=== PATIENT | male | born 1945 | race Caucasian/White ===

== ENCOUNTER 2020-03-26 07:09 | Emergency (ER) | payer OTHER, SELFPAY ==
--- NOTE | 2020-03-26 07:17 | CT_ITS ---
EXAMINATION: CT HEAD CT FACIAL BONES CLINICAL INFORMATION: Trauma COMPARISON: None TECHNIQUE: Axial CT had is performed without contrast. Axial CT facial bones is performed without contrast. Additional 2-D coronal and sagittal reformatted images for each exam is generated on the CT workstation and uploaded to PACS. DOSE LOWERING TECHNIQUES: This CT examination was performed using dose optimization techniques as appropriate, variously including the following: *Automated exposure control *Adjustment of mA and/or kV according to patient size (this includes techniques or standardized protocols for targeted exams where dose is matched to indication/reason for exam; i.e. extremities or head) *Use of iterative reconstruction technique DLP: 678 mGy-cm (brain) 626 mGy-cm (facial) FINDINGS: CT head: There is hemorrhagic inferior right frontal lobe adjacent to superior orbital fracture. High attenuation intraparenchymal hemorrhage measures approximately 0.8 x 0.8 x 1.9 cm. There is some punctate petechial hemorrhage also in this area and associated parenchymal edema. There is no subdural or epidural hematoma. No intraventricular hemorrhage. The remainder of the brain is unremarkable. The ventricles are normal in size. There is no hydrocephalus. No midline shift. The remainder of the edmonds-white matter differentiation is unremarkable. The calvarium is otherwise intact. The middle ears and mastoids are well-aerated and clear. No pneumocephalus. CT facial bones: Displaced elevated superior medial orbital wall fracture with displacement approximately 0.7 cm towards the brain. The remainder of the orbits, zygomatic arches, pterygoid plates, nasal bones, and mandible appear intact. No other fractures. There is soft tissue swelling overlying the right orbit. The right globe shows mild exophthalmos but otherwise intact. Lens in position. There is some herniation of superior orbital fat into the displaced fracture. Left orbit unremarkable. Preliminary results called and discussed with Dr. Mccoy in the emergency Department at 1001 hours. IMPRESSION: 1. Right inferior frontal lobe acute hemorrhagic contusion/hematoma approximately 0.8 x 0.8 x 1.9 cm secondary to displaced right superior orbital wall fracture. Mild exophthalmos. Globe unremarkable. 2. No epidural or subdural hemorrhage. No hydrocephalus or midline shift.
[2020-03-26 07:18] VITALS: BP 190/83; PULSE 76; RESP 20; TEMP 36.8; O2SAT 100; BMI 33.0
--- NOTE | 2020-03-26 07:18 | CT_ITS ---
EXAMINATION: CT CERVICAL SPINE WITHOUT CONTRAST CLINICAL INFORMATION: Trauma COMPARISON: None TECHNIQUE: Axial images through the cervical spine without contrast. Sagittal and coronal reconstructions on the technologist workstation were obtained. This CT examination was performed using dose optimization techniques as appropriate, variously including the following: *Automated exposure control *Adjustment of mA and/or kV according to patient size (this includes techniques or standardized protocols for targeted exams where dose is matched to indication/reason for exam; i.e. extremities or head) *Use of iterative reconstruction technique DLP: 626 mGy-cm FINDINGS: Bone alignment is normal. No fracture or dislocation is seen. There is multilevel degenerative spondylosis and degenerative disc disease at C5-C6, C6-C7 and C7-T1. There are degenerative changes at the C1 dens articulation. Prevertebral soft tissues are normal. Visualized lung apices are clear. IMPRESSION: Degenerative changes. No fracture or dislocation seen.
--- NOTE | 2020-03-26 07:22 | ED_ITS ---
HPI - Head Injury General Chief complaint: Fall Stated complaint: r eyelid laceration at home Time Seen by Provider: 03/26/20 07:17 Source: patient Mode of arrival: ambulatory Limitations: no limitations History of Present Illness HPI Narrative: 74 yo male fell this AM at 3 out of bed sustained rt orbital hematoma,he is anticoagulated with eliquis. Denies LOC,vomiting . He is also c/o left shoulder pain Complaint: other (RT ORBIT) Onset (ago): hour(s) (5) Arrival Conditions: negative C-spine immobilization present Mechanism of Injury: fall Place: home Loss of Consciousness: no Location of injury: other (RT ORBIT) Severity: moderate Severity scale (1-10): 5 Quality: dull Radiation: none Other Injuries: none Context: other (ELIQUIS) Associated symptoms: denies other symptoms Related Data Allergies Allergy/AdvReac Type Severity Reaction Status Date / Time SHRIMP Allergy Nausea and Uncoded 03/26/20 07:28 Vomiting Review of Systems Constitutional: Constitutional: Denies weakness ENT: Denies disequilibrium Cardiovascular: Cardiovascular: Reports no additional cardiovascular complaints and Denies dyspnea Respiratory: Respiratory: Denies dyspnea Musculoskeletal: Musculoskeletal: Denies tingling Neurologic: Reports system reviewed and no additional complaints, except as documented, Denies Abnormal speech present, Denies focal weakness, Denies memory loss, Denies convulsions, Denies seizure-like activity, Denies Sensory deficit (Neuro), Denies tingling, Denies paresthesias, Denies tremor(s), Denies disequilibrium and Denies weakness Psychiatric: Psychiatric: Denies memory loss PMF Past Medical History Attestation statement: The following information was validated with the patient. Medical History Afib Diabetes PTSD (post-traumatic stress disorder) TBI (traumatic brain injury) Surgical History Hx of vasectomy Social History Social History Smoking Status: Former smoker Smoked in Last 30 Days: No Use of substances other than those prescribed or required for medical reasons: No Advance Directives: No Advance Directives Information Provided: Yes Physical Exam Vital Signs: Vital Signs: Vital Signs Temp Pulse Resp BP Pulse Ox 03/26/20 10:40 72 18 145/61 H 95 03/26/20 09:14 82 18 179/81 H 94 03/26/20 07:18 98.3 F 76 20 190/83 H 100 Body Mass Index 33.0 Const: General: cooperative and no acute distress Orientation/consciousness: oriented to person, oriented to place, oriented to time and patient oriented x3 HENMT: Other: LARGE HEMATOMA RT ORBIT,4 CM LACERATION RT UPPER ORBIT Ears: hearing grossly normal bilaterally General nose exam: Normal external nose present Face and sinus: Yes ecchymosis (RT ORBIT) Mouth: Normal oral and palatal mucosa present Throat: Yes posterior oropharynx normal Neck: Neck: Yes normal visual inspection, Yes full ROM, Yes no lymphadenopathy and Yes no meningeal signs Chest: Chest palpation & inspection: normal inspection of the chest, normal palpation of entire chest wall and abnormal inspection of the chest Resp: Effort & Inspection: normal respiratory effort and able to speak in complete sentences Auscultation: clear to auscultation bilaterally Cardio: Jugular venous distension: no JVD Rate: regular rate GI: Inspection: Yes normal to inspection Percussion: Yes normal to percussion Auscultation: normal bowel sounds : General: Yes no CVA tenderness Back/Spine/Pelvis: Back: no CVA tenderness Cervical Spine: No collar present Neuro: General: oriented to person, oriented to place, oriented to time, patient oriented x3, gait normal and no meningeal signs Cognition (Neuro): normal cognition Speech: No Abnormal speech present Gait exam (Neuro): Normal gait present Motor exam (neuro): 5/5 motor strength present throughout Sensory Exam: No Sensory deficit (Neuro) Extrem: Other: TENDERNESS LEFT SHOULDER Course Reevaluation(s) Reevaluation #1: PATIENT REMAINED AWAKE AND ALERT, HE IS NEUROLOGICALLY INTACT CT SCAN OF THE HEAD REVIEWED WITH [facility], HE WILL BE TRANSFERRED TO THE EMERGENCY ROOM AT [facility] I SPOKE WITH DR. GARCIA WHO ACCEPTED AT THE PATIENT MDM - Head Injury Differential Diagnosis Differential diagnosis: Likely concussion with loss of consciousness Lab Data Result diagrams: 03/26/20 07:49 03/26/20 07:49 Labs: Lab Results 03/26/20 03/26/20 03/26/20 Range/Units 07:49 07:49 07:49 WBC 12.5 H (4.8-10.8) X10*3/uL RBC 4.75 (4.60-5.80) X10*6/uL Hgb 15.4 (14.0-18.0) g/dl Hct 44.8 (42-52) % MCV 94.3 (80-98) fL MCH 32.4 (27.0-33.0) pg MCHC 34.4 (31.0-36.0) g/dl RDW 12.5 (11.0-16.0) % Plt Count 242 (160-400) X10*3/uL MPV 10.7 (9.4-12.4) fL Immature Gran % (Auto) 0.6 H (0.0-0.4) % Neut % (Auto) 80.7 H (45-73) % Lymph % (Auto) 12.4 L (20-40) % Terrell % (Auto) 4.5 (2-11) % Eos % (Auto) 1.2 (0-4) % Baso % (Auto) 0.6 (0-2) % Lymph # (Auto) 1.6 (1.2-4.9) X10*3/uL Terrell # (Auto) 0.6 (0.1-1.2) X10*3/uL Eos # (Auto) 0.2 (0.0-0.4) X10*3/uL Baso # (Auto) 0.1 (0.0-0.2) X10*3/uL Abs Immat Gran (auto) 0.08 H (0.00-0.03) X10*3/uL Absolute Neuts (auto) 10.1 H (2.0-8.3) X10*3/uL Absolute Nucleated RBC 0.000 (0.0-0.012) X10*3/uL Nucleated RBC % (auto) 0.0 (0.0-0.2) /100WBC PT 16.5 H (10.8-13.0) SEC INR 1.4 H (0.9-1.1) APTT 38.3 H (24.1-38.0) SEC Sodium 137 (135-145) mmol/L Potassium 4.2 (3.3-5.1) mmol/l Chloride 102 (96-108) mmol/L Carbon Dioxide 27 (22-29) mmol/L Anion Gap 12 (12-20) BUN 12 (9-16) mg/dL Creatinine 0.88 (0.5-1.4) mg/dL Estim Creat Clear Calc 79.8 Estimated GFR > 60 POC Glucose (60-115) mg/dL Random Glucose 218 H (60-115) mg/dL Calcium 9.1 (8.4-10.2) mg/dL Total Bilirubin 0.7 (0.0-1.0) mg/dL AST 24 (5-37) U/L ALT 27 (0-40) U/L Alkaline Phosphatase 56 (39-117) U/L Total Protein 6.7 (6.5-8.0) g/dL Albumin 4.3 (3.5-5.0) g/dL 03/26/20 Range/Units 08:11 WBC (4.8-10.8) X10*3/uL RBC (4.60-5.80) X10*6/uL Hgb (14.0-18.0) g/dl Hct (42-52) % MCV (80-98) fL MCH (27.0-33.0) pg MCHC (31.0-36.0) g/dl RDW (11.0-16.0) % Plt Count (160-400) X10*3/uL MPV (9.4-12.4) fL Immature Gran % (Auto) (0.0-0.4) % Neut % (Auto) (45-73) % Lymph % (Auto) (20-40) % Terrell % (Auto) (2-11) % Eos % (Auto) (0-4) % Baso % (Auto) (0-2) % Lymph # (Auto) (1.2-4.9) X10*3/uL Terrell # (Auto) (0.1-1.2) X10*3/uL Eos # (Auto) (0.0-0.4) X10*3/uL Baso # (Auto) (0.0-0.2) X10*3/uL Abs Immat Gran (auto) (0.00-0.03) X10*3/uL Absolute Neuts (auto) (2.0-8.3) X10*3/uL Absolute Nucleated RBC (0.0-0.012) X10*3/uL Nucleated RBC % (auto) (0.0-0.2) /100WBC PT (10.8-13.0) SEC INR (0.9-1.1) APTT (24.1-38.0) SEC Sodium (135-145) mmol/L Potassium (3.3-5.1) mmol/l Chloride (96-108) mmol/L Carbon Dioxide (22-29) mmol/L Anion Gap (12-20) BUN (9-16) mg/dL Creatinine (0.5-1.4) mg/dL Estim Creat Clear Calc Estimated GFR POC Glucose 227 H (60-115) mg/dL Random Glucose (60-115) mg/dL Calcium (8.4-10.2) mg/dL Total Bilirubin (0.0-1.0) mg/dL AST (5-37) U/L ALT (0-40) U/L Alkaline Phosphatase (39-117) U/L Total Protein (6.5-8.0) g/dL Albumin (3.5-5.0) g/dL Imaging Data CT scan - head: Radiologist's impression: RIGHT ORBITAL FRACTURE DISPLACED, RIGHT FRONTAL LOBE BLEED There is hemorrhagic inferior right frontal lobe adjacent to superior orbital fracture. High attenuation intraparenchymal hemorrhage measures approximately 0.8 x 0.8 x 1.9 cm. There is some punctate petechial hemorrhage also in this area and associated parenchymal edema. There is no subdural or epidural hematoma. No intraventricular hemorrhage. The remainder of the brain is unremarkable. The ventricles are normal in size. There is no hydrocephalus. No midline shift. The remainder of the edmonds-white matter differentiation is unremarkable. The calvarium is otherwise intact. The middle ears and mastoids are well-aerated and clear. No pneumocephalus. CT facial bones: Displaced elevated superior medial orbital wall fracture with displacement approximately 0.7 cm towards the brain. The remainder of the orbits, zygomatic arches, pterygoid plates, nasal bones, and mandible appear intact. No other fractures. There is soft tissue swelling overlying the right orbit. The right globe shows mild exophthalmos but otherwise intact. Lens in position. There is some herniation of superior orbital fat into the displaced fracture. Left orbit unremarkable. Preliminary results called and discussed with Dr. Mccoy in the emergency Department at 1001 hours. IMPRESSION: 1. Right inferior frontal lobe acute hemorrhagic contusion/hematoma approximately 0.8 x 0.8 x 1.9 cm secondary to displaced right superior orbital wall fracture. Mild exophthalmos. Globe unremarkable. 2. No epidural or subdural hemorrhage. No hydrocephalus or midline shift. Critical Care Time Critical Care Time Critical Care Time: Yes Total Critical Care Time: 35 Attestation: CEREBRAL BLEEDING,DISCUSSION WITH PT /TRANSFER ARRANGEMENT TO [facility] Discharge Plan Discharge Clinical Impression: Orbital fracture Qualifiers: Encounter type: initial encounter Fracture type: closed Qualified Code(s): S02.85XA - Fracture of orbit, unspecified, initial encounter for closed fracture Cerebral hemorrhage following injury Qualifiers: Encounter type: initial encounter Laterality: right Loss of consciousness presence/duration: without LOC Qualified Code(s): S06.340A - Traumatic hemorrhage of right cerebrum without loss of consciousness, initial encounter Patient Disposition: [facility]
--- NOTE | 2020-03-26 07:26 | XR_ITS ---
EXAMINATION: XR SHOULDER, LEFT CLINICAL INFORMATION: Trauma, pain COMPARISON: None TECHNIQUE: The left shoulder is imaged in 4 views. FINDINGS: There is no fracture or dislocation or destructive process. The acromioclavicular alignment is normal. There is small corticated ossicle at superior aspect AC joint. Punctate calcific tendinosis seen in region of distal infraspinatus. Left lung apex is clear and shows no pneumothorax. IMPRESSION: 1. No fracture or dislocation. 2. Punctate calcific tendinosis distal rotator cuff.
[2020-03-26 07:53] LABS: MANUAL DIFF FLAG NO
[2020-03-26 08:02] LABS: Basophils Absolute Auto 0.1 X10*3/uL (0.0-0.2); Basophils Percent Auto 0.6 % (0-2); Eosinophils Absolute Auto 0.2 X10*3/uL (0.0-0.4); Eosinophils Percent Auto 1.2 % (0-4); Hematocrit 44.8 % (42-52); Hemoglobin 15.4 g/dl (14.0-18.0); Imm Gran Abs Auto 0.08 X10*3/uL (0.00-0.03); Imm Gran Pct Auto 0.6 % (0.0-0.4); Lymphocytes Absolute Auto 1.6 X10*3/uL (1.2-4.9); Lymphocytes Percent Auto 12.4 % (20-40); Mean Corpuscular HGB Conc 34.4 g/dl (31.0-36.0); Mean Corpuscular Hemoglobin 32.4 pg (27.0-33.0); Mean Corpuscular Volume 94.3 fL (80-98); Mean Platelet Volume 10.7 fL (9.4-12.4); Monocytes Absolute Auto 0.6 X10*3/uL (0.1-1.2); Monocytes Percent Auto 4.5 % (2-11); Neutrophils Absolute Auto 10.1 X10*3/uL (2.0-8.3); Neutrophils Percent Auto 80.7 % (45-73); Platelet Count 242 X10*3/uL (160-400); Red Blood Count 4.75 X10*6/uL (4.60-5.80); Red Cell Distribution Width 12.5 % (11.0-16.0); White Blood Count 12.5 X10*3/uL (4.8-10.8)
[2020-03-26 08:08] LABS: INTERNATIONAL NORM RATIO 1.4 (0.9-1.1); Prothrombin Time 16.5 SEC (10.8-13.0)
[2020-03-26 08:10] LABS: Partial Thromboplastin Time 38.3 SEC (24.1-38.0)
[2020-03-26 08:15] LABS: Glucose, Whole Blood 227 mg/dL (60-115)
[2020-03-26 08:17] LABS: Alanine Aminotransferase 27 U/L (0-40); Albumin Level 4.3 g/dL (3.5-5.0); Alkaline Phosphatase 56 U/L (39-117); Anion Gap 12 (12-20); Aspartate Amino Transferase 24 U/L (5-37); Bilirubin Total 0.7 mg/dL (0.0-1.0); Blood Urea Nitrogen 12 mg/dL (9-16); Calcium 9.1 mg/dL (8.4-10.2); Carbon Dioxide 27 mmol/L (22-29); Chloride 102 mmol/L (96-108); Creatinine Clr Calc Pharmacy 79.8; Estimated Glomerular Filt Rate > 60; Glucose Random 218 mg/dL (60-115); Potassium 4.2 mmol/l (3.3-5.1); Sodium 137 mmol/L (135-145); Total Protein 6.7 g/dL (6.5-8.0)
[2020-03-26 09:14] VITALS: BP 179/81; PULSE 82; RESP 18; O2SAT 94
--- NOTE | 2020-03-26 09:17 | PC.NURSE ---
PT AMBULATED WITH STEADY GAIT TO THE BATHROOM, PT DOES REPORT SLIGHT HEADACHE PAIN AT 4/10, ANS SOME LEFT SIDED SHOULDER PAIN WITH MOVEMENT. PT'S RIGHT EYE SWOLLEN SHUT, PAINFULL
[2020-03-26 10:40] VITALS: BP 145/61; PULSE 72; RESP 18; O2SAT 95
[2020-03-26] MEDS: Lidocaine HCl 1 % 20 ML VIAL SUBCUT (10:40)
--- NOTE | 2020-03-26 10:43 | PC.NURSE ---
PT RESTING WITH EYES SHUT, SKIN PWD, RESPIRATIONS EVEN AND UNLABORED, NS ON THE MONITOR. ALL NURO INTACT, BUT REPORTS LSIGHT DULL HEADACHE RIGHT OVER THE RIGHT EYE, EYE STILL VERY SWOLLEN AND BLUISH IN COLOR, VS STABLE
--- NOTE | 2020-03-26 11:08 | PC.NURSE ---
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
--- NOTE | 2020-03-26 11:17 | PC.NURSE ---
report given to Natalie mejia at [facility]
== END 2020-03-26 11:18 | disposition short-term general hospital (02) ==
PROVIDERS: Emergency Provider Emergency Medicine
DX: S02.85XA Fracture of orbit, unspecified, initial encounter for closed fracture (principal); S06.340A Traumatic hemorrhage of right cerebrum without loss of consciousness, initial encounter; H57.11 Ocular pain, right eye; M54.5 Low back pain; G44.309 Post-traumatic headache, unspecified, not intractable; M54.2 Cervicalgia; M25.512 Pain in left shoulder; W01.0XXA Fall on same level from slipping, tripping and stumbling without subsequent striking against object, initial encounter; Y93.01 Activity, walking, marching and hiking; Y92.009 Unspecified place in unspecified non-institutional (private) residence as the place of occurrence of the external cause; Z87.891 Personal history of nicotine dependence
CPT/HCPCS: 36415; 70450; 70486; 72125; 73030; 80053; 82947; 85025; 85610; 85730; 99285; 99291

== ENCOUNTER 2024-06-07 08:56 | Emergency (ER) | payer OTHER, SELFPAY ==
--- NOTE | ~2024-06-07 | XR_ITS ---
CLINICAL HISTORY: pain fall 4 views left knee Comparison: None Findings: No fractures, subluxations or dislocations. Mild joint space narrowing medial and lateral knee compartment. No osteochondral lesions or loose bodies. Normal patellar alignment. No suprapatellar joint effusion.No prepatellar soft tissue swelling. Mild calcified atherosclerotic disease. No unusual radiopaque foreign body. Impression: 1. No acute fractures or malalignment This document has been electronically signed by: Inderjit Cutler MD on 06/07/2024 10:51:51
[2024-06-07 08:58] VITALS: BP 125/55; PULSE 59; RESP 20; TEMP 36.7; O2SAT 94; BMI 29.5
--- OUTSIDE RECORDS SUMMARY | 2024-06-07 08:59 | XMS_ITS | Encounter Summary ---
Author Name [facility] Organization [facility] [place] Address [address] [place] [address] Care Team Providers Care Commissioned Security Officer Name Role Phone RISSA MCGRAW Primary Care Provider Unavailnadia hall Insurance Providers: All historical and current Section Date Range: From patient's date of to the date document was created. This section includes the names of all active insurance providers for the patient. Insurance Provider Type of Coverage Plan Name Start of Policy Coverage End of Policy Coverage Group Number Member ID Insurance Provider's Telephone Number Policy Villalta's Name Patient's Relationship to Policy Villalta [employer] [place] PREFERRED PROVIDER ORGANIZAT ION (PPO) STAND GOOD FAMIL Y Jun 11, 2001 [id number] Venkat VELASQUEZ AVID PATIENT MEDICARE (WNR) MEDICARE (M) PART B Dec 09, 2008 PART B [id number] [phone] Venkat VELASQUEZ AVID PATIENT MEDICARE (WNR) MEDICARE (M) PART B Dec 09, 2008 PART B [id number] Venkat VELASQUEZ AVID PATIENT MEDICARE (WNR) MEDICARE (M) PART B Dec 09, 2008 PART B [id number] 30A [phone] Venkat VELASQUEZ AVID PATIENT MEDICARE (WNR) MEDICARE (M) PART A Jun 11, 2007 PART A [id number] Venkat VELASQUEZ AVID PATIENT MEDICARE (WNR) MEDICARE (M) PART A Jun 11, 2007 PART A [id number] 30A Venkat VELASQUEZ AVID PATIENT MEDICARE (WNR) MEDICARE (M) PART A Jun 11, 2007 PART A [id number] 30A Venkat VELASQUEZ AVIVenkat PATIENT Selected Encounter This section includes the information on record at ID for the Encounter. Date/Time Encounter Type Encounter Description Reason Pro vider Source May 19, 2024 12:04 PM Outpatient Encounter TELEPHONE TRIAGE IHE Encounter Template Text not used by ID Plan of Treatment: Future Appointments (+ 6 months) and Future Tests (+/- 45 days) The Plan of Treatment section includes future care activities for the patient [facility] This section includes future appointments and future orders which are active, pending or scheduled. Future Appointments This section includes appointments that were scheduled to occur 6 months from the date of the Encounter, up to a maximum of 20 appointments. The data comes from all [facility]. Appointment Date/Time Appointment Type Appointme nt Facility Name May 26, 2024 11:30 AM AMBULATORY - MEDICINE ID [facility] [place] [facility] Jun 06, 2024 02:30 PM AMBULATORY - MEDICINE ID C [facility] [facility] Jun 17, 2024 02:30 PM AMBULATORY - MEDICINE ID C [facility] [facility] Jul 23, 2024 02:30 PM AMBULATORY - MEDICINE ID C [facility] [place] [facility] Jul 31, 2024 10:45 AM AMBULATORY - NONE ID [facility] [place] [facility] Aug 07, 2024 09:30 AM AMBULATORY - MEDICINE ID C [facility] [facility] Aug 27, 2024 01:00 PM AMBULATORY - NONE ID [facility] [place] [facility] November 04, 2024 02:00 PM AMBULATORY - MEDICINE ID C [facility] [place] [facility] Active, Pending, and Scheduled Orders This section includes a listing of several types of active, pending, and scheduled orders, including clinic medications orders, diagnostic test orders, procedure orders and consult orders; where the start date of the order is 45 days before the date of the Encounter or 45 days after the date of theEncounter. The data comes from all [facility] treatment facilities. Test Date/Time Test Type Test Details Facility Name May 09, 2024 12:00 AM Laboratory - Chemistry Order MICROALBUMIN CREATININE RATIO PANEL URINE (RANDOM) SP [facility] May 26, 2024 12:09 PM Procedure Order ECHO CP CARDIOLOGY ECHO/ NHM Proc Animal Breeder's Choice [facility] Lab Results: +/- 30 days of the encounter This section includes the Chemistry and Hematology Lab Results on record with ID for the patient. Radiology Reports and Pathology Reports are provided separately, in subsequent sections. Lab Results This section contains the Chemistry/Hematology Results that were resulted 30 days before or 30 daysafter the date of the Encounter. Date/Time Source Result Type Result - Unit Interpretation Reference Range Comment May 16, 2024 11:12 AM [facility] HEMOGLOBIN A1C PANEL Specimen Type: BLOOD Comment: Values obtained from A1C measurements can vary. For atypical A1C assays, a reported value of 7.0 could actually be between 6.72 and 7.28 if measured by a reference method. A reported value of 9.0 could actually be between 8.73 and 9.27. Ref: http://www.ngs p.org/CAPdata. asp Ordering Provider: RISSA MCGRAW Report Released Date/Time: May 09, 2024 07:52 AM Reporting Lab: [address] [id number] Performing Lab: [address] [address] HEMOGLOBIN A1C 7.2 H 4.0-5.6 May 16, 2024 11:12 AM [facility] BASIC METABOLIC PANEL (fasting) Specimen Type: SERUM No comment entered. Ordering Provider: RISSA MCGRAW Report Released Date/Time: May 09, 2024 07:52 AM Reporting Lab: [address] [address] Performing Lab: [address] [address] UREA NITROGEN 13 mg/dL 7-25 GLUCOSE 201 mg/dL H 65-100 SODIUM 138 mmol/L 135-145 POTASSIUM 4.1 mmol/L 3.5-5.0 CHLORIDE 101 mmol/L 100-110 CO2 27 meq/L 20-30 CREATININE, Serum 0.90 mg/dL 0.50-1.40 eGFR(CKD-EPI 2020) 88 mL/min >60 Social History: Smoking Status (Most current) and Tobacco Use (All prior to encounter date) This section includes the most current, and the historical, smoking and tobacco- related health factors from the ID facility where the Encounter took place. Current Smoking Status This section includes the most current smoking, or tobacco-related health factor, from the ID facility where the Encounter took place. Date/Time Current Smoking Status Comment [facility] May 17, 2023 02:16 PM [facility] Tobacco Use History This section includes a history of the smoking, or tobacco-related health factors, that were collected on or before the date of the Encounter. The data comes from the ID facility where the Encounter took place. Date/Time Smoking Status/Tobac co Use Comment Facility May 09, 2022 10:45 AM VA-TOBACCO NEVER USED ID [facility] Mar 30, 2021 01:02 PM VA-TOBACCO FORMER USER ID [facility] [place] [facility] Mar 30, 2021 01:02 PM VA-TOBACCO QUIT 5 TO < 15 YRS ID [facility]TR [place] [facility] Aug 31, 2004 09:56 AM HISTORY OF SMOKING QUIT 20 YEARS AGO ID CNTR [facility] [place] [facility] Aug 08, 2004 02:45 PM [facility]ET[facility]CO [facility] Encounter Notes: All associated encounter notes This section contains the clinical notes associated to the Encounter. Date/Time Encounter Note(s) Provider Source May 19, 2024 01:00 PM ADDENDUM: LOCAL TITLE: Addendum STANDARD TITLE: ADDENDUM DATE OF NOTE: MAY 19, 2024@13:00:39 ENTRY DATE: MAY 19, 2024@13:00:40 AUTHOR: ABDON GUERRERO COSIGNER: URGENCY: STATUS: COMPLETED Paranormal Investigator noted in the [facility] portal that arrived via EMS- [facility] to the ED around 12:50. C/o dizziness at rest and n/v starting at 4am. Unsteady gait. Alerting transfer coordinators /elle/ ABDON GUERRERO, MSN, RN, CNL PRIMARY CARE TEAM NURSE Signed: 05/19/2024 13:03 Receipt Acknowledged By: 05/19/2024 15:46 /elle/ Tess Kee MSN,RN,CCM TRANSFER/TRAVELING COORDINATOR === --- Original Document --- 05/19/24 CCC: CLINICAL TRIAGE: Patient Demographics Patient Name: BRIAN VELASQUEZ JR Patient Primary Address: [address] [place] [address] Patient Primary Phone: [phone] Patient : 1945 Patient Age: 78 Caller/Recipient Relation to Patient: Self Caller Name: BRIAN VELASQUEZ JR Emergency Contact: KHADRA VELASQUEZ Triage Summary Conducted triage/discussed symptoms Pain Score: 7 (Moderate to Severe Pain) Utilized the Triage Tool: Yes Chief Complaint: Dizziness System WHEN: Now, 911 Nurse's Recommendation / WHEN: 911 System WHERE: Emergency department Nurse's Recommendation / WHERE: ED ID Patient Disposition Patient/Caregiver agrees to plan of care: Yes Patient is Urgent or Emergent Nursing Plan and Disposition Referred patient to higher level of care Instructed to go to Emergency Room (ER) Advised of Financial Disclaimer: Patient advised that recommendation for care provided during the call does not constitute an approval or authorization for payment by the ID or its staff. Patient advised to report a community ED visit to the national Office of Community Care at within 72 hours. Contacted EMS/e911 Other Other Description: e911 contacted by a colleague Other course(s) of action Generated msg to PACT/Provider Provided guidance for worsening symptoms: *Caller/Patient* advised to call facilities ID Clinical Contact Center or seek immediate medical attention for new or worsening symptoms Nurse Summary Nurse Summary: [place] calling to report that he began vomiting this morning around 04:00. He reports dizziness, and left arm/shoulder pain. reports a history of stroke. BS this morning was 137. also reports that he fell down the stairs two days ago, injuring his back. This author contacted a colleague who summoned 911/ambulance to the home while I stayed on the line with the . is at home with his . [place] understands that the Triage Line is staffed to 24/7 should any need arise. stated no additional concerns to address at this time. +++++ EMS arrived at 9:03. They will recheck the blood sugar and evaluate the patient. Clinical Contact Center Codes Clinic/Location: V1 CWM PHONE CCC RN Decision Support System Output: Triage Complete Triage Date: 05/19/2024, 11:56 AM Triage Note: Decision Support Tool Used: TXCC Phone Triage 19 May 2024 16:49:44 +0000 [facility] Demographics 78 y/o Male Results CC: Dizziness Software suggested: Now, 911 Software suggested follow-up location: Emergency department Values and Measures Duration of CC: 8 Hours Positive Responses HPI: difficulty with balance HPI: dizziness, triggered by head motion PMH: stroke or TIA VS: BP not taken Negative Responses Denies: HPI: difficulty speaking, sudden onset Denies: HPI: diplopia Denies: HPI: dizziness or vertigo, similar to past stroke or TIA Denies: HPI: dysarthria, sudden onset Denies: HPI: dysphagia, sudden onset Denies: HPI: facial weakness, unilateral, sudden onset Denies: HPI: falling to one side Denies: HPI: headache Denies: HPI: mental status change, confusion Denies: HPI: numbness in one arm or hand, sudden onset Denies: HPI: numbness in one foot or leg, sudden onset Denies: HPI: seizure Denies: HPI: symptoms duration longer than 24 hours Denies: HPI: syncope Denies: HPI: unable to walk, sudden onset Denies: HPI: vertigo Denies: HPI: vision loss, unilateral Denies: HPI: weakness in one arm or hand, sudden onset Denies: HPI: weakness in one leg or foot, sudden onset IMPORTANT: This note was created by [facility] Clinical Contact Center staff. Please do not alert the staff member by adding them as a signer for future communications. Alerts are not monitored by this user. /elle/ AFR[place] YAP Signed: 05/19/2024 12:04 Receipt Acknowledged By: 05/19/2024 14:17 /es/ ARIEL GOTTLIEB LPN License Practical Nurse 05/19/2024 13:00 /es/ ABDON GUERRERO, MSN, RN, CNL PRIMARY CARE TEAM NURSE for ELEANOR AGUILERA ABDON GUERRERO ID CNTL [facility] May 19, 2024 12:04 PM RN PROGRESS NOTE: LOCAL TITLE: CCC: CLINICAL TRIAGE STANDARD TITLE: RN PROGRESS NOTE DATE OF NOTE: MAY 19, 2024@12:04:52 ENTRY DATE: MAY 19, 2024@12:04:52 AUTHOR: AFRICA YAP EXP COSIGNER: URGENCY: STATUS: COMPLETED CCC: CLINICAL TRIAGE Has ADDENDA Patient Demographics Patient Name: BRIAN VELASQUEZ JR Patient Primary Address: [address] [place] [address] Patient Primary Phone: [phone] Patient : 1945 Patient Age: 78 Caller/Recipient Relation to Patient: Self Caller Name: BRIAN VELASQUEZ JR Emergency Contact: KHADRA EVA Triage Summary Conducted triage/discussed symptoms Pain Score: 7 (Moderate to Severe Pain) Utilized the Triage Tool: Yes Chief Complaint: Dizziness System WHEN: Now, 911 Nurse's Recommendation / WHEN: 911 System WHERE: Emergency department Nurse's Recommendation / WHERE: ED [facility] Patient Disposition Patient/Caregiver agrees to plan of care: Yes Patient is Urgent or Emergent Nursing Plan and Disposition Referred patient to higher level of care Instructed to go to Emergency Room (ER) Advised of Financial Disclaimer: Patient advised that recommendation for care provided during the call does not constitute an approval or authorization for payment by the ID or its staff. Patient advised to report a community ED visit to the national Office of Community Care at within 72 hours. Contacted EMS/e911 Other Other Description: e911 contacted by a colleague Other course(s) of action Generated msg to PACT/Provider Provided guidance for worsening symptoms: *Caller/Patient* advised to call facilities ID Clinical Contact Center or seek immediate medical attention for new or worsening symptoms Nurse Summary Nurse Summary: [place] calling to report that he began vomiting this morning around 04:00. He reports dizziness, and left arm/shoulder pain. reports a history of stroke. BS this morning was 137. [place] also reports that he fell down the stairs two days ago, injuring his back. This author contacted a colleague who summoned 911/ambulance to the home while I stayed on the line with the . is at home with his . understands that the Triage Line is staffed to 24/7 should any need arise. [place] stated no additional concerns to address at this time. +++++ EMS arrived at 9:03. They will recheck the blood sugar and evaluate the patient. Clinical Contact Center Codes Clinic/Location: V1 CWM PHONE CCC RN Decision Support System Output: Triage Complete Triage Date: 05/19/2024, 11:56 AM Triage Note: Decision Support Tool Used: TXCC Phone Triage 19 May 2024 16:49:44 +0000 [facility] Demographics 78 y/o Male Results CC: Dizziness Software suggested: , 911 Software suggested follow-up location: Emergency department Values and Measures Duration of CC: 8 Hours Positive Responses HPI: difficulty with balance HPI: dizziness, triggered by head motion PMH: stroke or TIA VS: BP not taken Negative Responses Denies: HPI: difficulty speaking, sudden onset Denies: HPI: diplopia Denies: HPI: dizziness or vertigo, similar to past stroke or TIA Denies: HPI: dysarthria, sudden onset Denies: HPI: dysphagia, sudden onset Denies: HPI: facial weakness, unilateral, sudden onset Denies: HPI: falling to one side Denies: HPI: headache Denies: HPI: mental status change, confusion Denies: HPI: numbness in one arm or hand, sudden onset Denies: HPI: numbness in one foot or leg, sudden onset Denies: HPI: seizure Denies: HPI: symptoms duration longer than 24 hours Denies: HPI: syncope Denies: HPI: unable to walk, sudden onset Denies: HPI: vertigo Denies: HPI: vision loss, unilateral Denies: HPI: weakness in one arm or hand, sudden onset Denies: HPI: weakness in one leg or foot, sudden onset IMPORTANT: This note was created by [facility] Clinical Contact Center staff. Please do not alert the staff member by adding them as a signer for future communications. Alerts are not monitored by this user. /elle/ AFRICA YAP Signed: 05/19/2024 12:04 Receipt Acknowledged By: 05/19/2024 14:17 /es/ ARIEL GOTTLIEB MANAGER OF ENVIRONMENTAL SERVICES License Practical Nurse 05/19/2024 13:00 /es/ ABDON GUERRERO, MSN, RN, CNL PRIMARY CARE TEAM NURSE for ELEANOR AGUILERA 05/20/2024 07:22 /es/ RICARDO COLEMAN 05/19/2024 ADDENDUM STATUS: COMPLETED Paranormal Investigator noted in the [facility] portal that arrived via EMS- [facility] to the ED around 12:50. C/o dizziness at rest and n/v starting at 4am. Unsteady gait. Alerting transfer coordinators /elle/ ABDON GUERRERO, MSN, RN, CNL PRIMARY CARE TEAM NURSE Signed: 05/19/2024 13:03 Receipt Acknowledged By: 05/19/2024 15:46 /es/ Tess ASCENCIO,RN,[facility] TRANSFER/TRAVELING COORDINATOR AFR[place] YAP ID CNTRL [facility]
--- OUTSIDE RECORDS SUMMARY | 2024-06-07 08:59 | XMS_ITS | Encounter Summary ---
Author Name [facility] [place] Address [address] [place] [id number] Care Team Providers Care Roundhouse Worker Name Role Phone RISSA MCGRAW Primary Care Provider Unavailnadia e Insurance Providers: All historical and current Section [...] GOOD FAMIL Y [birth year] 11, 2001 [id number] Venkat VELASQUEZ AVID PATIENT MEDICARE (WNR) MEDICARE (M) PART B Dec 09, 2008 PART B [id number] Venkat VELASQUEZ AVID PATIENT MEDICARE (WNR) MEDICARE (M) PART B Dec 09, 2008 PART B [id number] [phone] Venkat VELASQUEZ AVID PATIENT MEDICARE (WNR) MEDICARE (M) PART B Dec 09, 2008 PART B [id number] [id number] Venkat VELASQUEZ AVID PATIENT MEDICARE (WNR) MEDICARE (M) PART A Jun 11, 2007 PART A [id number] [id number] Venkat VELASQUEZ AVID PATIENT MEDICARE (WNR) MEDICARE (M) PART A Jun 11, 2007 PART A [id number] Venkat VELASQUEZ AVID PATIENT MEDICARE (WNR) MEDICARE (M) PART A Jun 11, 2007 PART A [id number] 30A Venkat VELASQUEZ AVIVenkat PATIENT Selected Encounter This section includes the information on record at [place] for the Encounter. Date/Time Encounter Type Encounter Description Reason Pro vider Source May 16, 2024 11:17 AM Outpatient Encounter OPTOMETRY IHE Encounter Template Text not used by [place] Plan of Treatment: Future Appointments (+ 6 months) and Future Tests (+/- 45 days) The Plan of Treatment section includes future care activities for the patient from all [place] [facility] This section includes future appointments and future orders which are active, pending or scheduled. Future Appointments This section includes appointments that were scheduled to occur 6 months from the date of the Encounter, up to a maximum of 20 appointments. The data comes from all [facility]. Appointment Date/Time Appointment Type Appointme nt Facility Name May 26, 2024 11:30 AM AMBULATORY - MEDICINE [place] [facility] [facility] Jun 06, 2024 02:30 PM AMBULATORY - MEDICINE [place] C [facility] [place] [facility] Jun 17, 2024 02:30 PM AMBULATORY - MEDICINE [place] C [facility] [place] [facility] Jul 23, 2024 02:30 PM AMBULATORY - MEDICINE [place] C [facility] [facility] Jul 31, 2024 10:45 AM AMBULATORY - NONE [place] [facility] [place] [facility] Aug 07, 2024 09:30 AM AMBULATORY - MEDICINE [place] C [facility] [facility] Aug 27, 2024 01:00 PM AMBULATORY - NONE [place] [facility] [place] [facility] November 04, 2024 02:00 PM AMBULATORY - MEDICINE [place] C [facility] [place] [facility] Active, Pending, and Scheduled Orders This [...] MICROALBUMIN CREATININE RATIO PANEL URINE (RANDOM) SP [facility] May 26, 2024 12:09 PM Procedure Order ECHO CP CARDIOLOGY ECHO/ [facility] Proc Administrative Fellow's Choice [facility] Lab Results: +/- 30 days of the encounter This section includes the Chemistry and Hematology Lab Results on record with [place] for the patient. Radiology Reports and Pathology Reports are provided separately, in subsequent sections. Lab Results This section contains the Chemistry/Hematology Results that were resulted 30 days before or 30 daysafter the date of the Encounter. Date/Time Source Result Type Result - Unit Interpretation Reference Range Comment May 16, 2024 11:12 AM [facility] HEMOGLOBIN A1C PANEL Specimen Type: BLOOD [...] May 09, 2024 07:52 AM Reporting Lab: [address] [id number] Performing Lab: [address] [address] HEMOGLOBIN A1C 7.2 H 4.0-5.6 May 16, 2024 11:12 AM [facility] BASIC METABOLIC PANEL (fasting) Specimen Type: SERUM No comment entered. Ordering Provider: RISSA MCGRAW Report Released Date/Time: May 09, 2024 07:52 AM Reporting Lab: [address] [address] Performing Lab: [address] [address] UREA NITROGEN 13 mg/dL 7-25 GLUCOSE 201 [...] and tobacco- related health factors from the [place] facility where the Encounter took place. Current Smoking Status This section includes the most current smoking, or tobacco-related health factor, from the [place] facility where the Encounter took place. Date/Time Current Smoking Status Comment [facility] May 17, 2023 02:16 PM VA-TOBACCO NEVER USED [facility] Tobacco Use History This section includes a history of the smoking, or tobacco-related health factors, that were collected on or before the date of the Encounter. The data comes from the [place] facility where the Encounter took place. Date/Time Smoking Status/Tobac co Use Comment Facility May 09, 2022 10:45 AM [facility] Mar 30, 2021 01:02 PM VA-TOBACCO [facility] Mar 30, 2021 01:02 PM VA-TOBACCO QUIT 5 TO < 15 YRS [facility] Aug 31, 2004 09:56 AM HISTORY OF SMOKING QUIT 20 YE[facility] AGO [facility] Aug 08, 2004 02:45 PM [facility]ET[facility]CO [facility] Encounter Notes: All associated encounter notes This section contains the clinical notes associated to the Encounter. Date/Time Encounter Note(s) Provider Source May 16, 2024 11:17 AM TELEPHONE ENCOUNTE R NOTE: LOCAL TITLE: TELEPHONE NOTE/SPECIALTY CLINIC STANDARD TITLE: TELEPHONE ENCOUNTER NOTE DATE OF NOTE: MAY 16, 2024@11:17 ENTRY DATE: MAY 16, 2024@11:17:17 AUTHOR: NEDA BALLARD EXP COSIGNER: URGENCY: STATUS: COMPLETED TELEPHONE NOTE/SPECIALTY CLINIC Has ADDENDA came into specialty care stating he broke the arm on his frames. He said his lenses are fine. He would like the same pair as last time. Veterans cell phone and phone number on file have been confirmed /elle/ NEDA BALLARD SUPERVISOR [employer] Signed: 05/16/2024 11:18 Receipt Acknowledged By: 05/19/2024 11:50 /es/ LINDA POLLARD OPTOMETRY TECH 05/19/2024 09:22 /es/ OCTAVIO HOLLAND [facility] 05/16/2024 13:14 /elle/ Sara Weaver [employer] [place] 05/16/2024 11:47 /es/ ANSHU NOONAN OD MOLDER INFLATED BALL 05/16/2024 ADDENDUM STATUS: COMPLETED I called and spoke with patient- glasses are no longer under warranty. We did not order updated glasses at last visit in August 2023. Will order replacement pair today. Patient was thankful for assistance. /elle/ Sara Weaver [facility] [employer] Signed: 05/16/2024 13:14 NEDA BALLARD [place] [facility]
--- OUTSIDE RECORDS SUMMARY | 2024-06-07 09:00 | XMS_ITS | Encounter Summary ---
Author Name [facility] [place] [facility] [place] Address [address] [place] [address] Care Team Providers Care Website Admin Name Role Phone RISSA MCGRAW Primary Care Provider Unavailabl e Insurance Providers: All historical and current [...] GOOD FAMIL Y Jun 11, 2000 [id number] Venkat VELASQUEZ AVID PATIENT MEDICARE (WNR) MEDICARE (M) PART B Dec 09, 2008 PART B [id number] [id number] Venkat VELASQUEZ AVID PATIENT MEDICARE (WNR) MEDICARE (M) PART B Dec 09, 2008 PART B [id number] Venkat VELASQUEZ AVID PATIENT MEDICARE (WNR) MEDICARE (M) PART B Dec 09, 2008 PART B [id number] 30A Venkat VELASQUEZ AVID PATIENT MEDICARE (WNR) MEDICARE (M) PART A Jun 11, 2007 PART A [id number] [phone] EVA,D AVID PATIENT MEDICARE (WNR) MEDICARE (M) PART A Jun 11, 2007 PART A [id number] [facility] Venkat VELASQUEZ AVIVenkat PATIENT MEDICARE (WNR) MEDICARE (M) PART A Jun 11, 2007 PART A [id number] Venkat VELASQUEZ AVID PATIENT Selected Encounter This section includes the information on record at NH for the Encounter. Date/Time Encounter Type Encounter Description Reason Provider Source May 01, 2024 03:00 PM PARNG/CUTG B9 HYPRKR LES >4 PODIATRY ICD-10-CM E11.40 Type 2 diabetes mellitus with diabetic neuropathy, margi KASSIDY BUCIO Sharif Encounter Template Text not used by NH Assessments - Encounter Diagnoses This section includes the primary and secondary diagnoses documented for the Encounter. Date/Time Primary/Secondary Diagnosis Diagnosis Name Provider Source May 01, 2024 03:30 PM PRIMARY Type 2 diabetes mellitus with diabetic neuropathy, unsp [facility]LE [facility] [place] [facility] May 01, 2024 03:30 PM SECONDARY Corns and callosities [facility] [place] [facility] May 01, 2024 03:30 PM SECONDARY Nail dystrophy [facility] [place] [facility] Plan of Treatment: Future Appointments (+ 6 months) and Future Tests (+/- 45 days) The Plan of Treatment section includes future care activities for the patient from all [place] treatmentfacilities. This section includes future appointments and future orders which are active, pending or scheduled. Future Appointments This section includes appointments that were scheduled to occur 6 months from the date of the Encounter, up to a maximum of 20 appointments. The data comes from all [place] treatment facilities. Appointment Date/Time Appointment Type Appointme nt Facility Name May 13, 2024 07:30 AM AMBULATORY - NONE [place] [facility] [place] [facility] May 26, 2024 11:30 AM AMBULATORY - MEDICINE NH C [facility] [place] [facility] Jun 06, 2024 02:30 PM AMBULATORY - MEDICINE NH C [facility] [place] [facility] Jun 17, 2024 02:30 PM AMBULATORY - MEDICINE NH C [facility] [place] [facility] Jul 23, 2024 02:30 PM AMBULATORY - MEDICINE [facility] Jul 31, 2024 10:45 AM [facility] Aug 07, 2024 09:30 AM [facility] Aug 27, 2024 01:00 PM AMBULATORY - NONE [facility] Active, Pending, and Scheduled Orders This section includes a listing of several types of active, pending, and scheduled orders, including clinic medications orders, diagnostic test orders, procedure orders and consult orders; where the start date of the order is 45 days before the date of the Encounter or 45 days after the date of theEncounter. The data comes from all [place] treatment facilities. Test Date/Time Test Type Test Details Facility Name Mar 18, 2024 12:00 AM Laboratory - Chemistry Order BASIC METABOLIC PANEL (fasting) BLOOD (SST-SERUM) [facility] May 09, 2024 12:00 AM Laboratory - Chemistry Order MICROALBUMIN CREATININE RATIO PANEL URINE (RANDOM) [facility] May 26, 2024 12:09 PM Procedure Order ECHO CP CARDIOLOGY ECHO/ NH[facility] Proc Health Unit Coordinator's Choice [facility] Lab Results: +/- 30 days of the encounter This section includes the Chemistry and Hematology Lab Results on record with NH for the patient. Radiology Reports and Pathology Reports are provided separately, in subsequent sections. Lab Results This section contains the Chemistry/Hematology Results that were resulted 30 days before or 30 daysafter the date of the Encounter. Date/Time Source Result Type Result - Unit Interpretation Reference Range Comment May 16, 2024 11:12 AM [facility] HEMOGLOBIN A1C PANEL Specimen Type: BLOOD [...] May 09, 2024 07:52 AM Reporting Lab: [facility] [address] [id number] Performing Lab: [facility] [address] [facility] [address] HEMOGLOBIN A1C 7.2 H 4.0-5.6 May 16, 2024 11:12 AM [facility] BASIC METABOLIC PANEL (fasting) Specimen Type: SERUM No comment entered. Ordering Provider: RISSA MCGRAW Report Released Date/Time: May 09, 2024 07:52 AM Reporting Lab: [facility] [address] [id number] Performing Lab: [facility] [address] [facility] [address] UREA NITROGEN 13 mg/dL 7-25 GLUCOSE 201 [...] and tobacco- related health factors from the NH facility where the Encounter took place. Current Smoking Status This section includes the most current smoking, or tobacco-related health factor, from the [place] facility where the Encounter took place. Date/Time Current Smoking Status Comment Peng jha May 17, 2023 02:16 PM VA-TOBACCO NEVER USED [facility] Tobacco Use History This section includes a history of the smoking, or tobacco-related health factors, that were collected on or before the date of the Encounter. The data comes from the [place] facility where the Encounter took place. Date/Time Smoking Status/Tobac co Use Comment Facility May 09, 2022 10:45 AM [facility]ACCO [facility] Mar 30, 2021 01:02 PM [facility] Mar 30, 2021 01:02 PM VA-TOBACCO QUIT 5 TO < 15 YRS [facility] Aug 31, 2004 09:56 AM HISTORY OF SMOKING QUIT 20 YEARS AGO [facility] Aug 08, 2004 02:45 PM LIFETIME NON-TOBACCO USER [facility] Encounter Notes: All associated encounter notes This section contains the clinical notes associated to the Encounter. Date/Time Encounter Note(s) Provider Source May 01, 2024 03:26 PM NURSING OUTPATIENT NOTE: LOCAL TITLE: NURSING/SPECIALTY CLINIC NOTE STANDARD TITLE: NURSING OUTPATIENT NOTE DATE OF NOTE: MAY 01, 2024@15:26 ENTRY DATE: MAY 01, 2024@15:26:28 AUTHOR: KASSIDY BUCIO COSIGNER: URGENCY: STATUS: COMPLETED seen in [facility] for continued foot care. Fonda has a history of Diabetes and is unable to trim his/her own nails. Ambulates: [X]self [ ]wheelchair can transfer [ ]wheelchair cannot transfer [x ]without assistance [ ]with assistance of Bilateral: Pedal pulses: Right Foot: Dorsalis Pedis - palpable [x ] non-palpable[ ] Posterior Tibial - palpable[x ] non-palpable[ ] Left Foot: Dorsalis Pedis - palpable [x ] non-palpable [ ] Posterior Tibial - palpable [x ] non-palpable[ ] Pedal sensation: Right Foot: [ x] Intact [ ] Absent out of 10 sites Left Foot: [x ] Intact [ ] Absent out of 10 sites Skin Temperature: [x ] Warm to warm, proximal to distal [ ] Warm to cool/cold, proximal to distal Pedal skin: [x ] Intact [x ] Dry [ ] Cracked [ ] Discolored Webspaces: [x ] Intact [x ] Clean [ ] Soiled [ ] Macerated [x ] Dry Nails: [x ] Thickened [x ] Elongated [x ] Dystrophic [ ] Discolored [x ] Fungal [ ] Incurvated [ ] Subungual debri Hyperkeratosis [x ] Yes, Locations: Bilateral feet distil end of Hallux, 2nd and 3rd toes [ ] No Open lesions/wounds: [ ] Yes, Locations: [x ] No Amputations: [ ] Yes, Locations: [x ] No Edema present: ( ) Yes ( x ) NO Podiatric Problem List: [x ] Diabetes mellitus [ ] Peripheral vascular disease [x ] Neuropathy [ ] Onychomycosis [x ] Dystrophic toenails [x ] Hyperkeratosis/calluses [x ] Xerosis/dry skin [ ] Other: Treatment: [x ] Nails x 10 debrided in length and thickness without incident [x ] Hyperkeratotic lesions were grinded down with eletric graphite grinder and debrided without incidence. [x ]Patient education educated about proper foot care and encouraged to check feet daily for injuries and wounds [x ] Instructed to moisturize feet daily but not in-between to Patient is to RTC in 2.5 months. /elle/ KASSIDY BUCIO LPN LICENSED PRACTICAL NURSE Signed: 05/01/2024 15:30 Receipt Acknowledged By: 05/01/2024 16:49 /elle/ LOY ANDERSON DPM PODIATRY ATTENDING KASSIDY BUCIO CNTRL [facility]
--- OUTSIDE RECORDS SUMMARY | 2024-06-07 09:00 | XMS_ITS | Encounter Summary ---
Author Name [facility] [place] [facility] [place] Organization [facility] [place] Address [address] [place] [id number] Care Team Providers Care Poker Supervisor Name Role Phone RISSA MCGRAW Primary Care [...] GOOD FAMIL Y Jun 11, 2000 [id number] Venkat VELASQUEZ AVID PATIENT MEDICARE (WNR) MEDICARE (M) PART B Dec 09, 2008 PART B [id number] Venkat VELASQUEZ AVID PATIENT MEDICARE (WNR) MEDICARE (M) PART B Dec 09, 2008 PART B [id number] Venkat VELASQUEZ AVID PATIENT MEDICARE (WNR) MEDICARE (M) PART B Dec 09, 2008 PART B [id number] [phone] Venkat VELASQUEZ AVID PATIENT MEDICARE (WNR) MEDICARE (M) PART A Jun 11, 2007 PART A [id number] 30A Venkat VELASQUEZ AVID PATIENT MEDICARE (WNR) MEDICARE (M) PART A Jun 11, 2007 PART A [id number] Venkat VELASQUEZ AVID PATIENT MEDICARE (WNR) MEDICARE (M) PART A Jun 11, 2007 PART A [id number] 30A Venkat VELASQUEZ AVID PATIENT Selected Encounter This section includes the information on record at [place] for the Encounter. Date/Time Encounter Type Encounter Description Reason Pro vider Source May 09, 2024 02:48 PM Outpatient Encounter PRIMARY CARE/MEDICINE IHE Encounter Template Text not used by [place] Plan of Treatment: Future Appointments (+ 6 months) and Future Tests (+/- 45 days) The Plan of Treatment section includes future care activities for the [facility] This section includes future appointments and future orders which are active, pending or scheduled. Future Appointments This section includes appointments that were scheduled to occur 6 months from the date of the Encounter, up to a maximum of 20 appointments. The data comes from all [place] treatment facilities. Appointment Date/Time Appointment Type Appointme nt Facility Name May 13, 2024 07:30 AM AMBULATORY - NONE [place] [facility] [place] [facility] May 26, 2024 11:30 AM AMBULATORY - MEDICINE NM C [facility] [place] [facility] Jun 06, 2024 02:30 PM AMBULATORY - MEDICINE NM C [facility] [place] [facility] Jun 17, 2024 02:30 PM AMBULATORY - MEDICINE NM C [facility] [place] [facility] Jul 23, 2024 02:30 PM AMBULATORY - MEDICINE NM C [facility] [place] [facility] Jul 31, 2024 10:45 AM AMBULATORY - NONE [facility] [place] [facility] Aug 07, 2024 09:30 AM AMBULATORY - MEDICINE NM C [facility] [place] [facility] Aug 27, 2024 01:00 PM AMBULATORY - NONE [facility] [place] [facility] November 04, 2024 02:00 PM AMBULATORY - MEDICINE [place] C [facility] [place] [facility] Active, Pending, and Scheduled Orders This section includes a listing of several types of active, pending, and scheduled orders, including clinic medications orders, diagnostic test orders, procedure orders and consult orders; where the start date of the order is 45 days before the date of the Encounter or 45 days after the date of theEncounter. The data comes from all [place] treatment facilities. Test Date/Time Test Type Test Details Facility Name May 09, 2024 12:00 AM Laboratory - Chemistry Order MICROALBUMIN CREATININE RATIO PANEL URINE (RANDOM) [facility] May 26, 2024 12:09 PM Procedure Order ECHO CP CARDIOLOGY ECHO/ NHM Proc Lot Attendant's Choice [facility] Lab Results: +/- 30 days of the encounter This section includes the Chemistry and Hematology Lab Results on record with [place] for the patient. Radiology Reports and Pathology Reports are provided separately, in subsequent sections. Lab Results This section contains the Chemistry/Hematology Results that were resulted 30 days before or 30 daysafter the date of the Encounter. Date/Time Source Result Type Result - Unit Interpretation Reference Range Comment May 16, 2024 11:12 AM [facility] HEMOGLOBIN A1C PANEL Specimen Type: BLOOD Comment: [...] May 09, 2024 07:52 AM Reporting Lab: [facility] [address] [facility] [id number] Performing Lab: [address] [address] HEMOGLOBIN A1C 7.2 H 4.0-5.6 May 16, 2024 11:12 AM [facility] BASIC METABOLIC PANEL (fasting) Specimen Type: SERUM No comment entered. Ordering Provider: RISSA MCGRAW Report Released Date/Time: May 09, 2024 07:52 AM Reporting Lab: [facility] [address] [facility] [address] Performing Lab: [address] [address] UREA NITROGEN 13 mg/dL 7-25 GLUCOSE 201 [...] and tobacco- related health factors from the [place] facility where the Encounter took place. Current Smoking Status This section includes the most current smoking, or tobacco-related health factor, from the [place] facility where the Encounter took place. Date/Time Current Smoking Status Comment [facility] May 17, 2023 02:16 PM VA-TOBACCO NEVER USED [facility] Tobacco Use History This section includes a history of the smoking, or tobacco-related health factors, that were collected on or before the date of the Encounter. The data comes from the [place] facility where the Encounter took place. Date/Time Smoking Status/Tobac co Use Comment Facility May 09, 2022 10:45 AM [facility] Mar 30, 2021 01:02 PM VA-[facility]BACCO [facility] Mar 30, 2021 01:02 PM VA-TOBACCO QUIT 5 TO < 15 YRS [facility] Aug 31, 2004 09:56 AM HISTORY OF SMOKING QUIT 20 YEARS AGO [facility] Aug 08, 2004 02:45 PM LIFETIME NON-TOBACCO USER [facility] Encounter Notes: All associated encounter notes This section contains the clinical notes associated to the Encounter. Date/Time Encounter Note(s) Provider Source May 09, 2024 02:48 PM ADMINISTRATIVE NOTE: LOCAL TITLE: ADMINISTRATIVE NOTE STANDARD TITLE: ADMINISTRATIVE NOTE DATE OF NOTE: MAY 09, 2024@14:48 ENTRY DATE: MAY 09, 2024@14:48:11 AUTHOR: KRISTIAN SILVA COSIGNER: URGENCY: STATUS: COMPLETED AMSA SPOKE TO ON THE TELEPHONE AND INFORMED HIM OF UPCOMING APPT AND THAT LABWORK IS NEEDED. /elle/ KRISTIAN COLEMAN Signed: 05/09/2024 14:48 KRISTIAN SILVA CN[facility]L [facility]
--- OUTSIDE RECORDS SUMMARY | 2024-06-07 09:00 | XMS_ITS | Encounter Summary ---
Author Name [facility] [place] Organization [place] Address [address] [place] [id number] Care Team Providers Care Molecular Biology Professor Name Role Phone RISSA MCGRAW Primary Care [...] GOOD FAMIL Y Jun 11, 2000 [phone] Venkat VELASQUEZ AVID PATIENT MEDICARE (WNR) MEDICARE (M) PART B Dec 09, 2008 PART B [id number] [phone] Venkat VELASQUEZ AVID PATIENT MEDICARE (WNR) MEDICARE (M) PART B Dec 09, 2008 PART B [id number] Venkat VELASQUEZ AVID PATIENT MEDICARE (WNR) MEDICARE (M) PART B Dec 09, 2008 PART B [id number] Venkat VELASQUEZ AVID PATIENT MEDICARE (WNR) MEDICARE (M) PART A Jun 11, 2007 PART A [id number] Venkat VELASQUEZ AVID PATIENT MEDICARE (WNR) MEDICARE (M) PART A Jun 11, 2007 PART A [id number] Venkat VELASQUEZ AVID PATIENT MEDICARE (WNR) MEDICARE (M) PART A Jun 11, 2007 PART A [id number] Venkat VELASQUEZ AVIVenkat PATIENT Selected Encounter This section includes the information on record at [place] for the Encounter. Date/Time Encounter Type Encounter Description Reason Pro vider Source May 05, 2024 03:46 PM Outpatient Encounter TELEPHONE TRIAGE IHE Encounter Template Text not used by [place] Plan of Treatment: Future Appointments (+ 6 months) and Future Tests (+/- 45 days) The Plan of Treatment section includes future care activities for the patient from all [place] [facility] This section includes future appointments and future orders which are active, pending or scheduled. Future Appointments This section includes appointments that were scheduled to occur 6 months from the date of the Encounter, up to a maximum of 20 appointments. The data comes from all [facility]. Appointment Date/Time Appointment Type Appointme nt Facility Name May 13, 2024 07:30 AM AMBULATORY - NONE [place] [facility] [facility] May 26, 2024 11:30 AM AMBULATORY - MEDICINE [place] [facility] Jun 06, 2024 02:30 PM AMBULATORY - MEDICINE [place] [facility] Jun 17, 2024 02:30 PM AMBULATORY - MEDICINE [place] [facility] Jul 23, 2024 02:30 PM AMBULATORY - MEDICINE [place] [facility] Jul 31, 2024 10:45 AM AMBULATORY - NONE [place] [facility] Aug 07, 2024 09:30 AM AMBULATORY - MEDICINE [place] [facility] Aug 27, 2024 01:00 PM AMBULATORY - NONE [place] [facility] Active, Pending, and Scheduled Orders This section [...] MICROALBUMIN CREATININE RATIO PANEL URINE (RANDOM) SP [facility] May 26, 2024 12:09 PM Procedure Order ECHO CP CARDIOLOGY ECHO/ [facility] Proc Cathode Ray Tube Assembler's Choice [facility] Lab Results: +/- 30 days of the encounter This section includes the Chemistry and Hematology Lab Results on record with [place] for the patient. Radiology Reports and Pathology Reports are provided separately, in subsequent sections. Lab Results This section contains the Chemistry/Hematology Results that were resulted 30 days before or 30 daysafter the date of the Encounter. Date/Time Source Result Type Result - Unit Interpretation Reference Range Comment May 16, 2024 11:12 AM [facility] HEMOGLOBIN A1C PANEL Specimen Type: BLOOD [...] May 09, 2024 07:52 AM Reporting Lab: [address] [id number] Performing Lab: [address] [id number] HEMOGLOBIN A1C 7.2 H 4.0-5.6 May 16, 2024 11:12 AM [facility] BASIC METABOLIC PANEL (fasting) Specimen Type: SERUM No comment entered. Ordering Provider: RISSA MCGRAW Report Released Date/Time: May 09, 2024 07:52 AM Reporting Lab: [address] [id number] Performing Lab: [address] [id number] UREA NITROGEN 13 mg/dL 7-25 GLUCOSE 201 [...] and tobacco- related health factors from the [place] facility where the Encounter took place. Current Smoking Status This section includes the most current smoking, or tobacco-related health factor, from the [place] facility where the Encounter took place. Date/Time Current Smoking Status Comment [facility] May 17, 2023 02:16 PM VA-TOBACCO NEVER USED [facility] Tobacco Use History This section includes a history of the smoking, or tobacco-related health factors, that were collected on or before the date of the Encounter. The data comes from the [place] facility where the Encounter took place. Date/Time Smoking Status/Tobac co Use Comment Facility May 09, 2022 10:45 AM [facility] Mar 30, 2021 01:02 PM VA-TOBACCO FOR[facility] USER [facility] Mar 30, 2021 01:02 PM VA-TOBACCO QUIT 5 TO < 15 YRS [facility] Aug 31, 2004 09:56 AM HISTORY OF SMOKING QUIT 20 YEARS AGO [facility] Aug 08, 2004 02:45 PM LIFETIME NON-TOBACCO USER [facility] Encounter Notes: All associated encounter notes This section contains the clinical notes associated to the Encounter. Date/Time Encounter Note(s) Provider Source May 05, 2024 04:01 PM ADDENDUM: LOCAL TITLE: Addendum STANDARD TITLE: ADDENDUM DATE OF NOTE: MAY 05, 2024@16:01:50 ENTRY DATE: MAY 05, 2024@16:01:51 AUTHOR: CRYSTAL WILKERSON COSIGNER: URGENCY: STATUS: COMPLETED Called to discuss. Per pt, he was not told to discontinue it. Medication was ordered on 04/28/24 and the cancelled from [facility] due to being on backorder. Pt is now out and blood glucose numbers are elevated. Confirmed doses of both insulin as well as oral anti-hyperglycemic medications. I reached out to Dr Laureano, pharmacy operations. RX in short supply but stock available in [facility]. Pt will sisal picker medication at [facility] tomorrow morning. Advised not to take extra bolus insulin. All questions answered and verbalizes agreement with plan. /es/ CARIDAD SPEARSD, BCPS CLINICAL PHARMACIST PRACTITIONER Signed: 05/05/2024 16:04 Receipt Acknowledged By: 05/06/2024 09:34 /es/ RISSA MCGRAW D.O. PHYSICIAN 05/06/2024 07:47 /es/ ELEANOR AGUILERA, JOSE MANUEL REGISTERED NURSE ========= --- Original Document --- 05/05/24 CCC: CLINICAL TRIAGE: Patient Demographics Patient Name: BRIAN VELASQUEZ JR Patient Primary Address: [address] [place] [address] Patient Primary Phone: [phone] Patient : 1945 Patient Age: 78 Caller/Recipient Relation to Patient: Self Caller Name: BRIAN VELASQUEZ JR Emergency Contact: KHADRA EVA Medication Refill/Renewal Request [place] Medications Refill/Renewal Request: calling to say that he has been out of insulin glargine for the last 4-5 days. says that he was told that it was discontinued. would like an immediate call from PACT to advise if he should be taking Novolog at night in place of his glargine. [place] cautioned not to do so until a provider gives him direct advice to do so. [place] states that his blood sugar has been running between 180 and 250 in the last three days. PACT please reach out to as soon as possible. Nursing Plan and Disposition Other course(s) of action Generated msg to PACT/Provider Provided guidance for worsening symptoms: *Caller/Patient* advised to call facilities [place] Clinical Contact Center or seek immediate medical attention for new or worsening symptoms Clinical Contact Center Codes Clinic/Location: V1 CWM PHONE [facility] RN IMPORTANT: This note was created by [facility] Clinical Contact Center staff. Please do not alert the staff member by adding them as a signer for future communications. Alerts are not monitored by this user. /elle/ AFR[place] YAP Signed: 05/05/2024 15:46 Receipt Acknowledged By: 05/06/2024 09:33 /es/ RISSA MCGRAW D.O. PHYSICIAN 05/05/2024 16:01 /es/ CRYSTAL WILKERSON, PHARMD, [facility] CLINICAL PHARMACIST PRACTITIONER 05/05/2024 15:48 /es/ ELEANOR AGUILERA, JOSE MANUEL REGISTERED NURSE CRYSTAL WILKERSON [place] [facility] May 05, 2024 03:46 PM RN PROGRESS NOTE: LOCAL TITLE: CCC: CLINICAL TRIAGE STANDARD TITLE: RN PROGRESS NOTE DATE OF NOTE: MAY 05, 2024@15:46:39 ENTRY DATE: MAY 05, 2024@15:46:39 AUTHOR: AFRICA YAP EXP COSIGNER: URGENCY: STATUS: COMPLETED CCC: CLINICAL TRIAGE Has ADDENDA Patient Demographics Patient Name: BRIAN VELASQUEZ Patient Primary Address: [address] [place] [id number] Patient Primary Phone: [phone] Patient : 1945 Patient Age: 78 Caller/Recipient Relation to Patient: Self Caller Name: BRIAN VELASQUEZ Emergency Contact: KHADRA VELASQUEZ Medication Refill/Renewal Request [place] Medications Refill/Renewal Request: [place] calling to say that he has been out of insulin glargine for the last 4-5 days. [place] says that he was told that it was discontinued. would like an immediate call from PACT to advise if he should be taking Novolog at night in place of his glargine. cautioned not to do so until a provider gives him direct advice to do so. [place] states that his blood sugar has been running between 180 and 250 in the last three days. PACT please reach out to as soon as possible. Nursing Plan and Disposition Other course(s) of action Generated msg to PACT/Provider Provided guidance for worsening symptoms: *Caller/Patient* advised to call facilities [place] Clinical Contact Center or seek immediate medical attention for new or worsening symptoms Clinical Contact Center Codes Clinic/Location: V1 CWM PHONE [facility] RN IMPORTANT: This note was created by [facility] Clinical Contact Center staff. Please do not alert the staff member by adding them as a signer for future communications. Alerts are not monitored by this user. /elle/ A[place] YAP Signed: 05/05/2024 15:46 Receipt Acknowledged By: 05/06/2024 09:33 /elle/ RISSA MCGRAW D.O. PHYSICIAN 05/05/2024 16:01 /elle/ CRYSTAL WILKERSON PHARMD, [facility] CLINICAL PHARMACIST PRACTITIONER 05/05/2024 15:48 /elle/ ELEANOR AGUILERA, RN REGISTERED NURSE 05/05/2024 ADDENDUM STATUS: COMPLETED Called to discuss. Per pt, he was not told to discontinue it. Medication was ordered on 04/28/24 and the cancelled from [facility] due to being on backorder. Pt is now out and blood glucose numbers are elevated. Confirmed doses of both insulin as well as oral anti-hyperglycemic medications. I reached out to Dr Laureano, pharmacy operations. RX in short supply but stock available in [facility]. Pt will sisal picker medication at [facility] tomorrow morning. Advised not to take extra bolus insulin. All questions answered and verbalizes agreement with plan. /elle/ CRYSTAL WLIKERSON PHARMD, [facility] CLINICAL PHARMACIST PRACTITIONER Signed: 05/05/2024 16:04 Receipt Acknowledged By: * AWAITING SIGNATURE * RISSA MCGRAW 05/06/2024 07:47 /elle/ ELEANOR AGUILERA, JOSE MANUEL REGISTERED NURSE [place] YAP [facility]
--- OUTSIDE RECORDS SUMMARY | 2024-06-07 09:00 | XMS_ITS | Encounter Summary ---
Author Name [facility] [place] Organization [place] Address [address] [place] [address] Care Team Providers Care Household Appliance Mechanic Name Role Phone RISSA MCGRAW Primary Care [...] GOOD FAMIL Y Jun 11, [phone] [id number] [phone] Venkat VELASQUEZ AVID PATIENT MEDICARE (WNR) MEDICARE (M) PART B Dec 09, 2008 PART B [id number] [phone] Venkat VELASQUEZ AVID PATIENT MEDICARE (WNR) MEDICARE (M) PART B Dec 09, 2008 PART B [id number] [phone] Venkat VELASQUEZ AVID PATIENT MEDICARE (WNR) MEDICARE (M) PART B Dec 09, 2008 PART B [id number] 30A [phone] Venkat VELASQUEZ AVID PATIENT MEDICARE (WNR) MEDICARE (M) PART A Jun 11, 2007 PART A [id number] [id number] Venkat VELASQUEZ AVID PATIENT MEDICARE (WNR) MEDICARE (M) PART A Jun 11, 2007 PART A [id number] [facility] Venkat VELASQUEZ AVIVenkat PATIENT MEDICARE (WNR) MEDICARE (M) PART A Jun 11, 2007 PART A [id number] 30A [id number] Venkat VELASQUEZ AVIVenkat PATIENT Selected Encounter This section includes the information on record at [place] for the Encounter. Date/Time Encounter Type Encounter Description Reason Pro vider Source Apr 15, 2024 03:18 PM Outpatient Encounter ADMIN PAT ACTIVTIES (MASNONCT) IHE Encounter Template Text not used by [place] Plan of Treatment: Future Appointments (+ 6 months) and Future Tests (+/- 45 days) The Plan of Treatment section includes future care activities for the patient from all [place] treatmentfacilities. This section includes future appointments and future orders which are active, pending or scheduled. Future Appointments This section includes appointments that were scheduled to occur 6 months from the date of the Encounter, up to a maximum of 20 appointments. The data comes from all [place] treatment facilities. Appointment Date/Time Appointment Type Appointme nt Facility Name May 01, 2024 03:00 PM AMBULATORY - [place]ICINE [place] [facility] May 13, 2024 07:30 AM AMBULATORY - NONE [place] [facility] May 26, 2024 11:30 AM AMBULATORY - MEDICINE [place] [facility] Jun 06, 2024 02:30 PM AMBULATORY - MEDICINE [place] [facility] Jun 17, 2024 02:30 PM AMBULATORY - MEDICINE [place] [facility] Jul 23, 2024 02:30 PM AMBULATORY - MEDICINE [place] [facility] Jul 31, 2024 10:45 AM AMBULATORY - NONE [place] [place] [facility] Aug 07, 2024 09:30 AM AMBULATORY - MEDICINE [place] [facility] Aug 27, 2024 01:00 PM AMBULATORY - NONE [place] [place] [facility] Active, Pending, and Scheduled Orders This section includes a listing of several types of active, pending, and scheduled orders, including clinic medications orders, diagnostic test orders, procedure orders and consult orders; where the start date of the order is 45 days before the date of the Encounter or 45 days after the date of theEncounter. The data comes from all [place] treatment facilities. Test Date/Time Test Type Test Details Facility Name Mar 18, 2024 12:00 AM Laboratory - Chemistry Order BASIC METABOLIC PANEL (fasting) BLOOD (SST[facility]SERUM) [facility] May 09, 2024 12:00 AM Laboratory - Chemistry Order MICROALBUMIN CREATININE RATIO PANEL URINE (RANDOM) [facility] May 26, 2024 12:09 PM Procedure Order ECHO CP CARDIOLOGY ECHO/ [facility] Proc Global Sales Director's Choice [facility] Social History: Smoking Status (Most current) and Tobacco Use (All prior to encounter date) This section includes the most current, and the historical, smoking and tobacco- related health factors from the [place] facility where the Encounter took place. Current Smoking Status This section includes the most current smoking, or tobacco-related health factor, from the [place] facility where the Encounter took place. Date/Time Current Smoking Status Comment Peng jha May 17, 2023 02:16 PM [facility] Tobacco Use History This section includes a history of the smoking, or tobacco-related health factors, that were collected on or before the date of the Encounter. The data comes from the [place] facility where the Encounter took place. Date/Time Smoking Status/Tobac co Use Comment Facility May 09, 2022 10:45 AM [facility]TO[facility]ACCO [facility] [place] [facility] Mar 30, 2021 01:02 PM VA-TOBACCO FORMER USER [place] [facility] Mar 30, 2021 01:02 PM VA-TOBACCO QUIT 5 TO < 15 YRS [place] [facility] [place] [facility] Aug 31, 2004 09:56 AM HISTORY OF SMOKING QUIT 20 YEARS AGO [place] [facility] [place] [facility] Aug 08, 2004 02:45 PM LIFETIME NON-TOBACCO USER [facility] [place] [facility] Encounter Notes: All associated encounter notes This section contains the clinical notes associated to the Encounter. Date/Time Encounter Note(s) Provider Source Apr 15, 2024 03:18 PM ADMINISTRATIVE NOT E: LOCAL TITLE: CCC: SCHEDULING ADMINISTRATION STANDARD TITLE: ADMINISTRATIVE NOTE DATE OF NOTE: APR 15, 2024@15:18:53 ENTRY DATE: APR 15, 2024@15:18:53 AUTHOR: BALBIR GALLEGOS EXP COSIGNER: URGENCY: STATUS: COMPLETED CCC: SCHEDULING ADMINISTRATION Has ADDENDA Patient Demographics Patient Name: BRIAN VELASQUEZ JR Patient Primary Phone: [phone] Patient Primary [address]: [address] [place] [address] Patient : 1945 Patient Age: 78 Call Back Number: [phone] Caller/Recipient Relation to Patient: Other If Other Describe Relation to Patient: [facility] services Caller Name: DOROTHY Administrative Administrative Note Reason: Other Administrative Note Comments: Dorothy is requesting a call back from PACT RN she needs to get confirmation patient is compliant with treatment and apts and medications. IMPORTANT: This note was created by [facility] Contact [facility] staff. Please do not alert the staff member by adding them as a signer for future communications. Alerts are not monitored by this user. /elle/ BALBIR GALLEGOS [facility] Signed: 04/15/2024 15:19 Receipt Acknowledged By: * AWAITING SIGNATURE * ARIEL GOTTLIEB 04/15/2024 15:47 /elle/ ELEANOR AGUILERA, RN REGISTERED NURSE 04/15/2024 ADDENDUM STATUS: COMPLETED Spoke with Dorothy who verified , address and phone number of . Advised he has kept all appts, did reschedule one dental appt. Last seen by PCP on 02/05/24. No Health Care Proxy invoked. /elle/ ELEANOR AGUILERA, JOSE MANUEL REGISTERED NURSE Signed: 04/15/2024 15:48 BALBIR GALLEGOS [place] [facility]
--- OUTSIDE RECORDS SUMMARY | 2024-06-07 09:00 | XMS_ITS | Encounter Summary ---
Author Name [facility] [place] Organization [facility] [place] Address [address] [place] [address] Care Team Providers Care Study Specialist Name Role Phone RISSA MCGRAW Primary Care [...] GOOD FAMIL Y Jun 11, [phone] [id number] Venkat VELASQUEZ AVID PATIENT MEDICARE (WNR) MEDICARE (M) PART B Dec 09, 2008 PART B [id number] Venkat VELASQUEZ AVID PATIENT MEDICARE (WNR) MEDICARE (M) PART B Dec 09, 2008 PART B [id number] Venkat VELASQUEZ AVID PATIENT MEDICARE (WNR) MEDICARE (M) PART B Dec 09, 2008 PART B [id number] [phone] Venkat VELASQUEZ AVID PATIENT MEDICARE (WNR) MEDICARE (M) PART A Jun 11, 2007 PART A [id number] [phone] Venkat VELASQUEZ AVID PATIENT MEDICARE (WNR) MEDICARE (M) PART A Jun 11, 2007 PART A [id number] 30A [id number] Venkat VELASQUEZ AVID PATIENT MEDICARE (WNR) MEDICARE (M) PART A Jun 11, 2007 PART A [id number] [phone] Venkat VELASQUEZ AVIVenkat PATIENT Selected Encounter This section includes the information on record at [place] for the Encounter. Date/Time Encounter Type Encounter Description Reason Pro vider Source May 12, 2024 08:19 AM Outpatient Encounter DENTAL IHE Encounter Template Text not used by [place] Plan of Treatment: Future Appointments (+ 6 months) and Future Tests (+/- 45 days) The Plan of Treatment section includes future care activities for the patient from all [place] [facility] This section includes future appointments and future orders which are active, pending or scheduled. Future Appointments This section includes appointments that were scheduled to occur 6 months from the date of the Encounter, up to a maximum of 20 appointments. The data comes from all [place] treatment facilities. Appointment Date/Time Appointment Type Appointme nt Facility Name May 13, 2024 07:30 AM AMBULATORY - NONE [place] [facility] [place] [facility] May 26, 2024 11:30 AM AMBULATORY - MEDICINE ME C [facility] [facility] Jun 06, 2024 02:30 PM AMBULATORY - MEDICINE ME C [facility] [facility] Jun 17, 2024 02:30 PM AMBULATORY - MEDICINE ME C [facility] [facility] Jul 23, 2024 02:30 PM AMBULATORY - MEDICINE ME C [facility] [facility] Jul 31, 2024 10:45 AM AMBULATORY - NONE [place] [facility] [place] [facility] Aug 07, 2024 09:30 AM AMBULATORY - MEDICINE ME C [facility] [facility] Aug 27, 2024 01:00 PM AMBULATORY - NONE [facility] [facility] November 04, 2024 02:00 PM AMBULATORY - MEDICINE ME C [facility] [facility] Active, Pending, and Scheduled Orders This section includes a listing of several types of active, pending, and scheduled orders, including clinic medications orders, diagnostic test orders, procedure orders and consult orders; where the start date of the order is 45 days before the date of the Encounter or 45 days after the date of theEncounter. The data comes from all [place] treatment facilities. Test Date/Time Test Type Test Details Facility Name May 09, 2024 12:00 AM Laboratory - Chemistry Order MICROALBUMIN CREATININE RATIO PANEL URINE (RANDOM) SP [facility] May 26, 2024 12:09 PM Procedure Order ECHO CP CARDIOLOGY ECHO/ [facility] Proc Rack Puller's Choice [facility] Lab Results: +/- 30 days of the encounter This section includes the Chemistry and Hematology Lab Results on record with [place] for the patient. Radiology Reports and Pathology Reports are provided separately, in subsequent sections. Lab Results This section contains the Chemistry/Hematology Results that were resulted 30 days before or 30 daysafter the date of the Encounter. Date/Time Source Result Type Result - Unit Interpretation Reference Range Comment May 16, 2024 11:12 AM [facility] HEMOGLOBIN A1C PANEL Specimen Type: BLOOD [...] May 09, 2024 07:52 AM Reporting Lab: [address] [address] Performing Lab: [address] [address] HEMOGLOBIN A1C 7.2 H 4.0-5.6 May 16, 2024 11:12 AM [facility] BASIC METABOLIC PANEL (fasting) Specimen Type: SERUM No comment entered. Ordering Provider: RISSA MCGRAW Report Released Date/Time: May 09, 2024 07:52 AM Reporting Lab: [facility] [address] [facility] [address] Performing Lab: [address] [address] UREA NITROGEN 13 mg/dL 7-25 GLUCOSE 201 [...] and tobacco- related health factors from the [place] facility where the Encounter took place. Current Smoking Status This section includes the most current smoking, or tobacco-related health factor, from the [place] facility where the Encounter took place. Date/Time Current Smoking Status Comment [facility] May 17, 2023 02:16 PM VA-TOBACCO NEVER USED [facility] Tobacco Use History This section includes a history of the smoking, or tobacco-related health factors, that were collected on or before the date of the Encounter. The data comes from the [place] facility where the Encounter took place. Date/Time Smoking Status/Tobac co Use Comment Facility May 09, 2022 10:45 AM [facility]ACCO [facility] Mar 30, 2021 01:02 PM [facility]BACCO [facility] Mar 30, 2021 01:02 PM VA-TOBACCO QUIT 5 TO < 15 YRS [facility] [place] [facility] Aug 31, 2004 09:56 AM HISTORY OF SMOKING QUIT 20 YEARS AGO [facility] Aug 08, 2004 02:45 PM LIFETIME [facility]BACCO [facility] Encounter Notes: All associated encounter notes This section contains the clinical notes associated to the Encounter. Date/Time Encounter Note(s) Provider Source May 12, 2024 08:19 AM DENTISTRY TELEPHON E ENCOUNTER NOTE: LOCAL TITLE: TELEPHONE NOTE/DENTAL STANDARD TITLE: DENTISTRY TELEPHONE ENCOUNTER NOTE DATE OF NOTE: MAY 12, 2024@08:19 ENTRY DATE: MAY 12, 2024@08:19:45 AUTHOR: ANISH PARSONS EXP COSIGNER: URGENCY: STATUS: COMPLETED Called pt and LM to confirm dental appointment on 05/13/2024 at 7:30 am. /elle/ ANISH PARSONS ADVANCED INSTRUMENT AND CONTROL TECHNICIAN Signed: 05/12/2024 08:20 ANISH PARSONS CN[facility]L [facility]
--- OUTSIDE RECORDS SUMMARY | 2024-06-07 09:00 | XMS_ITS | Encounter Summary ---
Author Name [facility] [place] Address [address] [place] [address] Care Team Providers Care Import Manager Name Role Phone RISSA MCGRAW Primary Care [...] GOOD FAMIL Y Jun 11, 2000 105 [id number] [phone] Venkat VELASQUEZ AVID PATIENT MEDICARE (WNR) MEDICARE (M) PART B Dec 09, 2008 PART B [id number] [phone] Venkat VELASQUEZ AVID PATIENT MEDICARE (WNR) MEDICARE (M) PART B Dec 09, 2008 PART B [id number] Venkat VELASQUEZ AVID PATIENT MEDICARE (WNR) MEDICARE (M) PART B Dec 09, 2008 PART B [id number] Venkat VELASQUEZ AVID PATIENT MEDICARE (WNR) MEDICARE (M) PART A Jun 11, 2007 PART A [id number] [id number] Venkat VELASQUEZ AVID PATIENT MEDICARE (WNR) MEDICARE (M) PART A Jun 11, 2007 PART A [id number] Venkat VELASQUEZ AVID PATIENT MEDICARE (WNR) MEDICARE (M) PART A Jun 11, 2007 PART A [id number] 30A [id number] Venkat VELASQUEZ AVID PATIENT Selected Encounter This section includes the information on record at [place] for the Encounter. Date/Time Encounter Type Encounter Description Reason Provider Source Mar 05, 2024 11:00 AM REMOVABLE PROSTHODONTIC PROC DENTAL ICD-10-CM K08.9 Disorder of teeth and supporting structures, unspecified LAVON SONI Sharif Encounter Template Text not used by [place] Assessments - Encounter Diagnoses This section includes the primary and secondary diagnoses documented for the Encounter. Date/Time Primary/Secondary Diagnosis Diagnosis Name Provider Source Mar 05, 2024 12:54 PM PRIMARY Disorder of teeth and supporting structures, unspecified LAVON SONI [place] [facility] [facility] Plan of Treatment: Future Appointments (+ 6 months) and Future Tests (+/- 45 days) The Plan of Treatment section includes future care activities for the patient from all [place] [facility]. This section includes future appointments and future orders which are active, pending or scheduled. Future Appointments This section includes appointments that were scheduled to occur 6 months from the date of the Encounter, up to a maximum of 20 appointments. The data comes from all [place] treatment facilities. Appointment Date/Time Appointment Type Appointme nt Facility Name Mar 18, 2024 09:00 AM AMBULATORY - MEDICINE [place] C [facility] [facility] May 01, 2024 03:00 PM AMBULATORY - MEDICINE PA C [facility] [place] [facility] May 13, 2024 07:30 AM AMBULATORY - NONE [place] [facility] [place] [facility] May 26, 2024 11:30 AM AMBULATORY - MEDICINE [place] C [facility] [place] [facility] Jun 06, 2024 02:30 PM AMBULATORY - MEDICINE [place] [facility] [place] [facility] Jun 17, 2024 02:30 PM AMBULATORY - MEDICINE [place] C [facility] [place] [facility] Jul 23, 2024 02:30 PM AMBULATORY - MEDICINE PA C [facility] [place] [facility] Jul 31, 2024 10:45 AM AMBULATORY - NONE [place] [facility] [facility] Aug 07, 2024 09:30 AM [facility]UL[facility] Aug 27, 2024 01:00 PM AMBULATORY - NONE [facility] Active, Pending, and Scheduled Orders This section includes a listing of several types of active, pending, and scheduled orders, including clinic medications orders, diagnostic test orders, procedure orders and consult orders; where the start date of the order is 45 days before the date of the Encounter or 45 days after the date of theEncounter. The data comes from all [place] treatment facilities. Test Date/Time Test Type Test Details Facility Name Mar 18, 2024 12:00 AM Laboratory - Chemi stry Order BASIC METABOLIC PANEL (fasting) BLOOD (SST-SERUM) SP [facility] Social History: Smoking Status (Most current) and Tobacco Use (All prior to encounter date) This section includes the most current, and the historical, smoking and tobacco- related health factors from the [place] facility where the Encounter took place. Current Smoking Status This section includes the most current smoking, or tobacco-related health factor, from the [place] facility where the Encounter took place. Date/Time Current Smoking Status Comment Facil ity May 17, 2023 02:16 PM [facility]CO [facility] Tobacco Use History This section includes a history of the smoking, or tobacco-related health factors, that were collected on or before the date of the Encounter. The data comes from the [place] facility where the Encounter took place. Date/Time Smoking Status/Tobac co Use Comment Facility May 09, 2022 10:45 AM VA-TOBACCO NEVER USED [place] [facility] [facility] Mar 30, 2021 01:02 PM VA-TOBACCO FORMER USER PA [facility]TR[facility] [facility] Mar 30, 2021 01:02 PM VA-TOBACCO QUIT 5 TO < 15 YRS [facility] Aug 31, 2004 09:56 AM HISTORY OF SMOKING QUIT 20 YEARS AGO [place] [facility] [facility] Aug 08, 2004 02:45 PM LIFETIME NON-TOBACCO USER [facility] Encounter Notes: All associated encounter notes This section contains the clinical notes associated to the Encounter. Date/Time Encounter Note(s) Provider Source Mar 05, 2024 12:53 PM DENTISTRY NOTE: LOCAL TITLE: DENTAL NOTE STANDARD TITLE: DENTISTRY NOTE DATE OF NOTE: MAR 05, 2024@12:53 ENTRY DATE: MAR 05, 2024@12:54:14 AUTHOR: LAVON SONI COSIGNER: URGENCY: STATUS: COMPLETED Patient Name: BRIAN VELASQUEZ JR, : 1945, Age: 78 Visit: S: Mar 05, 2024@11:00 [facility] DENTAL DMD 3 AM. 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 Treatment Status: Maintenance. Completed Care: (D0140) LIMIT ORAL EVAL PROBLM FOCUS. DX: K08.9 Disorder of Teeth and Supporting Structures, unspecified (D5421) DENTURES ADJUST PART MAXILL. DX: K08.9 Disorder of Teeth and Supporting Structures, unspecified (D5422) DENTURES ADJUST PART MANDBL. DX: K08.9 Disorder of Teeth and Supporting Structures, unspecified (D5899) REMOVABLE PROSTHODONTIC PROC. DX: K08.9 Disorder of Teeth and Supporting Structures, unspecified The patient was identified by full name and social security number Reviewed the patient's medical/dental history, medications and allergies. I performed medication reconciliation within the scope of my practice. All medications related to dentistry are up to date. Discussed above proposed treatment plan. Patient understands and agrees with the treatment plan. Presentation/Chief Complaint: Patient presents for limited oral evaluation My partials need adjustment Vital Signs: Vital signs not obtained Past Medical History and Medications: No significant changes since the last dental visit Oral Examination: Other: Sore areas identified and adjusted. Patient feel better after adjustment. Tooth Mobility Not Assessed Assessment/Plan: No contraindications for planned procedure(s). Planned Procedures: Unsequenced (D5225) MAXILLARY PART DENTURE FLEX: Upper. DX: (). (D5226) MANDIBULAR PART DENTURE FLEX: Lower. DX: (). Upper and lower impression taken with alginol. Bite taken with regisil. Shade A3.5 Disposition: Next visit: Delivery V/V,t+6w, 90mins Patient to return to dental clinic for continuing care. - - - - - - - - - - - - - - - - - - - - - - - - - - - - - - /elle/ LAVON SONI DMD Staff Dentist Signed: 03/05/2024 12:54 LAVON SONI CNTRL [facility]
--- OUTSIDE RECORDS SUMMARY | 2024-06-07 09:00 | XMS_ITS | Encounter Summary ---
Author Name [facility] Organization [facility] [place] Address [address] [place] [address] Care Team Providers Care Supply Planner Name Role Phone RISSA MCGRAW Primary Care [...] GOOD FAMIL Y Jun 11, 2000 105 [id number] [phone] Venkat VELASQUEZ AVID PATIENT MEDICARE (WNR) MEDICARE (M) PART B Dec 09, 2008 PART B [id number] Venkat VELASQUEZ AVID PATIENT MEDICARE (WNR) MEDICARE (M) PART B Dec 09, 2008 PART B [id number] Venkat VELASQUEZ AVID PATIENT MEDICARE (WNR) MEDICARE (M) PART B Dec 09, 2008 PART B [id number] 30A Venkat VELASQUEZ AVID PATIENT MEDICARE (WNR) MEDICARE (M) PART A Jun 11, 2007 PART A [id number] 30A Venkat VELASQUEZ AVID PATIENT MEDICARE (WNR) MEDICARE (M) PART A Jun 11, 2007 PART A [id number] Venkat VELASQUEZ AVID PATIENT MEDICARE (WNR) MEDICARE (M) PART A Jun 11, 2007 PART A [id number] 30A [id number] Venkat VELASQUEZ AVID PATIENT Selected Encounter This section includes the information on record at [place] for the Encounter. Date/Time Encounter Type Encounter Description Reason Provider Source May 13, 2024 07:30 AM MANDIBULAR PART DENTURE FLEX DENTAL ICD-10-CM K08.9 Disorder of teeth and supporting structures, unspecified LAVON SONI Sharif Encounter Template Text not used by [place] Assessments - Encounter Diagnoses This section includes the primary and secondary diagnoses documented for the Encounter. Date/Time Primary/Secondary Diagnosis Diagnosis Name Provider Source May 13, 2024 08:54 AM PRIMARY Disorder of teeth and supporting structures, unspecified LAVON SONI [place] [facility] [place] [facility] Plan of Treatment: Future Appointments (+ 6 months) and Future Tests (+/- 45 days) The Plan of Treatment section includes future care activities for the patient from all [place] [facility]. This section includes future appointments and future orders which are active, pending or scheduled. Future Appointments This section includes appointments that were scheduled to occur 6 months from the date of the Encounter, up to a maximum of 20 appointments. The data comes from all [place] treatment facilities. Appointment Date/Time Appointment Type Appointme nt Facility Name May 26, 2024 11:30 AM AMBULATORY - MEDICINE [place] C [facility] [place] [facility] Jun 06, 2024 02:30 PM AMBULATORY - MEDICINE [place] C [facility] [place] [facility] Jun 17, 2024 02:30 PM AMBULATORY - MEDICINE [place] C [facility] [place] [facility] Jul 23, 2024 02:30 PM AMBULATORY - MEDICINE [place] C [facility] [place] [facility] Jul 31, 2024 10:45 AM AMBULATORY - NONE [place] [facility] [place] [facility] Aug 07, 2024 09:30 AM AMBULATORY - MEDICINE [place] C [facility] [place] [facility] Aug 27, 2024 01:00 PM AMBULATORY - NONE [place] [facility] [place] [facility] November 04, 2024 02:00 PM AMBULATORY - MEDICINE [facility] Active, Pending, and Scheduled Orders This section includes a listing of several types of active, pending, and scheduled orders, including clinic medications orders, diagnostic test orders, procedure orders and consult orders; where the start date of the order is 45 days before the date of the Encounter or 45 days after the date of theEncounter. The data comes from all [place] treatment facilities. Test Date/Time Test Type Test Details Facility Name May 09, 2024 12:00 AM Laboratory - Chemistry Order MICROALBUMIN CREATININE RATIO PANEL URINE (RANDOM) SP [facility] May 26, 2024 12:09 PM Procedure Order ECHO CP CARDIOLOGY ECHO/ [facility] Proc Vertical Contour Band Saw Operator's Choice [facility] Lab Results: +/- 30 days of the encounter This section includes the Chemistry and Hematology Lab Results on record with [place] for the patient. Radiology Reports and Pathology Reports are provided separately, in subsequent sections. Lab Results This section contains the Chemistry/Hematology Results that were resulted 30 days before or 30 daysafter the date of the Encounter. Date/Time Source Result Type Result - Unit Interpretation Reference Range Comment May 16, 2024 11:12 AM [facility] HEMOGLOBIN A1C PANEL Specimen Type: BLOOD [...] May 09, 2024 07:52 AM Reporting Lab: [facility] [address] [facility] [address] Performing Lab: [address] [address] HEMOGLOBIN A1C 7.2 H 4.0-5.6 May 16, 2024 11:12 AM [facility] BASIC METABOLIC PANEL (fasting) Specimen Type: SERUM No comment entered. Ordering Provider: RISSA MCGRAW Report Released Date/Time: May 09, 2024 07:52 AM Reporting Lab: [facility] [place] [facility] [address] [facility] [address] Performing Lab: [facility] [address] [facility] [address] UREA NITROGEN 13 mg/dL 7-25 GLUCOSE 201 [...] and tobacco- related health factors from the [place] facility where the Encounter took place. Current Smoking Status This section includes the most current smoking, or tobacco-related health factor, from the [place] facility where the Encounter took place. Date/Time Current Smoking Status Comment [facility] May 17, 2023 02:16 PM VA-TOBACCO [facility] USED [facility] Tobacco Use History This section includes a history of the smoking, or tobacco-related health factors, that were collected on or before the date of the Encounter. The data comes from the [place] facility where the Encounter took place. Date/Time Smoking Status/Tobac co Use Comment Facility May 09, 2022 10:45 AM VA-TOBACCO NEVER USED [facility] Mar 30, 2021 01:02 PM VA-TOBACCO FOR[facility]ER [facility] [place] [facility] Mar 30, 2021 01:02 PM VA-TOBACCO QUIT 5 TO < 15 YRS [place] CNTR [place] [facility] Aug 31, 2004 09:56 AM HISTORY OF SMOKING QUIT 20 YEARS AGO [facility] Aug 08, 2004 02:45 PM LIFETIME NON-TOBACCO USER [facility] Encounter Notes: All associated encounter notes This section contains the clinical notes associated to the Encounter. Date/Time Encounter Note(s) Provider Source May 13, 2024 08:51 AM DENTISTRY NOTE: LOCAL TITLE: DENTAL NOTE STANDARD TITLE: DENTISTRY NOTE DATE OF NOTE: MAY 13, 2024@08:51 ENTRY DATE: MAY 13, 2024@08:54:13 AUTHOR: LAVON SONI COSIGNER: URGENCY: STATUS: COMPLETED Patient Name: BRIAN VELASQUEZ JR, : 1945, Age: 78 Visit: S: May 13, 2024@07:30 [facility] DENTAL DMD 3 AM. 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 Treatment Status: Maintenance. Completed Care: (D5225) MAXILLARY PART DENTURE FLEX. DX: K08.9 Disorder of Teeth and Supporting Structures, unspecified (D5226) MANDIBULAR PART DENTURE FLEX. DX: K08.9 Disorder of Teeth and Supporting Structures, unspecified - - - - - - - - - - - - - - - - - - - - - - - - - - - - - - The patient was identified by full name and social security number Reviewed the patient's medical/dental history, medications and allergies. I performed medication reconciliation within the scope of my practice. All medications related to dentistry are up to date. Discussed above proposed treatment plan. Patient understands and agrees with the treatment plan. Patient presents for valplast partial dentures delivery appointment. The maxillary and mandibular valplast partial dentures were seated intra- orally and were evaluated using PIP and adjusted to confirm the following: - no overcontoured pressure areas - Acceptable esthetics and phonetics, stability/retention - Even, bilateral posterior contacts Patient complained about the cheek biting on the left side. If symptom persist will try to adjustment occlusion. NV: Adjustment V/V, occlusion, t+2w, 60mins /es/ LAVON SONI DMD Staff Dentist Signed: 05/13/2024 08:54 LAVON SONI [place] [facility]
--- OUTSIDE RECORDS SUMMARY | 2024-06-07 09:00 | XMS_ITS | Encounter Summary ---
Author Name [facility] [place] Organization [facility] [place] [place] Address [address] [place] [id number] Care Team Providers Care Die Tester Name Role Phone RISSA MCGRAW Primary Care [...] GOOD FAMIL Y Jun 11, [phone] [id number] Venkat VELASQUEZ AVID PATIENT MEDICARE (WNR) MEDICARE (M) PART B Dec 09, 2008 PART B [id number] Venkat VELASQUEZ AVID PATIENT MEDICARE (WNR) MEDICARE (M) PART B Dec 09, 2008 PART B [id number] Venkat VELASQUEZ AVID PATIENT MEDICARE (WNR) MEDICARE (M) PART B Dec 09, 2008 PART B [id number] Venkat VELASQUEZ AVID PATIENT MEDICARE (WNR) MEDICARE (M) PART A Jun 11, 2007 PART A [id number] Venkat VELASQUEZ AVID PATIENT MEDICARE (WNR) MEDICARE (M) PART A Jun 11, 2007 PART A [id number] [facility] Venkat VELASQUEZ AVIVenkat PATIENT MEDICARE (WNR) MEDICARE (M) PART A Jun 11, 2007 PART A [id number] [id number] Venkat VELASQUEZ AVIVenkat PATIENT Selected Encounter This section includes the information on record at [place] for the Encounter. Date/Time Encounter Type Encounter Description Reason Pro vider Source May 05, 2024 03:44 PM Outpatient Encounter ADMIN PAT ACTIVTIES (MASNONCT) IHE Encounter Template Text not used by [place] Plan of Treatment: Future Appointments (+ 6 months) and Future Tests (+/- 45 days) The Plan of Treatment section includes future care activities for the patient from all [place] treatmentfacilities. This section includes future appointments and future orders which are active, pending or scheduled. Future Appointments This section includes appointments that were scheduled to occur 6 months from the date of the Encounter, up to a maximum of 20 appointments. The data comes from all [place] treatment facilities. Appointment Date/Time Appointment Type Appointme nt Facility Name May 13, 2024 07:30 AM AMBULATORY - NONE [place] [facility] [place] [facility] May 26, 2024 11:30 AM [place]ORY [place]IC[place] [facility] [place] [facility] Jun 06, 2024 02:30 PM [place] [facility] [place] [facility] Jun 17, 2024 02:30 PM [place] [facility] [place] [facility] Jul 23, 2024 02:30 PM [place] [facility] [place] [facility] Jul 31, 2024 10:45 AM AMBULATORY - NONE [place] [facility] [place] [facility] Aug 07, 2024 09:30 AM [place] [facility] [place] [facility] Aug 27, 2024 01:00 PM AMBUL[place]ORY - NONE [place] [facility] [place] [facility] Active, Pending, and Scheduled Orders This section includes a listing of several types of active, pending, and scheduled orders, including clinic medications orders, diagnostic test orders, procedure orders and consult orders; where the start date of the order is 45 days before the date of the Encounter or 45 days after the date of theEncounter. The data comes from all [place] treatment facilities. Test Date/Time Test Type Test Details Facility Name May 09, 2024 12:00 AM Laboratory - Chemistry Order MICROALBUMIN CREATININE RATIO PANEL URINE (RANDOM) SP [facility] May 26, 2024 12:09 PM Procedure Order ECHO CP CARDIOLOGY ECHO/ NHM Proc Welder Fitter Helper's Choice [facility] Lab Results: +/- 30 days of the encounter This section includes the Chemistry and Hematology Lab Results on record with [place] for the patient. Radiology Reports and Pathology Reports are provided separately, in subsequent sections. Lab Results This section contains the Chemistry/Hematology Results that were resulted 30 days before or 30 daysafter the date of the Encounter. Date/Time Source Result Type Result - Unit Interpretation Reference Range Comment May 16, 2024 11:12 AM [facility] HEMOGLOBIN A1C PANEL Specimen Type: BLOOD Comment: [...] May 09, 2024 07:52 AM Reporting Lab: [facility] [address] [facility] [id number] Performing Lab: [address] [address] HEMOGLOBIN A1C 7.2 H 4.0-5.6 May 16, 2024 11:12 AM [facility] BASIC METABOLIC PANEL (fasting) Specimen Type: SERUM No comment entered. Ordering Provider: RISSA MCGRAW Report Released Date/Time: May 09, 2024 07:52 AM Reporting Lab: [facility] [address] [facility] [facility] [id number] Performing Lab: [address] [address] UREA NITROGEN 13 mg/dL 7-25 GLUCOSE 201 [...] and tobacco- related health factors from the [place] facility where the Encounter took place. Current Smoking Status This section includes the most current smoking, or tobacco-related health factor, from the [place] facility where the Encounter took place. Date/Time Current Smoking Status Comment [facility] it May 17, 2023 02:16 PM [facility] Tobacco Use History This section includes a history of the smoking, or tobacco-related health factors, that were collected on or before the date of the Encounter. The data comes from the [place] facility where the Encounter took place. Date/Time Smoking Status/Tobac co Use Comment Facility May 09, 2022 10:45 AM [facility] Mar 30, 2021 01:02 PM VA-TOBACCO FORMER USER [place] [facility] [place] [facility] Mar 30, 2021 01:02 PM VA-TOBACCO QUIT 5 TO < 15 YRS [place] [facility] [place] [facility] Aug 31, 2004 09:56 AM HISTORY OF SMOKING QUIT 20 YEARS AGO [place] [facility] [place] [facility] Aug 08, 2004 02:45 PM LIFET[facility]AC[facility] Encounter Notes: All associated encounter notes This section contains the clinical notes associated to the Encounter. Date/Time Encounter Note(s) Provider Source May 05, 2024 03:51 PM ADDENDUM: LOCAL TITLE: Addendum STANDARD TITLE: ADDENDUM DATE OF NOTE: MAY 05, 2024@15:51:06 ENTRY DATE: MAY 05, 2024@15:51:07 AUTHOR: ELEANOR AGUILERA EXP COSIGNER: URGENCY: STATUS: COMPLETED ALERT TO CLIN PHARM /es/ ELEANOR AGUILERA RN REGISTERED NURSE Signed: 05/05/2024 15:51 Receipt Acknowledged By: 05/05/2024 16:04 /es/ CRYSTAL WILKERSON PHARMD, BCPS CLINICAL PHARMACIST PRACTITIONER === --- Original Document --- 05/05/24 CCC: SCHEDULING ADMINISTRATION: Patient Demographics Patient Name: BRIAN VELASQUEZ JR Patient Primary Phone: [phone] Patient Primary Address: [address] [place] [address] Patient : 1945 Patient Age: 78 Call Back Number: Caller/Recipient Relation to Patient: Self Caller Name: BRIAN VELASQUEZ JR Administrative Administrative Note Reason: Medication Renewal [place] Medications Refill/Renewal Request: Pt called to check on status of RX below. Sleeve Maker tracked for Pt and received below message INSULIN,GLARGINE-YFGN (EQV-SEMGLEE PEN) INJ 100UNIT/ML INJECT 55 UNITS SUBCUTANEOUSLY AT BEDTIME (SAME LANTUS) SEE BELOW RX CANCELLED [facility] (746 ) 2024-04-28 18:33:07 05/02/2024 4:48:40 AM [id number] (3of3) I0720 CANCELLED: [employer] MANU[employer]CTURING TECHNICIAN'S BACKORDER INSULIN,GLARGINE-YFGN 100UNIT/ML PEN 3ML 0 $0.00 No Tracking Information at this time () 0.000 IMPORTANT: This note was created by [facility] Clinical Contact Center staff. Please do not alert the staff member by adding them as a signer for future communications. Alerts are not monitored by this user. /es/ REX JAFFE 1 [facility] AMSA Signed: 05/05/2024 15:44 Receipt Acknowledged By: * AWAITING SIGNATURE * RISSA MCGRAW 05/05/2024 15:50 /es/ ELEANOR AGUILERA, RN REGISTERED NURSE ELEANOR AGUILERA [place] [facility] May 05, 2024 03:44 PM ADMINISTRATIVE NOTE: LOCAL TITLE: CCC: SCHEDULING ADMINISTRATION STANDARD TITLE: ADMINISTRATIVE NOTE DATE OF NOTE: MAY 05, 2024@15:44:22 ENTRY DATE: MAY 05, 2024@15:44:22 AUTHOR: REX HERNANDEZ EXP COSIGNER: URGENCY: STATUS: COMPLETED CCC: SCHEDULING ADMINISTRATION Has ADDENDA Patient Demographics Patient Name: BRIAN VELASQUEZ JR Patient Primary Phone: [phone] Patient Primary Address: [address] [place] [address] Patient : 1945 Patient Age: 78 Call Back Number: Caller/Recipient Relation to Patient: Self Caller Name: BRIAN VELASQUEZ JR Administrative Administrative Note Reason: Medication Renewal [place] Medications Refill/Renewal Request: Pt called to check on status of RX below. Sleeve Maker tracked for Pt and received below message INSULIN,GLARGINE-YFGN (EQV-SEMGLEE PEN) INJ 100UNIT/ML INJECT 55 UNITS SUBCUTANEOUSLY AT BEDTIME (SAME LANTUS) SEE BELOW RX CANCELLED [facility] (493 ) 2024-04-28 18:33:07 05/02/2024 4:48:40 AM [id number] (3of3) I0720 CANCELLED: [employer]URING TECHNICIAN'S BACKORDER INSULIN,GLARGINE-YFGN 100UNIT/ML PEN 3ML 0 $0.00 No Tracking Information at this time () 0.000 IMPORTANT: This note was created by [facility] Clinical Contact Center staff. Please do not alert the staff member by adding them as a signer for future communications. Alerts are not monitored by this user. /elle/ REX HERNANDEZ VISN 1 [facility] AMSA Signed: 05/05/2024 15:44 Receipt Acknowledged By: 05/06/2024 09:33 /elle/ RISSA MCGRAW D.O. PHYSICIAN 05/05/2024 15:50 /elle/ ELEANOR AGUILERA RN REGISTERED NURSE 05/05/2024 ADDENDUM STATUS: COMPLETED ALERT TO CLIN PHARM /elle/ ELEANOR AGUILERA RN REGISTERED NURSE Signed: 05/05/2024 15:51 Receipt Acknowledged By: 05/05/2024 16:04 /es/ CRYSTAL WILKERSON, PHARMVenkat, BCPS CLINICAL PHARMACIST PRACTITIONER [facility]
--- OUTSIDE RECORDS SUMMARY | 2024-06-07 09:00 | XMS_ITS | Encounter Summary ---
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 Name Role Phone RISSA MCGRAW Primary Care [...] GOOD FAMIL Y Jun 11, 2001 [id number] Venkat VELASQUEZ AVID PATIENT MEDICARE (WNR) MEDICARE (M) PART B Dec 09, 2008 PART B [id number] Venkat VELASQUEZ AVID PATIENT MEDICARE (WNR) MEDICARE (M) PART B Dec 09, 2008 PART B [id number] Venkat VELASQUEZ AVID PATIENT MEDICARE (WNR) MEDICARE (M) PART B Dec 09, 2008 PART B [id number] [id number] Venkat VELASQUEZ AVID PATIENT MEDICARE (WNR) MEDICARE (M) PART A Jun 11, 2007 PART A [id number] [id number] Venkat VELASQUEZ AVID PATIENT MEDICARE (WNR) MEDICARE (M) PART A Jun 11, 2007 PART A [id number] [facility] Venkat VELASQUEZ AVID PATIENT MEDICARE (WNR) MEDICARE (M) PART A Jun 11, 2007 PART A [id number] Venkat VELASQUEZ AVID PATIENT Selected Encounter This section includes the information on record at [place] for the Encounter. Date/Time Encounter Type Encounter Description Reason Provider Source Mar 18, 2024 09:00 AM MTMS BY PHARM EST 15 MIN CLINICAL PHARMACY ICD-10-CM E11.9 Type 2 diabetes mellitus without complications CRYSTAL WILKERSON Sharif Encounter Template Text not used by [place] Assessments - Encounter Diagnoses This section includes the primary and secondary diagnoses documented for the Encounter. Date/Time Primary/Secondary Diagnosis Diagnosis Name Provider Source Mar 18, 2024 09:28 AM PRIMARY Type 2 diabetes mellitus without complications CRYSTAL WILKERSON [place] [facility] [place] [facility] Plan of Treatment: Future Appointments (+ 6 months) and Future Tests (+/- 45 days) The Plan of Treatment section includes future care activities for the patient from all [place] [facility]. This section includes future appointments and future orders which are active, pending or scheduled. Future Appointments This section includes appointments that were scheduled to occur 6 months from the date of the Encounter, up to a maximum of 20 appointments. The data comes from all [place] treatment facilities. Appointment Date/Time Appointment Type Appointme nt Facility Name May 01, 2024 03:00 PM AMBULATORY - MEDICINE [place] [facility] [place] [facility] May 13, 2024 07:30 AM AMBULATORY - NONE [place] [facility] [place] [facility] May 26, 2024 11:30 AM AMBULATORY - MEDICINE [place] [facility] [place] [facility] Jun 06, 2024 02:30 PM AMBULATORY - MEDICINE [place] [facility] [place] [facility] Jun 17, 2024 02:30 PM AMBULATORY - MEDICINE [place] [facility] [place] [facility] Jul 23, 2024 02:30 PM AMBULATORY - MEDICINE [place] [facility] [place] [facility] Jul 31, 2024 10:45 AM AMBULATORY - NONE [place] [facility] [place] [facility] Aug 07, 2024 09:30 AM AMBULATORY - MEDICINE [place] [facility] [facility] Aug 27, 2024 01:00 PM [facility] - NONE [facility] Active, Pending, and Scheduled Orders This section includes a listing of several types of active, pending, and scheduled orders, including clinic medications orders, diagnostic test orders, procedure orders and consult orders; where the start date of the order is 45 days before the date of the Encounter or 45 days after the date of theEncounter. The data comes from all [place] treatment facilities. Test Date/Time Test Type Test Details Facility Name Mar 18, 2024 12:00 AM Laboratory - Chemi stry Order BASIC METABOLIC PANEL (fasting) BLOOD (SST-SERUM) [facility] Social History: Smoking Status (Most current) and Tobacco Use (All prior to encounter date) This section includes the most current, and the historical, smoking and tobacco- related health factors from the [place] facility where the Encounter took place. Current Smoking Status This section includes the most current smoking, or tobacco-related health factor, from the [place] facility where the Encounter took place. Date/Time Current Smoking Status Comment Facil it May 17, 2023 02:16 PM VA-TOBACCO [facility] Tobacco Use History This section includes a history of the smoking, or tobacco-related health factors, that were collected on or before the date of the Encounter. The data comes from the [place] facility where the Encounter took place. Date/Time Smoking Status/Tobac co Use Comment Facility May 09, 2022 10:45 AM VA-TOBACCO NEVER USED [place] [facility] Mar 30, 2021 01:02 PM VA-TOBACCO FORMER USER [place] [facility] [place] [facility] Mar 30, 2021 01:02 PM VA-TOBACCO QUIT 5 TO < 15 YRS [place] [facility] [place] [facility] Aug 31, 2004 09:56 AM HISTORY OF SMOKING QUIT 20 YEARS AGO [place] [facility] [place] [facility] Aug 08, 2004 02:45 PM LIFETIME NON-TOBACCO [facility] Encounter Notes: All associated encounter notes This section contains the clinical notes associated to the Encounter. Date/Time Encounter Note(s) Provider Source May 20, 2024 01:24 PM ADDENDUM: LOCAL TITLE: Addendum STANDARD TITLE: ADDENDUM DATE OF NOTE: MAY 20, 2024@13:24:59 ENTRY DATE: MAY 20, 2024@13:25 AUTHOR: CRYSTAL WILKERSON COSIGNER: URGENCY: STATUS: COMPLETED Pt no-show to pharmacy appt today. Per CPRS review, pt was recently hospitalized and may be discharged today. I called pt but no response; will ask [facility]SA to please no-show and r/s. /elle/ CRYSTAL WILKERSON, PHARMD, BCPS CLINICAL PHARMACIST PRACTITIONER Signed: 05/20/2024 13:26 Receipt Acknowledged By: 05/20/2024 13:37 /es/ KRISTIAN SILVA AMSA --- Original Document --- 03/18/24 PHARMACY CLINIC NOTE: BRIAN TRINA RAYMOND PARVIZ, 77 yo UNKNOWN BY PATIENT, WHITE MALE, presents for face- to-face follow-up for diabetes and hypertension management. MAR 18, 2024 Known Allergies: SHRIMP Subjective: referred to pharmacy clinic by PCP for T2DM and HTN management. At time of last visit, empagliflozin was increased and insulin aspart and insulin glargine-yfgn was reduced. Metformin was continued. Today pt reports he is doing well. Reports that he did not make dose adjustments as he never received the empagliflozin in the mail. Pt conitnued with previous doses. Continues to SMBG once daily, sometimes more if he does not feel right . States on two days, pt felt sluggish after eating ice-cream and blood sugars were between 200-300 mg/dl. Pt also reports three incidences of lows, two overnight (pt was sweating and woke up) and 1 in the evening after feeling like someone unplugged him. Pt believes that was due to strenous activity prior. Denies ADRs with empagliflozin. Per previous: He endorses that sometimes he will take insulin after meals if he forgets or to bring down blood sugar despite being educated not to.Pt is not checking blood pressure at home. Pt continues to work on LSMs (eating less potato chips and becoming more active (limited by sciatica and hernias)). Target Goals: A1C <7.5%; FB-130 mg/dl Personal goals: - Keep Blood glucose under 120 mg/dl - Keep A1C% at goal Objective: Diabetes Medication Regimen: Current diabetes medications: - empagliflozin 10 mg once daily - Metformin 1000 mg twice daily - Insulin aspart 20 units once daily with (supper) - Insulin glargine-yfgn 50 units at night Hypertension Medication Regimen: - HCTZ 25mg/Losartan 100mg once daily - Metoprolol ER 100 mg once daily - Amlodipine 10 mg once daily Medication Adherence: denies adherence issues Diet Patterns: patient eats on avg. 3x/day: B: eggs; cinnamon mini donuts (50 calories x 2); mini strudel; oatmeal L: grocery store meal split in half; pizza (1 slice) D: Biggest meal: Fish/chicken/pork chops + vegetables (less carbs) Snacks: potato chips (trying to stop), popcorn, nuts, blueberries, Drinks: diet soda (3 16 ounce bottles), no water, coffee 1-1.5 28 oz ice coffee, with cream and 1 shot of hazzlenut Alcohol: denies Tobacco: denies Exercise: limited by sciatica, yardwork, housework, isometric workouts for upperbody Occupation: retired Other: - Denies personal or fhx thyroid cancer or MENS - Denies hx pancreatitis - Denies hx MH/depression/denies SI - Denies hx of UTI SMBG: Name: parviz juarez : 1945 ID: Information from [facility] on 03/18/2024 Patient Name: parviz juarez Date Range: 01/19/2024 - 03/18/2024 bG values are displayed in mg/dL # of tests 63 Average 117 SD 46.4 Highest 313 Lowest 47 Avg tests/day 1.1 # HI 0 # LO 0 <70 0.0% 70-140 69.8% >140 22.2% Hypos(<69) 5 Date Range: 01/19/2024 - 03/18/2024 bG values are displayed in mg/dL 00:00- 05:30- 08:00- 11:00- 12:30- 17:00- 18:30- 21:30- 05:30 08:00 11:00 12:30 17:00 18:30 21:30 00:00 01/19/2024 145 01/20/2024 94 01/22/2024 83 01/23/2024 143 Miracle 01/24/2024 150 194 01/25/2024 132 01/26/2024 99 01/27/2024 91 Mon 01/28/2024 80 01/29/2024 104 01/30/2024 141 Miracle 01/31/2024 87 02/01/2024 80 02/02/2024 62 Mon 02/04/2024 104 02/05/2024 120 02/06/2024 88 56 Miracle 02/07/2024 120 02/08/2024 150 02/09/2024 90 02/10/2024 190 02/11/2024 111 02/12/2024 98 02/13/2024 133 Miracle 02/14/2024 94 02/15/2024 126 02/16/2024 151 02/17/2024 165 02/18/2024 185 02/19/2024 135 165 02/20/2024 113 Miracle 02/21/2024 269 02/22/2024 47 108 313 67 02/23/2024 124 02/24/2024 130 02/25/2024 106 02/27/2024 86 Miracle 02/28/2024 84 02/29/2024 75 03/01/2024 90 03/02/2024 80 198 03/03/2024 138 03/04/2024 133 03/05/2024 80 Miracle 03/06/2024 68 03/07/2024 104 03/09/2024 106 03/10/2024 108 03/11/2024 104 03/12/2024 76 Miracle 03/13/2024 94 03/14/2024 131 03/15/2024 93 03/16/2024 94 Mon 03/17/2024 91 03/18/2024 113 Date Range: 01/19/2024 - 03/18/2024 bG values are displayed in mg/dL 00:00- 05:30- 08:00- 11:00- 12:30- 17:00- 18:30- :30- 05:30 08:00 11:00 12:30 17:00 18:30 21:30 00:00 # of tests 2 32 23 0 2 1 3 0 Average 57 114 105 0 196 56 249 0 SD 14.1 31.4 23.6 2.8 0 76 Hi/Lo 0 0 0 0 0 0 0 0 02/05/24: no readings Date Range: 12/10/2023 - 01/08/2024 bG values are displayed in mg/dL # of tests 31 Average 114 SD 44.3 Highest 249 Lowest 60 Avg tests/day 1 # HI 0 # LO 0 <70 0.0% 70-140 80.6% >140 12.9% Hypos(<69) 2 Date Range: 12/10/2023 - 01/08/2024 bG values are displayed in mg/dL 00:00- :30- 08:00- 11:00- :- 17:00- :- - 08:00 11:00 12:30 17:00 18:30 21:30 00:00 12/10/2023 86 12/11/2023 108 12/12/2023 87 Miracle 12/13/2023 123 12/14/2023 106 173 12/15/2023 122 12/16/2023 121 12/17/2023 66 12/18/2023 106 12/19/2023 79 Miracle 12/20/2023 136 12/21/2023 113 12/22/2023 126 12/23/2023 85 Mon 12/24/2023 131 12/25/2023 123 2023 81 12/28/2023 173 246 12/29/2023 109 12/30/2023 113 12/31/2023 60 01/01/2024 108 01/02/2024 82 Miracle 01/03/2024 92 01/04/2024 96 249 01/05/2024 93 01/06/2024 84 01/08/2024 72 Date Range: 12/10/2023 - 01/08/2024 bG values are displayed in mg/dL 00:00- :30- 08:00- 11:00- :30- 17:00- 18:30- :30- :30 08:00 11:00 12:30 17:00 18:30 21:30 00:00 # of tests 0 15 12 0 2 1 0 1 Average 0 104 105 0 248 173 0 66 SD 28.4 17.9 2.1 0 0 Hi/Lo 0 0 0 0 0 0 0 0 Date Range: 12/10/2023 - 01/08/2024 bG values are displayed in mg/dL 12/10/2023 6:27 AM 86 12/11/2023 8:34 AM 108 12/12/2023 8:07 AM 87 12/13/2023 6:25 AM 123 12/14/2023 6:23 AM 106 5:02 PM 173 12/15/2023 7:27 AM 122 12/16/2023 7:36 AM 121 12/17/2023 9:44 PM 66 12/18/2023 7:22 AM 106 12/19/2023 8:01 AM 79 12/20/2023 9:02 AM 136 12/21/2023 6:23 AM 113 12/22/2023 8:23 AM 126 12/23/2023 8:26 AM 85 12/24/2023 5:58 AM 131 12/25/2023 8:04 AM 123 2023 6:12 AM 81 12/28/2023 6:27 AM 173 4:52 PM 246 12/29/2023 10:05 AM 109 12/30/2023 8:05 AM 113 12/31/2023 6:27 AM 60 01/01/2024 9:53 AM 108 01/02/2024 6:37 AM 82 01/03/2024 8:36 AM 92 01/04/2024 6:25 AM 96 4:40 PM 249 01/05/2024 9:12 AM 93 01/06/2024 5:40 AM 84 01/08/2024 5:40 AM 72 SMBG assessment: Fasting blood glucose within range; post prandial elevations generally due to taking blood sugar <2 hours after meal. HYPOGLYCEMIC Events: 3 in last 2 weeks - Hypoglycemia recognition & treatment reviewed: Yes (Rule of 15) Allergies/ADR: SHRIMP Active and Recently Outpatient Medications (including Supplies): Active Outpatient Medications Status 1) ACCU-CHEK GUIDE (GLUCOSE) TEST STRIP USE 1 STRIP TO ACTIVE TEST BLOOD SUGARS TWICE DAILY NEEDED 2) AMLODIPINE BESYLATE 10MG TAB TAKE ONE TABLET BY MOUTH ACTIVE ONCE DAILY FOR BLOOD PRESSURE/HEART, DO NOT TAKE WITH GRAPEFRUIT JUICE 3) APIXABAN 5MG TAB TAKE ONE TABLET BY MOUTH EVERY 12 ACTIVE HOURS FOR PREVENTION OF BLOOD CLOTS 4) CARBAMIDE PEROXIDE 6.5% OTIC SOLN INSTILL 5 DROPS ACTIVE INTO EACH EAR TWICE DAILY FOR EAR WAX BLOCKAGE 5) CHOLECALCIF 25MCG (D3-1,000UNIT) TAB TAKE ONE TABLET ACTIVE BY MOUTH ONCE DAILY FOR VITAMIN SUPPLEMENTATION 6) CLOTRIMAZOLE 1% TOP SOLN APPLY 1 DROP TOPICALLY ONCE ACTIVE DAILY FOR FUNGAL INFECTION APPLY ONE DROP TO EACH AFFECTED TOE NAIL ONCE DAILY. APPLY WHEN NAIL IS DRY NOT AFTER SHOWER OR BATH. USE FOR AT LEAST 9-12 MONTHS. FOR BEST CLINICAL RESULT. REGULAR NAIL CARE IS ALSO RECOMMMENDED. 7) CYANOCOBALAMIN 1000MCG TAB TAKE ONE TABLET BY MOUTH ACTIVE EVERY EVENING AFTER SUPPER 8) DIGOXIN 0.25MG TAB TAKE ONE TABLET BY MOUTH ONCE ACTIVE DAILY FOR CHRONIC HEART FAILURE 9) GLIPIZIDE 10MG TAB TAKE TWO TABLETS BY MOUTH ONCE ACTIVE DAILY FOR DIABETES 10) HCTZ 25MG/LOSARTAN 100MG TAB TAKE 1 TABLET BY MOUTH ACTIVE ONCE DAILY FOR HIGH BLOOD PRESSURE 11) INSULIN,ASPART(EQV-NOVLG)10 0UN/ML FLXPEN INJECT 28 ACTIVE UNITS SUBCUTANEOUSLY DIRECTED FOR DIABETES BEFORE EACH MEAL 12) INSULIN,GLARGINE-YFGN 100UNIT/ML PEN 3ML INJECT 55 ACTIVE UNITS SUBCUTANEOUSLY AT BEDTIME (SAME LANTUS) 13) LANCET,SOFTCLIX USE 1 LANCET DIRECTED TWICE DAILY ACTIVE (S) TO TEST BLOOD SUGAR AND MAY ALSO TEST NEEDED 14) METFORMIN HCL 1000MG TAB TAKE ONE TABLET BY MOUTH ACTIVE TWICE DAILY FOR DIABETES 15) METOPROLOL SUCCINATE 100MG SA TAB TAKE ONE TABLET BY ACTIVE MOUTH EVERY MORNING FOR BLOOD PRESSURE/HEART 16) MULTIVITAMIN/MINERALS CAP/TAB TAKE 1 TABLET BY MOUTH ACTIVE ONCE DAILY FOR VITAMIN SUPPLEMENTATION 17) SERTRALINE HCL 100MG TAB TAKE ONE TABLET BY MOUTH ACTIVE EVERY MORNING 18) SILDENAFIL CITRATE 100MG TAB TAKE ONE TABLET BY MOUTH ACTIVE ONCE DAILY TAKE 1 HOUR PRIOR TO SEXUAL ACTIVITY 19) SIMVASTATIN 80MG TAB TAKE ONE-HALF TABLET BY MOUTH AT ACTIVE BEDTIME FOR CHOLESTEROL Active Non-VA Medications Status 2) Non-VA OMEGA-3 ACID CAP,ORAL BY MOUTH DAILY ACTIVE 3) Non-VA OTHER CAP/TAB BEETROOT BY MOUTH ONCE DAILY ACTIVE 4) Non-VA OTHER CAP/TAB CALCIUNM BY MOUTH ONCE DAILY ACTIVE 5) Non-VA OTHER CAP/TAB GINSING BY MOUTH ONCE DAILY ACTIVE 6) Non-VA OTHER CAP/TAB TESTOSTERONE OTC BOOSTERT BY ACTIVE MOUTH Labs: CHEM 7 TREND LAB CUMULATIVE SELECTED Collection DT Spec GLUCOSE BUN CREATIN Sodium K+/Pot CL CO2 11/15/2023 11:29 SERUM 208 H 14 0.99 136 4.3 102 24 05/14/2023 11:15 SERUM 215 H 10 0.87 138 4.5 104 23 08/23/2022 12:10 SERUM 0.86 01/13/2022 10:28 SERUM 185 H 9 0.89 137 4.6 104 22 10/28/2021 11:19 SERUM 188 H 13 0.90 137 4.4 103 23 CHEM 7 Results Collection DT Spec Sodium K+/Pot CL CO2 GLUCOSE BUN eGFR 11/15/2023 11:29 SERUM 136 4.3 102 24 208 H 14 05/14/2023 11:15 SERUM 138 4.5 104 23 215 H 10 01/13/2022 10:28 SERUM 137 4.6 104 22 185 H 9 10/28/2021 11:19 SERUM 137 4.4 103 23 188 H 13 02/25/2021 11:11 SERUM 137 4.5 103 22 205 H 12 09/28/2020 11:10 SERUM 137 4.7 103 22 198 H 11 10/28/2018 13:14 SERUM 137 4.0 103 23 161 H 12 10/15/2018 11:04 SERUM 138 4.7 105 25 150 H 11 08/05/2018 16:31 SERUM 138 4.1 103 26 203 H 13 eGFR CKD-EPI 202011/15/23 11:29 78 SERUM LIVER PANEL TREND Collection DT Spec AST ALT T BILI ALK MARLON T. PROT ALBUMIN 11/15/2023 11:29 SERUM 19 21 0.6 48 6.5 3.9 05/14/2023 11:15 SERUM 18 21 0.6 50 6.4 3.7 01/13/2022 10:28 SERUM 21 21 0.7 51 6.5 3.8 10/28/2021 11:19 SERUM 19 23 0.5 51 6.2 3.7 09/28/2020 11:10 SERUM 24 26 0.8 60 6.8 3.9 HEMOGLOBIN A1C TREND Collection DT Spec HGBA1c 11/15/2023 11:29 BLOOD 6.8 H 05/14/2023 11:15 BLOOD 6.7 H 07/20/2022 11:44 BLOOD 6.6 H 01/13/2022 10:28 BLOOD 6.7 H 10/28/2021 11:19 BLOOD 6.9 H LIPID PANEL TREND Collection DT Spec CHOL HDL CHO/HDL LDL-c TRIG 11/15/2023 11:29 SERUM 95 34 L 2.8 39 110 05/14/2023 11:15 SERUM 99 35 L 2.8 42 111 01/13/2022 10:28 SERUM 91 32 L 2.8 37 111 10/28/2021 11:19 SERUM 103 32 L 3.2 43 140 09/28/2020 11:10 SERUM 110 30 L 3.7 56 119 Vitals: Ht: 66 in [167.6 cm] (12/18/2019 11:46) Wt: 206 lb [93.44 kg] (11/20/2023 14:57) BMI: BMI: 33.3 BP: 137/77 (11/20/2023 15:18) HR: 50 (11/20/2023 14:57) Assessment: DIABETES: A1c goal is <7.5% with a goal fasting BG average of 80-130mg/dL and a goal post-prandial BG average of <180mg/dL per ADA guideline based on age, and PMH of neuropathy and CVA. Current A1C% at goal (11/15/23 6.8%). Pt continues to experience hypoglycemic events (per glucometer) despite reducing insulin. Could be combination of LSMs, taking insulin after meals, and addition of empagliflozin. Note empagliflozin was never increased per previous note, so pt has been taking last visit's dose of insulin. Will increase at this time and reduce insulin. Once empagliflozin titrated, may consider [id number] which would provide additional CAD/renal protection and help pt lose weight. Would also help reduce insulin burden. Pt to continue with LSMs as tolerated. Continue SMBG; declines CGM. Pt will get labs 1 week prior to next CPP/PCP appointment. Pt extensively educated to not take additional insulin (also known as insulin stacking) to adjust for high glucose readings CARDIOVASCULAR: For patients 60 years and over with Diabetes, recommend a goal of <140/90, with added benefit of reducing SBP closer to 130. Current BP is 132/81. Discussed transition from losartan to valsartan (dose would be 160 mg). Will defer until after empagliflozn titration. HCTZ dose may need to be adjusted. Pt has automated BP cuff at home but is not using. INstructed to start taking blood pressure at home. ASCVD: Simvastatin 40 mg (Lipid Panel WNL) ASA: on apixaban Microalb: 12.2 mg/g (11/15/23) History of Preventive Care: Most recent visit to intervention nurse: 06/05/23; Moderate diabetic peripheral neuropathy Most recent visit to business operations analyst/opthalmologist: 10/30/23; Type II Diabetes without evidence of retinopathy or macular edema OU to extent viewed undilated Plan: Medication management: - CONTINUE Metformin 1000 mg twice daily - DECREASE Insulin glargine-yfgn 40 units daily - DECREASE insulin aspart 14 units prior to supper - INCREASE empagliflozin 25 mg once daily - Medications reconciled - Otherwise continue current medications Lifestyle modicfications: - Continue to SMBG 1-2x/day - Monitor for s/sx hypoglycemia and contact clinic if BG consistently <70mg/dL - Healthy dietary and lifestyle modifications encouraged - Repeat A1c: 05/2024 MISC: - Revisit GLP-1RA, valsartan EDUCATION -A shared decision-making approach was used in the development of this plan, involving the , clinician, and any caregivers present. The [place] was provided the opportunity express questions or concerns, and the plan was adjusted as needed to address these concerns. -Reviewed with [place] any new medications, changes to the medication list, education, and plan from today's visit. Patient (and/or caregiver) verbalized understanding of the plan, including possible known risks and benefits, and had no additional questions. RTC: 05/20/24 @1300 Time Spent: 20 minutes PBM PharmD Pharmacotherapy Rem V12: PHARMACIST INTERVENTIONS: TYPE 2 DIABETES MELLITUS Medication Intervention(s) Adjust dose or frequency of current medication due to hypoglycemia Adjust dose or frequency of current medication due to other reason Medication reconciliation (changes to active VA and non-VA medication lists to reconcile differences) No changes to medication lists made (medication review completed, no discrepancies identified) /daniel WILKERSON PHARMD, BCPS CLINICAL PHARMACIST PRACTITIONER Signed: 03/18/2024 09:28 03/18/2024 ADDENDUM STATUS: COMPLETED AMSA, please schedule appointment for: - Cwm/No/Pharm/Pact 2 Please schedule for 05/20/24 @1300 Thank you! /daniel WILKERSON PHARMD, BCPS CLINICAL PHARMACIST PRACTITIONER Signed: 03/18/2024 09:29 Receipt Acknowledged By: 03/18/2024 09:32 /CRYSTAL Amado [facility] [place] [facility] Mar 18, 2024 09:28 AM ADDENDUM: LOCAL TITLE: Addendum STANDARD TITLE: ADDENDUM DATE OF NOTE: MAR 18, 2024@09:28:42 ENTRY DATE: MAR 18, 2024@09:28:43 AUTHOR: CRYSTAL WILKERSON EXP COSIGNER: URGENCY: STATUS: COMPLETED AMSA, please schedule appointment for: - Cwm/No/Pharm/Pact 2 Please schedule for 05/20/24 @1300 Thank you! /daniel WILKERSON PHARMD, BCPS CLINICAL PHARMACIST PRACTITIONER Signed: 03/18/2024 09:29 Receipt Acknowledged By: 03/18/2024 09:32 /daniel COLEMAN --- Original Document --- 03/18/24 PHARMACY CLINIC NOTE: BRIAN VELASQUEZ, 77 yo UNKNOWN BY PATIENT, WHITE MALE, presents for face- to-face follow-up for diabetes and hypertension management. MAR 18, 2024 Known Allergies: SHRIMP Subjective: [place] referred to pharmacy clinic by PCP for T2DM and HTN management. At time of last visit, empagliflozin was increased and insulin aspart and insulin glargine-yfgn was reduced. Metformin was continued. Today pt reports he is doing well. Reports that he did not make dose adjustments as he never received the empagliflozin in the mail. Pt conitnued with previous doses. Continues to SMBG once daily, sometimes more if he does not feel right . States on two days, pt felt sluggish after eating ice-cream and blood sugars were between 200-300 mg/dl. Pt also reports three incidences of lows, two overnight (pt was sweating and woke up) and 1 in the evening after feeling like someone unplugged him. Pt believes that was due to strenous activity prior. Denies ADRs with empagliflozin. Per previous: He endorses that sometimes he will take insulin after meals if he forgets or to bring down blood sugar despite being educated not to.Pt is not checking blood pressure at home. Pt continues to work on LSMs (eating less potato chips and becoming more active (limited by sciatica and hernias)). Target Goals: A1C <7.5%; FB-130 mg/dl Personal goals: - Keep Blood glucose under 120 mg/dl - Keep A1C% at goal Objective: Diabetes Medication Regimen: Current diabetes medications: - empagliflozin 10 mg once daily - Metformin 1000 mg twice daily - Insulin aspart 20 units once daily with (supper) - Insulin glargine-yfgn 50 units at night Hypertension Medication Regimen: - HCTZ 25mg/Losartan 100mg once daily - Metoprolol ER 100 mg once daily - Amlodipine 10 mg once daily Medication Adherence: denies adherence issues Diet Patterns: patient eats on avg. 3x/day: B: eggs; cinnamon mini donuts (50 calories x 2); mini strudel; oatmeal L: grocery store meal split in half; pizza (1 slice) D: Biggest meal: Fish/chicken/pork chops + vegetables (less carbs) Snacks: potato chips (trying to stop), popcorn, nuts, blueberries, Drinks: diet soda (3 16 ounce bottles), no water, coffee 1-1.5 28 oz ice coffee, with cream and 1 shot of hazzlenut Alcohol: denies Tobacco: denies Exercise: limited by sciatica, yardwork, housework, isometric workouts for upperbody Occupation: retired Other: - Denies personal or fhx thyroid cancer or MENS - Denies hx pancreatitis - Denies hx MH/depression/denies SI - Denies hx of UTI SMBG: Name: parviz juarez : 1945 ID: [facility] on 03/18/2024 Patient Name: parviz juarez Date Range: 01/19/2024 - 03/18/2024 bG values are displayed in mg/dL # of tests 63 Average 117 SD 46.4 Highest 313 Lowest 47 Avg tests/day 1.1 # HI 0 # LO 0 <70 0.0% 70-140 69.8% >140 22.2% Hypos(<69) 5 Date Range: 01/19/2024 - 03/18/2024 bG values are displayed in mg/dL 00:00- 05:30- 08:00- 11:00- 12:30- 17:00- 18:30- 21:30- 05:30 08:00 11:00 12:30 17:00 18:30 21:30 00:00 01/19/2024 145 01/20/2024 94 01/22/2024 83 01/23/2024 143 Miracle 01/24/2024 150 194 01/25/2024 132 01/26/2024 99 01/27/2024 91 Mon 01/28/2024 80 01/29/2024 104 01/30/2024 141 Miracle 01/31/2024 87 02/01/2024 80 02/02/2024 62 Mon 02/04/2024 104 02/05/2024 120 02/06/2024 88 56 Miracle 02/07/2024 120 02/08/2024 150 02/09/2024 90 02/10/2024 190 02/11/2024 111 02/12/2024 98 02/13/2024 133 Miracle 02/14/2024 94 02/15/2024 126 02/16/2024 151 02/17/2024 165 02/18/2024 185 02/19/2024 135 165 02/20/2024 113 Miracle 02/21/2024 269 02/22/2024 47 108 313 67 02/23/2024 124 02/24/2024 130 02/25/2024 106 02/27/2024 86 Miracle 02/28/2024 84 02/29/2024 75 03/01/2024 90 03/02/2024 80 198 03/03/2024 138 03/04/2024 133 03/05/2024 80 Miracle 03/06/2024 68 03/07/2024 104 03/09/2024 106 03/10/2024 108 03/11/2024 104 03/12/2024 76 Miracle 03/13/2024 94 03/14/2024 131 03/15/2024 93 03/16/2024 94 Mon 03/17/2024 91 03/18/2024 113 Date Range: 01/19/2024 - 03/18/2024 bG values are displayed in mg/dL 00:00- 05:30- 08:00- 11:00- 12:30- 17:00- 18:30- :30- 05:30 08:00 11:00 12:30 17:00 18:30 21:30 00:00 # of tests 2 32 23 0 2 1 3 0 Average 57 114 105 0 196 56 249 0 SD 14.1 31.4 23.6 2.8 0 76 Hi/Lo 0 0 0 0 0 0 0 0 02/05/24: no readings Date Range: 12/10/2023 - 01/08/2024 bG values are displayed in mg/dL # of tests 31 Average 114 SD 44.3 Highest 249 Lowest 60 Avg tests/day 1 # HI 0 # LO 0 <70 0.0% 70-140 80.6% >140 12.9% Hypos(<69) 2 Date Range: 12/10/2023 - 01/08/2024 bG values are displayed in mg/dL 00:00- 05:30- 08:00- 11:00- 12:30- 17:00- 18:30- :30- 05:30 08:00 11:00 12:30 17:00 18:30 21:30 00:00 12/10/2023 86 12/11/2023 108 12/12/2023 87 Miracle 12/13/2023 123 Sun12/14/2023 106 173 12/15/2023 122 12/16/2023 121 12/17/2023 66 Tu12/18/2023 106 12/19/2023 79 Miracle 12/20/2023 136 Sun12/21/2023 113 12/22/2023 126 12/23/2023 85 Mon 12/24/2023 131 12/25/2023 123 2023 81 Sun12/28/2023 173 246 12/29/2023 109 12/30/2023 113 12/31/2023 60 01/01/2024 108 01/02/2024 82 Miracle 01/03/2024 92 01/04/2024 96 249 01/05/2024 93 01/06/2024 84 01/08/2024 72 Date Range: 12/10/2023 - 01/08/2024 bG values are displayed in mg/dL 00:00- 05:30- 08:00- 11:00- 12:30- 17:00- 18:30- 21:30- 05:30 08:00 11:00 12:30 17:00 18:30 21:30 00:00 # of tests 0 15 12 0 2 1 0 1 Average 0 104 105 0 248 173 0 66 SD 28.4 17.9 2.1 0 0 Hi/Lo 0 0 0 0 0 0 0 0 Date Range: 12/10/2023 - 01/08/2024 bG values are displayed in mg/dL 12/10/2023 6:27 AM 86 12/11/2023 8:34 AM 108 12/12/2023 8:07 AM 87 12/13/2023 6:25 AM 123 12/14/2023 6:23 AM 106 5:02 PM 173 12/15/2023 7:27 AM 122 12/16/2023 7:36 AM 121 12/17/2023 9:44 PM 66 12/18/2023 7:22 AM 106 12/19/2023 8:01 AM 79 12/20/2023 9:02 AM 136 12/21/2023 6:23 AM 113 12/22/2023 8:23 AM 126 12/23/2023 8:26 AM 85 12/24/2023 5:58 AM 131 12/25/2023 8:04 AM 123 2023 6:12 AM 81 12/28/2023 6:27 AM 173 4:52 PM 246 12/29/2023 10:05 AM 109 12/30/2023 8:05 AM 113 12/31/2023 6:27 AM 60 01/01/2024 9:53 AM 108 01/02/2024 6:37 AM 82 01/03/2024 8:36 AM 92 01/04/2024 6:25 AM 96 4:40 PM 249 01/05/2024 9:12 AM 93 01/06/2024 5:40 AM 84 01/08/2024 5:40 AM 72 SMBG assessment: Fasting blood glucose within range; post prandial elevations generally due to taking blood sugar <2 hours after meal. HYPOGLYCEMIC Events: 3 in last 2 weeks - Hypoglycemia recognition & treatment reviewed: Yes (Rule of 15) Allergies/ADR: SHRIMP Active and Recently Outpatient Medications (including Supplies): Active Outpatient Medications Status 1) ACCU-CHEK GUIDE (GLUCOSE) TEST STRIP USE 1 STRIP TO ACTIVE TEST BLOOD SUGARS TWICE DAILY NEEDED 2) AMLODIPINE BESYLATE 10MG TAB TAKE ONE TABLET BY MOUTH ACTIVE ONCE DAILY FOR BLOOD PRESSURE/HEART, DO NOT TAKE WITH GRAPEFRUIT JUICE 3) APIXABAN 5MG TAB TAKE ONE TABLET BY MOUTH EVERY 12 ACTIVE HOURS FOR PREVENTION OF BLOOD CLOTS 4) CARBAMIDE PEROXIDE 6.5% OTIC SOLN INSTILL 5 DROPS ACTIVE INTO EACH EAR TWICE DAILY FOR EAR WAX BLOCKAGE 5) CHOLECALCIF 25MCG (D3-1,000UNIT) TAB TAKE ONE TABLET ACTIVE BY MOUTH ONCE DAILY FOR VITAMIN SUPPLEMENTATION 6) CLOTRIMAZOLE 1% TOP SOLN APPLY 1 DROP TOPICALLY ONCE ACTIVE DAILY FOR FUNGAL INFECTION APPLY ONE DROP TO EACH AFFECTED TOE NAIL ONCE DAILY. APPLY WHEN NAIL IS DRY NOT AFTER SHOWER OR BATH. USE FOR AT LEAST 9-12 MONTHS. FOR BEST CLINICAL RESULT. REGULAR NAIL CARE IS ALSO RECOMMMENDED. 7) CYANOCOBALAMIN 1000MCG TAB TAKE ONE TABLET BY MOUTH ACTIVE EVERY EVENING AFTER SUPPER 8) DIGOXIN 0.25MG TAB TAKE ONE TABLET BY MOUTH ONCE ACTIVE DAILY FOR CHRONIC HEART FAILURE 9) GLIPIZIDE 10MG TAB TAKE TWO TABLETS BY MOUTH ONCE ACTIVE DAILY FOR DIABETES 10) HCTZ 25MG/LOSARTAN 100MG TAB TAKE 1 TABLET BY MOUTH ACTIVE ONCE DAILY FOR HIGH BLOOD PRESSURE 11) INSULIN,ASPART(EQV-NOVLG)10 0UN/ML FLXPEN INJECT 28 ACTIVE UNITS SUBCUTANEOUSLY DIRECTED FOR DIABETES BEFORE EACH MEAL 12) INSULIN,GLARGINE-YFGN 100UNIT/ML PEN 3ML INJECT 55 ACTIVE UNITS SUBCUTANEOUSLY AT BEDTIME (SAME LANTUS) 13) LANCET,SOFTCLIX USE 1 LANCET DIRECTED TWICE DAILY ACTIVE (S) TO TEST BLOOD SUGAR AND MAY ALSO TEST NEEDED 14) METFORMIN HCL 1000MG TAB TAKE ONE TABLET BY MOUTH ACTIVE TWICE DAILY FOR DIABETES 15) METOPROLOL SUCCINATE 100MG SA TAB TAKE ONE TABLET BY ACTIVE MOUTH EVERY MORNING FOR BLOOD PRESSURE/HEART 16) MULTIVITAMIN/MINERALS CAP/TAB TAKE 1 TABLET BY MOUTH ACTIVE ONCE DAILY FOR VITAMIN SUPPLEMENTATION 17) SERTRALINE HCL 100MG TAB TAKE ONE TABLET BY MOUTH ACTIVE EVERY MORNING 18) SILDENAFIL CITRATE 100MG TAB TAKE ONE TABLET BY MOUTH ACTIVE ONCE DAILY TAKE 1 HOUR PRIOR TO SEXUAL ACTIVITY 19) SIMVASTATIN 80MG TAB TAKE ONE-HALF TABLET BY MOUTH AT ACTIVE BEDTIME FOR CHOLESTEROL Active Non-VA Medications Status 2) Non-VA OMEGA-3 ACID CAP,ORAL BY MOUTH DAILY ACTIVE 3) Non-VA OTHER CAP/TAB BEETROOT BY MOUTH ONCE DAILY ACTIVE 4) Non-VA OTHER CAP/TAB CALCIUNM BY MOUTH ONCE DAILY ACTIVE 5) Non-VA OTHER CAP/TAB GINSING BY MOUTH ONCE DAILY ACTIVE 6) Non-VA OTHER CAP/TAB TESTOSTERONE OTC BOOSTERT BY ACTIVE MOUTH Labs: CHEM 7 TREND LAB CUMULATIVE SELECTED Collection DT Spec GLUCOSE BUN CREATIN Sodium K+/Pot CL CO2 11/15/2023 11:29 SERUM 208 H 14 0.99 136 4.3 102 24 05/14/2023 11:15 SERUM 215 H 10 0.87 138 4.5 104 23 08/23/2022 12:10 SERUM 0.86 01/13/2022 10:28 SERUM 185 H 9 0.89 137 4.6 104 22 10/28/2021 11:19 SERUM 188 H 13 0.90 137 4.4 103 23 CHEM 7 Results Collection DT Spec Sodium K+/Pot CL CO2 GLUCOSE BUN eGFR 11/15/2023 11:29 SERUM 136 4.3 102 24 208 H 14 05/14/2023 11:15 SERUM 138 4.5 104 23 215 H 10 01/13/2022 10:28 SERUM 137 4.6 104 22 185 H 9 10/28/2021 11:19 SERUM 137 4.4 103 23 188 H 13 02/25/2021 11:11 SERUM 137 4.5 103 22 205 H 12 09/28/2020 11:10 SERUM 137 4.7 103 22 198 H 11 10/28/2018 13:14 SERUM 137 4.0 103 23 161 H 12 10/15/2018 11:04 SERUM 138 4.7 105 25 150 H 11 08/05/2018 16:31 SERUM 138 4.1 103 26 203 H 13 eGFR CKD-EPI 202011/15/23 11:29 78 SERUM LIVER PANEL TREND Collection DT Spec AST ALT T BILI ALK MARLON T. PROT ALBUMIN 11/15/2023 11:29 SERUM 19 21 0.6 48 6.5 3.9 05/14/2023 11:15 SERUM 18 21 0.6 50 6.4 3.7 01/13/2022 10:28 SERUM 21 21 0.7 51 6.5 3.8 10/28/2021 11:19 SERUM 19 23 0.5 51 6.2 3.7 09/28/2020 11:10 SERUM 24 26 0.8 60 6.8 3.9 HEMOGLOBIN A1C TREND Collection DT Spec HGBA1c 11/15/2023 11:29 BLOOD 6.8 H 05/14/2023 11:15 BLOOD 6.7 H 07/20/2022 11:44 BLOOD 6.6 H 01/13/2022 10:28 BLOOD 6.7 H 10/28/2021 11:19 BLOOD 6.9 H LIPID PANEL TREND Collection DT Spec CHOL HDL CHO/HDL LDL-c TRIG 11/15/2023 11:29 SERUM 95 34 L 2.8 39 110 05/14/2023 11:15 SERUM 99 35 L 2.8 42 111 01/13/2022 10:28 SERUM 91 32 L 2.8 37 111 10/28/2021 11:19 SERUM 103 32 L 3.2 43 140 09/28/2020 11:10 SERUM 110 30 L 3.7 56 119 Vitals: Ht: 66 in [167.6 cm] (12/18/2019 11:46) Wt: 206 lb [93.44 kg] (11/20/2023 14:57) BMI: BMI: 33.3 BP: 137/77 (11/20/2023 15:18) HR: 50 (11/20/2023 14:57) Assessment: DIABETES: A1c goal is <7.5% with a goal fasting BG average of 80-130mg/dL and a goal post-prandial BG average of <180mg/dL per ADA guideline based on age, and PMH of neuropathy and CVA. Current A1C% at goal (11/15/23 6.8%). Pt continues to experience hypoglycemic events (per glucometer) despite reducing insulin. Could be combination of LSMs, taking insulin after meals, and addition of empagliflozin. Note empagliflozin was never increased per previous note, so pt has been taking last visit's dose of insulin. Will increase at this time and reduce insulin. Once empagliflozin titrated, may consider [id number] which would provide additional CAD/renal protection and help pt lose weight. Would also help reduce insulin burden. Pt to continue with LSMs as tolerated. Continue SMBG; declines CGM. Pt will get labs 1 week prior to next CPP/PCP appointment. Pt extensively educated to not take additional insulin (also known as insulin stacking) to adjust for high glucose readings CARDIOVASCULAR: For patients 60 years and over with Diabetes, recommend a goal of <140/90, with added benefit of reducing SBP closer to 130. Current BP is 132/81. Discussed transition from losartan to valsartan (dose would be 160 mg). Will defer until after empagliflozn titration. HCTZ dose may need to be adjusted. Pt has automated BP cuff at home but is not using. INstructed to start taking blood pressure at home. ASCVD: Simvastatin 40 mg (Lipid Panel WNL) ASA: on apixaban Microalb: 12.2 mg/g (11/15/23) History of Preventive Care: Most recent visit to intervention nurse: 06/05/23; Moderate diabetic peripheral neuropathy Most recent visit to business operations analyst/opthalmologist: 10/30/23; Type II Diabetes without evidence of retinopathy or macular edema OU to extent viewed undilated Plan: Medication management: - CONTINUE Metformin 1000 mg twice daily - DECREASE Insulin glargine-yfgn 40 units daily - DECREASE insulin aspart 14 units prior to supper - INCREASE empagliflozin 25 mg once daily - Medications reconciled - Otherwise continue current medications Lifestyle modicfications: - Continue to SMBG 1-2x/day - Monitor for s/sx hypoglycemia and contact clinic if BG consistently <70mg/dL - Healthy dietary and lifestyle modifications encouraged - Repeat A1c: 05/2024 MISC: - Revisit [id number], valsartan EDUCATION -A shared decision-making approach was used in the development of this plan, involving the , clinician, and any caregivers present. The [place] was provided the opportunity express questions or concerns, and the plan was adjusted as needed to address these concerns. -Reviewed with [place] any new medications, changes to the medication list, education, and plan from today's visit. Patient (and/or caregiver) verbalized understanding of the plan, including possible known risks and benefits, and had no additional questions. RTC: 05/20/24 @1300 Time Spent: 20 minutes PBM PharmD Pharmacotherapy Rem V12: PHARMACIST INTERVENTIONS: TYPE 2 DIABETES MELLITUS Medication Intervention(s) Adjust dose or frequency of current medication due to hypoglycemia Adjust dose or frequency of current medication due to other reason Medication reconciliation (changes to active VA and non-VA medication lists to reconcile differences) No changes to medication lists made (medication review completed, no discrepancies identified) /elle/ CRYSTAL WILKERSON PHARMD, BCPS CLINICAL PHARMACIST PRACTITIONER Signed: 03/18/2024 09:28 CRYSTAL WILKERSON GA CNTRL [facility] Mar 18, 2024 08:57 AM PHARMACY OUTPATIEN T NOTE: LOCAL TITLE: PHARMACY CLINIC NOTE STANDARD TITLE: PHARMACY OUTPATIENT NOTE DATE OF NOTE: MAR 18, 2024@08:57 ENTRY DATE: MAR 18, 2024@08:57:44 AUTHOR: CRYSTAL WILKERSON EXP COSIGNER: URGENCY: STATUS: COMPLETED PHARMACY CLINIC NOTE Has ADDENDA BRIAN VELASQUEZ, 77 yo UNKNOWN BY PATIENT, WHITE MALE, presents for face- to-face follow-up for diabetes and hypertension management. MAR 18, 2024 Known Allergies: SHRIMP Subjective: [place] referred to pharmacy clinic by PCP for T2DM and HTN management. At time of last visit, empagliflozin was increased and insulin aspart and insulin glargine-yfgn was reduced. Metformin was continued. Today pt reports he is doing well. Reports that he did not make dose adjustments as he never received the empagliflozin in the mail. Pt conitnued with previous doses. Continues to SMBG once daily, sometimes more if he does not feel right . States on two days, pt felt sluggish after eating ice-cream and blood sugars were between 200-300 mg/dl. Pt also reports three incidences of lows, two overnight (pt was sweating and woke up) and 1 in the evening after feeling like someone unplugged him. Pt believes that was due to strenous activity prior. Denies ADRs with empagliflozin. Per previous: He endorses that sometimes he will take insulin after meals if he forgets or to bring down blood sugar despite being educated not to.Pt is not checking blood pressure at home. Pt continues to work on LSMs (eating less potato chips and becoming more active (limited by sciatica and hernias)). Target Goals: A1C <7.5%; FB-130 mg/dl Personal goals: - Keep Blood glucose under 120 mg/dl - Keep A1C% at goal Objective: Diabetes Medication Regimen: Current diabetes medications: - empagliflozin 10 mg once daily - Metformin 1000 mg twice daily - Insulin aspart 20 units once daily with (supper) - Insulin glargine-yfgn 50 units at night Hypertension Medication Regimen: - HCTZ 25mg/Losartan 100mg once daily - Metoprolol ER 100 mg once daily - Amlodipine 10 mg once daily Medication Adherence: denies adherence issues Diet Patterns: patient eats on avg. 3x/day: B: eggs; cinnamon mini donuts (50 calories x 2); mini strudel; oatmeal L: grocery store meal split in half; pizza (1 slice) D: Biggest meal: Fish/chicken/pork chops + vegetables (less carbs) Snacks: potato chips (trying to stop), popcorn, nuts, blueberries, Drinks: diet soda (3 16 ounce bottles), no water, coffee 1-1.5 28 oz ice coffee, with cream and 1 shot of hazzlenut Alcohol: denies Tobacco: denies Exercise: limited by sciatica, yardwork, housework, isometric workouts for upperbody Occupation: retired Other: - Denies personal or fhx thyroid cancer or MENS - Denies hx pancreatitis - Denies hx MH/depression/denies SI - Denies hx of UTI SMBG: Name: parviz juarez : 1945 ID: Information from [facility] on 03/18/2024 Patient Name: parviz juarez Date Range: 01/19/2024 - 03/18/2024 bG values are displayed in mg/dL # of tests 63 Average 117 SD 46.4 Highest 313 Lowest 47 Avg tests/day 1.1 # HI 0 # LO 0 <70 0.0% 70-140 69.8% >140 22.2% Hypos(<69) 5 Date Range: 01/19/2024 - 03/18/2024 bG values are displayed in mg/dL 00:00- 05:30- 08:00- 11:00- 12:30- 17:00- 18:30- 21:30- 05:30 08:00 11:00 12:30 17:00 18:30 21:30 00:00 01/19/2024 145 01/20/2024 94 01/22/2024 83 01/23/2024 143 Miracle 01/24/2024 150 194 01/25/2024 132 01/26/2024 99 01/27/2024 91 Mon 01/28/2024 80 01/29/2024 104 01/30/2024 141 Miracle 01/31/2024 87 02/01/2024 80 02/02/2024 62 Mon 02/04/2024 104 02/05/2024 120 02/06/2024 88 56 Miracle 02/07/2024 120 02/08/2024 150 02/09/2024 90 02/10/2024 190 02/11/2024 111 02/12/2024 98 02/13/2024 133 Miracle 02/14/2024 94 02/15/2024 126 02/16/2024 151 02/17/2024 165 02/18/2024 185 02/19/2024 135 165 02/20/2024 113 Miracle 02/21/2024 269 02/22/2024 47 108 313 67 02/23/2024 124 02/24/2024 130 02/25/2024 106 02/27/2024 86 Miracle 02/28/2024 84 02/29/2024 75 03/01/2024 90 03/02/2024 80 198 03/03/2024 138 03/04/2024 133 03/05/2024 80 Miracle 03/06/2024 68 03/07/2024 104 03/09/2024 106 03/10/2024 108 03/11/2024 104 03/12/2024 76 Miracle 03/13/2024 94 03/14/2024 131 03/15/2024 93 03/16/2024 94 Mon 03/17/2024 91 03/18/2024 113 Date Range: 01/19/2024 - 03/18/2024 bG values are displayed in mg/dL 00:00- 05:30- 08:00- 11:00- 12:30- 17:00- 18:30- :30- 05:30 08:00 11:00 12:30 17:00 18:30 21:30 00:00 # of tests 2 32 23 0 2 1 3 0 Average 57 114 105 0 196 56 249 0 SD 14.1 31.4 23.6 2.8 0 76 Hi/Lo 0 0 0 0 0 0 0 0 02/05/24: no readings Date Range: 12/10/2023 - 01/08/2024 bG values are displayed in mg/dL # of tests 31 Average 114 SD 44.3 Highest 249 Lowest 60 Avg tests/day 1 # HI 0 # LO 0 <70 0.0% 70-140 80.6% >140 12.9% Hypos(<69) 2 Date Range: 12/10/2023 - 01/08/2024 bG values are displayed in mg/dL 00:00- :30- 08:00- 11:00- 12:30- 17:00- 18:30- :30- :30 08:00 11:00 12:30 17:00 18:30 21:30 00:00 12/10/2023 86 12/11/2023 108 12/12/2023 87 Miracle 12/13/2023 123 12/14/2023 106 173 12/15/2023 122 12/16/2023 121 12/17/2023 66 12/18/2023 106 12/19/2023 79 Miracle 12/20/2023 136 12/21/2023 113 12/22/2023 126 12/23/2023 85 Mon 12/24/2023 131 12/25/2023 123 2023 81 12/28/2023 173 246 12/29/2023 109 12/30/2023 113 12/31/2023 60 01/01/2024 108 01/02/2024 82 Miracle 01/03/2024 92 01/04/2024 96 249 01/05/2024 93 01/06/2024 84 01/08/2024 72 Date Range: 12/10/2023 - 01/08/2024 bG values are displayed in mg/dL 00:00- 05:30- 08:00- 11:00- 12:30- 17:00- 18:30- 21:30- 05:30 08:00 11:00 12:30 17:00 18:30 21:30 00:00 # of tests 0 15 12 0 2 1 0 1 Average 0 104 105 0 248 173 0 66 SD 28.4 17.9 2.1 0 0 Hi/Lo 0 0 0 0 0 0 0 0 Date Range: 12/10/2023 - 01/08/2024 bG values are displayed in mg/dL 12/10/2023 6:27 AM 86 12/11/2023 8:34 AM 108 12/12/2023 8:07 AM 87 12/13/2023 6:25 AM 123 12/14/2023 6:23 AM 106 5:02 PM 173 12/15/2023 7:27 AM 122 12/16/2023 7:36 AM 121 12/17/2023 9:44 PM 66 12/18/2023 7:22 AM 106 12/19/2023 8:01 AM 79 12/20/2023 9:02 AM 136 12/21/2023 6:23 AM 113 12/22/2023 8:23 AM 126 12/23/2023 8:26 AM 85 12/24/2023 5:58 AM 131 12/25/2023 8:04 AM 123 2023 6:12 AM 81 12/28/2023 6:27 AM 173 4:52 PM 246 12/29/2023 10:05 AM 109 12/30/2023 8:05 AM 113 12/31/2023 6:27 AM 60 01/01/2024 9:53 AM 108 01/02/2024 6:37 AM 82 01/03/2024 8:36 AM 92 01/04/2024 6:25 AM 96 4:40 PM 249 01/05/2024 9:12 AM 93 01/06/2024 5:40 AM 84 01/08/2024 5:40 AM 72 SMBG assessment: Fasting blood glucose within range; post prandial elevations generally due to taking blood sugar <2 hours after meal. HYPOGLYCEMIC Events: 3 in last 2 weeks - Hypoglycemia recognition & treatment reviewed: Yes (Rule of 15) Allergies/ADR: SHRIMP Active and Recently Outpatient Medications (including Supplies): Active Outpatient Medications Status 1) ACCU-CHEK GUIDE (GLUCOSE) TEST STRIP USE 1 STRIP TO ACTIVE TEST BLOOD SUGARS TWICE DAILY NEEDED 2) AMLODIPINE BESYLATE 10MG TAB TAKE ONE TABLET BY MOUTH ACTIVE ONCE DAILY FOR BLOOD PRESSURE/HEART, DO NOT TAKE WITH GRAPEFRUIT JUICE 3) APIXABAN 5MG TAB TAKE ONE TABLET BY MOUTH EVERY 12 ACTIVE HOURS FOR PREVENTION OF BLOOD CLOTS 4) CARBAMIDE PEROXIDE 6.5% OTIC SOLN INSTILL 5 DROPS ACTIVE INTO EACH EAR TWICE DAILY FOR EAR WAX BLOCKAGE 5) CHOLECALCIF 25MCG (D3-1,000UNIT) TAB TAKE ONE TABLET ACTIVE BY MOUTH ONCE DAILY FOR VITAMIN SUPPLEMENTATION 6) CLOTRIMAZOLE 1% TOP SOLN APPLY 1 DROP TOPICALLY ONCE ACTIVE DAILY FOR FUNGAL INFECTION APPLY ONE DROP TO EACH AFFECTED TOE NAIL ONCE DAILY. APPLY WHEN NAIL IS DRY NOT AFTER SHOWER OR BATH. USE FOR AT LEAST 9-12 MONTHS. FOR BEST CLINICAL RESULT. REGULAR NAIL CARE IS ALSO RECOMMMENDED. 7) CYANOCOBALAMIN 1000MCG TAB TAKE ONE TABLET BY MOUTH ACTIVE EVERY EVENING AFTER SUPPER 8) DIGOXIN 0.25MG TAB TAKE ONE TABLET BY MOUTH ONCE ACTIVE DAILY FOR CHRONIC HEART FAILURE 9) GLIPIZIDE 10MG TAB TAKE TWO TABLETS BY MOUTH ONCE ACTIVE DAILY FOR DIABETES 10) HCTZ 25MG/LOSARTAN 100MG TAB TAKE 1 TABLET BY MOUTH ACTIVE ONCE DAILY FOR HIGH BLOOD PRESSURE 11) INSULIN,ASPART(EQV-NOVLG)10 0UN/ML FLXPEN INJECT 28 ACTIVE UNITS SUBCUTANEOUSLY DIRECTED FOR DIABETES BEFORE EACH MEAL 12) INSULIN,GLARGINE-YFGN 100UNIT/ML PEN 3ML INJECT 55 ACTIVE UNITS SUBCUTANEOUSLY AT BEDTIME (SAME LANTUS) 13) LANCET,SOFTCLIX USE 1 LANCET DIRECTED TWICE DAILY ACTIVE (S) TO TEST BLOOD SUGAR AND MAY ALSO TEST NEEDED 14) METFORMIN HCL 1000MG TAB TAKE ONE TABLET BY MOUTH ACTIVE TWICE DAILY FOR DIABETES 15) METOPROLOL SUCCINATE 100MG SA TAB TAKE ONE TABLET BY ACTIVE MOUTH EVERY MORNING FOR BLOOD PRESSURE/HEART 16) MULTIVITAMIN/MINERALS CAP/TAB TAKE 1 TABLET BY MOUTH ACTIVE ONCE DAILY FOR VITAMIN SUPPLEMENTATION 17) SERTRALINE HCL 100MG TAB TAKE ONE TABLET BY MOUTH ACTIVE EVERY MORNING 18) SILDENAFIL CITRATE 100MG TAB TAKE ONE TABLET BY MOUTH ACTIVE ONCE DAILY TAKE 1 HOUR PRIOR TO SEXUAL ACTIVITY 19) SIMVASTATIN 80MG TAB TAKE ONE-HALF TABLET BY MOUTH AT ACTIVE BEDTIME FOR CHOLESTEROL Active Non-VA Medications Status 2) Non-VA OMEGA-3 ACID CAP,ORAL BY MOUTH DAILY ACTIVE 3) Non-VA OTHER CAP/TAB BEETROOT BY MOUTH ONCE DAILY ACTIVE 4) Non-VA OTHER CAP/TAB CALCIUNM BY MOUTH ONCE DAILY ACTIVE 5) Non-VA OTHER CAP/TAB GINSING BY MOUTH ONCE DAILY ACTIVE 6) Non-VA OTHER CAP/TAB TESTOSTERONE OTC BOOSTERT BY ACTIVE MOUTH Labs: CHEM 7 TREND LAB CUMULATIVE SELECTED Collection DT Spec GLUCOSE BUN CREATIN Sodium K+/Pot CL CO2 11/15/2023 11:29 SERUM 208 H 14 0.99 136 4.3 102 24 05/14/2023 11:15 SERUM 215 H 10 0.87 138 4.5 104 23 08/23/2022 12:10 SERUM 0.86 01/13/2022 10:28 SERUM 185 H 9 0.89 137 4.6 104 22 10/28/2021 11:19 SERUM 188 H 13 0.90 137 4.4 103 23 CHEM 7 Results Collection DT Spec Sodium K+/Pot CL CO2 GLUCOSE BUN eGFR 11/15/2023 11:29 SERUM 136 4.3 102 24 208 H 14 05/14/2023 11:15 SERUM 138 4.5 104 23 215 H 10 01/13/2022 10:28 SERUM 137 4.6 104 22 185 H 9 10/28/2021 11:19 SERUM 137 4.4 103 23 188 H 13 02/25/2021 11:11 SERUM 137 4.5 103 22 205 H 12 09/28/2020 11:10 SERUM 137 4.7 103 22 198 H 11 10/28/2018 13:14 SERUM 137 4.0 103 23 161 H 12 10/15/2018 11:04 SERUM 138 4.7 105 25 150 H 11 08/05/2018 16:31 SERUM 138 4.1 103 26 203 H 13 eGFR CKD-EPI 202011/15/23 11:29 78 SERUM LIVER PANEL TREND Collection DT Spec AST ALT T BILI ALK MARLON T. PROT ALBUMIN 11/15/2023 11:29 SERUM 19 21 0.6 48 6.5 3.9 05/14/2023 11:15 SERUM 18 21 0.6 50 6.4 3.7 01/13/2022 10:28 SERUM 21 21 0.7 51 6.5 3.8 10/28/2021 11:19 SERUM 19 23 0.5 51 6.2 3.7 09/28/2020 11:10 SERUM 24 26 0.8 60 6.8 3.9 HEMOGLOBIN A1C TREND Collection DT Spec HGBA1c 11/15/2023 11:29 BLOOD 6.8 H 05/14/2023 11:15 BLOOD 6.7 H 07/20/2022 11:44 BLOOD 6.6 H 01/13/2022 10:28 BLOOD 6.7 H 10/28/2021 11:19 BLOOD 6.9 H LIPID PANEL TREND Collection DT Spec CHOL HDL CHO/HDL LDL-c TRIG 11/15/2023 11:29 SERUM 95 34 L 2.8 39 110 05/14/2023 11:15 SERUM 99 35 L 2.8 42 111 01/13/2022 10:28 SERUM 91 32 L 2.8 37 111 10/28/2021 11:19 SERUM 103 32 L 3.2 43 140 09/28/2020 11:10 SERUM 110 30 L 3.7 56 119 Vitals: Ht: 66 in [167.6 cm] (12/18/2019 11:46) Wt: 206 lb [93.44 kg] (11/20/2023 14:57) BMI: BMI: 33.3 BP: 137/77 (11/20/2023 15:18) HR: 50 (11/20/2023 14:57) Assessment: DIABETES: A1c goal is <7.5% with a goal fasting BG average of 80-130mg/dL and a goal post-prandial BG average of <180mg/dL per ADA guideline based on age, and PMH of neuropathy and CVA. Current A1C% at goal (11/15/23 6.8%). Pt continues to experience hypoglycemic events (per glucometer) despite reducing insulin. Could be combination of LSMs, taking insulin after meals, and addition of empagliflozin. Note empagliflozin was never increased per previous note, so pt has been taking last visit's dose of insulin. Will increase at this time and reduce insulin. Once empagliflozin titrated, may consider [id number] which would provide additional CAD/renal protection and help pt lose weight. Would also help reduce insulin burden. Pt to continue with LSMs as tolerated. Continue SMBG; declines CGM. Pt will get labs 1 week prior to next CPP/PCP appointment. Pt extensively educated to not take additional insulin (also known as insulin stacking) to adjust for high glucose readings CARDIOVASCULAR: For patients 60 years and over with Diabetes, recommend a goal of <140/90, with added benefit of reducing SBP closer to 130. Current BP is 132/81. Discussed transition from losartan to valsartan (dose would be 160 mg). Will defer until after empagliflozn titration. HCTZ dose may need to be adjusted. Pt has automated BP cuff at home but is not using. INstructed to start taking blood pressure at home. ASCVD: Simvastatin 40 mg (Lipid Panel WNL) ASA: on apixaban Microalb: 12.2 mg/g (11/15/23) History of Preventive Care: Most recent visit to intervention nurse: 06/05/23; Moderate diabetic peripheral neuropathy Most recent visit to business operations analyst/opthalmologist: 10/30/23; Type II Diabetes without evidence of retinopathy or macular edema OU to extent viewed undilated Plan: Medication management: - CONTINUE Metformin 1000 mg twice daily - DECREASE Insulin glargine-yfgn 40 units daily - DECREASE insulin aspart 14 units prior to supper - INCREASE empagliflozin 25 mg once daily - Medications reconciled - Otherwise continue current medications Lifestyle modicfications: - Continue to SMBG 1-2x/day - Monitor for s/sx hypoglycemia and contact clinic if BG consistently <70mg/dL - Healthy dietary and lifestyle modifications encouraged - Repeat A1c: 05/2024 MISC: - Revisit GLP-1RA, valsartan EDUCATION -A shared decision-making approach was used in the development of this plan, involving the , clinician, and any caregivers present. The was provided the opportunity express questions or concerns, and the plan was adjusted as needed to address these concerns. -Reviewed with any new medications, changes to the medication list, education, and plan from today's visit. Patient (and/or caregiver) verbalized understanding of the plan, including possible known risks and benefits, and had no additional questions. RTC: 05/20/24 @1300 Time Spent: 20 minutes PBM Pharm[employer]kat Pharmacotherapy Rem V12: PHARMACIST INTERVENTIONS: TYPE 2 DIABETES MELLITUS Medication Intervention(s) Adjust dose or frequency of current medication due to hypoglycemia Adjust dose or frequency of current medication due to other reason Medication reconciliation (changes to active VA and non-VA medication lists to reconcile differences) No changes to medication lists made (medication review completed, no discrepancies identified) /daniel WILKERSON PHARMD, YADY CLINICAL PHARMACIST PRACTITIONER Signed: 03/18/2024 09:28 03/18/2024 ADDENDUM STATUS: COMPLETED AMSA, please schedule appointment for: - Cwm/No/Pharm/Pact 2 Please schedule for 05/20/24 @1300 Thank you! /daniel WILKERSON PHARMD, YADY CLINICAL PHARMACIST PRACTITIONER Signed: 03/18/2024 09:29 Receipt Acknowledged By: 03/18/2024 09:32 /daniel SILVA AMSA 05/20/2024 ADDENDUM STATUS: COMPLETED Pt no-show to pharmacy appt today. Per CPRS review, pt was recently hospitalized and may be discharged today. I called pt but no response; will ask MSA to please no-show and r/s. /daniel WILKERSON PHARMD, YADY CLINICAL PHARMACIST PRACTITIONER Signed: 05/20/2024 13:26 Receipt Acknowledged By: * AWAITING SIGNATURE * KRISTIAN SILVA [facility]
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
--- OUTSIDE RECORDS SUMMARY | 2024-06-07 09:01 | XMS_ITS | Encounter Summary ---
Author Name [facility] ([place]) Organization [facility] [place] Address [address] [place] [id number] Care Team Providers Care Commissions Coordinator Name Role Phone RISSA MCGRAW Primary Care [...] GOOD FAMIL Y Jun 11, [phone] [id number] Venkat VELASQUEZ AVID PATIENT MEDICARE (WNR) MEDICARE (M) PART B Dec 09, 2008 PART B [id number] Venkat VELASQUEZ AVID PATIENT MEDICARE (WNR) MEDICARE (M) PART B Dec 09, 2008 PART B [id number] [phone] Venkat VELASQUEZ AVID PATIENT MEDICARE (WNR) MEDICARE (M) PART B Dec 09, 2008 PART B [id number] Venkat VELASQUEZ AVID PATIENT MEDICARE (WNR) MEDICARE (M) PART A Jun 11, 2007 PART A [id number] Venkat VELASQUEZ AVID PATIENT MEDICARE (WNR) MEDICARE (M) PART A Jun 11, 2007 PART A [id number] [phone] Venkat VELASQUEZ AVID PATIENT MEDICARE (WNR) MEDICARE (M) PART A Jun 11, 2007 PART A [id number] Venkat VELASQUEZ AVID PATIENT Selected Encounter This section includes the information on record at [place] for the Encounter. Date/Time Encounter Type Encounter Description Reason Pro vider Source Mar 04, 2024 08:21 AM Outpatient Encounter DENTAL IHE Encounter Template Text not used by ME Plan of Treatment: Future Appointments (+ 6 months) and Future Tests (+/- 45 days) The Plan of Treatment section includes future care activities for the patient from all [place] treatmentarbor healthities. This section includes future appointments and future orders which are active, pending or scheduled. Future Appointments This section includes appointments that were scheduled to occur 6 months from the date of the Encounter, up to a maximum of 20 appointments. The data comes from all [place] treatment facilities. Appointment Date/Time Appointment Type Appointme nt Facility Name Mar 05, 2024 11:00 AM AMBULATORY - NONE [facility] [place] [facility] Mar 18, 2024 09:00 AM AMBULATORY - MEDICINE [facility] [place] [facility] May 01, 2024 03:00 PM AMBULATORY - MEDICINE [facility] [place] [facility] May 13, 2024 07:30 AM AMBULATORY - NONE [facility] [place] [facility] May 26, 2024 11:30 AM AMBULATORY - MEDICINE [facility] [place] [facility] Jun 06, 2024 02:30 PM AMBULATORY - MEDICINE [facility] [place] [facility] Jun 17, 2024 02:30 PM AMBULATORY - MEDICINE [facility] [place] [facility] Jul 23, 2024 02:30 PM AMBULATORY - MEDICINE [facility] [place] [facility] Jul 31, 2024 10:45 AM AMBULATORY - NONE [facility] [place] [facility] Aug 07, 2024 09:30 AM AMBULATORY - MEDICINE [facility] [place] [facility] Aug 27, 2024 01:00 PM AMBULATORY - NONE [facility] [place] [facility] Active, Pending, and Scheduled Orders This [...] BASIC METABOLIC PANEL (fasting) BLOOD (SST-SERUM) SP [facility] Social History: Smoking Status (Most current) [...] took place. Date/Time Current Smoking Status Comment [facility] May 17, 2023 02:16 PM VA-TOBACCO NEVER USED [facility] Tobacco Use History This section includes a history of the smoking, or tobacco-related health factors, that were collected on or before the date of the Encounter. The data comes from the [place] facility where the Encounter took place. Date/Time Smoking Status/Tobac co Use Comment Facility May 09, 2022 10:45 AM VA-TOBACCO [facility]ED [facility] Mar 30, 2021 01:02 PM VA-TOBACCO FORMER USER [facility] Mar 30, 2021 01:02 PM VA-TOBACCO QUIT 5 TO < 15 YRS [facility] Aug 31, 2004 09:56 AM HISTORY OF SMOKING QUIT 20 YEARS AGO [facility] Aug 08, 2004 02:45 PM LIFETIME NON-TOBACCO USER [facility] Encounter Notes: All associated encounter notes This section contains the clinical notes associated to the Encounter. Date/Time Encounter Note(s) Provider Source Mar 04, 2024 08:22 AM DENTISTRY TELEPHON E ENCOUNTER NOTE: LOCAL TITLE: TELEPHONE NOTE/DENTAL STANDARD TITLE: DENTISTRY TELEPHONE ENCOUNTER NOTE DATE OF NOTE: MAR 04, 2024@08:22 ENTRY DATE: MAR 04, 2024@08:22:06 AUTHOR: ANISH PARSONS EXP COSIGNER: URGENCY: STATUS: COMPLETED Spoke with pt's to confirm dental appointment on 03/05/2024 at 11:00 am. /elle/ ANISH PARSONS [employer] TECHNICIAN Signed: 03/04/2024 08:23 ANISH PARSONS [facility]
--- OUTSIDE RECORDS SUMMARY | 2024-06-07 09:01 | XMS_ITS | Encounter Summary ---
Author Name [facility] [place] Organization [place] Address [address] [place] [id number] Care Team Providers Care Net Sorter Name Role Phone RISSA MCGRAW Primary Care [...] GOOD FAMIL Y Jun 11, 2000 105 [id number] Venkat VELASQUEZ AVID PATIENT MEDICARE (WNR) MEDICARE (M) PART B Dec 09, 2008 PART B [id number] [phone] Venkat VELASQUEZ AVID PATIENT MEDICARE (WNR) MEDICARE (M) PART B Dec 09, 2008 PART B [id number] Venkat VELASQUEZ AVID PATIENT MEDICARE (WNR) MEDICARE (M) PART B Dec 09, 2008 PART B [id number] [phone] Venkat VELASQUEZ AVID PATIENT MEDICARE (WNR) MEDICARE (M) PART A Jun 11, 2007 PART A [id number] Venkat VELASQUEZ AVID PATIENT MEDICARE (WNR) MEDICARE (M) PART A Jun 11, 2007 PART A [id number] [facility] Venkat VELASQUEZ AVIVenkat PATIENT MEDICARE (WNR) MEDICARE (M) PART A Jun 11, 2007 PART A [id number] 30A [id number] Venkat VELASQUEZ AVIVenkat PATIENT Selected Encounter This section includes the information on record at CT for the Encounter. Date/Time Encounter Type Encounter Description Reason Provider Source Jan 08, 2024 10:30 AM MTMS BY PHARM NORA 15 MIN CLINICAL PHARMACY ICD-10-CM E11.9 Type 2 diabetes mellitus without complications CRYSTAL WILKERSON Sharif Encounter Template Text not used by CT Assessments - Encounter Diagnoses This section includes the primary and secondary diagnoses documented for the Encounter. Date/Time Primary/Secondary Diagnosis Diagnosis Name Provider Source Jan 08, 2024 11:26 AM PRIMARY Type 2 diabetes mellitus without complications CRYSTAL WILKERSON [facility] [place] [facility] Plan of Treatment: Future Appointments (+ 6 months) and Future Tests (+/- 45 days) The Plan of Treatment section includes future care activities for the patient from all CT treatmentfacilities. This section includes future appointments and future orders which are active, pending or scheduled. Future Appointments This section includes appointments that were scheduled to occur 6 months from the date of the Encounter, up to a maximum of 20 appointments. The data comes from all CT treatment facilities. Appointment Date/Time Appointment Type Appointme nt Facility Name Jan 11, 2024 08:30 AM AMBULATORY - NONE [facility] [place] [facility] Jan 29, 2024 10:45 AM AMBULATORY - NONE [facility] [place] [facility] Feb 05, 2024 02:30 PM AMBULATORY - MEDICINE [facility] [place] [facility] Feb 05, 2024 03:00 PM AMBULATORY - MEDICINE [facility] [place] [facility] Feb 07, 2024 09:30 AM AMBULATORY - NONE [facility] [place] [facility] Feb 21, 2024 11:00 AM AMBULATORY - MEDICINE [facility] [place] [facility] Feb 25, 2024 09:30 AM AMBULATORY - MEDICINE [facility] [place] [facility] Mar 05, 2024 11:00 AM AMBULATORY - NONE [facility] [place] [facility] Mar 18, 2024 09:00 AM AMBULATORY - MEDICINE [facility] [place] [facility] May 01, 2024 03:00 PM AMBULATORY - MEDICINE [facility] [place] [facility] May 13, 2024 07:30 AM AMBULATORY - NONE [facility] [place] [facility] May 26, 2024 11:30 AM AMBULATORY - MEDICINE [facility] [place] [facility] Jun 06, 2024 02:30 PM AMBULATORY - MEDICINE [facility] [place] [facility] Jun 17, 2024 02:30 PM [facility]ULAT[facility] Lab Results: +/- 30 days of the encounter This section includes the Chemistry and Hematology Lab Results on record with CT for the patient. Radiology Reports and Pathology Reports are provided separately, in subsequent sections. Lab Results This section contains the Chemistry/Hematology Results that were resulted 30 days before or 30 daysafter the date of the Encounter. Date/Time Source Result Type Result - Unit Interpretation Reference Range Comment Jan 29, 2024 10:22 AM [facility] PSA Specimen Type: SERUM No comment entered. Ordering Provider: RISSA MCGRAW Report Released Date/Time: Dec 05, 2023 03:33 PM Reporting Lab: [facility] [address] [facility] [phone] Performing Lab: [facility] [address] [address] PSA 6.05 ng/mL H 0.00-4.00 Jan 29, 2024 10:21 AM [facility] BASIC METABOLIC PANEL (fasting) Specimen Type: SERUM No comment entered. Ordering Provider: CRYSTAL WILKERSON Report Released Date/Time: Jan 08, 2024 11:27 AM Reporting Lab: [facility] [address] [facility] [phone] Performing Lab: [facility] [address] [address] UREA NITROGEN 12 mg/dL 7-25 GLUCOSE 112 [...] Pain Height Weight Body Mass Index Source Jan 08, 2024 10:44 AM 132/81 [facility] Social History: Smoking Status (Most current) and Tobacco Use (All prior to encounter date) This section includes the most current, and the historical, smoking and tobacco- related health factors from the [place] facility where the Encounter took place. Current Smoking Status This section includes the most current smoking, or tobacco-related health factor, from the [place] facility where the Encounter took place. Date/Time Current Smoking Status Comment [facility] May 17, 2023 02:16 PM VA-TOBACCO NEVER USED [facility] Tobacco Use History This section includes a history of the smoking, or tobacco-related health factors, that were collected on or before the date of the Encounter. The data comes from the [place] facility where the Encounter took place. Date/Time Smoking Status/Tobac co Use Comment Facility May 09, 2022 10:45 AM VA-TOBACCO NEVER USED [facility] Mar 30, 2021 01:02 PM VA-TOBACCO FORMER USER [facility] Mar 30, 2021 01:02 PM VA-TOBACCO QUIT 5 TO < [address] [facility] [place] [facility] Aug 31, 2004 09:56 AM HISTORY OF SMOKING QUIT [address] [facility] [place] [facility] Aug 08, 2004 02:45 PM LIFETIME NON-TOBACCO USER [facility] Encounter Notes: All associated encounter notes This section contains the clinical notes associated to the Encounter. Date/Time Encounter Note(s) Provider Source Jan 08, 2024 11:26 AM ADDENDUM: LOCAL TITLE: Addendum STANDARD TITLE: ADDENDUM DATE OF NOTE: JAN 08, 2024@11:26:53 ENTRY DATE: JAN 08, 2024@11:26:55 AUTHOR: CRYSTAL WILKERSON EXP COSIGNER: URGENCY: STATUS: COMPLETED AMSA, please schedule appointment for: - Cwm/No/Pharm/Pact 2 Please schedule for 02/05/24 @ 1500 Thank you! /elle/ CRYSTAL WILKERSON PHARMD, BCPS CLINICAL PHARMACIST PRACTITIONER Signed: 01/08/2024 11:27 Receipt Acknowledged By: 01/08/2024 11:29 /es/ KRISTIAN SILVA AMSA --- Original Document --- 01/08/24 PHARMACY CLINIC NOTE: BRIAN VELASQUEZ, 77 yo UNKNOWN BY PATIENT, WHITE MALE, presents for face- to-face follow-up for diabetes and hypertension management. JANUARY 08, 2024 Known Allergies: SHRIMP Subjective: [place] referred to pharmacy clinic by PCP for T2DM and HTN management. At time of last visit, glipizide was discontinued. Empagliflozin was initiated and insulin aspart was reduced. Metformin and insulin glargine-yfgn were continued. Today pt reports he is doing well. Denies dizziness, increased urinary frequency, painful/burning urination, or jock itch since starting empagliflozin. Pt notes he feels like he may have lost 1 lb since discontinuing glipizide. Denies s/sx of hypoglycemia. Pt states on his birthday he felt symptoms of hyperglycemia (being very tired) after eating apple strudel with ice-cream. Pt reports blood glucose >250 mg/dl at that time. Pt continues to SMBG 1-2 times a day. Reports a few blood sugars in the 60s but denies symptoms. He endorses that sometimes he will take insulin after meals if he forgets or to bring down blood sugar despite being educated not to.Pt is not checking blood pressure at home. Pt continues to work on [employer] (eating less potato chips and becoming more active (limited by sciatica and hernias)). Target Goals: A1C <7.5%; FB-130 mg/dl Personal goals: - Keep Blood glucose under 120 mg/dl - Keep A1C% at goal Objective: Diabetes Medication Regimen: Current diabetes medications: - empagliflozin 10 mg once daily - Metformin 1000 mg twice daily - Insulin aspart 23 units once daily with (supper) - Insulin glargine-yfgn 56 units at night Hypertension Medication Regimen: - [...] SI - Denies hx of UTI SMBG: Date Range: 12/10/2023 - 01/08/2024 bG values are displayed in mg/dL # of tests 31 Average 114 SD 44.3 Highest 249 Lowest 60 Avg tests/day 1 # HI 0 # LO 0 <70 0.0% 70-140 80.6% >140 12.9% Hypos(<69) 2 Date Range: 12/10/2023 - 01/08/2024 bG values are displayed in mg/dL 00:00- :30- 08:00- 11:00- 12:30- 17:00- 18:30- :30- 05:30 [...] sugar <2 hours after meal. HYPOGLYCEMIC Events: 1 in last 2 weeks (pt asymptomatic) - Hypoglycemia recognition & treatment reviewed: Yes [...] to experience hypoglycemic events (per glucometer) despite discontinuing glipizide. Could be combination of LSMs, taking insulin after meals, and addition of empagliflozin. Will reduce insulin today. Educated pt on proper insulin administration and when to hold insulin. Will request BMP in 2-3 weeks to assess renal function. Once empagliflozin titrated, may consider glp1-ra which would provide additional CAD/renal protection and help pt lose weight. Would also help reduce insulin burden. Pt to continue with LSMs as tolerated. Continue SMBG; declines CGM. 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 OU to extent viewed undilated Plan: Medication management: - CONTINUE Metformin 1000 mg twice daily - DECREASE Insulin glargine-yfgn 50 units daily - DECREASE insulin aspart 20 units prior to supper - CONTINUE empagliflozin 10 mg once daily - Medications reconciled - Otherwise continue current medications Lifestyle modicfications: - Continue to SMBG 1-2x/day - Monitor for s/sx hypoglycemia and contact clinic if BG consistently <70mg/dL - Healthy dietary and lifestyle modifications encouraged - Repeat A1c: 05/2024 MISC: - Repeat labs for week of 01/29/24 - Initiate home monitoring of BP - Revisit GLP-1RA, valsartan EDUCATION -A shared decision-making approach was used in the development of this plan, involving the , clinician, and any caregivers present. The was provided the opportunity express questions or concerns, and the plan was adjusted as needed to address these concerns. -Reviewed with [place] any new medications, changes to the medication list, education, and plan from today's visit. Patient (and/or caregiver) verbalized understanding of the plan, including possible known risks and benefits, and had no additional questions. RTC: 02/05/24 @ 1500 Time Spent: 30 minutes PBM PharmD Pharmacotherapy Rem V12: PHARMACIST INTERVENTIONS: TYPE 2 DIABETES MELLITUS Medication Intervention(s) Adjust dose or frequency of current medication due to hypoglycemia Medication reconciliation (changes to active VA and non-VA medication lists to reconcile differences) No changes to medication lists made (medication review completed, no discrepancies identified) /elle/ CRYSTAL WILKERSON PHARMD, BCPS CLINICAL PHARMACIST PRACTITIONER Signed: 01/08/2024 11:[address] [facility] [place] [facility] Jan 08, 2024 09:50 AM PHARMACY OUTPATIEN T NOTE: LOCAL TITLE: PHARMACY CLINIC NOTE STANDARD TITLE: PHARMACY OUTPATIENT NOTE DATE OF NOTE: JAN 08, 2024@09:50 ENTRY DATE: JAN 08, 2024@09:50:27 AUTHOR: CRYSTAL WILKERSON EXP COSIGNER: URGENCY: STATUS: COMPLETED PHARMACY CLINIC NOTE Has ADDENDA BRIAN MENA EVA, 77 yo UNKNOWN BY PATIENT, WHITE MALE, presents for face- to-face follow-up for diabetes and hypertension management. JANUARY 08, 2024 Known Allergies: SHRIMP Subjective: referred to pharmacy clinic by PCP for T2DM and HTN management. At time of last visit, glipizide was discontinued. Empagliflozin was initiated and insulin aspart was reduced. Metformin and insulin glargine-yfgn were continued. Today pt reports he is doing well. Denies dizziness, increased urinary frequency, painful/burning urination, or jock itch since starting empagliflozin. Pt notes he feels like he may have lost 1 lb since discontinuing glipizide. Denies s/sx of hypoglycemia. Pt states on his birthday he felt symptoms of hyperglycemia (being very tired) after eating apple strudel with ice-cream. Pt reports blood glucose >250 mg/dl at that time. Pt continues to SMBG 1-2 times a day. Reports a few blood sugars in the 60s but denies symptoms. He endorses that sometimes he will take [...] 1000 mg twice daily - Insulin aspart 23 units once daily with (supper) - Insulin glargine-yfgn 56 units at night Hypertension Medication Regimen: - [...] SI - Denies hx of UTI SMBG: Date Range: 12/10/2023 - 01/08/2024 bG values [...] sugar <2 hours after meal. HYPOGLYCEMIC Events: 1 in last 2 weeks (pt asymptomatic) - Hypoglycemia recognition & treatment reviewed: Yes [...] to experience hypoglycemic events (per glucometer) despite discontinuing glipizide. Could be combination of LSMs, taking insulin after meals, and addition of empagliflozin. Will reduce insulin today. Educated pt on proper insulin administration and when to hold insulin. Will request BMP in 2-3 weeks to assess renal function. Once empagliflozin titrated, may consider glp1-ra which would provide additional CAD/renal protection and help pt lose weight. Would also help reduce insulin burden. Pt to continue with LSMs as tolerated. Continue SMBG; declines CGM. 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 OU to extent viewed undilated Plan: Medication management: - CONTINUE Metformin 1000 mg twice daily - DECREASE Insulin glargine-yfgn 50 units daily - DECREASE insulin aspart 20 units prior to supper - CONTINUE empagliflozin 10 mg once daily - Medications reconciled - Otherwise continue current medications Lifestyle modicfications: - Continue to SMBG 1-2x/day - Monitor for s/sx hypoglycemia and contact clinic if BG consistently <70mg/dL - Healthy dietary and lifestyle modifications encouraged - Repeat A1c: 05/2024 MISC: - Repeat labs for week of 01/29/24 - Initiate home monitoring of BP - Revisit GLP-1RA, valsartan EDUCATION -A shared decision-making approach was used in the development of this plan, involving the [place], clinician, and any caregivers present. The was provided the opportunity express questions or concerns, and the plan was adjusted as needed to address these concerns. -Reviewed with [place] any new medications, changes to the medication list, education, and plan from today's visit. Patient (and/or caregiver) verbalized understanding of the plan, including possible known risks and benefits, and had no additional questions. RTC: 02/05/24 @ 1500 Time Spent: 30 minutes PBM PharmD Pharmacotherapy Rem V12: PHARMACIST INTERVENTIONS: TYPE 2 DIABETES MELLITUS Medication Intervention(s) Adjust dose or frequency of current medication due to hypoglycemia Medication reconciliation (changes to active VA and non-VA medication lists to reconcile differences) No changes to medication lists made (medication review completed, no discrepancies identified) /elle/ CRYSTAL WILKERSON PHARMD, [facility] CLINICAL PHARMACIST PRACTITIONER Signed: 01/08/2024 11:26 01/08/2024 ADDENDUM STATUS: COMPLETED AMSA, please schedule appointment for: - Cwm/[place]/Pharm/Pact 2 Please schedule for 02/05/24 @ 1500 Thank you! /daniel WILKERSON PHARMD, [facility] CLINICAL PHARMACIST PRACTITIONER Signed: 01/08/2024 11:27 Receipt Acknowledged By: 01/08/2024 11:29 /elle/ [facility]STAL [facility]
--- OUTSIDE RECORDS SUMMARY | 2024-06-07 09:01 | XMS_ITS | Encounter Summary ---
Author Name [facility] [place] Organization [place] Address [address] [place] [id number] Care Team Providers Care Engineering Lab Technician Name Role Phone RISSA MCGRAW Primary Care [...] GOOD FAMIL Y Jun 11, [phone] [id number] Venkat VELASQUEZ AVID PATIENT MEDICARE (WNR) MEDICARE (M) PART B Dec 09, 2008 PART B [id number] [id number] Venkat VELASQUEZ AVID PATIENT MEDICARE (WNR) MEDICARE (M) PART B Dec 09, 2008 PART B [id number] Venkat VELASQUEZ AVID PATIENT MEDICARE (WNR) MEDICARE (M) PART B Dec 09, 2008 PART B [id number] [phone] Venkat VELASQUEZ AVID PATIENT MEDICARE (WNR) MEDICARE (M) PART A Jun 11, 2007 PART A [id number] 30A Venkat VELASQUEZ AVID PATIENT MEDICARE (WNR) MEDICARE (M) PART A Jun 11, 2007 PART A [id number] Venkat VELASQUEZ AVID PATIENT MEDICARE (WNR) MEDICARE (M) PART A Jun 11, 2007 PART A [id number] 30A Venkat VELASQUEZ AVID PATIENT Selected Encounter This section includes the information on record at [place] for the Encounter. Date/Time Encounter Type Encounter Description Reason Pro vider Source Feb 07, 2024 10:14 AM Outpatient Encounter DENTAL IHE Encounter Template Text not used by [place] Plan of Treatment: Future Appointments (+ 6 months) and Future Tests (+/- 45 days) The Plan of Treatment section includes future care activities for the patient from all [place] [facility] This section includes future appointments and future orders which are active, pending or scheduled. Future Appointments This section includes appointments that were scheduled to occur 6 months from the date of the Encounter, up to a maximum of 20 appointments. The data comes from all [place] treatment facilities. Appointment Date/Time Appointment Type Appointme nt Facility Name Feb 21, 2024 11:00 AM AMBULATORY - MEDICINE [place] [facility] Feb 25, 2024 09:30 AM AMBULATORY - MEDICINE [place] [facility] Mar 05, 2024 11:00 AM AMBULATORY - NONE [place] [facility] [place] [facility] Mar 18, 2024 09:00 AM AMBULATORY - MEDICINE [place] [facility] May 01, 2024 03:00 PM AMBULATORY - MEDICINE [place] [facility] May 13, 2024 07:30 AM AMBULATORY - NONE [place] [facility] [place] [facility] May 26, 2024 11:30 AM AMBULATORY - MEDICINE [place] [facility] Jun 06, 2024 02:30 PM AMBULATORY - MEDICINE [place] [facility] [place] [place] [facility] Jun 17, 2024 02:30 PM AMBULATORY - MEDICINE [place] [facility] [place] [place] [facility] Jul 23, 2024 02:30 PM AMBULATORY - MEDICINE [place] [facility] [place] [place] [facility] Jul 31, 2024 10:45 AM AMBULATORY - NONE [place] [facility] [place] [facility] Aug 07, 2024 09:30 AM AMBULATORY - MEDICINE [facility] Active, Pending, and Scheduled Orders This section includes a listing of several types of active, pending, and scheduled orders, including clinic medications orders, diagnostic test orders, procedure orders and consult orders; where the start date of the order is 45 days before the date of the Encounter or 45 days after the date of theEncounter. The data comes from all [place] treatment facilities. Test Date/Time Test Type Test Details Facility Name Mar 18, 2024 12:00 AM Laboratory - Chemi stry Order BASIC METABOLIC PANEL (fasting) BLOOD (SST-SERUM) SP [facility] Lab Results: +/- 30 days of the encounter This section includes the Chemistry and Hematology Lab Results on record with [place] for the patient. Radiology Reports and Pathology Reports are provided separately, in subsequent sections. Lab Results This section contains the Chemistry/Hematology Results that were resulted 30 days before or 30 daysafter the date of the Encounter. Date/Time Source Result Type Result - Unit Interpretation Reference Range Comment Jan 29, 2024 10:22 AM [facility] PSA Specimen Type: SERUM No comment entered. Ordering Provider: RISSA MCGRAW Report Released Date/Time: Dec 05, 2023 03:33 PM Reporting Lab: [address] [address] Performing Lab: [address] [address] PSA 6.05 ng/mL H 0.00-4.00 Jan 29, 2024 10:21 AM [facility] BASIC METABOLIC PANEL (fasting) Specimen Type: SERUM No comment entered. Ordering Provider: CRYSTAL WILKERSON Report Released Date/Time: Jan 08, 2024 11:27 AM Reporting Lab: [address] [address] Performing Lab: [address] [address] UREA NITROGEN 12 mg/dL 7-25 GLUCOSE 112 [...] and tobacco- related health factors from the [place] facility where the Encounter took place. Current Smoking Status This section includes the most current smoking, or tobacco-related health factor, from the [place] facility where the Encounter took place. Date/Time Current Smoking Status Comment Facil it May 17, 2023 02:16 PM VA-TOBACCO NEVER USED IN [facility] [facility] Tobacco Use History This section includes a history of the smoking, or tobacco-related health factors, that were collected on or before the date of the Encounter. The data comes from the [place] facility where the Encounter took place. Date/Time Smoking Status/Tobac co Use Comment Facility May 09, 2022 10:45 AM VA-TOBACCO NEVER USED IN [facility] [place] [facility] Mar 30, 2021 01:02 PM VA-TOBACCO FORMER USER IN [facility] [place] [facility] Mar 30, 2021 01:02 PM VA-TOBACCO QUIT 5 TO < 15 YRS IN [facility] [place] [facility] Aug 31, 2004 09:56 AM HISTORY OF SMOKING QUIT 20 YEARS AGO IN [place] [facility] Aug 08, 2004 02:45 PM LIFETIME NON-TOBACCO USER IN [facility] [place] [place] [facility] Encounter Notes: All associated encounter notes This section contains the clinical notes associated to the Encounter. Date/Time Encounter Note(s) Provider Source Feb 07, 2024 10:14 AM DENTISTRY TELEPHON E ENCOUNTER NOTE: LOCAL TITLE: TELEPHONE NOTE/DENTAL STANDARD TITLE: DENTISTRY TELEPHONE ENCOUNTER NOTE DATE OF NOTE: FEB 07, 2024@10:14 ENTRY DATE: FEB 07, 2024@10:14:21 AUTHOR: ANISH PARSONS EXP COSIGNER: URGENCY: STATUS: COMPLETED Patients appointment with dental on 04/02/2024 has been cancelled appt no longer needed. rtc pid 04/01/2024 has been dispositioned. /elle/ ANISH PARSONS ADVANCED HORSE BREAKER Signed: 02/07/2024 10:15 ANISH PARSONS [facility]
--- OUTSIDE RECORDS SUMMARY | 2024-06-07 09:01 | XMS_ITS | Encounter Summary ---
Author Name [facility] [place] Organization [place] Address [address] [place] [address] Care Team Providers Care Dispute Resolution Specialist Name Role Phone RISSA MCGRAW Primary [...] GOOD FAMIL Y Jun 11, [phone] [id number] Venkat VELASQUEZ AVID PATIENT MEDICARE (WNR) MEDICARE (M) PART B Dec 09, 2008 PART B [id number] [phone] Venkat VELASQUEZ AVID PATIENT MEDICARE (WNR) MEDICARE (M) PART B Dec 09, 2008 PART B [id number] Venkat VELASQUEZ AVID PATIENT MEDICARE (WNR) MEDICARE (M) PART B Dec 09, 2008 PART B [id number] 30A Venkat VELASQUEZ AVID PATIENT MEDICARE (WNR) MEDICARE (M) PART A Jun 11, 2007 PART A [id number] 30A Venkat VELASQUEZ AVID PATIENT MEDICARE (WNR) MEDICARE (M) PART A Jun 11, 2007 PART A [id number] Venkat VELASQUEZ AVID PATIENT MEDICARE (WNR) MEDICARE (M) PART A Jun 11, 2007 PART A [id number] 30A Venkat VELASQUEZ AVID PATIENT Selected Encounter This section includes the information on record at [place] for the Encounter. Date/Time Encounter Type Encounter Description Reason Pro vider Source Jan 10, 2024 08:17 AM Outpatient Encounter DENTAL IHE Encounter Template Text not used by [place] Plan of Treatment: Future Appointments (+ 6 months) and Future Tests (+/- 45 days) The Plan of Treatment section includes future care activities for the patient from all [place] treatmentfacilities. This section includes future appointments and future orders which are active, pending or scheduled. Future Appointments This section includes appointments that were scheduled to occur 6 months from the date of the Encounter, up to a maximum of 20 appointments. The data comes from all [place] treatment facilities. Appointment Date/Time Appointment Type Appointme nt Facility Name Jan 11, 2024 08:30 AM AMBULATORY - NONE [place] [facility] [place] [facility] Jan 29, 2024 10:45 AM AMBULATORY - NONE [place] [facility] [place] [facility] Feb 05, 2024 02:30 PM AMBULATORY - MEDICINE [place] [facility] [place] [facility] Feb 05, 2024 03:00 PM AMBULATORY - MEDICINE [place] [place] [facility] Feb 07, 2024 09:30 AM AMBULATORY - NONE [place] [facility] [place] [facility] Feb 21, 2024 11:00 AM AMBULATORY - MEDICINE [place] [facility] [place] [place] [facility] Feb 25, 2024 09:30 AM AMBULATORY - MEDICINE [place] [facility] [place] [facility] Mar 05, 2024 11:00 AM AMBULATORY - NONE [place] [facility] [place] [facility] Mar 18, 2024 09:00 AM AMBULATORY - MEDICINE [place] [facility] [place] [place] [facility] May 01, 2024 03:00 PM AMBULATORY - MEDICINE [place] [place] [facility] May 13, 2024 07:30 AM AMBULATORY - NONE [place] [facility] [place] [facility] May 26, 2024 11:30 AM AMBUL[facility]ORY [facility] Jun 06, 2024 02:30 PM AMBULATORY - MEDICINE [facility] Jun 17, 2024 02:30 PM [facility] Lab Results: +/- 30 days of the encounter This section includes the Chemistry and Hematology Lab Results on record with [place] for the patient. Radiology Reports and Pathology Reports are provided separately, in subsequent sections. Lab Results This section contains the Chemistry/Hematology Results that were resulted 30 days before or 30 daysafter the date of the Encounter. Date/Time Source Result Type Result - Unit Interpretation Reference Range Comment Jan 29, 2024 10:22 AM [facility] PSA Specimen Type: SERUM No comment entered. Ordering Provider: RISSA MCGRAW Report Released Date/Time: Dec 05, 2023 03:33 PM Reporting Lab: [address] [address] Performing Lab: [address] [address] PSA 6.05 ng/mL H 0.00-4.00 Jan 29, 2024 10:21 AM [facility] BASIC METABOLIC PANEL (fasting) Specimen Type: SERUM No comment entered. Ordering Provider: CRYSTAL WILKERSON Report Released Date/Time: Jan 08, 2024 11:27 AM Reporting Lab: [address] [address] Performing Lab: [address] [address] UREA NITROGEN 12 mg/dL 7-25 GLUCOSE 112 [...] and tobacco- related health factors from the [place] facility where the Encounter took place. Current Smoking Status This section includes the most current smoking, or tobacco-related health factor, from the [place] facility where the Encounter took place. Date/Time Current Smoking Status Comment [facility] May 17, 2023 02:16 PM [facility]-TOBACCO [facility]ED [facility] Tobacco Use History This section includes a history of the smoking, or tobacco-related health factors, that were collected on or before the date of the Encounter. The data comes from the [place] facility where the Encounter took place. Date/Time Smoking Status/Tobac co Use Comment Facility May 09, 2022 10:45 AM VA-TOBACCO [facility]ED [facility] Mar 30, 2021 01:02 PM VA-TOBACCO FORMER USER [place] [place] [facility] Mar 30, 2021 01:02 PM VA-TOBACCO QUIT 5 TO < 15 YRS [facility] Aug 31, 2004 09:56 AM HISTORY OF SMOKING QUIT 20 YEARS AGO [facility] Aug 08, 2004 02:45 PM LIFETIME NON-TOBACCO USER [facility] Encounter Notes: All associated encounter notes This section contains the clinical notes associated to the Encounter. Date/Time Encounter Note(s) Provider Source Jan 10, 2024 08:17 AM DENTISTRY TELEPHON E ENCOUNTER NOTE: LOCAL TITLE: TELEPHONE NOTE/DENTAL STANDARD TITLE: DENTISTRY TELEPHONE ENCOUNTER NOTE DATE OF NOTE: JAN 10, 2024@08:17 ENTRY DATE: JAN 10, 2024@08:17:24 AUTHOR: ANISH PARSONS EXP COSIGNER: URGENCY: STATUS: COMPLETED Spoke with pt to confirm dental appointment on 01/11/2024 at 8:30 am. /elle/ ANISH PARSONS ADVANCED INCINERATOR PLANT GENERAL SUPERVISOR Signed: 01/10/2024 08:17 ANISH PARSONS [facility]
--- OUTSIDE RECORDS SUMMARY | 2024-06-07 09:01 | XMS_ITS | Encounter Summary ---
Author Name [facility] [place] Address [address] [place] [address] Care Team Providers Care Green Chain Operator Name Role Phone RISSA MCGRAW Primary Care [...] GOOD FAMIL Y Jun 11, 2000 105 [id number] [phone] Venkat VELASQUEZ AVID PATIENT MEDICARE (WNR) MEDICARE (M) PART B Dec 09, 2008 PART B [id number] [phone] Venkat VELASQUEZ AVID PATIENT MEDICARE (WNR) MEDICARE (M) PART B Dec 09, 2008 PART B [id number] 30A Venkat VELASQUEZ AVID PATIENT MEDICARE (WNR) MEDICARE (M) PART B Dec 09, 2008 PART B [id number] 30A Venkat VELASQUEZ AVID PATIENT MEDICARE (WNR) MEDICARE (M) PART A Jun 11, 2007 PART A [id number] [phone] Venkat VELASQUEZ AVID PATIENT MEDICARE (WNR) MEDICARE (M) PART A Jun 11, 2007 PART A [id number] 30A Venkat VELASQUEZ AVID PATIENT MEDICARE (WNR) MEDICARE (M) PART A Jun 11, 2007 PART A [id number] 30A Venkat VELASQUEZ AVID PATIENT Selected Encounter This section includes the information on record at [place] for the Encounter. Date/Time Encounter Type Encounter Description Reason Pro vider Source Jan 28, 2024 08:49 AM Outpatient Encounter DENTAL IHE Encounter Template Text not used by [place] Plan of Treatment: Future Appointments (+ 6 months) and Future Tests (+/- 45 days) The Plan of Treatment section includes future care activities for the patient from all [place] [facility]. This section includes future appointments and future orders which are active, pending or scheduled. Future Appointments This section includes appointments that were scheduled to occur 6 months from the date of the Encounter, up to a maximum of 20 appointments. The data comes from all [place] treatment facilities. Appointment Date/Time Appointment Type Appointme nt Facility Name Jan 29, 2024 10:45 AM AMBULATORY - NONE [place] [facility] [place] [facility] Feb 05, 2024 02:30 PM AMBULATORY - MEDICINE [place] [facility] Feb 05, 2024 03:00 PM AMBULATORY - MEDICINE [place] [facility] Feb 07, 2024 09:30 AM AMBULATORY - NONE [place] [place] [facility] Feb 21, 2024 11:00 AM AMBULATORY - MEDICINE [place] [facility] Feb 25, 2024 09:30 AM AMBULATORY - MEDICINE [place] [facility] Mar 05, 2024 11:00 AM AMBULATORY - NONE [place] [facility] [place] [facility] Mar 18, 2024 09:00 AM AMBULATORY - MEDICINE [place] [facility] May 01, 2024 03:00 PM AMBULATORY - MEDICINE [place] [facility] May 13, 2024 07:30 AM AMBULATORY - NONE [place] [facility] [place] [facility] May 26, 2024 11:30 AM AMBULATORY - MEDICINE [place] [place] [facility] Jun 06, 2024 02:30 PM AMBULATORY - [facility]ICINE [facility] Jun 17, 2024 02:30 PM AMBULATORY - MEDICINE [facility] N[facility]L TR[facility] Jul 23, 2024 02:30 PM [facility] Lab Results: +/- 30 days of the encounter This section includes the Chemistry and Hematology Lab Results on record with [place] for the patient. Radiology Reports and Pathology Reports are provided separately, in subsequent sections. Lab Results This section contains the Chemistry/Hematology Results that were resulted 30 days before or 30 daysafter the date of the Encounter. Date/Time Source Result Type Result - Unit Interpretation Reference Range Comment Jan 29, 2024 10:22 AM [facility] PSA Specimen Type: SERUM No comment entered. Ordering Provider: RISSA MCGRAW Report Released Date/Time: Dec 05, 2023 03:33 PM Reporting Lab: [address] [address] Performing Lab: [address] [address] PSA 6.05 ng/mL H 0.00-4.00 Jan 29, 2024 10:21 AM [facility] BASIC METABOLIC PANEL (fasting) Specimen Type: SERUM No comment entered. Ordering Provider: CRYSTAL WILKERSON Report Released Date/Time: Jan 08, 2024 11:27 AM Reporting Lab: [address] [address] Performing Lab: [address] [address] UREA NITROGEN 12 mg/dL 7-25 GLUCOSE 112 [...] place. Date/Time Current Smoking Status Comment [facility] it May 17, 2023 02:16 PM [facility]TOBACCO [facility] Tobacco Use History This section includes a history of the smoking, or tobacco-related health factors, that were collected on or before the date of the Encounter. The data comes from the [place] facility where the Encounter took place. Date/Time Smoking Status/Tobac co Use Comment Facility May 09, 2022 10:45 AM VA-TOBACCO [facility] Mar 30, 2021 01:02 PM VA-TOBACCO FORMER USER [place] [facility] Mar 30, 2021 01:02 PM VA-TOBACCO QUIT 5 TO < 15 YRS [facility] Aug 31, 2004 09:56 AM HISTORY OF SMOKING QUIT 20 YEARS AGO [facility] Aug 08, 2004 02:45 PM LIFETIME NON-TOBACCO USER [facility] Encounter Notes: All associated encounter notes This section contains the clinical notes associated to the Encounter. Date/Time Encounter Note(s) Provider Source Jan 28, 2024 08:49 AM DENTISTRY TELEPHON E ENCOUNTER NOTE: LOCAL TITLE: TELEPHONE NOTE/DENTAL STANDARD TITLE: DENTISTRY TELEPHONE ENCOUNTER NOTE DATE OF NOTE: JAN 28, 2024@08:49 ENTRY DATE: JAN 28, 2024@08:49:28 AUTHOR: ANISH PARSONS EXP COSIGNER: URGENCY: STATUS: COMPLETED Called pt and LM to confirm dental appointment on 01/29/2024 at 10:45 am /elle/ ANISH PARSONS ADVANCED SPECIAL LIBRARY LIBRARIAN Signed: 01/28/2024 08:50 ANISH PARSONS [facility]
--- OUTSIDE RECORDS SUMMARY | 2024-06-07 09:01 | XMS_ITS | Encounter Summary ---
Author Name [facility] [place] Organization [facility] [place] Address [address] [place] [id number] Care Team Providers Care Transitions Manager Rn Name Role Phone RISSA MCGRAW Primary Care [...] GOOD FAMIL Y Jun 11, 2000 105 [id number] [phone] Venkat VELASQUEZ AVID PATIENT MEDICARE (WNR) MEDICARE (M) PART B Dec 09, 2008 PART B [id number] [phone] Venkat VELASQUEZ AVID PATIENT MEDICARE (WNR) MEDICARE (M) PART B Dec 09, 2008 PART B [id number] Venkat VELASQUEZ AVID PATIENT MEDICARE (WNR) MEDICARE (M) PART B Dec 09, 2008 PART B [id number] Venkat VELASQUEZ AVID PATIENT MEDICARE (WNR) MEDICARE (M) PART A Jun 11, 2007 PART A [id number] [id number] [phone] Venkat VELASQUEZ AVID PATIENT MEDICARE (WNR) MEDICARE (M) PART A Jun 11, 2007 PART A [id number] Venkat VELASQUEZ AVID PATIENT MEDICARE (WNR) MEDICARE (M) PART A Jun 11, 2007 PART A [id number] Venkat VELASQUEZ AVID PATIENT Selected Encounter This section includes the information on record at CT for the Encounter. Date/Time Encounter Type Encounter Description Reason Pro vider Source Feb 06, 2024 08:29 AM Outpatient Encounter DENTAL IHE Encounter Template Text not used by CT Plan of Treatment: Future Appointments (+ 6 months) and Future Tests (+/- 45 days) The Plan of Treatment section includes future care activities for the patient from all CT treatmentfaunc healthities. This section includes future appointments and [...] AMBULATORY - NONE [facility] [place] [facility] Feb 21, 2024 11:00 AM AMBULATORY - MEDICINE [facility] [place] [facility] Feb 25, 2024 09:30 AM AMBULATORY - MEDICINE [facility] [place] [facility] Mar 05, 2024 11:00 AM AMBULATORY - NONE [facility] [place] [facility] Mar 18, 2024 09:00 AM AMBULATORY - MEDICINE [facility] [place] [facility] May 01, 2024 03:00 PM AMBULATORY - MEDICINE [facility] [place] [facility] May 13, 2024 07:30 AM AMBULATORY - NONE [facility] [place] [facility] May 26, 2024 11:30 AM AMBULATORY - MEDICINE [facility] [place] [facility] Jun 06, 2024 02:30 PM AMBULATORY - MEDICINE [facility] [place] [facility] Jun 17, 2024 02:30 PM AMBULATORY - MEDICINE [facility] [place] [facility] Jul 23, 2024 02:30 PM AMBULATORY - MEDICINE [facility] [place] [facility] Jul 31, 2024 10:45 AM [facility] Aug 07, 2024 09:30 AM AMBULATORY - MEDICINE [facility] Active, Pending, and Scheduled Orders This section includes a listing of several types of active, pending, and scheduled orders, including clinic medications orders, diagnostic test orders, procedure orders and consult orders; where the start date of the order is 45 days before the date of the Encounter or 45 days after the date of theEncounter. The data comes from all CT treatment facilities. Test Date/Time Test Type Test Details Facility Name Mar 18, 2024 12:00 AM Laboratory - Chemi stry Order BASIC METABOLIC PANEL (fasting) BLOOD (SST-SERUM) SP [facility] Lab Results: +/- 30 days of the encounter This section includes the Chemistry and Hematology Lab Results on record with [facility] for the patient. Radiology Reports and Pathology Reports are provided separately, in subsequent sections. Lab Results This section contains the Chemistry/Hematology Results that were resulted 30 days before or 30 daysafter the date of the Encounter. Date/Time Source Result Type Result - Unit Interpretation Reference Range Comment Jan 29, 2024 10:22 AM [facility] PSA Specimen Type: SERUM No comment entered. Ordering Provider: RISSA MCGRAW Report Released Date/Time: Dec 05, 2023 03:33 PM Reporting Lab: [facility] [address] [facility] [address] Performing Lab: [address] [address] PSA 6.05 ng/mL H 0.00-4.00 Jan 29, 2024 10:21 AM [facility] BASIC METABOLIC PANEL (fasting) Specimen Type: SERUM No comment entered. Ordering Provider: CRYSTAL WILKERSON Report Released Date/Time: Jan 08, 2024 11:27 AM Reporting Lab: [facility] [address] [facility] [address] Performing Lab: [address] [address] UREA NITROGEN 12 mg/dL 7-25 GLUCOSE 112 [...] took place. Date/Time Current Smoking Status Comment [facility] it May 17, 2023 02:16 PM VA[facility]TO[facility]ACCO [facility] Tobacco Use History This section includes a history of the smoking, or tobacco-related health factors, that were collected on or before the date of the Encounter. The data comes from the CT facility where the Encounter took place. Date/Time Smoking Status/Tobac co Use Comment Facility May 09, 2022 10:45 AM VA-TOBACCO NEVER USED CT [facility] [place] [facility] Mar 30, 2021 01:02 PM VA-TOBACCO FORMER USER CT [facility] [place] [facility] Mar 30, 2021 01:02 PM VA-TOBACCO QUIT 5 TO < [address] [facility] [place] [facility] Aug 31, 2004 09:56 AM HISTORY OF SMOKING QUIT [address] [facility] [place] [facility] Aug 08, 2004 02:45 PM LIFET[facility]ACCO [facility] Encounter Notes: All associated encounter notes This section contains the clinical notes associated to the Encounter. Date/Time Encounter Note(s) Provider Source Feb 06, 2024 08:29 AM DENTISTRY TELEPHON E ENCOUNTER NOTE: LOCAL TITLE: TELEPHONE NOTE/DENTAL STANDARD TITLE: DENTISTRY TELEPHONE ENCOUNTER NOTE DATE OF NOTE: FEB 06, 2024@08:29 ENTRY DATE: FEB 06, 2024@08:29:32 AUTHOR: ANISH PARSONS EXP COSIGNER: URGENCY: STATUS: COMPLETED Spoke with pt to confirm dental appointment on 02/07/2024 at 9:30 am /elle/ ANISH PARSONS ADVANCED PRINTER APPRENTICE Signed: 02/06/2024 08:30 ANISH PARSONS [facility]
--- OUTSIDE RECORDS SUMMARY | 2024-06-07 09:01 | XMS_ITS | Encounter Summary ---
Author Name [facility] [place] [facility] [place] [facility] Address [address] [place] [address] Care Team Providers Care Sock Lining Stitcher Name Role Phone RISSA MCGRAW Primary Care [...] GOOD FAMIL Y Jun 11, 2000 105 [id number] Venkat VELASQUEZ AVID PATIENT MEDICARE (WNR) MEDICARE (M) PART B Dec 09, 2008 PART B [id number] 30A [phone] Venkat VELASQUEZ AVID PATIENT MEDICARE (WNR) MEDICARE (M) PART B Dec 09, 2008 PART B [id number] Venkat VELASQUEZ AVID PATIENT MEDICARE (WNR) MEDICARE (M) PART B Dec 09, 2008 PART B [id number] 30A [phone] Venkat VELASQUEZ AVID PATIENT MEDICARE (WNR) MEDICARE (M) PART A Jun 11, 2007 PART A [id number] [id number] Venkat VELASQUEZ AVID PATIENT MEDICARE (WNR) MEDICARE (M) PART A Jun 11, 2007 PART A [id number] Venkat VELASQUEZ AVID PATIENT MEDICARE (WNR) MEDICARE (M) PART A Jun 11, 2007 PART A [id number] 30A [id number] Venkat VELASQUEZ AVID PATIENT Selected Encounter This section includes the information on record at [place] for the Encounter. Date/Time Encounter Type Encounter Description Reason Provider Source Jan 11, 2024 08:30 AM DENTURES ADJUST PART MAXILL DENTAL ICD-10-CM K02.62 Dental caries on smooth surface penetrating into dentin LAVON SONI Sharif Encounter Template Text not used by [place] Assessments - Encounter Diagnoses This section includes the primary and secondary diagnoses documented for the Encounter. Date/Time Primary/Secondary Diagnosis Diagnosis Name Provider Source Jan 11, 2024 12:46 PM PRIMARY Dental caries on smooth surface penetrating into dentin LAVON SONI [place] [facility] [place] [facility] Jan 11, 2024 12:46 PM SECONDARY Disorder of teeth and supporting structures, unspecified LAVON SONI [place] [facility] [place] [facility] Plan of Treatment: Future Appointments (+ 6 months) and Future Tests (+/- 45 days) The Plan of Treatment section includes future care activities for the [facility] [place] [facility] This section includes future appointments [...] 29, 2024 10:45 AM AMBULATORY - NONE [place] [facility] [place] [facility] Feb 05, 2024 02:30 PM AMBULATORY - MEDICINE [place] [facility] [place] [facility] Feb 05, 2024 03:00 PM AMBULATORY - MEDICINE [place] [facility] [place] [facility] Feb 07, 2024 09:30 AM AMBULATORY - NONE [facility] [place] [facility] Feb 21, 2024 11:00 AM AMBULATORY - MEDICINE [place] [facility] [place] [facility] Feb 25, 2024 09:30 AM AMBULATORY - MEDICINE [place] [facility] [place] [facility] Mar 05, 2024 11:00 AM AMBULATORY - NONE [facility] [place] [facility] Mar 18, 2024 09:00 AM AMBULATORY - MEDICINE [place] [facility] [place] [facility] May 01, 2024 03:00 PM AMBULATORY - MEDICINE [place] [facility] [place] [facility] May 13, 2024 07:30 AM AMBULATORY - NONE [facility] [place] [facility] May 26, 2024 11:30 AM AMBULATORY - MEDICINE [place] [facility] [place] [facility] Jun 06, 2024 02:30 PM AMBULATORY - MEDICINE [place] [facility] [place] [facility] Jun 17, 2024 02:30 PM AMBULATORY - MEDICINE [place] [facility] Lab Results: +/- 30 days of the encounter This section includes the Chemistry and Hematology Lab Results on record with [place] for the patient. Radiology Reports and Pathology Reports are provided separately, in subsequent sections. Lab Results This section contains the Chemistry/Hematology Results that were resulted 30 days before or 30 daysafter the date of the Encounter. Date/Time Source Result Type Result - Unit Interpretation Reference Range Comment Jan 29, 2024 10:22 AM [facility] PSA Specimen Type: SERUM No comment entered. Ordering Provider: RISSA MCGRAW Report Released Date/Time: Dec 05, 2023 03:33 PM Reporting Lab: [facility] [address] [facility] [address] Performing Lab: [facility] [address] [address] PSA 6.05 ng/mL H 0.00-4.00 Jan 29, 2024 10:21 AM [facility] BASIC METABOLIC PANEL (fasting) Specimen Type: SERUM No comment entered. Ordering Provider: CRYSTAL WILKERSON Report Released Date/Time: Jan 08, 2024 11:27 AM Reporting Lab: [facility] [address] [facility] [address] Performing Lab: [facility] [address] [address] UREA NITROGEN 12 mg/dL 7-25 GLUCOSE 112 [...] took place. Date/Time Current Smoking Status Comment [facility] May 17, 2023 02:16 PM VA-TOBACCO NEVER USED [facility] Tobacco Use History This section includes a history of the smoking, or tobacco-related health factors, that were collected on or before the date of the Encounter. The data comes from the [place] facility where the Encounter took place. Date/Time Smoking Status/Tobac co Use Comment Facility May 09, 2022 10:45 AM VA-TOBACCO [facility] Mar 30, 2021 01:02 PM VA-TOBACCO [facility] Mar 30, 2021 01:02 PM VA-TOBACCO QUIT 5 TO < 15 YRS [facility] Aug 31, 2004 09:56 AM HISTORY OF SMOKING QUIT 20 YEARS AGO [facility] Aug 08, 2004 02:45 PM LIFETIME NON-TOBACCO USER [facility] Encounter Notes: All associated encounter notes This section contains the clinical notes associated to the Encounter. Date/Time Encounter Note(s) Provider Source Jan 11, 2024 12:44 PM DENTISTRY NOTE: LOCAL TITLE: DENTAL NOTE STANDARD TITLE: DENTISTRY NOTE DATE OF NOTE: JAN 11, 2024@12:44 ENTRY DATE: JAN 11, 2024@12:46:22 AUTHOR: LAVON SONI COSIGNER: URGENCY: STATUS: COMPLETED Patient Name: BRIAN VELASQUEZ JR, : 1945, Age: 78 Visit: S: Jan 11, 2024@08:30 [facility] DENTAL DMD 3 AM NEW. Primary PCE Diagnosis: K02.62 (Dental caries on smooth surface penetrating into dentin). Dental Category: 15-OPC, Class IV. Treatment Status: Maintenance. Dental Examination: Missing Teeth: 2, 5, 6, 10, 15, 16, 19, 20, 29, 30, 31. Endodontically Treated: 9(r) Vincenzo Percha, 11(r) Vincenzo Percha. Planned Procedures: Unsequenced (D2740) CROWN PORCELAIN/CERAMIC SUBS: 11. DX: (). (D2740) CROWN PORCELAIN/CERAMIC SUBS: 12. DX: (). (D2740) CROWN PORCELAIN/CERAMIC SUBS: 13. DX: (). (D5225) MAXILLARY PART DENTURE FLEX: Upper. DX: (). (D5226) MANDIBULAR PART DENTURE FLEX: Lower. DX: (). Completed Care: (D2331) RESIN TWO SURFACES-ANTERIOR. Tooth: 9. Surface(s): FD. DX: K02.62 Dental Caries on Smooth Surface Penetrating into Dentin (D2950) CORE BUILD-UP INCL ANY PINS. Tooth: 11. DX: K02.62 Dental Caries on Smooth Surface Penetrating into Dentin (D2950) CORE BUILD-UP INCL ANY PINS. Tooth: 13. DX: K02.62 Dental Caries on Smooth Surface Penetrating into Dentin (D2950) CORE BUILD-UP INCL ANY PINS. Tooth: 12. DX: K02.62 Dental Caries on Smooth Surface Penetrating into Dentin (D2999) DENTAL UNSPEC RESTORATIVE PA. Tooth: 11. DX: K02.62 Dental Caries on Smooth Surface Penetrating into Dentin (D2999) DENTAL UNSPEC RESTORATIVE PA. Tooth: 12. DX: K02.62 Dental Caries on Smooth Surface Penetrating into Dentin (D2999) DENTAL UNSPEC RESTORATIVE PA. Tooth: 13. DX: K02.62 Dental Caries on Smooth Surface Penetrating into Dentin (D5421) DENTURES ADJUST PART MAXILL. DX: K08.9 [...] understands and agrees with the treatment plan. TIME OUT/Safety goals (correct patient, procedure, site, position) were verified immediately prior to the procedure. Diagnosis: Decay to dentin Plan: Restorative procedure local anesthesia: 1.7ml 2%xylocaine with 1:100,000 epi Removed all caries and preped the surfaces noted above. The preped surfaces were etched with 40% phosphoric acid gel and Resin adhesive was applied per protocol. Restored with Composite material Shade: A3.5 The occlusion was adjusted per protocol. Patient tolerated the procedure well TIME OUT/Safety goals (correct patient, procedure, site, position) were verified immediately prior to the procedure. Reviewed findings, treatment plan, risks, benefits, and possible complications requiring other treatment. Patient understood and agreed to treatment plan. Answered all questions. Patient presented for #11,12,13 zirconia crowns preparation and final impression. 1.7ml 2% xylocaine with 1:100,000 epinephrine was administered. Core build up completed with composite. Regisil material was used to make the stent for fabricating temporary crown. Circumferential reduction was completed with high speed jacqueline bur with 1mm margin. Occlusal reduction 2mm was completed with high speed football bur. Episaxal in the sulcus for 5 mins. Final impresison was taken with PVS heavy and light body. Bite registration was taken with Regisil. Temporary crown was fabriated with Luxa temp. The temporary crown was cemented with durelon and excess cement cleaned with explorer. Shade A3.5 Informed patient that #13 had deep decay, if become symptomatic may need endo treatment. Post op instruction given to patient. Informed patient to contact clinic if temporary broken or loose. Patient upper partial adjusted with arylic bur to fit the temp crowns. Next Appointment: Delivery crowns, t+4w, 120mins /elle/ LAVON SONI DMD Staff Dentist Signed: 01/11/2024 12:46 LAVON SONI [facility]
--- OUTSIDE RECORDS SUMMARY | 2024-06-07 09:01 | XMS_ITS | Encounter Summary ---
Author Name [facility] [place] [facility] [place] [facility] [place] Address [address] [place] [address] Care Team Providers Care Garment Folder Name Role Phone RISSA MCGRAW Primary Care [...] GOOD FAMIL Y Jun 11, 2000 105 [id number] [phone] Venkat VELASQUEZ AVID PATIENT MEDICARE (WNR) MEDICARE (M) PART B Dec 09, 2008 PART B [id number] Venkat VELASQUEZ AVID PATIENT MEDICARE (WNR) MEDICARE (M) PART B Dec 09, 2008 PART B [id number] [phone] Venkat VELASQUEZ AVID PATIENT MEDICARE (WNR) MEDICARE (M) PART B Dec 09, 2008 PART B [id number] [phone] Venkat VELASQUEZ AVID PATIENT MEDICARE (WNR) MEDICARE (M) PART A Jun 11, 2007 PART A [id number] Venkat VELASQUEZD PATIENT MEDICARE (WNR) MEDICARE (M) PART A Jun 11, 2007 PART A [id number] Venkat VELASQUEZ AVIVenkat PATIENT MEDICARE (WNR) MEDICARE (M) PART A Jun 11, 2007 PART A [id number] [phone] Venkat VELASQUEZ PATIENT Selected Encounter This section includes the information on record at [place] for the Encounter. Date/Time Encounter Type Encounter Description Reason Provider Source Feb 25, 2024 09:30 AM OFF/OP EST OCTOBER X REQ PHY/QHP PRIMARY CARE/MEDICINE ICD-10-CM Z23 Encounter for immunization BRENNAN GONZALES HY E IHE Encounter Template Text not used by [place] Assessments - Encounter Diagnoses This section includes the primary and secondary diagnoses documented for the Encounter. Date/Time Primary/Secondary Diagnosis Diagnosis Name Provider Source Feb 25, 2024 09:48 AM PRIMARY Encounter for immunization BRENNAN GONZALES HY E [place] [facility] [place] [facility] Plan of Treatment: Future Appointments (+ 6 months) and Future Tests (+/- 45 days) The Plan of Treatment section includes future care activities for the patient from all [place] treatmentfacilities. This section includes future appointments and future orders which are active, pending or scheduled. Future Appointments This section includes appointments that were scheduled to occur 6 months from the date of the Encounter, up to a maximum of 20 appointments. The data comes from all [place] treatment facilities. Appointment Date/Time Appointment Type Appointme nt Facility Name Mar 05, 2024 11:00 AM AMBULATORY - NONE [place] [facility] [place] [facility] Mar 18, 2024 09:00 AM AMBULATORY - MEDICINE MA C NTRL [facility] [place] [facility] May 01, 2024 03:00 PM AMBULATORY - MEDICINE [place] C [facility]L [facility] [facility] May 13, 2024 07:30 AM AMBULATORY - NONE [place] [facility]L [facility] [place] [facility] May 26, 2024 11:30 AM AMBULATORY - MEDICINE [place] C NTRL [place] [facility] Jun 06, 2024 02:30 PM AMBULATORY - MEDICINE [place] C N[facility]L [place] [facility] Jun 17, 2024 02:30 PM AMBULATORY - MEDICINE [place] C NTRL [place] [facility] Jul 23, 2024 02:30 PM AMBULATORY - MEDICINE [facility] N[facility]L [facility] Jul 31, 2024 10:45 AM AMBULATORY - NONE [facility] Aug 07, 2024 09:30 AM AMBULATORY - MEDICINE [facility] Active, Pending, and Scheduled Orders This section includes a listing of several types of active, pending, and scheduled orders, including clinic medications orders, diagnostic test orders, procedure orders and consult orders; where the start date of the order is 45 days before the date of the Encounter or 45 days after the date of theEncounter. The data comes from all [place] treatment facilities. Test Date/Time Test Type Test Details Facility Name Mar 18, 2024 12:00 AM Laboratory - Chemi stry Order BASIC METABOLIC PANEL (fasting) BLOOD (SST-SERUM) [facility] Lab Results: +/- 30 days of [...] Range Comment Jan 29, 2024 10:22 AM [facility] PSA Specimen Type: SERUM No comment entered. Ordering Provider: RISSA MCGRAW Report Released Date/Time: Dec 05, 2023 03:33 PM Reporting Lab: [address] [address] Performing Lab: [address] [address] PSA 6.05 ng/mL H 0.00-4.00 Jan 29, 2024 10:21 AM [facility] BASIC METABOLIC PANEL (fasting) Specimen Type: SERUM No comment entered. Ordering Provider: CRYSTAL WILKERSON Report Released Date/Time: Jan 08, 2024 11:27 AM Reporting Lab: [address] [address] Performing Lab: [address] [place] [address] UREA NITROGEN 12 mg/dL 7-25 GLUCOSE 112 mg/dL H 65-100 SODIUM 140 mmol/L 135-145 POTASSIUM 3.9 mmol/L 3.5-5.0 CHLORIDE 102 mmol/L 100-110 CO2 23 meq/L 20-30 CREATININE, Serum 0.90 mg/dL 0.50-1.40 eGFR(CKD-EPI 2020) 88 mL/min >60 Immunizations: All administered on the encounter date This section contains immunizations associated to the Encounter. Immunization Series Date Issued Reaction Comments COVID-19 (MODERNA), MRNA, LN P-S, PF, 50 MCG/0.5 ML (AGES 12+ YEARS) Feb 25, 2024 INFLUENZA, HIGH-DOSE, TRIVALENT, PF Feb 24 Social History: Smoking Status (Most current) and [...] took place. Date/Time Current Smoking Status Comment [facility] May 17, 2023 02:16 PM VA-TOBACCO NEVER USED [facility] Tobacco Use History This section includes a history of the smoking, or tobacco-related health factors, that were collected on or before the date of the Encounter. The data comes from the [place] facility where the Encounter took place. Date/Time Smoking Status/Tobac co Use Comment Facility May 09, 2022 10:45 AM VA-TOBACCO NEVER USED [facility] Mar 30, 2021 01:02 PM VA-TOBACCO FORMER USER [facility] Mar 30, 2021 01:02 PM VA-TOBACCO QUIT 5 TO < 15 YRS [facility] Aug 31, 2004 09:56 AM HISTORY OF SMOKING QUIT 20 YEARS AGO [facility] Aug 08, 2004 02:45 PM LIFETIME [facility]ACCO [facility] Encounter Notes: All associated encounter notes This section contains the clinical notes associated to the Encounter. Date/Time Encounter Note(s) Provider Source Feb 25, 2024 09:44 AM PREVENTIVE MEDICIN E NURSING NOTE: LOCAL TITLE: CLINICAL REMINDERS/NURSING STANDARD TITLE: PREVENTIVE MEDICINE NURSING NOTE DATE OF NOTE: FEB 25, 2024@09:44 ENTRY DATE: FEB 25, 2024@09:44:20 AUTHOR: TORREY GONZALES EXP COSIGNER: URGENCY: STATUS: COMPLETED Influenza Immunization: Influenza, High-Dose, Trivalent, Preservative Free (Fluzone-Syringe) Administered: INFLUENZA, HIGH-DOSE, TRIVALENT, PF Date Administered: Feb 25, 2024 09:30 Series: (None selected) Photogravure Press Operator: SANOFI PASTEUR Lot: [id number] Exp Date: Dec 08, 2024 NDC: [id number] Admin Route/Site: INTRAMUSCULAR/RIGHT DELTOID Dosage: 0.5mL Vaccine Information Statement(s): INFLUENZA(FLU) VACC(INACTIVATED OR RECOMBINANT)VIS Jan 14, 2021 (ROMANSH) Order By: Policy Administered By: Torrey Gonzales The Influenza Vaccine Information Statement (VIS) was reviewed with the patient/caregiver which lists the benefits and risks of the vaccine and the risks of not receiving the Influenza vaccine. The patient/caregiver denied any prior severe reaction to this vaccine or its components or a severe allergic reaction, such as anaphylaxis, to any vaccine or any injectable therapy. The patient/caregiver gave verbal consent to receive the vaccine. COVID-19 Immunization: Moderna Monovalent (Spikevax) Administered: COVID-19 (MODERNA), MRNA, LNP-S, PF, 50 MCG/0.5 ML (AGES 12+ YEARS) Date Administered: Feb 25, 2024 09:30 Photogravure Press Operator: MODERNA [employer] Lot: [id number] Exp Date: November 01, 2024 NDC: [id number] Admin Route/Site: INTRAMUSCULAR/LEFT DELTOID Dosage: 0.5mL Vaccine Information Statement(s): COVID-19 MRNA VACCINE (12+ YRS) VACCINE VIS Mar 29, 2023 (ROMANSH) Order By: Policy Administered By: Torrey Gonzales Vaccine administered without complications. /elle/ TORREY GONZALES MSN Ed., BSN VP PACKAGING NURSE Signed: 02/25/2024 09:48 TORREY GONZALES [place] CNTRL [facility]
--- OUTSIDE RECORDS SUMMARY | 2024-06-07 09:01 | XMS_ITS | Encounter Summary ---
Author Name [facility] [facility] [place] Address [address] [place] [id number] Care Team Providers Care Office Services Assistant Name Role Phone RISSA MCGRAW Primary Care [...] GOOD FAMIL Y Jun 11, 2000 105 [id number] Venkat VELASQUEZ AVID PATIENT MEDICARE (WNR) MEDICARE (M) PART B Dec 09, 2008 PART B [id number] Venkat VELASQUEZ AVID PATIENT MEDICARE (WNR) MEDICARE (M) PART B Dec 09, 2008 PART B [id number] Venkat VELASQUEZ AVID PATIENT MEDICARE (WNR) MEDICARE (M) PART B Dec 09, 2008 PART B [id number] Venkat VELASQUEZ AVID PATIENT MEDICARE (WNR) MEDICARE (M) PART A Jun 11, 2007 PART A [id number] [phone] Venkat VELASQUEZ AVID PATIENT MEDICARE (WNR) MEDICARE (M) PART A Jun 11, 2007 PART A [id number] [id number] Venkat VELASQUEZ AVID PATIENT MEDICARE (WNR) MEDICARE (M) PART A Jun 11, 2007 PART A [id number] Venkat VELASQUEZ AVIVenkat PATIENT Selected Encounter This section includes the information on record at [place] for the Encounter. Date/Time Encounter Type Encounter Description Reason Provider Source Jan 29, 2024 10:45 AM CASE MGMT-ORAL HEALTH LIT DENTAL ICD-10-CM K03.6 Deposits [accretions] on teeth PARTH,FAROOQ K IHE Encounter Template Text not used by [place] Assessments - Encounter Diagnoses This section includes the primary and secondary diagnoses documented for the Encounter. Date/Time Primary/Secondary Diagnosis Diagnosis Name Provider Source Jan 29, 2024 11:23 AM PRIMARY Deposits [accretions] on teeth PARTH,FAROOQ K [place] [facility] [facility] Plan of Treatment: Future Appointments (+ 6 months) and Future Tests (+/- 45 days) The Plan of Treatment section includes future care activities for the patient [facility] [place] [facility]. This section includes future appointments and future orders which are active, pending or scheduled. Future Appointments This section includes appointments that were scheduled to occur 6 months from the date of the Encounter, up to a maximum of 20 appointments. The data comes from all [place] treatment facilities. Appointment Date/Time Appointment Type Appointme nt Facility Name Feb 05, 2024 02:30 PM AMBULATORY - MEDICINE [place] C [facility]L [facility] [facility] Feb 05, 2024 03:00 PM AMBULATORY - MEDICINE [place] C NTRL [facility] [facility] Feb 07, 2024 09:30 AM AMBULATORY - NONE [place] [facility]L [facility] [place] [facility] Feb 21, 2024 11:00 AM AMBULATORY - MEDICINE [place] C NTRL [facility] [facility] Feb 25, 2024 09:30 AM AMBULATORY - MEDICINE [place] C NTRL [facility] [facility] Mar 05, 2024 11:00 AM AMBULATORY - NONE [place] CNTRL [facility] [facility] Mar 18, 2024 09:00 AM AMBULATORY - MEDICINE [place] C NTRL [place] [facility] May 01, 2024 03:00 PM AMBULATORY - MEDICINE [place] C NTRL [place] [facility] May 13, 2024 07:30 AM AMBULATORY - NONE [place] [facility] [facility] May 26, 2024 11:30 AM AMBULATORY - MEDICINE [place] C NTRL [place] [facility] Jun 06, 2024 02:30 PM AMBULATORY - MEDICINE [place] C [facility]L [place] [facility] Jun 17, 2024 02:30 PM AMBULATORY - MEDICINE [place] C [facility]TRL [place] [facility] Jul 23, 2024 02:30 PM AMBULATORY - MEDICINE [place] C [place]TRL [place] [facility] Jul 31, 2024 10:45 AM AMBULATORY - NONE [place] [facility] Lab Results: +/- 30 days of the encounter This section includes the Chemistry and Hematology Lab Results on record with [place] for the patient. Radiology Reports and Pathology Reports are provided separately, in subsequent sections. Lab Results This section contains the Chemistry/Hematology Results that were resulted 30 days before or 30 daysafter the date of the Encounter. Date/Time Source Result Type Result - Unit Interpretation Reference Range Comment Jan 29, 2024 10:22 AM [facility] PSA Specimen Type: SERUM No comment entered. Ordering Provider: RISSA MCGRAW Report Released Date/Time: Dec 05, 2023 03:33 PM Reporting Lab: [facility] [address] [facility] [address] Performing Lab: [facility] [address] [address] PSA 6.05 ng/mL H 0.00-4.00 Jan 29, 2024 10:21 AM [facility] BASIC METABOLIC PANEL (fasting) Specimen Type: SERUM No comment entered. Ordering Provider: CRYSTAL WILKERSON Report Released Date/Time: Jan 08, 2024 11:27 AM Reporting Lab: [facility] [address] [facility] [address] Performing Lab: [facility] [address] [address] UREA NITROGEN 12 mg/dL 7-25 GLUCOSE 112 [...] and tobacco- related health factors from the [place] facility where the Encounter took place. Current Smoking Status This section includes the most current smoking, or tobacco-related health factor, from the [place] facility where the Encounter took place. Date/Time Current Smoking Status Comment [facility] May 17, 2023 02:16 PM VA-TOBACCO NEVER USED [facility] Tobacco Use History This section includes a history of the smoking, or tobacco-related health factors, that were collected on or before the date of the Encounter. The data comes from the [place] facility where the Encounter took place. Date/Time Smoking Status/Tobac co Use Comment Facility May 09, 2022 10:45 AM VA-TOBACCO NEVER USED [facility] Mar 30, 2021 01:02 PM VA-TOBACCO FORMER USER [place] CNTR [facility] [facility] Mar 30, 2021 01:02 PM VA-TOBACCO QUIT 5 TO < 15 YRS [place] CNTR [facility] [facility] Aug 31, 2004 09:56 AM HISTORY OF SMOKING QUIT 20 YEARS AGO [facility] [place] [facility] Aug 08, 2004 02:45 PM LIFETIME NON-TOBACCO [facility]ER [facility] Encounter Notes: All associated encounter notes This section contains the clinical notes associated to the Encounter. Date/Time Encounter Note(s) Provider Source Jan 29, 2024 11:19 AM DENTISTRY NOTE: LOCAL TITLE: DENTAL NOTE STANDARD TITLE: DENTISTRY NOTE DATE OF NOTE: JAN 29, 2024@11:19 ENTRY DATE: JAN 29, 2024@11:23:50 AUTHOR: FAROOQ ALBA COSIGNER: URGENCY: STATUS: COMPLETED DENTAL NOTE Has ADDENDA Patient Name: BRIAN VELASQUEZ , : 1945, Age: 78 Visit: S: Jan 29, 2024@10:45 [facility] DENTAL RDH 1 AM. Primary PCE Diagnosis: K03.6 (Deposits [accretions] on teeth). Dental Category: 15-OPC, Class IV. Treatment Status: Maintenance. Completed Care: (D1110) DENTAL PROPHYLAXIS ADULT. DX: K03.6 Deposits [Accretions] on Teeth (D1206) TOPICAL FLUORIDE VARNISH. DX: K03.6 Deposits [Accretions] on Teeth (D9994) CASE MGMT-ORAL HEALTH LIT. DX: K03.6 Deposits [Accretions] on Teeth Periodontal Examination: Periodontal Charting (This is textual display of periodontal findings. Please see DR Plus for perio charting graphic.) - - - - - - - - - - - - - - - - - - - - - - - - - - - - - - - - - - - TOOTH 1 2 3 4 5 6 7 8 9 10 11 12 13 14 15 16 - - - -~- -~- -~- -~- -~- -~- -~- -~- -~- -~- -~- -~- -~- -~- -~- -~- F PD 444 444 323 323 323 333 333 333 333 L PD 333 333 323 323 323 333 333 333 333 - - - -~- -~- -~- -~- -~- -~- -~- -~- -~- -~- -~- -~- -~- -~- -~- -~- TOOTH 32 31 30 29 28 27 26 25 24 23 22 21 20 19 18 17 - - - -~- -~- -~- -~- -~- -~- -~- -~- -~- -~- -~- -~- -~- -~- -~- -~- F PD 333 333 323 323 323 323 333 333 333 L PD 333 333 323 322 222 222 323 323 333 - - - - - - - - - - - - - - - - - - - - - - - - - - - - - - - - - - - MAYERS: B=Bleeding b=Delayed Bleeding S=Suppuration *=Pocket/MGJ > 9 +=FGM coronal to CEJ (Periodontal chart may be a composite of entries from different dates) Oral Health Assessment Findings: Plaque Index: 3 - Heavy Xerostomia: 0 - None Caries Risk: 3 - High ??-- EL Oral Hygiene: 3 - Poor - - - - - - - - - - - - - - - - - - - - - - - - - - - - - - TIME OUT/Safety goals were verified immediately prior to the procedure. (Correct patient, procedure, site, position) Full name and date used. STERILIZATION MONITOR IN INSTRUMENT PACK CHECKED AND CONFIRMED CC: no concerns PREMEDICATION: Not indicated PAST MEDICAL HISTORY: Reviewed, no contraindications for treatment. LAST RADIOGRAPHS: BWX: 07/27/23 PANO: 07/10/17 NEW RADIOGRAPHS: Not due SOFT TISSUE SCREENING: no abnormalities noted EXAMINATION: Not due ORAL HYGIENE ASSESSMENT: generalized heavy plaque generalized light stain PERIODONTAL ASSESSMENT: generalized light calculus generalized moderate inflammation generalized moderate bleeding probing depth generalized 3-4mm generalized recession Partial/Denture: Patient said upper partial fits well but he does not wear the bottom. He said he takes them out at night usually but sometimes leaves them in. Gave patient denture brush. REVIEWED ORAL HEALTH REPORT: CARIES RISK: high GUM DISEASE: high ORAL CANCER RISK: low DENTAL TREATMENT PROVIDED: PROPHYLAXIS - hand scaling, piezo, lao, floss TOPICAL FLUORIDE APPLICATION - Varnish PRE-RINSE WITH CREST RINSE ORAL HYGIENE INSTRUCTIONS GIVEN TO PATIENT: Patient brushes with manual and electric twice a day. Discussed brushing 2 times a day for 2 minutes each and flossing daily. Discussed angling bristles into gumlines to remove plaque and bacteria. DISPOSITION: 6 MONTHS RECARE NEXT VISIT: crown delivery, need MELINDA, BWX, and PANO at next prophy /daniel ALBA RDH [facility], DENTAL SERVICE Signed: 01/29/2024 11:23 01/29/2024 ADDENDUM STATUS: COMPLETED PAtient does not need pano. Had a pano 07/27/23. Patient had alot of inflammation around #12, #13 and #14. hard to floss, clean and probe around temp crowns. /daniel ALBA RDH RD, DENTAL SERVICE Signed: 01/29/2024 11:25 FAROOQ ALBA [place] CNTRL [facility]
--- OUTSIDE RECORDS SUMMARY | 2024-06-07 09:01 | XMS_ITS | Encounter Summary ---
Author Name [facility] [place] Address [address] [place] [id number] Care Team Providers Care Moulder Operator Name Role Phone RISSA MCGRAW Primary [...] GOOD FAMIL Y Jun 11, [phone] [id number] Venkat VELASQUEZ AVID PATIENT MEDICARE (WNR) MEDICARE (M) PART B Dec 09, 2008 PART B [id number] Venkat VELASQUEZ AVID PATIENT MEDICARE (WNR) MEDICARE (M) PART B Dec 09, 2008 PART B [id number] 30A Venkat VELASQUEZ AVID PATIENT MEDICARE (WNR) MEDICARE (M) PART B Dec 09, 2008 PART B [id number] 30A Venkat VELASQUEZ AVID PATIENT MEDICARE (WNR) MEDICARE (M) PART A Jun 11, 2007 PART A [id number] Venkat VELASQUEZ AVID PATIENT MEDICARE (WNR) MEDICARE (M) PART A Jun 11, 2007 PART A [id number] [phone] Venkat VELASQUEZ AVIVenkat PATIENT MEDICARE (WNR) MEDICARE (M) PART A Jun 11, 2007 PART A [id number] 30A Venkat VELASQUEZ PATIENT Selected Encounter This section includes the information on record at [place] for the Encounter. Date/Time Encounter Type Encounter Description Reason Provider Source Feb 05, 2024 03:00 PM MTMS BY PHARM [facility]A 15 MIN CLINICAL PHARMACY ICD-10-CM E11.9 Type 2 diabetes mellitus without complications CRYSTAL WILKERSON Sharif Encounter Template Text not used by [place] Assessments - Encounter Diagnoses This section includes the primary and secondary diagnoses documented for the Encounter. Date/Time Primary/Secondary Diagnosis Diagnosis Name Provider Source Feb 05, 2024 04:12 PM PRIMARY Type 2 diabetes mellitus without complications CRYSTAL WILKERSON [place] [facility] [place] [facility] Plan of Treatment: Future Appointments (+ 6 months) and Future Tests (+/- 45 days) The Plan of Treatment section includes future care activities for the patient from all [place] [facility]. This section includes future appointments and future [...] 07, 2024 09:30 AM AMBULATORY - NONE [place] [facility] [place] [facility] Feb 21, 2024 11:00 AM AMBULATORY - MEDICINE [place] [facility] [place] [facility] Feb 25, 2024 09:30 AM AMBULATORY - MEDICINE [place] [facility] [place] [facility] Mar 05, 2024 11:00 AM AMBULATORY - NONE [place] [facility] [place] [facility] Mar 18, 2024 09:00 AM AMBULATORY - MEDICINE [place] [facility] [place] [facility] May 01, 2024 03:00 PM AMBULATORY - MEDICINE [place] [facility] [place] [facility] May 13, 2024 07:30 AM AMBULATORY - NONE [place] [facility] [place] [facility] May 26, 2024 11:30 AM AMBULATORY - MEDICINE [place] [facility] [place] [facility] Jun 06, 2024 02:30 PM AMBULATORY - MEDICINE [place] [facility] [place] [facility] Jun 17, 2024 02:30 PM AMBULATORY - MEDICINE [place] [facility] [place] [facility] Jul 23, 2024 02:30 PM AMBULATORY - MEDICINE [place] [facility] [place] [facility] Jul 31, 2024 10:45 AM [facility]ONE [facility] Aug 07, 2024 09:30 AM AMBULATORY - MEDICINE [facility] Active, Pending, and Scheduled Orders This [...] Order BASIC METABOLIC PANEL (fasting) BLOOD (SST-SERUM) [facility] Lab Results: +/- 30 days of [...] Range Comment Jan 29, 2024 10:22 AM [facility] PSA Specimen Type: SERUM No comment entered. Ordering Provider: RISSA MCGRAW Report Released Date/Time: Dec 05, 2023 03:33 PM Reporting Lab: [address] [address] Performing Lab: [address] [address] PSA 6.05 ng/mL H 0.00-4.00 Jan 29, 2024 10:21 AM [facility] BASIC METABOLIC PANEL (fasting) Specimen Type: SERUM No comment entered. Ordering Provider: CRYSTAL WILKERSON Report Released Date/Time: Jan 08, 2024 11:27 AM Reporting Lab: [place] [facility] [place] [facility] [address] [facility] [address] Performing Lab: [place] [facility] [place] [facility] [address] [facility] [address] UREA NITROGEN 12 mg/dL 7-25 GLUCOSE 112 [...] Source Feb 05, 2024 03:05 PM 53 [place] [facility] [place] [facility] Feb 05, 2024 02:31 PM 98.3 43 138/68 16 98 3 195 32 [place] [facility] Social History: Smoking Status (Most current) [...] took place. Date/Time Current Smoking Status Comment [facility] May 17, 2023 02:16 PM VA-TOBACCO NEVER USED [facility] [employer] [facility] Tobacco Use History This section includes a history of the smoking, or tobacco-related health factors, that were collected on or before the date of the Encounter. The data comes from the [place] facility where the Encounter took place. Date/Time Smoking Status/Tobac co Use Comment Facility May 09, 2022 10:45 AM VA-TOBACCO NEVER USED [place] [facility] [place] [facility] Mar 30, 2021 01:02 PM VA-TOBACCO FORMER USER [place] [facility] [place] [facility] Mar 30, 2021 01:02 PM VA-TOBACCO QUIT 5 TO < 15 YRS [facility] [place] [facility] Aug 31, 2004 09:56 AM HISTORY OF SMOKING QUIT 20 YEARS AGO [facility] Aug 08, 2004 02:45 PM LIFETIME [facility]-TOBACCO [facility] Encounter Notes: All associated encounter notes This section contains the clinical notes associated to the Encounter. Date/Time Encounter Note(s) Provider Source Feb 05, 2024 04:12 PM ADDENDUM: LOCAL TITLE: Addendum STANDARD TITLE: ADDENDUM DATE OF NOTE: FEB 05, 2024@16:12:33 ENTRY DATE: FEB 05, 2024@16:12:34 AUTHOR: CRYSTAL WILKERSON EXP COSIGNER: URGENCY: STATUS: COMPLETED AMSA, please schedule appointment for: - Cwm/No/Pharm/Pact 2 Please schedule for 03/18/2024 @0900 Thank you! /elle/ CRYSTAL WILKERSON PHARMD, BCPS CLINICAL PHARMACIST PRACTITIONER Signed: 02/05/2024 16:13 Receipt Acknowledged By: 02/05/2024 16:22 /es/ KRISTIAN SILVA AMSA --- Original Document --- 02/05/24 PHARMACY CLINIC NOTE: BRIAN MENA JR EVA, 77 yo UNKNOWN BY PATIENT, WHITE MALE, presents for face- to-face follow-up for diabetes and hypertension management. FEB 05, 2024 Known Allergies: SHRIMP Subjective: [place] referred to pharmacy clinic by PCP for T2DM and HTN management. At time of last visit, glipizide was discontinued. Empagliflozin was initiated and insulin aspart an insulin glargine-yfgn was reduced. Metformin was continued. Today pt reports he is doing well. Denies dizziness, increased urinary frequency, painful/burning urination, or jock itch since starting empagliflozin. Pt has lost 4 lbs since decreasing insulin. Reports his blood sugar mainly between 100s and 140s but felt a symptomatic low confirmed with fingerstick of 60 mg/dl a few weeks ago. Per previous: He endorses that sometimes he [...] MH/depression/denies SI - Denies hx of UTI SMB02/05/24: no readings Date Range: 12/10/2023 - 01/08/2024 [...] insulin after meals, and addition of empagliflozin. Renal indices WNL. Will increase empagliflozin at this time. Once empagliflozin titrated, may consider glp1-ra which [...] of Preventive Care: Most recent visit to sheet rock applicator: 06/05/23; Moderate diabetic peripheral neuropathy Most recent visit to meat selector/opthalmologist: 10/30/23; Type II Diabetes without evidence of retinopathy or macular edema OU to extent viewed undilated Plan: Medication management: - CONTINUE Metformin 1000 mg twice daily - DECREASE Insulin glargine-yfgn 40 units daily - DECREASE insulin aspart 16 units prior to supper - INCREASE empagliflozin 25 mg once daily - Medications reconciled - Otherwise continue current medications Lifestyle modicfications: - Continue to SMBG 1-2x/day - Monitor for s/sx hypoglycemia and contact clinic if BG consistently <70mg/dL - Healthy dietary and lifestyle modifications encouraged - Repeat A1c: 05/2024 MISC: - Repeat labs for week of 03/18/24 - Revisit GLP-1RA, valsartan EDUCATION -A shared decision-making approach was used in the development of this plan, involving the , clinician, and any caregivers present. The [place] was provided the opportunity express questions or concerns, and the plan was adjusted as needed to address these concerns. -Reviewed with [place] any new medications, changes to the medication list, education, and plan from today's visit. Patient (and/or caregiver) verbalized understanding of the plan, including possible known risks and benefits, and had no additional questions. RTC: 03/18/2024 @0900 Time Spent: 30 minutes PBM PharmD Pharmacotherapy [...] WILKERSON PHARMD, BCPS CLINICAL PHARMACIST PRACTITIONER Signed: 02/05/2024 16:12 CRYSTAL WILKERSON [place] [facility] [place] [facility] Feb 05, 2024 03:08 PM PHARMACY OUTPATIEN T NOTE: LOCAL TITLE: PHARMACY CLINIC NOTE STANDARD TITLE: PHARMACY OUTPATIENT NOTE DATE OF NOTE: FEB 05, 2024@15:08 ENTRY DATE: FEB 05, 2024@15:08:51 AUTHOR: CRYSTAL WILKERSON EXP COSIGNER: URGENCY: STATUS: COMPLETED PHARMACY CLINIC NOTE Has ADDENDA BRIAN VELASQUEZ, 77 yo UNKNOWN BY PATIENT, WHITE MALE, presents for face- to-face follow-up for diabetes and hypertension management. FEB 05, 2024 Known Allergies: SHRIMP Subjective: [place] referred to pharmacy clinic by PCP for T2DM and HTN management. At time of last visit, glipizide was discontinued. Empagliflozin was initiated and insulin aspart an insulin glargine-yfgn was reduced. Metformin was continued. Today pt reports he is doing well. Denies dizziness, increased urinary frequency, painful/burning urination, or jock itch since starting empagliflozin. Pt has lost 4 lbs since decreasing insulin. Reports his blood sugar mainly between 100s and 140s but felt a symptomatic low confirmed with fingerstick of 60 mg/dl a few weeks ago. Per previous: He endorses that sometimes he will take insulin after meals if he forgets or to bring down blood sugar despite being educated not to.Pt is not checking blood pressure at home. Pt continues to work on Fractures (eating less potato chips and becoming more [...] MH/depression/denies SI - Denies hx of UTI SMB02/05/24: no readings Date Range: 12/10/2023 - 01/08/2024 bG values are displayed in mg/dL # of tests 31 Average 114 SD 44.3 Highest 249 Lowest 60 Avg tests/day 1 # HI 0 # LO 0 <70 0.0% 70-140 80.6% >140 12.9% Hypos(<69) 2 Date Range: 12/10/2023 - 01/08/2024 bG values are displayed in mg/dL 00:00- 05:30- 08:00- 11:00- 12:30- 17:00- 18:30- :30- :30 [...] insulin after meals, and addition of empagliflozin. Renal indices WNL. Will increase empagliflozin at this time. Once empagliflozin titrated, may consider glp1-ra which [...] of Preventive Care: Most recent visit to sheet rock applicator: 06/05/23; Moderate diabetic peripheral neuropathy Most recent visit to meat selector/opthalmologist: 10/30/23; Type II Diabetes without evidence of retinopathy or macular edema OU to extent viewed undilated Plan: Medication management: - CONTINUE Metformin 1000 mg twice daily - DECREASE Insulin glargine-yfgn 40 units daily - DECREASE insulin aspart 16 units prior to supper - INCREASE empagliflozin 25 mg once daily - Medications reconciled - Otherwise continue current medications Lifestyle modicfications: - Continue to SMBG 1-2x/day - Monitor for s/sx hypoglycemia and contact clinic if BG consistently <70mg/dL - Healthy dietary and lifestyle modifications encouraged - Repeat A1c: 05/2024 MISC: - Repeat labs for week of 03/18/24 - Revisit GLP-1RA, valsartan EDUCATION -A shared decision-making approach was used in the development of this plan, involving the [place], clinician, and any caregivers present. The was provided the opportunity express questions or concerns, and the plan was adjusted as needed to address these concerns. -Reviewed with [place] any new medications, changes to the medication list, education, and plan from today's visit. Patient (and/or caregiver) verbalized understanding of the plan, including possible known risks and benefits, and had no additional questions. RTC: 03/18/2024 @0900 Time Spent: 30 minutes PBSilke PharmVenkat Pharmacotherapy Rem V12: PHARMACIST INTERVENTIONS: TYPE 2 DIABETES MELLITUS Medication Intervention(s) Adjust dose or frequency of current medication due to hypoglycemia Adjust dose or frequency of current medication due to other reason Medication reconciliation (changes to active VA and non-VA medication lists to reconcile differences) No changes to medication lists made (medication review completed, no discrepancies identified) /elle/ CRYSTAL WILKERSON PHARMD, YADY CLINICAL PHARMACIST PRACTITIONER Signed: 02/05/2024 16:12 02/05/2024 ADDENDUM STATUS: COMPLETED AMSA, please schedule appointment for: - Aung/Kimberly/Pharm/Pact 2 Please schedule for 03/18/2024 @0900 Thank you! /daniel WILKERSON PHARMD, BCPS CLINICAL PHARMACIST PRACTITIONER Signed: 02/05/2024 16:13 Receipt Acknowledged By: * AWAITING SIGNATURE * KRISTIAN SILVA ADITIYA [facility]
--- OUTSIDE RECORDS SUMMARY | 2024-06-07 09:01 | XMS_ITS | Encounter Summary ---
Author Name [facility] [place] Organization [place] Address [address] [place] [id number] Care Team Providers Care Server Software Engineer Name Role Phone RISSA MCGRAW Primary Care [...] GOOD FAMIL Y Jun 11, 2000 [id number] [phone] Venkat VELASQUEZ AVID PATIENT MEDICARE (WNR) MEDICARE (M) PART B Dec 09, 2008 PART B [id number] [id number] Venkat VELSAQUEZ AVID PATIENT MEDICARE (WNR) MEDICARE (M) PART B Dec 09, 2008 PART B [id number] Venkat VELASQUEZ AVID PATIENT MEDICARE (WNR) MEDICARE (M) PART B Dec 09, 2008 PART B [id number] [id number] Venkat VELASQUEZ AVID PATIENT MEDICARE (WNR) MEDICARE (M) PART A Jun 11, 2007 PART A [id number] [id number] [phone] Venkat VELASQUZE AVID PATIENT MEDICARE (WNR) MEDICARE (M) PART A Jun 11, 2007 PART A [id number] Venkat VELASQUEZ AVID PATIENT MEDICARE (WNR) MEDICARE (M) PART A Jun 11, 2007 PART A [id number] [id number] Venkat VELASQUEZ AVID PATIENT Selected Encounter This section includes the information on record at [place] for the Encounter. Date/Time Encounter Type Encounter Description Reason Pro vider Source Jan 26, 2024 12:43 PM Outpatient Encounter PRIMARY CARE/MEDICINE IHE Encounter Template Text not used by [place] Plan of Treatment: Future Appointments (+ 6 months) and Future Tests (+/- 45 days) The Plan of Treatment section includes future care activities for the patient from all [place] [facility]. This section includes future appointments and future orders which are active, pending or scheduled. Future Appointments This section includes appointments that were scheduled to occur 6 months from the date of the Encounter, up to a maximum of 20 appointments. The data comes from all [place] treatment facilities. Appointment Date/Time Appointment Type Appointme nt Facility Name Jan 29, 2024 10:45 AM AMBULATORY - NONE [facility] [place] [facility] Feb 05, 2024 02:30 PM AMBULATORY - MEDICINE [facility] [place] [facility] Feb 05, 2024 03:00 PM AMBULATORY - MEDICINE [facility] [place] [facility] Feb 07, 2024 09:30 AM AMBULATORY - NONE [facility] [place] [facility] Feb 21, 2024 11:00 AM AMBULATORY - MEDICINE [facility] [place] [facility] Feb 25, 2024 09:30 AM AMBULATORY - MEDICINE [facility] [place] [facility] Mar 05, 2024 11:00 AM AMBULATORY - NONE [facility] [place] [facility] Mar 18, 2024 09:00 AM AMBULATORY - MEDICINE [facility] [place] [facility] May 01, 2024 03:00 PM AMBULATORY - MEDICINE [facility] [place] [facility] May 13, 2024 07:30 AM AMBULATORY - NONE [facility] [place] [facility] May 26, 2024 11:30 AM AMBULATORY - MEDICINE [facility] [place] [facility] Jun 06, 2024 02:30 PM [facility] Jun 17, 2024 02:30 PM [facility] Jul 23, 2024 02:30 PM AMBULATORY - MEDICINE [facility] Lab Results: +/- 30 days of the encounter This section includes the Chemistry and Hematology Lab Results on record with [place] for the patient. Radiology Reports and Pathology Reports are provided separately, in subsequent sections. Lab Results This section contains the Chemistry/Hematology Results that were resulted 30 days before or 30 daysafter the date of the Encounter. Date/Time Source Result Type Result - Unit Interpretation Reference Range Comment Jan 29, 2024 10:22 AM [facility] PSA Specimen Type: SERUM No comment entered. Ordering Provider: RISSA MCGRAW Report Released Date/Time: Dec 05, 2023 03:33 PM Reporting Lab: [address] [address] Performing Lab: [address] [address] PSA 6.05 ng/mL H 0.00-4.00 Jan 29, 2024 10:21 AM [facility] BASIC METABOLIC PANEL (fasting) Specimen Type: SERUM No comment entered. Ordering Provider: CRYSTAL WILKERSON Report Released Date/Time: Jan 08, 2024 11:27 AM Reporting Lab: [address] [address] Performing Lab: [address] [address] UREA NITROGEN 12 mg/dL 7-25 GLUCOSE 112 [...] and tobacco- related health factors from the [place] facility where the Encounter took place. Current Smoking Status This section includes the most current smoking, or tobacco-related health factor, from the [place] facility where the Encounter took place. Date/Time Current Smoking Status Comment Facil it May 17, 2023 02:16 PM VA-TOBACCO NEVER USED [facility] Tobacco Use History This section includes a history of the smoking, or tobacco-related health factors, that were collected on or before the date of the Encounter. The data comes from the [place] facility where the Encounter took place. Date/Time Smoking Status/Tobac co Use Comment Facility May 09, 2022 10:45 AM VA-TOBACCO NEVER USED [facility] Mar 30, 2021 01:02 PM VA-TOBACCO [facility] Mar 30, 2021 01:02 PM VA-TOBACCO QUIT 5 TO < 15 YRS [facility] Aug 31, 2004 09:56 AM HISTORY OF SMOKING QUIT 20 YEARS AGO [facility] Aug 08, 2004 02:45 PM LIFETIME NON-TOBACCO [facility]ER [facility] Encounter Notes: All associated encounter notes This section contains the clinical notes associated to the Encounter. Date/Time Encounter Note(s) Provider Source Jan 26, 2024 12:43 PM ADMINISTRATIVE NOTE: LOCAL TITLE: ADMINISTRATIVE NOTE STANDARD TITLE: ADMINISTRATIVE NOTE DATE OF NOTE: JAN 26, 2024@12:43 ENTRY DATE: JAN 26, 2024@12:45:25 AUTHOR: KRISTIAN SILVA EXP COSIGNER: URGENCY: STATUS: COMPLETED AMSA SPOKE TO ON THE TELEPHONE AND INFORMED HIM OF UPCOMING APPT AND THAT LABWORK IS NOT NEEDED. /elle/ KRISTIAN SILVA AMSA Signed: 01/26/2024 12:45 KRISTIAN SILVA [facility]
--- OUTSIDE RECORDS SUMMARY | 2024-06-07 09:01 | XMS_ITS | Encounter Summary ---
Author Name [facility] [place] Address [address] [place] [id number] Care Team Providers Care Bank Officer Name Role Phone RISSA MCGRAW Primary [...] GOOD FAMIL Y Jun 11, 2000 [id number] Venkat VELASQUEZ AVID PATIENT MEDICARE (WNR) MEDICARE (M) PART B Dec 09, 2008 PART B [id number] [phone] Venkat VELASQUEZ AVID PATIENT MEDICARE (WNR) MEDICARE (M) PART B Dec 09, 2008 PART B [id number] [phone] Venkat VELASQUEZD PATIENT MEDICARE (WNR) MEDICARE (M) PART B Dec 09, 2008 PART B [id number] Venkat VELASQUEZ AVID PATIENT MEDICARE (WNR) MEDICARE (M) PART A Jun 11, 2007 PART A [id number] EVA,D AVID PATIENT MEDICARE (WNR) MEDICARE (M) PART A Jun 11, 2007 PART A [id number] [facility] Venkat VELASQUEZ AVID PATIENT MEDICARE (WNR) MEDICARE (M) PART A Jun 11, 2007 PART A [id number] Venkat VELASQUEZ AVIVenkat PATIENT Selected Encounter This section includes the information on record at [place] for the Encounter. Date/Time Encounter Type Encounter Description Reason Provider Source Dec 24, 2023 11:15 AM OFF/OP EST OCTOBER X REQ PHY/QHP PRIMARY CARE/MEDICINE ICD-10-CM Z04.9 Encounter for examination and observation for unsp reason LALO LA [facility] Encounter Template Text not used by [place] Assessments - Encounter Diagnoses This section includes the primary and secondary diagnoses documented for the Encounter. Date/Time Primary/Secondary Diagnosis Diagnosis Name Provider Source Dec 24, 2023 11:36 AM PRIMARY Encounter for examination and observation for unsp reason LALO LA [facility] [place] [facility] Dec 24, 2023 11:36 AM SECONDARY Counseling, unspecified LALO LA [facility] [place] [facility] Plan of Treatment: Future Appointments (+ 6 months) and Future Tests (+/- 45 days) The Plan of Treatment section includes future care activities for the patient from all [place] treatmentfacilities. This section includes future appointments and future orders which are active, pending or scheduled. Future Appointments This section includes appointments that were scheduled to occur 6 months from the date of the Encounter, up to a maximum of 20 appointments. The data comes from all [place] treatment facilities. Appointment Date/Time Appointment Type Appointme nt Facility Name Jan 08, 2024 10:30 AM AMBULATORY - MEDICINE [place] [facility] [place] [facility] Jan 11, 2024 08:30 AM AMBULATORY - NONE [place] [facility] [place] [facility] Jan 29, 2024 10:45 AM AMBULATORY - NONE [place] [facility] [place] [facility] Feb 05, 2024 02:30 PM AMBULATORY - MEDICINE [place] [facility] [place] [facility] Feb 05, 2024 03:00 PM AMBULATORY - MEDICINE [place] [facility] [place] [facility] Feb 07, 2024 09:30 AM AMBULATORY - NONE [facility] [place] [facility] Feb 21, 2024 11:00 AM AMBULATORY - MEDICINE [place] [facility] [place] [facility] Feb 25, 2024 09:30 AM AMBULATORY - MEDICINE [place] [facility] [place] [facility] Mar 05, 2024 11:00 AM AMBULATORY - NONE [facility] [place] [facility] Mar 18, 2024 09:00 AM AMBULATORY - MEDICINE [place] [facility] [place] [facility] May 01, 2024 03:00 PM AMBULATORY - MEDICINE [place] [facility] [place] [facility] May 13, 2024 07:30 AM AMBULATORY - NONE [place] [facility] [place] [facility] May 26, 2024 11:30 AM AMBULATORY - MEDICINE [place] [facility] [place] [facility] Jun 06, 2024 02:30 PM AMBULATORY - MEDICINE [place] [facility] [place] [facility] Jun 17, 2024 02:30 PM AMBULATORY - MEDICINE [place] [facility] [place] [place] [facility] Lab Results: +/- 30 days of the encounter This section includes the Chemistry and Hematology Lab Results on record with [place] for the patient. Radiology Reports and Pathology Reports are provided separately, in subsequent sections. Lab Results This section contains the Chemistry/Hematology Results that were resulted 30 days before or 30 daysafter the date of the Encounter. Date/Time Source Result Type Result - Unit Interpretation Reference Range Comment Dec 04, 2023 11:30 AM [facility] DIGOXIN Specimen Type: PLASMA No comment entered. Ordering Provider: RISSA MCGRAW Report Released Date/Time: Nov 21, 2023 12:21 PM Reporting Lab: [place] [facility] [place] [facility] [address] [facility] [address] Performing Lab: [facility] [address] [address] DIGOXIN 1.19 ng/mL 0.8-2.0 Dec 04, 2023 11:30 AM [facility] [place] [facility] PSA Specimen Type: SERUM No comment entered. Ordering Provider: RISSA MCGRAW Report Released Date/Time: Nov 21, 2023 12:21 PM Reporting Lab: [facility] [place] [facility] [address] [facility] [address] Performing Lab: [place] [facility] [place] [facility] [address] [facility] [address] PSA 6.09 ng/mL H 0.00-4.00 Vital Signs: All taken on the encounter date This section contains inpatient and outpatient Vital Signs collected on the date of the Encounter. Date/Time Temperature Pulse Blood Pressure Respiratory Rate SP02 Pain Height Weight Body Mass Index Source Dec 24, 2023 11:37 AM 97.6 56 140/70 16 98 199 32 [facility] Social History: Smoking Status (Most current) and Tobacco Use (All prior to encounter date) This section includes the most current, and the historical, smoking and tobacco- related health factors from the [place] facility where the Encounter took place. Current Smoking Status This section includes the most current smoking, or tobacco-related health factor, from the [place] facility where the Encounter took place. Date/Time Current Smoking Status Comment [facility] May 17, 2023 02:16 PM VA-TOBACCO NEVER USED [facility] Tobacco Use History This section includes a history of the smoking, or tobacco-related health factors, that were collected on or before the date of the Encounter. The data comes from the [place] facility where the Encounter took place. Date/Time Smoking Status/Tobac co Use Comment Facility May 09, 2022 10:45 AM VA-TOBACCO NEVER USED [place] [facility] [place] [facility] Mar 30, 2021 01:02 PM VA-TOBACCO FORMER USER [place] [facility] [place] [facility] Mar 30, 2021 01:02 PM VA-TOBACCO QUIT 5 TO < 15 YRS [place] [facility] [place] [facility] Aug 31, 2004 09:56 AM HISTORY OF SMOKING QUIT 20 YEARS AGO [place] [facility] [place] [facility] Aug 08, 2004 02:45 PM LIFETIME NON-TOBACCO USER [place] [facility] [place] [facility] Encounter Notes: All associated encounter notes This section contains the clinical notes associated to the Encounter. Date/Time Encounter Note(s) Provider Source Dec 24, 2023 11:20 AM PRIMARY CARE NOTE: LOCAL TITLE: WALK-IN NOTE PRIMARY CARE (T) STANDARD TITLE: PRIMARY CARE NOTE DATE OF NOTE: DEC 24, 2023@11:20 ENTRY DATE: DEC 24, 2023@11:20:39 AUTHOR: KIET LA EXP COSIGNER: URGENCY: STATUS: COMPLETED Patient identity was verified using two identifiers, per [place] Policy: Full Name, Date of BRIAN VELASQUEZ is a 77 year old who presents to the clinic for Lump right hand Visit Type: Clinic Unscheduled [place] comes in with lump on right hand wrist reports ganglion cyst chronic condition in past has gone away on its on but has been there for over two months and painful during driving. No redness minimal swelling. Afebrile. [facility] /elle/ KIET LA REGISTERED NURSE Signed: 12/24/2023 11:36 KIET LA [place] [facility]
--- OUTSIDE RECORDS SUMMARY | 2024-06-07 09:01 | XMS_ITS | Encounter Summary ---
Author Name [place] [facility] Address [address] [place] [id number] Care Team Providers Care Shipyard Supervisor Name Role Phone RISSA MCGRAW Primary [...] GOOD FAMIL Y Jun 11, 2000 105 [id number] [phone] Venkat VELASQUEZ AVID PATIENT MEDICARE (WNR) MEDICARE (M) PART B Dec 09, 2008 PART B [id number] 30A Venkat VELASQUEZ AVID PATIENT MEDICARE (WNR) MEDICARE (M) PART B Dec 09, 2008 PART B [id number] [phone] Venkat VELASQUEZ AVID PATIENT MEDICARE (WNR) MEDICARE (M) PART B Dec 09, 2008 PART B [id number] 30A Venkat VELASQUEZ AVID PATIENT MEDICARE (WNR) MEDICARE (M) PART A Jun 11, 2007 PART A [id number] 30A Venkat VELASQUEZ AVID PATIENT MEDICARE (WNR) MEDICARE (M) PART A Jun 11, 2007 PART A [id number] [facility] Venkat VELASQUEZ AVID PATIENT MEDICARE (WNR) MEDICARE (M) PART A Jun 11, 2007 PART A [id number] 30A [id number] Venkat VELASQUEZ AVID PATIENT Selected Encounter This section includes the information on record at [place] for the Encounter. Date/Time Encounter Type Encounter Description Reason Provider Source Feb 07, 2024 09:30 AM [facility] PORCELAIN/CERAMI C SUBS DENTAL ICD-10-CM K08.9 Disorder of teeth and supporting structures, unspecified LAVON SONI Sharif Encounter Template Text not used by [place] Assessments - Encounter Diagnoses This section includes the primary and secondary diagnoses documented for the Encounter. Date/Time Primary/Secondary Diagnosis Diagnosis Name Provider Source Feb 07, 2024 11:30 AM PRIMARY Disorder of teeth and supporting structures, unspecified LAVON SONI [place] [facility] [place] [facility] Plan of Treatment: Future Appointments (+ 6 months) and Future Tests (+/- 45 days) The Plan of Treatment section includes future care activities for the patient [facility] [place] [facility] This section includes future appointments and future [...] - MEDICINE [place] C [place] [facility] Feb 25, 2024 09:30 AM AMBULATORY - MEDICINE [place] [facility] Mar 05, 2024 11:00 AM AMBULATORY - NONE [place] [facility] [place] [facility] Mar 18, 2024 09:00 AM AMBULATORY - MEDICINE [place] [facility] [place] [facility] May 01, 2024 03:00 PM AMBULATORY - MEDICINE [place] [facility] May 13, 2024 07:30 AM AMBULATORY - NONE [place] [facility] [place] [facility] May 26, 2024 11:30 AM AMBULATORY - MEDICINE [facility] [place] [facility] Jun 06, 2024 02:30 PM AMBULATORY - MEDICINE [place] [facility] Jun 17, 2024 02:30 PM AMBULATORY - MEDICINE [facility] [place] [facility] Jul 23, 2024 02:30 PM AMBULATORY - MEDICINE [place] [facility] Jul 31, 2024 10:45 AM [facility]ONE [facility] Aug 07, 2024 09:30 AM [facility] Active, Pending, and Scheduled Orders This section includes a listing of several types of active, pending, and scheduled orders, including clinic medications orders, diagnostic test orders, procedure orders and consult orders; where the start date of the order is 45 days before the date of the Encounter or 45 days after the date of theEncounter. The data comes from all [place] treatment facilities. Test Date/Time Test Type Test Details Facility Name Mar 18, 2024 12:00 AM Laboratory - Chemi stry Order BASIC METABOLIC PANEL (fasting) BLOOD (SST-SERUM) [facility] Lab Results: +/- 30 days of [...] Range Comment Jan 29, 2024 10:22 AM [facility] PSA Specimen Type: SERUM No comment entered. Ordering Provider: RISSA MCGRAW Report Released Date/Time: Dec 05, 2023 03:33 PM Reporting Lab: [facility] [address] [facility] [address] Performing Lab: [address] [address] PSA 6.05 ng/mL H 0.00-4.00 Jan 29, 2024 10:21 AM [facility] BASIC METABOLIC PANEL (fasting) Specimen Type: SERUM No comment entered. Ordering Provider: CRYSTAL WILKERSON Report Released Date/Time: Jan 08, 2024 11:27 AM Reporting Lab: [facility] [address] [facility] [address] Performing Lab: [facility] [address] [facility] [address] UREA NITROGEN 12 mg/dL 7-25 GLUCOSE 112 [...] took place. Date/Time Current Smoking Status Comment [facility] May 17, 2023 02:16 PM VA-TOBACCO NEVER USED [facility] Tobacco Use History This section includes a history of the smoking, or tobacco-related health factors, that were collected on or before the date of the Encounter. The data comes from the [place] facility where the Encounter took place. Date/Time Smoking Status/Tobac co Use Comment Facility May 09, 2022 10:45 AM VA-TOBACCO NEVER USED [facility] Mar 30, 2021 01:02 PM VA-TOBACCO FORMER USER [facility] Mar 30, 2021 01:02 PM VA-TOBACCO QUIT 5 TO < 15 YRS [facility] [place] [place] [facility] Aug 31, 2004 09:56 AM HISTORY OF SMOKING QUIT 20 YEARS AGO [facility] Aug 08, 2004 02:45 PM LIFETIME NON-TOBACCO USER [facility]TR[facility] Encounter Notes: All associated encounter notes This section contains the clinical notes associated to the Encounter. Date/Time Encounter Note(s) Provider Source Feb 07, 2024 11:28 AM DENTISTRY NOTE: LOCAL TITLE: DENTAL NOTE STANDARD TITLE: DENTISTRY NOTE DATE OF NOTE: FEB 07, 2024@11:28 ENTRY DATE: FEB 07, 2024@11:30:21 AUTHOR: LAVON SONI EXP COSIGNER: URGENCY: STATUS: COMPLETED Patient Name: BRIAN VELASQUEZ JR, : 1945, Age: 78 Visit: S: Feb 07, 2024@09:30 [facility] DENTAL DMD 3 AM. 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 Treatment Status: Maintenance. Planned Procedures: Unsequenced (D5225) MAXILLARY PART DENTURE FLEX: Upper. DX: (). (D5226) MANDIBULAR PART DENTURE FLEX: Lower. DX: (). Completed Care: (D2740) CROWN PORCELAIN/CERAMIC SUBS. Tooth: 11. DX: K08.9 Disorder of Teeth and Supporting Structures, unspecified (D2740) CROWN PORCELAIN/CERAMIC SUBS. Tooth: 12. DX: K08.9 Disorder of Teeth and Supporting Structures, unspecified (D2740) CROWN PORCELAIN/CERAMIC SUBS. Tooth: 13. DX: K08.9 Disorder of Teeth and Supporting [...] and agrees with the treatment plan. Patient presented for #11,12,13 zirconia crown insertion. The temporary crowns were removed and remaining cement was cleaned with explorer. The crowns were seated. Interproximal was confirmed with floss and adjusted with high speed jacqueline bur. No open margin noted. Articulating paper was used to check occlusion and adjusted with high speed jacqueline bur. Patient felt comfortable after adjustment. The crowns were cemented with relyx luting. Excess cement was cleaned with explorer. Occlusion was verified again with articulating paper. Post op instruction given to patient. Patient was dismissed satisfied. Next appointment: V/V impression, t+4w, 60mins /elle/ LAVON SONI DMD Staff Dentist Signed: 02/07/2024 11:30 LAVON SONI CNTRL [facility]
--- OUTSIDE RECORDS SUMMARY | 2024-06-07 09:01 | XMS_ITS | Encounter Summary ---
Author Name [facility] [place] Address [address] [place] [id number] Care Team Providers Care Laboratory Supervisor Name Role Phone RISSA MCGRAW Primary [...] GOOD FAMIL Y Jun 11, 2000 [id number] [phone] Venkat VELASQUEZ AVID PATIENT MEDICARE (WNR) MEDICARE (M) PART B Dec 09, 2008 PART B [id number] Venkat VELASQUEZ AVID PATIENT MEDICARE (WNR) MEDICARE (M) PART B Dec 09, 2008 PART B [id number] 30A [phone] Venkat VELASQUEZ AVID PATIENT MEDICARE (WNR) MEDICARE (M) PART B Dec 09, 2008 PART B [id number] 30A [phone] Venkat VELASQUEZ AVID PATIENT MEDICARE (WNR) MEDICARE (M) PART A Jun 11, 2007 PART A [id number] Venkat VELASQUEZ AVID PATIENT MEDICARE (WNR) MEDICARE (M) PART A Jun 11, 2007 PART A [id number] 30A Venkat VELASQUEZ AVID PATIENT MEDICARE (WNR) MEDICARE (M) PART A Jun 11, 2007 PART A [id number] 30A Venkat VELASQUEZ PATIENT Selected Encounter This section includes the [place] at [place] for the Encounter. Date/Time Encounter Type Encounter Description Reason Provider Source Feb 21, 2024 11:00 AM PARNG/CUTG B9 HYPRKR LES 2-4 PODIATRY ICD-10-CM E11.40 Type 2 diabetes mellitus with diabetic neuropathy, KASSIDY Rosario Sharif Encounter Template Text not used by [place] Assessments - Encounter Diagnoses This section includes the primary and secondary diagnoses documented for the Encounter. Date/Time Primary/Secondary Diagnosis Diagnosis Name Provider Source Feb 21, 2024 11:30 AM PRIMARY Type 2 diabetes mellitus with diabetic neuropathy, unsp [facility] [place] [facility] Feb 21, 2024 11:30 AM SECONDARY Corns and callosities [facility] [place] [facility] Feb 21, 2024 11:30 AM SECONDARY [facility] [place] [facility] Plan of Treatment: Future Appointments [...] Appointment Type Appointme nt Facility Name Feb 25, 2024 09:30 AM AMBULATORY [place]ICINE [place] [facility] Mar 05, 2024 11:00 AM AMBULATORY - NONE [place] [facility] Mar 18, 2024 09:00 AM AMBULATORY - MEDICINE [place] [facility] May 01, 2024 03:00 PM AMBULATORY - MEDICINE [place] [facility] May 13, 2024 07:30 AM AMBULATORY - NONE [place] [facility] May 26, 2024 11:30 AM AMBULATORY - [place]ICINE [place] [facility] Jun 06, 2024 02:30 PM AMBULATORY - [place]ICINE [place] [facility] Jun 17, 2024 02:30 PM AMBULATORY - [place]ICINE [place] [facility] Jul 23, 2024 02:30 PM AMBULATORY - [place]ICINE [place] [facility] Jul 31, 2024 10:45 AM AMBULATORY - NONE [place] [facility] Aug 07, 2024 09:30 AM [place] [facility] Active, Pending, and Scheduled Orders [...] Order BASIC METABOLIC PANEL (fasting) BLOOD (SST[facility]SERUM) [facility] Lab Results: +/- 30 days [...] Range Comment Jan 29, 2024 10:22 AM [facility] PSA Specimen Type: SERUM No comment entered. Ordering Provider: RISSA MCGRAW Report Released Date/Time: Dec 05, 2023 03:33 PM Reporting Lab: [address] [id number] Performing Lab: [address] [address] PSA 6.05 ng/mL H 0.00-4.00 Jan 29, 2024 10:21 AM [facility] BASIC METABOLIC PANEL (fasting) Specimen Type: SERUM No comment entered. Ordering Provider: CRYSTAL WILKERSON Report Released Date/Time: Jan 08, 2024 11:27 AM Reporting [facility]: [facility] [address] [facility] [address] [id number] Performing Lab: [facility] [address] [id number] UREA NITROGEN 12 mg/dL 7-25 GLUCOSE 112 [...] took place. Date/Time Current Smoking Status Comment [facility] May 17, 2023 02:16 PM VA-TOBACCO [facility] USED [facility] Tobacco Use History This section includes a history of the smoking, or tobacco-related health factors, that were collected on or before the date of the Encounter. The data comes from the [place] facility where the Encounter took place. Date/Time Smoking Status/Tobac co Use Comment Facility May 09, 2022 10:45 AM VA-TOBACCO NEVER USED [place] [facility] Mar 30, 2021 01:02 PM VA-TOBACCO FORMER USER [place] [facility] Mar 30, 2021 01:02 PM VA-TOBACCO QUIT 5 TO < 15 YRS [place] [facility] [facility] Aug 31, 2004 09:56 AM HISTORY OF SMOKING QUIT 20 YEARS AGO [facility] Aug 08, 2004 02:45 PM LIFETIME NON-TOBACCO USER [facility] Encounter Notes: All associated encounter notes This section contains the clinical notes associated to the Encounter. Date/Time Encounter Note(s) Provider Source Feb 21, 2024 11:31 AM PREVENTIVE MEDICIN E NURSING NOTE: LOCAL TITLE: CLINICAL REMINDERS/NURSING STANDARD TITLE: PREVENTIVE MEDICINE NURSING NOTE DATE OF NOTE: FEB 21, 2024@11:31 ENTRY DATE: FEB 21, 2024@11:32:02 AUTHOR: KASSIDY BUCIO COSIGNER: URGENCY: STATUS: COMPLETED Suicide Screen: C-SSRS Screening [place] Suicide Severity Rating Scale (C-SSRS) screener 1. Over the past month, have you wished you were or wished you could go to sleep and not wake up? No 2. Over the past month, have you had any actual thoughts of killing yourself? No 3. Over the past month, have you been thinking about how you might do this? Response not required due to responses to other questions. 4. Over the past month, have you had these thoughts and had some intention of acting on them? Response not required due to responses to other questions. 5. Over the past month, have you started to work out or worked out the details of how to kill yourself? Response not required due to responses to other questions. 6. If yes, at any time in the past month did you intend to carry out this plan? Response not required due to responses to other questions. 7. In your lifetime, have you ever done anything, started to do anything, or prepared to do anything to end your life (for example, collected pills, obtained a gun, gave away valuables, went to the roof but didn't jump)? No 8. If YES, was this within the past 3 months? Response not required due to responses to other questions. /elle/ KASSIDY BUCIO LPN LICENSED PRACTICAL NURSE Signed: 02/21/2024 11:32 KASSIDY BUCIO CNTRL [facility] Feb 21, 2024 11:25 AM NURSING OUTPATIENT NOTE: LOCAL TITLE: NURSING/SPECIALTY CLINIC NOTE STANDARD TITLE: NURSING OUTPATIENT NOTE DATE OF NOTE: FEB 21, 2024@11:25 ENTRY DATE: FEB 21, 2024@11:25:44 AUTHOR: KASSIDY BUCIO EXP COSIGNER: URGENCY: STATUS: COMPLETED [place] seen [facility] for continued foot care. has a history of Diabetes and is unable to trim his/her own nails. Ambulates: [X]self [ ]wheelchair can transfer [ ]wheelchair cannot transfer [x ]without assistance [ ]with assistance of Bilateral: Pedal pulses: Right Foot: Dorsalis Pedis - palpable [ x] non-palpable[ ] Posterior Tibial - palpable[x ] non-palpable[ ] Left Foot: Dorsalis Pedis - palpable [x ] non-palpable [ ] Posterior Tibial - palpable [x ] non-palpable[ ] Pedal sensation: Right Foot: [ x] Intact [ ] Absent out of 10 sites Left Foot: [x ] Intact [ ] Absent out of 10 sites Skin Temperature: [ x] Warm to warm, proximal to distal [ ] Warm to cool/cold, proximal to distal Pedal skin: [x ] Intact [x ] Dry [ ] Cracked [ ] Discolored Webspaces: [x ] Intact [x ] Clean [ ] Soiled [ ] Macerated [x ] Dry Nails: [x ] Thickened [x ] Elongated [x ] Dystrophic [ ] Discolored [ x] Fungal [ ] Incurvated [ ] Subungual debri Hyperkeratosis [x ] Yes, Locations: Right Hallux, 2nd and 3rd toe dital and of nail, Left Hallux dital end of toe and 1st IM, 2nd and 3rd toe distal end of toe [ ] No Open lesions/wounds: [ ] Yes, Locations: [x ] No Amputations: [ ] Yes, Locations: [x ] No Edema present: ( ) Yes (x ) NO Podiatric Problem List: [x ] Diabetes mellitus [ ] Peripheral vascular disease [x ] Neuropathy [ ] Onychomycosis [x ] Dystrophic toenails [x ] Hyperkeratosis/calluses [x ] Xerosis/dry skin [ ] Other: Treatment: [ x] Nails x 10 debrided in length and thickness without incident [x ] Hyperkeratotic lesions were grinded down with eletric instrument lens grinder apprentice and debrided without incidence. [ x]Patient education educated about proper foot care and encouraged to check feet daily for injuries and wounds [ x] Instructed to moisturize feet daily but not in-between toes Patient is to RTC in 2 months. /elle/ KASSIDY BUCIO LPN LICENSED PRACTICAL NURSE Signed: 02/21/2024 11:31 Receipt Acknowledged By: 02/21/2024 11:59 /es/ LOY ANDERSON DPM PODIATRY ATTENDING KASSIDY BUCIO [facility]
--- OUTSIDE RECORDS SUMMARY | 2024-06-07 09:02 | XMS_ITS | Encounter Summary ---
Author Name [facility] [place] Address [address] [place] [id number] Care Team Providers Care Inspector Heating And Refrigeration Name Role Phone RISSA MCGRAW Primary Care [...] GOOD FAMIL Y Jun 11, 2000 [id number] [phone] Venkat VELASQUEZ AVID PATIENT MEDICARE (WNR) MEDICARE (M) PART B Dec 09, 2008 PART B [id number] Venkat VELASQUEZ AVID PATIENT MEDICARE (WNR) MEDICARE (M) PART B Dec 09, 2008 PART B [id number] Venkat VELASQUEZ AVID PATIENT MEDICARE (WNR) MEDICARE (M) PART B Dec 09, 2008 PART B [id number] 30A Venkat VELASQUEZ AVID PATIENT MEDICARE (WNR) MEDICARE (M) PART A Jun 11, 2007 PART A [id number] 30A [phone] Venkat VELASQUEZ AVID PATIENT MEDICARE (WNR) MEDICARE (M) PART A Jun 11, 2007 PART A [id number] Venkat VELASQUEZ AVID PATIENT MEDICARE (WNR) MEDICARE (M) PART A Jun 11, 2007 PART A [id number] 30A Venkat VELASQUEZ AVID PATIENT Selected Encounter This section includes the information on [place] at [place] for the Encounter. Date/Time Encounter Type Encounter Description Reason Pro vider Source Aug 27, 2023 03:14 PM Outpatient Encounter COMMUNITY CARE CONSULT IHE Encounter Template Text not used by [place] Plan of Treatment: Future Appointments (+ 6 [...] Date/Time Appointment Type Appointme nt Facility Name Sep 20, 2023 09:00 AM AMBULATORY - MEDICINE [place] [place] [facility] October 11, 2023 11:00 AM AMBULATORY - MEDICINE [place] [facility] October 30, 2023 02:30 PM AMBULATORY - MEDICINE [place] [facility] Nov 20, 2023 03:00 PM AMBULATORY - MEDICINE [place] [facility] Dec 04, 2023 10:30 AM AMBULATORY - MEDICINE [place] [facility] Dec 24, 2023 11:15 AM AMBULATORY - MEDICINE [place] [facility] Jan 08, 2024 10:30 AM AMBULATORY - MEDICINE [place] [facility] Jan 11, 2024 08:30 AM AMBULATORY - NONE [place] [facility] [place] [facility] Jan 29, 2024 10:45 AM AMBULATORY - NONE [place] [facility] [place] [facility] Feb 05, 2024 02:30 PM AMBULATORY - MEDICINE [place] [facility] Feb 05, 2024 03:00 PM AMBULATORY - MEDICINE [place] [facility] Feb 07, 2024 09:30 AM AMBULATORY - NONE [place] [facility] [place] [facility] Feb 21, 2024 11:00 AM AMBULATORY - MEDICINE [facility] N[facility]L [facility] Feb 25, 2024 09:30 AM AMBULATORY - MEDICINE [facility] Social History: Smoking Status (Most current) [...] 17, 2023 02:16 PM VA-TOBACCO NEVER USED [facility] Tobacco Use History This section includes a history of the smoking, or tobacco-related health factors, that were collected on or before the date of the Encounter. The data comes from the [place] facility where the Encounter took place. Date/Time Smoking Status/Tobac co Use Comment Facility May 09, 2022 10:45 AM [facility]ACCO [facility] Mar 30, 2021 01:02 PM VA-TOBACCO [facility] Mar 30, 2021 01:02 PM VA-TOBACCO QUIT 5 TO < 15 YRS [facility] Aug 31, 2004 09:56 AM HISTORY OF SMOKING QUIT [facility] Aug 08, 2004 02:45 PM LIFETIME NON-TOBACCO [facility] Encounter Notes: All associated encounter notes This section contains the clinical notes associated to the Encounter. Date/Time Encounter Note(s) Provider Source Aug 27, 2023 03:14 PM DENTISTRY ADMINIST RATIVE NOTE: LOCAL TITLE: DENTAL ADMINISTRATIVE NOTE STANDARD TITLE: DENTISTRY ADMINISTRATIVE NOTE DATE OF NOTE: AUG 27, 2023@15:14 ENTRY DATE: AUG 27, 2023@15:14:56 AUTHOR: MARSHALL LYON COSIGNER: URGENCY: STATUS: COMPLETED EDUARDO ENDO REPORT FOR TOOTH #11 SENT TO [facility] AND [place] PROVIDER. /elle/ MARSHALL LYON RDH, BS STAFF, DENTAL HYGIENIST Signed: 08/27/2023 15:15 Receipt Acknowledged By: 08/30/2023 16:37 /elle/ LAVON SONI, IDALMIS Staff Dentist [facility]
--- OUTSIDE RECORDS SUMMARY | 2024-06-07 09:02 | XMS_ITS | Encounter Summary ---
Author Name [place] Address [address] [place] [address] Care Team Providers Care Distribution Agent Name Role Phone RISSA MCGRAW Primary Care [...] GOOD FAMIL Y Jun 11, [phone] [id number] [phone] Venkat VELASQUEZ AVID PATIENT MEDICARE (WNR) MEDICARE (M) PART B Dec 09, 2008 PART B [id number] 30A [phone] Venkat VELASQUEZ AVID PATIENT MEDICARE (WNR) MEDICARE (M) PART B Dec 09, 2008 PART B [id number] Venkat VELASQUEZ AVID PATIENT MEDICARE (WNR) MEDICARE (M) PART B Dec 09, 2008 PART B [id number] 30A [phone] Venkat VELASQUEZ AVID PATIENT MEDICARE (WNR) MEDICARE (M) PART A Jun 11, 2007 PART A [id number] 30A Venkat VELASQUEZ AVID PATIENT MEDICARE (WNR) MEDICARE (M) PART A Jun 11, 2007 PART A [id number] Venkat VELASQUEZ AVID PATIENT MEDICARE (WNR) MEDICARE (M) PART A Jun 11, 2007 PART A [id number] 30A Venkat VELASQUEZ AVID PATIENT Selected Encounter This section includes the [place] for the [place]counter. Date/Time Encounter Type Encounter Description Reason Pro vider Source Sep 13, 2023 06:33 PM Outpatient Encounter TELEPHONE PRIMARY CARE IHE Encounter Template Text not used by [place] Plan of Treatment: Future Appointments (+ 6 months) and Future Tests (+/- 45 days) The Plan of Treatment section includes future care activities for the patient from all [place] treatmentfacilities. This section includes future appointments and [...] - MEDICINE [place] [facility] October 11, 2023 11:00 AM AMBULATORY [place]ICINE [place] [facility] October 30, 2023 02:30 PM AMBULATORY - MEDICINE [place] [facility] Nov 20, 2023 03:00 PM AMBULATORY - MEDICINE [place] [facility] Dec 04, 2023 10:30 AM AMBULATORY - MEDICINE [place] [facility] Dec 24, 2023 11:15 AM AMBULATORY - MEDICINE [place] [facility] Jan 08, 2024 10:30 AM AMBULATORY - MEDICINE [place] [facility] Jan 11, 2024 08:30 AM AMBULATORY - NONE [place] [facility] [facility] Jan 29, 2024 10:45 AM AMBULATORY - NONE [place] [facility] [place] [facility] Feb 05, 2024 02:30 PM AMBULATORY - MEDICINE [place] [facility] Feb 05, 2024 03:00 PM AMBULATORY - MEDICINE [place] [facility] Feb 07, 2024 09:30 AM AMBULATORY - NONE [place] [facility] Feb 21, 2024 11:00 AM AMBULATORY - [place]ICINE [place] [facility] Feb 25, 2024 09:30 AM AM[place]ULATORY - [place]ICINE [place] [facility] Mar 05, 2024 11:00 AM AMBULATORY - NONE [place] [facility] Social History: Smoking Status (Most current) [...] 2023 02:16 PM VA-TOBACCO NEVER [facility]ED [facility] Tobacco Use History This section includes a history of the smoking, or tobacco-related health factors, that were collected on or before the date of the Encounter. The data comes from the [place] facility where the Encounter took place. Date/Time Smoking Status/Tobac co Use Comment Facility May 09, 2022 10:45 AM VA-TOBACCO NEVER USED [place] [facility] Mar 30, 2021 01:02 PM VA-TOBACCO FORMER USER [place] [facility] Mar 30, 2021 01:02 PM VA-TOBACCO QUIT 5 TO < 15 YRS [place] [facility] Aug 31, 2004 09:56 AM HISTORY OF SMOKING QUIT 20 YEARS AGO [place] [facility] Aug 08, 2004 02:45 PM LIFETIME NON-TOBACCO USER [place] [facility] Encounter Notes: All associated encounter notes This section contains the clinical notes associated to the Encounter. Date/Time Encounter Note(s) Provider Source Sep 13, 2023 06:33 PM LETTERS: LOCAL TITLE: PATIENT LETTER (B) STANDARD TITLE: LETTERS DATE OF NOTE: SEP 13, 2023@18:33 ENTRY DATE: SEP 13, 2023@18:34:05 AUTHOR: STARR GONZALES COSIGNER: URGENCY: STATUS: COMPLETED == [facility] [address] [address] * [phone] * == Date: 09/13/23 Dear : Brian Thank you for choosing the [facility] ([place]. The Whole Health Program aims to support you in pursuing what matters most to you, and includes services that support your values and overall wellness. This includes the following offerings: * Yoga * Acupuncture * [facility] Acupuncture for Acute Pain (offered weekly; drop-in or scheduled) * Individual health coaching * Homeowner Association Manager * Biofeedback for Hypertension and Anxiety * Guided Imagery Group * Meditation Group * Cancer Support Group * Stress Management Group ( Stress Less ) The following require no referral from a provider, and can be initiated by you at any time: * Yoga * Meditation * [place]en Acupuncture * Cancer Support Group * Individual Health Coaching * Stress Management Group ( Stress Less ) If interested in any of the above offerings, please reach out to the Whole Health Team at [phone]. [phone]. To schedule consult-required services, or if you would like more information regarding [place] health care benefits, please call toll free at [phone]), visit the VA website at [email or web address].gov/healthbenefit [email or web address], or contact your local [place] Medical Center. If you have any questions, please do not hesitate to contact the [facility] [place]'s Affairs call center. Sincerely. Dr. Kitty Hwang Whole Health and Integrated Assistant Center Manager [facility] Direct STARR GONZALES [place] [facility]L [place] [facility] [facility]
--- OUTSIDE RECORDS SUMMARY | 2024-06-07 09:02 | XMS_ITS | Encounter Summary ---
Author Name [facility] [place] Address [address] [place] [address] Care Team Providers Care Woodworker Name Role Phone RISSA MCGRAW Primary Care [...] GOOD FAMIL Y Jun 11, 2000 105 [id number] Venkat VELASQUEZ AVID PATIENT MEDICARE (WNR) MEDICARE (M) PART B Dec 09, 2008 PART B [id number] 30A Venkat VELASQUEZ AVID PATIENT MEDICARE (WNR) MEDICARE (M) PART B Dec 09, 2008 PART B [id number] Venkat VELASQUEZ AVID PATIENT MEDICARE (WNR) MEDICARE (M) PART B Dec 09, 2008 PART B [id number] 30A Venkat VELASQUEZ AVID PATIENT MEDICARE (WNR) MEDICARE (M) PART A Jun 11, 2007 PART A [id number] Venkat VELASQUEZ AVID PATIENT MEDICARE (WNR) MEDICARE (M) PART A Jun 11, 2007 PART A [id number] 30A [phone] Venkat VELASQUEZ AVID PATIENT MEDICARE (WNR) MEDICARE (M) PART A Jun 11, 2007 PART A [id number] 30A Venkat VELASQUEZ AVIVenkat PATIENT Selected Encounter This section includes the information on record at [place] for the Encounter. Date/Time Encounter Type Encounter Description Reason Pro vider Source October 15, 2023 10:51 AM Outpatient Encounter ADMIN PAT ACTIVTIES (MASNONCT) IHE Encounter Template Text not used by [place] Plan of Treatment: Future Appointments (+ 6 months) and Future Tests (+/- 45 days) The Plan of Treatment section includes future care activities for the patient from all [place] treatmentfacilities. This section includes future appointments and future orders which are active, pending or scheduled. Future Appointments This section includes appointments that were scheduled to occur 6 months from the date of the Encounter, up to a maximum of 20 appointments. The data comes from all [place] treatment facilities. Appointment Date/Time Appointment Type Appointme nt Facility Name October 30, 2023 02:30 PM AM[place]ULATORY [place]ICINE [place] [facility] [facility] [place] [facility] Nov 20, 2023 03:00 PM AM[place]ULATORY [place]IC[place] [facility] [place] [facility] Dec 04, 2023 10:30 AM AMBULATORY [place]ICINE [place] [facility] [place] [facility] Dec 24, 2023 11:15 AM AMBULATORY [place]ICINE [place] [facility] [place] [facility] Jan 08, 2024 10:30 AM AMBULATORY - MEDICINE [place] [facility] [facility] Jan 11, 2024 08:30 AM AMBULATORY - NONE [place] [facility] [place] [place] [facility] Jan 29, 2024 10:45 AM AMBULATORY - NONE [facility] [place] [facility] Feb 05, 2024 02:30 PM AMBULATORY - MEDICINE [place] [facility] [place] [facility] Feb 05, 2024 03:00 PM AMBULATORY - MEDICINE [place] [facility] [place] [facility] Feb 07, 2024 09:30 AM AMBULATORY - NONE [facility] [place] [facility] Feb 21, 2024 11:00 AM AMBULATORY - MEDICINE [place] [facility] [place] [facility] Feb 25, 2024 09:30 AM [facility] Mar 05, 2024 11:00 AM [facility]ONE [place] [facility] Mar 18, 2024 09:00 AM [facility] Social History: Smoking Status (Most current) [...] 17, 2023 02:16 PM VA-TOBACCO NEVER USED [facility] Tobacco Use History This section includes a history of the smoking, or tobacco-related health factors, that were collected on or before the date of the Encounter. The data comes from the [place] facility where the Encounter took place. Date/Time Smoking Status/Tobac co Use Comment Facility May 09, 2022 10:45 AM [facility] Mar 30, 2021 01:02 PM VA-TOBACCO [facility] Mar 30, 2021 01:02 PM VA-TOBACCO QUIT 5 TO < 15 YRS [facility] Aug 31, 2004 09:56 AM HISTORY OF SMOKING QUIT 20 [facility]ARS AGO [facility] Aug 08, 2004 02:45 PM LIFET[facility] Encounter Notes: All associated encounter notes This section contains the clinical notes associated to the Encounter. Date/Time Encounter Note(s) Provider Source October 15, 2023 10:51 AM ADMINISTRATIVE NOT E: LOCAL TITLE: CCC: SCHEDULING ADMINISTRATION STANDARD TITLE: ADMINISTRATIVE NOTE DATE OF NOTE: OCTOBER 15, 2023@10:51:26 ENTRY DATE: OCTOBER 15, 2023@10:51:26 AUTHOR: FAROOQ BISHOP COSIGNER: URGENCY: STATUS: COMPLETED CCC: SCHEDULING ADMINISTRATION Has ADDENDA Patient Demographics Patient Name: BRIAN VELASQUEZ Patient Primary Phone: [phone] Patient Primary Address: [address] [place] [address] Patient : 1945 Patient Age: 77 Call Back Number: [phone] Caller/Recipient Relation to Patient: Self Administrative Administrative Note Reason: Medication Renewal [place] Medications Refill/Renewal Request: Lancets Administrative Note Comments: The is calling in today and requesting a refill on his lancets for his glucometer. I would have attached the RX, however I was unable to find anything in the medication list. I looked through it, and did not see it. Please review the patient's chart and process RX for lancets if it is warranted for the patient. If there are any questions or issues feel free to reach out to the patient at: [phone]. Thank you. /daniel JAFFE 1 [facility] Signed: 10/15/2023 10:51 Receipt Acknowledged By: 10/18/2023 16:32 /elle/ GABBY TOBAR RN-BC REGISTERED NURSE 10/16/2023 11:25 /elle/ RAJ REYNOSO LPN Licensed Practical Nurse 10/16/2023 ADDENDUM STATUS: COMPLETED Called and spoke with vet informed him insulins mailed out 10/15/2023. /daniel REYNOSO LPN Licensed Practical Nurse Signed: 10/16/2023 11:28 10/16/2023 ADDENDUM STATUS: COMPLETED [place] stated run out of LANCET,SOFTCLIX entered med request note to provider. /daniel REYNOSO LPN Licensed Practical Nurse Signed: 10/16/2023 11:34 FAROOQ BISHOP [place] [facility]
--- OUTSIDE RECORDS SUMMARY | 2024-06-07 09:02 | XMS_ITS | Encounter Summary ---
Author Name [facility] [place] Address [address] [place] [address] Care Team Providers Care Senior Pl Sql Developer Name Role Phone RISSA MCGRAW Primary Care [...] GOOD FAMIL Y Jun 11, 2000 105 [id number] Venkat VELASQUEZ AVID PATIENT MEDICARE (WNR) MEDICARE (M) PART B Dec 09, 2008 PART B [id number] 30A Venkat VELASQUEZ AVID PATIENT MEDICARE (WNR) MEDICARE (M) PART B Dec 09, 2008 PART B [id number] Venkat VELASQUEZ AVID PATIENT MEDICARE (WNR) MEDICARE (M) PART B Dec 09, 2008 PART B [id number] 30A Venkat VELASQUEZ AVID PATIENT MEDICARE (WNR) MEDICARE (M) PART A Jun 11, 2007 PART A [id number] [phone] Venkat VELASQUEZ AVID PATIENT MEDICARE (WNR) MEDICARE (M) PART A Jun 11, 2007 PART A [id number] Venkat VELASQUEZ AVID PATIENT MEDICARE (WNR) MEDICARE (M) PART A Jun 11, 2007 PART A [id number] 30A Venkat VELASQUEZ AVID PATIENT Selected Encounter This section includes the information on record at [place] for the Encounter. Date/Time Encounter Type Encounter Description Reason Pro vider Source Sep 20, 2023 12:00 PM Outpatient Encounter COMMUNITY CARE CONSULT IHE Encounter Template Text not used by [place] Plan of Treatment: Future Appointments (+ 6 months) and Future Tests (+/- 45 days) The Plan of Treatment section includes future care activities for the patient from all [place] treatmentfacilities. This section includes future appointments and future orders which are active, pending or scheduled. Future Appointments This section includes appointments that were scheduled to occur 6 months from the date of the Encounter, up to a maximum of 20 appointments. The data comes from all [place] treatment facilities. Appointment Date/Time Appointment Type Appointme nt Facility Name October 11, 2023 11:00 AM [place]ORY [place] [facility] October 30, 2023 02:30 PM AM[place]ULATORY [place]INE [place] [facility] Nov 20, 2023 03:00 PM AMBULATORY - [place]ICINE [place] [facility] Dec 04, 2023 10:30 AM AMBULATORY [place]ICINE [place] [facility] Dec 24, 2023 11:15 AM AMBULATORY - MEDICINE [place] [facility] Jan 08, 2024 10:30 AM AMBULATORY - MEDICINE [facility] [place] [facility] Jan 11, 2024 08:30 AM AMBULATORY - NONE [facility] [place] [facility] Jan 29, 2024 10:45 AM AMBULATORY - NONE [facility] [place] [facility] Feb 05, 2024 02:30 PM AMBULATORY - MEDICINE [facility] [place] [facility] Feb 05, 2024 03:00 PM AMBULATORY - MEDICINE [facility] [place] [facility] Feb 07, 2024 09:30 AM AMBULATORY - NONE [place] [facility] [place] [facility] Feb 21, 2024 11:00 AM AMBULATORY [place]ICINE [place] [facility] Feb 25, 2024 09:30 AM AMBULATORY - MEDICINE [facility] [place] [facility] Mar 05, 2024 11:00 AM AMBULATORY - NONE [place] [facility] Mar 18, 2024 09:00 AM AMBULATORY - MEDICINE [facility] N[facility]L [facility] Social History: Smoking Status (Most current) and Tobacco Use (All prior to encounter date) This section includes the most current, and the historical, smoking and tobacco- related health factors from the [place] facility where the Encounter took place. Current Smoking Status This section includes the most current smoking, or tobacco-related health factor, from the [place] facility where the Encounter took place. Date/Time Current Smoking Status Comment Facil ity May 17, 2023 02:16 PM [facility] Tobacco Use History This section includes a history of the smoking, or tobacco-related health factors, that were collected on or before the date of the Encounter. The data comes from the [place] facility where the Encounter took place. Date/Time Smoking Status/Tobac co Use Comment Facility May 09, 2022 10:45 AM VA-TOBACCO NEVER USED [place] [facility] Mar 30, 2021 01:02 PM VA-TOBACCO FORMER USER [place] [facility] Mar 30, 2021 01:02 PM VA-TOBACCO QUIT 5 TO < 15 YRS [place] [facility] [facility] Aug 31, 2004 09:56 AM HISTORY OF SMOKING QUIT 20 YEARS AGO [place] [facility] [facility] Aug 08, 2004 02:45 PM LIFETIME NON-TOBACCO [facility] Encounter Notes: All associated encounter notes This section contains the clinical notes associated to the Encounter. Date/Time Encounter Note(s) Provider Source Sep 20, 2023 12:00 PM NONVA CONSULT: LOCAL TITLE: COMMUNITY CARE-CONSULT RESULT NOTE STANDARD TITLE: NONVA CONSULT DATE OF NOTE: SEP 20, 2023@12:00 ENTRY DATE: OCT 09, 2023@09:31:44 AUTHOR: TRUMAN AMOS COSIGNER: URGENCY: STATUS: COMPLETED VistA Imaging - Scanned Document [facility] ENDODONT[facility]-VISIT NOTES SCANNED DOCUMENT SIGNATURE NOT REQUIRED Electronically Filed: 10/09/2023 by: TRUMAN AMOS LOWER IN SUPERVISOR TRUMAN AMOS [facility]
--- OUTSIDE RECORDS SUMMARY | 2024-06-07 09:02 | XMS_ITS | Encounter Summary ---
Author Name [facility] [place] Address [address] [place] [address] Care Team Providers Care Graduate Assistant Athletic Trainer Name Role Phone RISSA MCGRAW Primary Care [...] GOOD FAMIL Y Jun 11, 2000 105 [id number] Venkat VELASQUEZ AVID PATIENT MEDICARE (WNR) MEDICARE (M) PART B Dec 09, 2008 PART B [id number] Venkat VELASQUEZ AVID PATIENT MEDICARE (WNR) MEDICARE (M) PART B Dec 09, 2008 PART B [id number] 30A Venkat VELASQUEZ AVID PATIENT MEDICARE (WNR) MEDICARE (M) PART B Dec 09, 2008 PART B [id number] 30A [phone] Venkat VELASQUEZ AVID PATIENT MEDICARE (WNR) MEDICARE (M) PART A Jun 11, 2007 PART A [id number] EVA,D AVID PATIENT MEDICARE (WNR) MEDICARE (M) PART A Jun 11, 2007 PART A [id number] 30A Venkat VELASQUEZ AVIVenkat PATIENT MEDICARE (WNR) MEDICARE (M) PART A Jun 11, 2007 PART A [id number] 30A Venkat VELASQUEZ PATIENT Selected Encounter This section includes the information on record at [place] for the Encounter. Date/Time Encounter Type Encounter Description Reason Provider Source Aug 07, 2023 01:00 PM PARNG/CUTG B9 HYPRKR LES >4 PODIATRY ICD-10-CM E11.40 Type 2 diabetes mellitus with diabetic neuropathy, KASSIDY Rosario Sharif Encounter Template Text not used by [place] Assessments - Encounter Diagnoses This section includes the primary and secondary diagnoses documented for the Encounter. Date/Time Primary/Secondary Diagnosis Diagnosis Name Provider Source Aug 07, 2023 01:43 PM PRIMARY Type 2 diabetes mellitus with diabetic neuropathy, unsp [facility] [place] [facility] Aug 07, 2023 01:43 PM SECONDARY Corns and call[facility] [place] [facility] Aug 07, 2023 01:43 PM SECONDARY Nail dystrophy [facility] [place] [facility] Plan of Treatment: Future Appointments [...] Date/Time Appointment Type Appointme nt Facility Name Aug 23, 2023 11:30 AM AMBULATORY - [place]ICINE [place] [facility] Sep 20, 2023 09:00 AM AMBULATORY - MEDICINE [place] [facility] October 11, 2023 11:00 AM AMBULATORY - MEDICINE [place] [facility] October 30, 2023 02:30 PM AMBULATORY - MEDICINE [place] [facility] Nov 20, 2023 03:00 PM AMBULATORY - MEDICINE [place] [facility] [place] [facility] Dec 04, 2023 10:30 AM AMBULATORY - MEDICINE [place] [facility] [place] [facility] Dec 24, 2023 11:15 AM AMBULATORY - MEDICINE [place] [facility] [place] [facility] Jan 08, 2024 10:30 AM AMBULATORY - MEDICINE [place] [facility] [place] [facility] Jan 11, 2024 08:30 AM AMBULATORY - NONE [place] [facility] [place] [facility] Jan 29, 2024 10:45 AM AMBULATORY - NONE [place] [facility] [place] [facility] Feb 05, 2024 02:30 PM AMBULATORY - MEDICINE [place] [facility] [place] [facility] Feb 05, 2024 03:00 PM AMBULATORY - MEDICINE [place] [facility] Social History: Smoking Status (Most [...] 17, 2023 02:16 PM VA-TOBACCO NEVER USED [place] [facility] Tobacco Use History This section includes a history of the smoking, or tobacco-related health factors, that were collected on or before the date of the Encounter. The data comes from the [place] facility where the Encounter took place. Date/Time Smoking Status/Tobac co Use Comment Facility May 09, 2022 10:45 AM VA-TOBACCO NEVER USED [place] [facility] Mar 30, 2021 01:02 PM VA-TOBACCO FORMER USER [place] [facility] [facility] Mar 30, 2021 01:02 PM VA-TOBACCO QUIT 5 TO < 15 YRS [place] [facility] [place] [facility] Aug 31, 2004 09:56 AM HISTORY OF SMOKING QUIT 20 YEARS AGO [place] [facility] [place] [facility] Aug 08, 2004 02:45 PM LIFETIME NON-TOBACCO USER [place] [facility] [place] [facility] Encounter Notes: All associated encounter notes This section contains the clinical notes associated to the Encounter. Date/Time Encounter Note(s) Provider Source Aug 07, 2023 01:44 PM PREVENTIVE MEDICIN E NURSING NOTE: LOCAL TITLE: CLINICAL REMINDERS/NURSING STANDARD TITLE: PREVENTIVE MEDICINE NURSING NOTE DATE OF NOTE: AUG 07, 2023@13:44 ENTRY DATE: AUG 07, 2023@13:45:03 AUTHOR: KASSIDY BUCIO COSIGNER: URGENCY: STATUS: COMPLETED PAVE Foot Check: A complete foot check was completed at this encounter. VISUAL INSPECTION: Includes inspection for skin breaks, deformity, erythema, trauma, pallor on elevation, dependent rubor, nail deformities, extensive callus and pitting edema. Visual exam results: Abnormal Observations: Thickened toenails, Other:thick extensive callouses PEDAL PULSES: Includes palpation of dorsalis and posterior tibial pulses and signs/symptoms of vascular compromise like pain, pallor, parasthesia or paralysis. Present (even if diminished) SENSORY CHECK: Includes 10 gram Monofilament ([place]-Gregg) test of sensation. Intact (Greater than or equal to 80% of sites checked) Abnormal (Less than 80% of sites checked): Abnormal (decreased or absent sensation to monofilament): Comment: see note LOW-RISK LOW RISK FOOT EDUCATION: 1. Advised patient not to walk barefoot. Instructed the patient to pay close attention to the style and fit of shoes. 2. Explained the importance of daily foot checks. Explained that loss of sensation leads to callouses. Callouses break down, which result in ulcers that may lead to gangrene and amputation. 3. Stressed the importance of daily foot hygiene. Warm (not hot) bathing of the feet, complete drying and thorough inspection for changes in the condition of the skin constitute daily foot care. Demonstrated how to do a thorough foot check. 4. Emphasized the use of clean, non-restrictive socks/stockings and well fitting shoes. 5. Stressed the importance of immediate follow-up of any foot injuries or ulcers. Explained that he/she should be non- weight bearing whenever there are lesions on the foot, to prevent cellular damage. Level of Understanding: Timothy /elle/ KASSIDY BUCIO LPN LICENSED PRACTICAL NURSE Signed: 08/07/2023 13:47 KASSIDY BUCIO CNTRL [facility] Aug 07, 2023 01:36 PM NURSING OUTPATIENT NOTE: LOCAL TITLE: NURSING/SPECIALTY CLINIC NOTE STANDARD TITLE: NURSING OUTPATIENT NOTE DATE OF NOTE: AUG 07, 2023@13:36 ENTRY DATE: AUG 07, 2023@13:36:31 AUTHOR: KASSIDY BUCIO COSIGNER: URGENCY: STATUS: COMPLETED seen in [facility] for continued foot care. [place] has a history of Diabetes and is unable to trim his/her own nails. Ambulates: [X]self [ ]wheelchair can transfer [ ]wheelchair cannot transfer [X ]without assistance [ ]with assistance of Bilateral: Pedal pulses: Right Foot: Dorsalis Pedis - palpable [X ] non-palpable[ ] Posterior Tibial - palpable[X ] non-palpable[ ] Left Foot: Dorsalis Pedis - palpable [X ] non-palpable [ ] Posterior Tibial - palpable [X ] non-palpable[ ] Pedal sensation: Right Foot: [ ] Intact [X ] Absent 5 out of 10 sites Left Foot: [ ] Intact [ ] Absent 7 out of 10 sites Skin Temperature: [X ] Warm to warm, proximal to distal [ ] Warm to cool/cold, proximal to distal Pedal skin: [X ] Intact [X ] Dry [ ] Cracked [ ] Discolored Webspaces: [X ] Intact [X ] Clean [ ] Soiled [ ] Macerated [X ] Dry Nails: [X ] Thickened [X ] Elongated [X ] Dystrophic [ ] Discolored [X ] Fungal [ ] Incurvated [ ] Subungual debri Hyperkeratosis [X ] Yes, Locations: RIGHT 2ND,3TD,4TH DIGIT DISTIL END OF NAIL BEDS, LEFT HALLUX HALLUS OUTER ASPECT OF DISITL END OF NAIL BED SEEN AND REMOVED BY DR. KNAPP, LEFT 2ND 3TD, 4TH DIGIT DISTIL ENDS OF NAIL BEDS. [ ] No Open lesions/wounds: [ ] Yes, Locations: [X ] No Amputations: [ ] Yes, Locations: [X ] No Edema present: ( X ) Yes SLIGHT EDEMA BILATERAL ANKLES ( ) NO Podiatric Problem List: [X ] Diabetes mellitus [ ] Peripheral vascular disease [X ] Neuropathy [X ] Onychomycosis [X ] Dystrophic toenails [X ] Hyperkeratosis/calluses [X ] Xerosis/dry skin [ ] Other: Treatment: [ ] Nails x 10 debrided in length and thickness without incident [ ] Hyperkeratotic lesions were grinded down with eletric jig grinder and debrided without incidence. [ ]Patient education educated about proper foot and encouraged to check feet daily for injuries and wounds [ ] Instructed to moisturize feet daily but not in-between toes Patient referred to provider due to other concerns . Discussed with Dr. KNAPP and plan of care provided. Patient is to RTC in 2 months. /elle/ KASSIDY BUCIO LPN LICENSED PRACTICAL NURSE Signed: 08/07/2023 13:44 Receipt Acknowledged By: 08/07/2023 14:14 /elle/ BRIAN KNAPP DPM EXPERIMENTAL ELECTRONICS DEVELOPER [facility]
--- OUTSIDE RECORDS SUMMARY | 2024-06-07 09:02 | XMS_ITS | Encounter Summary ---
Author Name [facility] ([place]) Organization [facility] [place]) Address [address] [place] [id number] Care Team Providers Care Radio Station Engineer Name Role Phone RISSA DIAZ Primary Care [...] GOOD FAMIL Y Jun 11, [phone] [id number] Venkat VELASQUEZ AVID PATIENT MEDICARE (WNR) MEDICARE (M) PART B Dec 09, 2008 PART B [id number] [phone] Venkat VELASQUEZ AVID PATIENT MEDICARE (WNR) MEDICARE (M) PART B Dec 09, 2008 PART B [id number] Venkat VELASQUEZ AVID PATIENT MEDICARE (WNR) MEDICARE (M) PART B Dec 09, 2008 PART B [id number] 30A Venkat VELASQUEZ AVID PATIENT MEDICARE (WNR) MEDICARE (M) PART A Jun 11, 2007 PART A [id number] Venkat VELASQUEZ AVID PATIENT MEDICARE (WNR) MEDICARE (M) PART A Jun 11, 2007 PART A [id number] Venkat VELASQUEZ AVID PATIENT MEDICARE (WNR) MEDICARE (M) PART A Jun 11, 2007 PART A [id number] 30A Venkat VELASQUEZ AVID PATIENT Selected Encounter This section includes the information on record at OR for the Encounter. Date/Time Encounter Type Encounter Description Reason Pro vider Source Sep 13, 2023 11:30 AM Outpatient Encounter PRIMARY CARE/MEDICINE IHE Encounter Template Text not used by OR Plan of Treatment: Future Appointments (+ 6 months) and Future Tests (+/- 45 days) The Plan of Treatment section includes future care activities for the patient from all [facility] This section includes future appointments and future orders which are active, pending or scheduled. Future Appointments This section includes appointments that were scheduled to occur 6 months from the date of the Encounter, up to a maximum of 20 appointments. The data comes from all [place] treatment facilities. Appointment Date/Time Appointment Type Appointme nt Facility Name Sep 20, 2023 09:00 AM AMBULATORY - MEDICINE [facility] [place] [facility] October 11, 2023 11:00 AM AMBULATORY - MEDICINE [facility] [place] [facility] October 30, 2023 02:30 PM AMBULATORY - MEDICINE [facility] [place] [facility] Nov 20, 2023 03:00 PM AMBULATORY - MEDICINE [facility] [place] [facility] Dec 04, 2023 10:30 AM AMBULATORY - MEDICINE [facility] [place] [facility] Dec 24, 2023 11:15 AM AMBULATORY - MEDICINE [facility] [place] [facility] Jan 08, 2024 10:30 AM AMBULATORY - MEDICINE [facility] [place] [facility] Jan 11, 2024 08:30 AM AMBULATORY - NONE [facility] [place] [facility] Jan 29, 2024 10:45 AM AMBULATORY - NONE [facility] [place] [facility] Feb 05, 2024 02:30 PM AMBULATORY - MEDICINE [facility] [place] [facility] Feb 05, 2024 03:00 PM AMBULATORY - MEDICINE [facility] [place] [facility] Feb 07, 2024 09:30 AM AMBULATORY - NONE [facility] [place] [facility] Feb 21, 2024 11:00 AM AMBULATORY - MEDICINE [place] [facility] [place] [facility] Feb 25, 2024 09:30 AM AMBULATORY - MEDICINE [facility] [place] [facility] Mar 05, 2024 11:00 AM [facility] Social History: Smoking Status (Most current) and Tobacco Use (All prior to encounter date) This section includes the most current, and the historical, smoking and tobacco- related health factors from the [place] facility where the Encounter took place. Current Smoking Status This section includes the most current smoking, or tobacco-related health factor, from the [place] facility where the Encounter took place. Date/Time Current Smoking Status Comment Facil ity May 17, 2023 02:16 PM [facility] Tobacco Use History This section includes a history of the smoking, or tobacco-related health factors, that were collected on or before the date of the Encounter. The data comes from the [place] facility where the Encounter took place. Date/Time Smoking Status/Tobac co Use Comment Facility May 09, 2022 10:45 AM VA-TOBACCO NEVER USED [facility] [place] [facility] Mar 30, 2021 01:02 PM VA-TOBACCO FORMER USER [place] [facility] [place] [facility] Mar 30, 2021 01:02 PM VA-TOBACCO QUIT 5 TO < 15 YRS [place] [facility] [place] [facility] Aug 31, 2004 09:56 AM HISTORY OF SMOKING QUIT 20 YEARS AGO [place] [facility] [place] [facility] Aug 08, 2004 02:45 PM LIFETIME NON-TOBACCO USER [place] [facility] [place] [facility] Encounter Notes: All associated encounter notes This section contains the clinical notes associated to the Encounter. Date/Time Encounter Note(s) Provider Source Sep 13, 2023 11:46 AM ADDENDUM: LOCAL TITLE: Addendum STANDARD TITLE: ADDENDUM DATE OF NOTE: SEP 13, 2023@11:46:46 ENTRY DATE: SEP 13, 2023@11:46:47 AUTHOR: MICHELLE GARZA EXP COSIGNER: URGENCY: STATUS: COMPLETED Please call to transfer care to [facility]. /elle/ MICHELLE GAZRA PSYCHOLOGIST SOCIAL JARED Signed: 09/13/2023 11:47 Receipt Acknowledged By: 09/13/2023 18:14 /elle/ STARR GONZALES MSN Ed., BSN CHEMIST PHARMACEUTICAL NURSE --- Original Document --- 09/13/23 ADMINISTRATIVE NOTE: Tamanna Dooley is requesting to trasfer his primary care to [facility]. Vet can be reached at [phone]. Thank You. /daniel COLEMAN Signed: 09/13/2023 11:36 Receipt Acknowledged By: 09/13/2023 11:45 /daniel GARZA PSYCHOLOGIST SOCIAL [facility]HEL[facility] Sep 13, 2023 11:30 AM ADMINISTRATIVE NOT E: LOCAL TITLE: ADMINISTRATIVE NOTE STANDARD TITLE: ADMINISTRATIVE NOTE DATE OF NOTE: SEP 13, 2023@11:30 ENTRY DATE: SEP 13, 2023@11:31:33 AUTHOR: MAYRA SPENCE EXP COSIGNER: URGENCY: STATUS: COMPLETED ADMINISTRATIVE NOTE Has ADDENDA Tamanna Dooley is requesting to trasfer his primary care to [facility]. Vet can be reached at [phone]. Thank You. /daniel COLEMAN Signed: 09/13/2023 11:36 Receipt Acknowledged By: 09/13/2023 11:45 /elle/ MICHELLE GARZA PSYCHOLOGIST SOCIAL JARED 09/13/2023 ADDENDUM STATUS: COMPLETED Please call to transfer care to [facility]. /elle/ MICHELLE GARZA PSYCHOLOGIST SOCIAL JARED Signed: 09/13/2023 11:47 Receipt Acknowledged By: 09/13/2023 18:14 /daniel GONZALES MSN Ed., BSN CHEMIST PHARMACEUTICAL NURSE 09/13/2023 ADDENDUM STATUS: COMPLETED F: Appt scheduled D: tamanna was given an appt with Dr. Diaz on 11/20/23@1500 /es/ STARR GONZALES MSN Ed., BSN CHEMIST PHARMACEUTICAL NURSE Signed: 09/13/2023 18:15 MAYRA SPENCE
--- OUTSIDE RECORDS SUMMARY | 2024-06-07 09:02 | XMS_ITS | Encounter Summary ---
Author Name [facility] Organization [facility] [place] Address [address] [place] [address] Care Team Providers Care Parts Counter Sales Person Name Role Phone RISSA MCGRAW Primary Care [...] GOOD FAMIL Y Jun 11, [id number] [phone] Venkat VELASQUEZ AVID PATIENT MEDICARE (WNR) MEDICARE (M) PART B Dec 09, 2008 PART B [id number] [phone] Venkat VELASQUEZ AVID PATIENT MEDICARE (WNR) MEDICARE (M) PART B Dec 09, 2008 PART B [id number] 30A [phone] Venkat VELASQUEZ AVID PATIENT MEDICARE (WNR) MEDICARE (M) PART B Dec 09, 2008 PART B [id number] 30A Venkat VELASQUEZ AVID PATIENT MEDICARE (WNR) MEDICARE (M) PART A Jun 11, 2007 PART A [id number] [phone] Venkat VELASQUEZ AVID PATIENT MEDICARE (WNR) MEDICARE (M) PART A Jun 11, 2007 PART A [id number] [phone] Venkat VELASQUEZ AVID PATIENT MEDICARE (WNR) MEDICARE (M) PART A Jun 11, 2007 PART A [id number] 30A Venkat VELASQUEZ AVIVenkat PATIENT Selected Encounter This section includes the information on record at [place] for the Encounter. Date/Time Encounter Type Encounter Description Reason Pro vider Source Sep 03, 2023 08:07 AM Outpatient Encounter ADMIN PAT ACTIVTIES (MASNONCT) IHE Encounter Template Text not used by [place] Plan of Treatment: Future Appointments (+ 6 months) and Future Tests (+/- 45 days) The Plan of Treatment section includes future care activities for the patient from all [place] treatmentfacilities. This section includes future appointments and future orders which are active, pending or scheduled. Future Appointments This section includes appointments that were scheduled to occur 6 months from the date of the Encounter, up to a maximum of 20 appointments. The data comes from all [place] treatment facilities. Appointment Date/Time Appointment Type Appointme nt Facility Name Sep 20, 2023 09:00 AM AMBULATORY - MEDICINE [facility] [place] [facility] October 11, 2023 11:00 AM AMBULATORY - MEDICINE [facility] [place] [facility] October 30, 2023 02:30 PM AMBULATORY - MEDICINE [facility] [place] [facility] Nov 20, 2023 03:00 PM AMBULATORY - MEDICINE [facility] [place] [facility] Dec 04, 2023 10:30 AM AMBULATORY - MEDICINE [facility] [place] [facility] Dec 24, 2023 11:15 AM AMBULATORY - MEDICINE [facility] [place] [facility] Jan 08, 2024 10:30 AM AMBULATORY - MEDICINE [facility] [place] [facility] Jan 11, 2024 08:30 AM AMBULATORY - NONE [facility] [place] [facility] Jan 29, 2024 10:45 AM AMBULATORY - NONE [facility] [place] [facility] Feb 05, 2024 02:30 PM AMBULATORY - MEDICINE [facility] [place] [facility] Feb 05, 2024 03:00 PM AMBULATORY - MEDICINE [facility] [place] [facility] Feb 07, 2024 09:30 AM AMBULATORY - NONE [facility] [place] [facility] Feb 21, 2024 11:00 AM AMBULATORY - MEDICINE [facility] [place] [facility] Feb 25, 2024 09:30 AM AMBULATORY - MEDICINE [facility] [place] [facility] Mar 05, 2024 11:00 AM [facility] Social History: Smoking Status (Most current) and Tobacco Use (All prior to encounter date) This section includes the most current, and the historical, smoking and tobacco- related health factors from the [place] facility where the Encounter took place. Current Smoking Status This section includes the most current smoking, or tobacco-related health factor, from the [place] facility where the Encounter took place. Date/Time Current Smoking Status Comment Facil [facility] May 17, 2023 02:16 PM [facility] Tobacco Use History This section includes a history of the smoking, or tobacco-related health factors, that were collected on or before the date of the Encounter. The data comes from the [place] facility where the Encounter took place. Date/Time Smoking Status/Tobac co Use Comment Facility May 09, 2022 10:45 AM VA-TOBACCO NEVER USED [place] [facility] [place] [facility] Mar 30, 2021 01:02 PM VA-TOBACCO FORMER USER [place] [facility] [place] [facility] Mar 30, 2021 01:02 PM VA-TOBACCO QUIT 5 TO < 15 YRS [place] [facility] [place] [facility] Aug 31, 2004 09:56 AM HISTORY OF SMOKING QUIT 20 YEARS AGO [place] [facility] [place] [facility] Aug 08, 2004 02:45 PM LIFETIME NON-TOBACCO USER [place] [facility] Encounter Notes: All associated encounter notes This section contains the clinical notes associated to the Encounter. Date/Time Encounter Note(s) Provider Source Sep 03, 2023 08:07 AM ADMINISTRATIVE NOTE: LOCAL TITLE: CCC: SCHEDULING ADMINISTRATION STANDARD TITLE: ADMINISTRATIVE NOTE DATE OF NOTE: SEP 03, 2023@08:07:49 ENTRY DATE: SEP 03, 2023@08:07:49 AUTHOR: PENNY DILLARD EXP COSIGNER: URGENCY: STATUS: COMPLETED Patient Demographics Patient Name: BRIAN VELASQUEZ Patient Primary Phone: [phone] Patient Primary Address: [address] [place] [address] Patient : 1945 Patient Age: 77 Call Back Number: [phone] Caller/Recipient Relation to Patient: Self Administrative Administrative Note Reason: Medication Renewal [place] Medications Refill/Renewal Request: PT IS REQUESTING THE FOLLOWING MEDICATION BE RENEWED AND MAILED TO [facility] FILE: [id number] - HCTZ 25MG/LOSARTAN 100MG TAB - Medication - 1 TABLET - TAKE 1 TABLET BY MOUTH ONCE DAILY FOR HIGH BLOOD PRESSURE - 0 - [place] - [id number] - ACTIVE /es/ PENNY DILLARD VISN1 CCC AMSA Signed: 09/03/2023 08:07 Receipt Acknowledged By: 09/03/2023 08:21 /es/ ABDON BRUSH RN REGISTERED NURSE for JANNY CORTEZ 09/05/2023 16:10 /es/ DAVIS GONZALEZ MD PRIMARY CARE PHYSICIAN PENNY DILLARD [place] [facility]
--- OUTSIDE RECORDS SUMMARY | 2024-06-07 09:02 | XMS_ITS | Encounter Summary ---
Author Name [facility] [place] Address [address] [place] [id number] Care Team Providers Care Operator Control Room Name Role Phone RISSA MCGRAW Primary Care [...] GOOD FAMIL Y Jun 11, 2000 [id number] Venkat VELASQUEZ AVID PATIENT MEDICARE (WNR) MEDICARE (M) PART B Dec 09, 2008 PART B [id number] [phone] Venkat VELASQUEZ AVID PATIENT MEDICARE (WNR) MEDICARE (M) PART B Dec 09, 2008 PART B [id number] Venkat VELASQUEZ AVID PATIENT MEDICARE (WNR) MEDICARE (M) PART B Dec 09, 2008 PART B [id number] Venkat VELASQUEZ AVID PATIENT MEDICARE (WNR) MEDICARE (M) PART A Jun 11, 2007 PART A [id number] [id number] Venkat VELASQUEZ AVID PATIENT MEDICARE (WNR) MEDICARE (M) PART A Jun 11, 2007 PART A [id number] [facility] Venkat VELASQUEZ AVID PATIENT MEDICARE (WNR) MEDICARE (M) PART A Jun 11, 2007 PART A [id number] 30A [id number] Venkat VELASQUEZ AVID PATIENT Selected Encounter This section includes the information on record at [place] for the Encounter. Date/Time Encounter Type Encounter Description Reason Pro vider Source Dec 07, 2023 07:56 AM Outpatient Encounter ADMIN PAT ACTIVTIES (MASNONCT) IHE Encounter Template Text not used by [place] Plan of Treatment: Future Appointments (+ 6 months) and Future Tests (+/- 45 days) The Plan of Treatment section includes future care activities for the patient from all [place] treatmentfacilities. This section includes future appointments and future orders which are active, pending or scheduled. Future Appointments This section includes appointments that were scheduled to occur 6 months from the date of the Encounter, up to a maximum of 20 appointments. The data comes from all [place] treatment facilities. Appointment Date/Time Appointment Type Appointme nt Facility Name Dec 24, 2023 11:15 AM AMBULATORY - MEDICINE [facility] [place] [facility] Jan 08, 2024 10:30 AM AMBULATORY - MEDICINE [place] [facility] [place] [facility] Jan 11, 2024 08:30 AM AMBULATORY - NONE [facility] [place] [facility] Jan 29, 2024 10:45 AM AMBULATORY - NONE [facility] [place] [facility] Feb 05, 2024 02:30 PM AMBULATORY - MEDICINE [facility] [place] [facility] Feb 05, 2024 03:00 PM AMBULATORY - MEDICINE [facility] [place] [facility] Feb 07, 2024 09:30 AM AMBULATORY - NONE [facility] [place] [facility] Feb 21, 2024 11:00 AM AMBULATORY - MEDICINE [facility] [place] [facility] Feb 25, 2024 09:30 AM AMBULATORY - MEDICINE [facility] [place] [facility] Mar 05, 2024 11:00 AM AMBULATORY - NONE [facility] [place] [facility] Mar 18, 2024 09:00 AM AMBULATORY - MEDICINE [facility] [place] [facility] May 01, 2024 03:00 PM AMBULATORY - MEDICINE [facility] [place] [facility] May 13, 2024 07:30 AM AMBULATORY - NONE [facility] [place] [facility] May 26, 2024 11:30 AM AMBULATORY - MEDICINE [facility] [place] [facility] Jun 06, 2024 02:30 PM AMBULATORY - MEDICINE [facility] Lab Results: +/- 30 days of the encounter This section includes the Chemistry and Hematology Lab Results on record with [place] for the patient. Radiology Reports and Pathology Reports are provided separately, in subsequent sections. Lab Results This section contains the Chemistry/Hematology Results that were resulted 30 days before or 30 daysafter the date of the Encounter. Date/Time Source Result Type Result - Unit Interpretation Reference Range Comment Dec 04, 2023 11:30 AM [facility] DIGOXIN Specimen Type: PLASMA No comment entered. Ordering Provider: RISSA MCGRAW Report Released Date/Time: Nov 21, 2023 12:21 PM Reporting Lab: [facility] [place] [facility] [address] [facility] [address] Performing Lab: [facility] [address] [address] DIGOXIN 1.19 ng/mL 0.8-2.0 Dec 04, 2023 11:[address] [facility] PSA Specimen Type: SERUM No comment entered. Ordering Provider: RISSA MCGRAW Report Released Date/Time: Nov 21, 2023 12:21 PM Reporting Lab: [place] [facility] [place] [facility] [address] [facility] [address] Performing Lab: [facility] [address] [address] PSA 6.09 ng/mL H 0.00-4.00 Nov 15, 2023 11:29 AM [facility] LIVER FUNCTION Specimen Type: SERUM No comment entered. Ordering Provider: RISSA MCGRAW Report Released Date/Time: Sep 13, 2023 06:13 PM Reporting Lab: [facility] [address] [facility] [address] Performing Lab: [facility] [address] [facility] [address] PROTEIN,TOTAL 6.5 g/dL 6.0-8.3 ALBUMIN 3.9 g/dL 3.5-5.0 ALKALINE PHOSPHATASE 48 U/L 40-150 AST 19 U/L 5-34 ALT 21 U/L BILIRUBIN, TOTAL 0.6 mg/dL 0.2-1.2 Nov 15, 2023 11:29 AM [facility] HEMOGLOBIN A1C PANEL Specimen Type: BLOOD Comment: Values obtained from A1C measurements can vary. For atypical A1C assays, a reported value of 7.0 could actually be between 6.72 and 7.28 if measured by a reference method. A reported value of 9.0 could actually be between 8.73 and 9.27. Ref: http://www.ngs p.org/CAPdata. asp Ordering Provider: RISSA MCGRAW Report Released Date/Time: Sep 13, 2023 06:13 PM Reporting Lab: [facility] [address] [facility] [address] Performing Lab: [address] [address] HEMOGLOBIN A1C 6.8 H 4.0-5.6 Nov 15, 2023 11:29 AM [facility] CBC Specimen Type: BLOOD No comment entered. Ordering Provider: RISSA MCGRAW Report Released Date/Time: Sep 13, 2023 06:13 PM Reporting Lab: [address] [address] Performing Lab: [address] [address] WBC 8.53 10*3/uL 4.50-11.00 RBC 4.53 10*6/uL 4.23-5.66 HGB 14.4 g/dL 12.8-17 HCT 41.7 39.2-50.4 MCV 92.1 fL 82-99 MCHC 34.5 g/dL 30.8-35.1 PLT 267 10*3/uL 140-360 RDW-CV 12.6 12.0-16.0 MCH 31.8 pg 26.2-32.6 Nov 15, 2023 11:29 AM [facility] TSH Specimen Type: SERUM No comment entered. Ordering Provider: RISSA MCGRAW Report Released Date/Time: Sep 13, 2023 06:13 PM Reporting Lab: [facility] [address] [facility] [address] Performing Lab: [facility] [address] [facility] [address] TSH 3.68 u[IU]/mL 0.35-5.00 Nov 15, 2023 11:29 AM [facility] LIPID PANEL, NON FASTING Specimen Type: SERUM No comment entered. Ordering Provider: RISSA MCGRAW Report Released Date/Time: Sep 13, 2023 06:13 PM Reporting Lab: [address] [address] Performing Lab: [facility] [address] [facility] [address] CHOLESTEROL 95 mg/dL TRIGLYCERIDE 110 mg/dL 0-150 LDL calculated 39 mg/dL 0-129 CHOL/HDL 2.8 HDL CHOLESTEROL 34 mg/dL L 40-60 Nov 15, 2023 11:29 AM [facility] MICROALBUMIN CREATININE RATIO PANEL Specimen Type: URINE No comment entered. Ordering Provider: RISSA MCGRAW Report Released Date/Time: Sep 13, 2023 06:13 PM Reporting Lab: [facility] [address] [facility] [address] Performing Lab: [address] [address] MICROALBUMIN/C REATININE RATIO 12.2 mg/g 0-29.9 MICROALBUMIN,Q UANTITATIVE 1.1 mg/dL RR UNAVAIL CREATININE URINE 90.07 mg/dL Nov 15, 2023 11:29 AM [facility] BASIC METABOLIC PANEL (non-fasting) Specimen Type: SERUM No comment entered. Ordering Provider: FURCOLO,RISSA Report Released Date/Time: Sep 13, 2023 06:13 PM Reporting Lab: [address] [address] Performing Lab: [address] [address] UREA NITROGEN 14 mg/dL 7-25 GLUCOSE 208 mg/dL H 65-100 SODIUM 136 mmol/L 135-145 POTASSIUM 4.3 mmol/L 3.5-5.0 CHLORIDE 102 mmol/L 100-110 CO2 24 meq/L 20-30 CREATININE, Serum 0.99 mg/dL 0.50-1.40 eGFR(CKD-EPI 2020) 78 mL/min >60 Nov 15, 2023 11:29 AM [facility] URINALYSIS Specimen Type: URINE Comment: If Glucose = >500 and Ketones are positive, please alert the Physician. Ordering Provider: RISSA MCGRAW Report Released Date/Time: Sep 13, 2023 06:13 PM Reporting Lab: [address] [address] Performing Lab: [address] [address] UA COLOR Yellow Yellow UA APPEARANCE Clear Clear UA GLUCOSE 300 mg/dL Negative UA KETONES NEGATIVE mg/dL Negative UA BLOOD NEGATIVE mg/dL Negative UA PROTEIN NEGATIVE mg/dL Negative UA NITRITE NEGATIVE mg/dL Negative UA BILIRUBIN NEGATIVE mg/dL Negative UA SPECIFIC GRAVITY 1.017 1.016-1.02 2 UA pH 6.0 5.0-9.0 UA UROBILINOGEN <2.0 mg/dL <2.0 UA LEUKOCYTE NEGATIVE Negative Social History: Smoking Status (Most current) and Tobacco Use (All prior to encounter date) This section includes the most current, and the historical, smoking and tobacco- related health factors from the [place] facility where the Encounter took place. Current Smoking Status This section includes the most current smoking, or tobacco-related health factor, from the [place] facility where the Encounter took place. Date/Time Current Smoking Status Comment Facil alex May 17, 2023 02:16 PM VA-TOBACCO NEVER USED [facility] Tobacco Use History This section includes a history of the smoking, or tobacco-related health factors, that were collected on or before the date of the Encounter. The data comes from the [place] facility where the Encounter took place. Date/Time Smoking Status/Tobac co Use Comment Facility May 09, 2022 10:45 AM [facility]AC[facility] Mar 30, 2021 01:02 PM VA-TOBACCO [facility] Mar 30, 2021 01:02 PM VA-TOBACCO QUIT 5 TO < [address] [facility] Aug 31, 2004 09:56 AM HISTORY OF SMOKING QUIT [address] [facility] Aug 08, 2004 02:45 PM LIFETIME NON-TOBACCO USER [facility] Encounter Notes: All associated encounter notes This section contains the clinical notes associated to the Encounter. Date/Time Encounter Note(s) Provider Source Dec 07, 2023 07:56 AM ADMINISTRATIVE NOTE: LOCAL TITLE: CCC: SCHEDULING ADMINISTRATION STANDARD TITLE: ADMINISTRATIVE NOTE DATE OF NOTE: DEC 07, 2023@07:56 ENTRY DATE: DEC 07, 2023@07:57 AUTHOR: RYAN VILLAREAL COSIGNER: URGENCY: STATUS: COMPLETED CCC: SCHEDULING ADMINISTRATION Has ADDENDA Verified Patient Demographics Successfully verified Demographics called to renew/refill meds Losartan 100 mg -Renew INSULIN,GLARGINE-YFGN (EQV-SEMGLEE PEN) INJ 100UNIT/ML -Renew EMPAGLIFLOZIN TAB,ORAL 10MG -Refill /elle/ ROSANGELA VILLAREAL Signed: 12/07/2023 07:58 Receipt Acknowledged By: 12/07/2023 13:21 /elle/ RISSA MCGRAW D.O. PHYSICIAN 12/07/2023 08:30 /elle/ ELEANOR AGUILERA RN REGISTERED NURSE 12/07/2023 ADDENDUM STATUS: COMPLETED ALERT TO PCP for consideration of requested medication renewals /elle/ ELEANOR AGUILERA RN REGISTERED NURSE Signed: 12/07/2023 08:30 ROSANGELA VILLAREAL [facility]
--- OUTSIDE RECORDS SUMMARY | 2024-06-07 09:02 | XMS_ITS | Encounter Summary ---
Author Name [facility] [place] Address [address] [place] [address] Care Team Providers Care Truck Driver Supervisor Name Role Phone RISSA MCGRAW Primary [...] GOOD FAMIL Y Jun 11, 2000 105 [id number] [phone] Venkat VELASQUEZ AVID PATIENT MEDICARE (WNR) MEDICARE (M) PART B Dec 09, 2008 PART B [id number] Venkat VELASQUEZ AVID PATIENT MEDICARE (WNR) MEDICARE (M) PART B Dec 09, 2008 PART B [id number] Venkat VELASQUEZ AVID PATIENT MEDICARE (WNR) MEDICARE (M) PART B Dec 09, 2008 PART B [id number] [phone] Venkat VELASQUEZ AVID PATIENT MEDICARE (WNR) MEDICARE (M) PART A Jun 11, 2007 PART A [id number] [phone] EVA,D AVID PATIENT MEDICARE (WNR) MEDICARE (M) PART A Jun 11, 2007 PART A [id number] Venkat VELASQUEZ AVIVenkat PATIENT MEDICARE (WNR) MEDICARE (M) PART A Jun 11, 2007 PART A [id number] 30A [id number] Venkat VELASQUEZ AVIVenkat PATIENT Selected Encounter This section includes the information on record at [place] for the Encounter. Date/Time Encounter Type Encounter Description Reason Provider Source October 11, 2023 11:00 AM PARNG/CUTG B9 HYPRKR LES >4 PODIATRY ICD-10-CM E11.40 Type 2 diabetes mellitus with diabetic neuropathy, KASSIDY Rosario Sharif Encounter Template Text not used by [place] Assessments - Encounter Diagnoses This section includes the primary and secondary diagnoses documented for the Encounter. Date/Time Primary/Secondary Diagnosis Diagnosis Name Provider Source October 11, 2023 11:20 AM PRIMARY Type 2 diabetes mellitus with diabetic neuropathy, unsp [facility] [place] [facility] October 11, 2023 11:20 AM SECONDARY [facility]s [facility] call[facility] [place] [facility] October 11, 2023 11:20 AM SECONDARY Nail dystrophy [facility] [place] [facility] Plan of Treatment: Future Appointments (+ [...] - MEDICINE [place] [facility] Nov 20, 2023 03:00 PM AM[place]ULATORY [place] [facility] Dec 04, 2023 10:30 AM AM[place]ULATORY [place] [facility] Dec 24, 2023 11:15 AM AM[place]UL[place] [facility] Jan 08, 2024 10:30 AM AMBULATORY - MEDICINE [place] [facility] [place] [facility] Jan 11, 2024 08:30 AM AMBULATORY - NONE [facility] [place] [facility] Jan 29, 2024 10:45 AM AMBULATORY - NONE [facility] [place] [facility] Feb 05, 2024 02:30 PM AMBULATORY - MEDICINE [facility] [place] [facility] Feb 05, 2024 03:00 PM AMBULATORY - MEDICINE [facility] [place] [facility] Feb 07, 2024 09:30 AM AMBULATORY - NONE [facility] [place] [facility] Feb 21, 2024 11:00 AM AMBULATORY - MEDICINE [facility] [place] [facility] Feb 25, 2024 09:30 AM AMBULATORY - MEDICINE [facility] [place] [facility] Mar 05, 2024 11:00 AM AMBULATORY - NONE [place] [facility] [place] [facility] Mar 18, 2024 09:00 AM AMBULATORY - [place]INE [place] [facility] Social History: Smoking Status (Most current) [...] took place. Date/Time Current Smoking Status Comment [facility] May 17, 2023 02:16 PM VA-TOBACCO NEVER USED [place] [facility] Tobacco Use History This section includes a history of the smoking, or tobacco-related health factors, that were collected on or before the date of the Encounter. The data comes from the [place] facility where the Encounter took place. Date/Time Smoking Status/Tobac co Use Comment Facility May 09, 2022 10:45 AM VA-TOBACCO NEVER USED [facility] [place] [facility] Mar 30, 2021 01:02 PM VA-TOBACCO FORMER USER [facility] [place] [facility] Mar 30, 2021 01:02 PM VA-TOBACCO QUIT 5 TO < 15 YRS [facility] [place] [facility] Aug 31, 2004 09:56 AM HISTORY OF SMOKING QUIT 20 YEARS AGO [facility] [place] [facility] Aug 08, 2004 02:45 PM LIFETIME NON-TOBACCO USER [facility] Encounter Notes: All associated encounter notes This section contains the clinical notes associated to the Encounter. Date/Time Encounter Note(s) Provider Source October 11, 2023 11:13 AM NURSING OUTPATIENT NOTE: LOCAL TITLE: NURSING/SPECIALTY CLINIC NOTE STANDARD TITLE: NURSING OUTPATIENT NOTE DATE OF NOTE: OCTOBER 11, 2023@11:13 ENTRY DATE: OCTOBER 11, 2023@11:14:06 AUTHOR: KASSIDY BUCIO COSIGNER: URGENCY: STATUS: COMPLETED seen [facility] for continued foot care. [place] has a history of DIABETES and is unable to trim his/her own nails. Ambulates: [X]self [ ]wheelchair can transfer [ ]wheelchair cannot transfer [X ]without assistance [ ]with assistance of Bilateral: Pedal pulses: Right Foot: Dorsalis Pedis - palpable [X ] non-palpable[ ] Posterior Tibial - palpable[X ] non-palpable[ ] Left Foot: Dorsalis Pedis - palpable [ X] non-palpable [ ] Posterior Tibial - palpable [X ] non-palpable[ ] Pedal sensation: Right Foot: [ ] Intact [X ] Absent 8 out of 10 sites Left Foot: [ ] Intact [X ] Absent 9 out of 10 sites Skin Temperature: [X ] Warm to warm, proximal to distal [ ] Warm to cool/cold, proximal to distal Pedal skin: [X ] Intact [X ] Dry [ ] Cracked [ ] Discolored Webspaces: [ X] Intact [X ] Clean [ ] Soiled [ ] Macerated [X ] Dry Nails: [X ] Thickened [X ] Elongated [X ] Dystrophic [ ] Discolored [ ] Fungal [ ] Incurvated [ ] Subungual debri Hyperkeratosis [X ] Yes, Locations: RIGHT 2ND AND 3TD TOE DISTAL END OF NAIL BED, LEFT HALLUX 1ST IJP, DISTAL END OF NAIL BED, 2ND AND 3TD DISTAL END OF NAIL BED. [ ] No Open lesions/wounds: [ ] Yes, Locations: [X ] No Amputations: [ ] Yes, Locations: [X ] No Edema present: ( X ) Yes TRACE EDEMA RIGHT ANKLE ( ) NO Podiatric Problem List: [X ] Diabetes mellitus [ ] Peripheral vascular disease [X ] Neuropathy [ ] Onychomycosis [X ] Dystrophic toenails [X ] Hyperkeratosis/calluses [X ] Xerosis/dry skin [ ] Other: Treatment: [X ] Nails x 10 debrided in length and thickness without incident [X ] Hyperkeratotic lesions were grinded down with eletric convex grinder and debrided without incidence. [X ]Patient education educated about proper foot and encouraged to check feet daily for injuries and wounds [X ] Instructed to moisturize feet daily but not in-between toes Patient is to RTC in 2 months. /elle/ KASSIDY BUCIO LPN LICENSED PRACTICAL NURSE Signed: 10/11/2023 11:20 Receipt Acknowledged By: 10/12/2023 14:26 /elle/ LOY ANDERSON DPM PODIATRY ATTENDING KASSIDY BUCIO [facility]
--- OUTSIDE RECORDS SUMMARY | 2024-06-07 09:02 | XMS_ITS | Encounter Summary ---
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 Role Phone RISSA MCGRAW Primary [...] GOOD FAMIL Y Jun 11, [phone] [id number] Venkat VELASQUEZ AVID PATIENT MEDICARE (WNR) MEDICARE (M) PART B Dec 09, 2008 PART B [id number] [phone] Venkat VELASQUEZ AVID PATIENT MEDICARE (WNR) MEDICARE (M) PART B Dec 09, 2008 PART B [id number] Venkat VELASQUEZ AVID PATIENT MEDICARE (WNR) MEDICARE (M) PART B Dec 09, 2008 PART B [id number] Venkat VELASQUEZ AVID PATIENT MEDICARE (WNR) MEDICARE (M) PART A Jun 11, 2007 PART A [id number] [phone] Venkat VELASQUEZ AVID PATIENT MEDICARE (WNR) MEDICARE (M) PART A Jun 11, 2007 PART A [id number] Venkat VELASQUEZ AVID PATIENT MEDICARE (WNR) MEDICARE (M) PART A Jun 11, 2007 PART A [id number] Venkat VELASQUEZ AVID PATIENT Selected Encounter This section includes the information on record at [place] for the Encounter. Date/Time Encounter Type Encounter Description Reason Pro vider Source October 16, 2023 11:29 AM Outpatient Encounter PRIMARY CARE/MEDICINE IHE Encounter Template Text not used by [place] Plan of Treatment: Future Appointments (+ 6 months) and Future Tests (+/- 45 days) The Plan of Treatment section includes future care activities for the patient from all [place] [facility]. This section includes future appointments and future orders which are active, pending or scheduled. Future Appointments This section includes appointments that were scheduled to occur 6 months from the date of the Encounter, up to a maximum of 20 appointments. The data comes from all [place] treatment facilities. Appointment Date/Time Appointment Type Appointme nt Facility Name October 30, 2023 02:30 PM [facility] Nov 20, 2023 03:00 PM [facility] Dec 04, 2023 10:30 AM [facility] Dec 24, 2023 11:15 AM [facility] Jan 08, 2024 10:30 AM [facility] Jan 11, 2024 08:30 AM AMBULATORY - NONE [facility] Jan 29, 2024 10:45 AM AMBULATORY - NONE [facility] Feb 05, 2024 02:30 PM [facility] Feb 05, 2024 03:00 PM [facility] Feb 07, 2024 09:30 AM AMBULATORY - NONE [facility] Feb 21, 2024 11:00 AM [facility] Feb 25, 2024 09:30 AM AMBULATORY - MEDICINE [facility] Mar 05, 2024 11:00 AM AMBULATORY - NONE [facility] Mar 18, 2024 09:00 AM AMBULATORY - MEDICINE [facility] Lab Results: +/- 30 days of the encounter This section includes the Chemistry and Hematology Lab Results on record with [place] for the patient. Radiology Reports and Pathology Reports are provided separately, in subsequent sections. Lab Results This section contains the Chemistry/Hematology Results that were resulted 30 days before or 30 daysafter the date of the Encounter. Date/Time Source Result Type Result - Unit Interpretation Reference Range Comment Nov 15, 2023 11:29 AM [facility] LIVER FUNCTION Specimen Type: SERUM No comment entered. Ordering Provider: RISSA MCGRAW Report Released Date/Time: Sep 13, 2023 06:13 PM Reporting Lab: [address] [address] Performing Lab: [address] [address] PROTEIN,TOTAL 6.5 g/dL 6.0-8.3 ALBUMIN 3.9 g/dL 3.5-5.0 ALKALINE PHOSPHATASE 48 U/L 40-150 AST 19 U/L 5-34 ALT 21 U/L BILIRUBIN, TOTAL 0.6 mg/dL 0.2-1.2 Nov 15, 2023 11:29 AM [facility] HEMOGLOBIN A1C PANEL Specimen Type: BLOOD [...] Sep 13, 2023 06:13 PM Reporting Lab: [address] [address] Performing Lab: [address] [address] HEMOGLOBIN A1C 6.8 H 4.0-5.6 Nov 15, 2023 11:29 AM [facility] TSH Specimen Type: SERUM No comment entered. Ordering Provider: RISSA MCGRAW Report Released Date/Time: Sep 13, 2023 06:13 PM Reporting Lab: [facility] [address] [facility] [address] Performing Lab: [facility] [address] TSH 3.68 u[IU]/mL 0.35-5.00 Nov 15, 2023 11:29 AM [facility] CBC Specimen Type: BLOOD No comment entered. Ordering Provider: RISSA MCGRAW Report Released Date/Time: Sep 13, 2023 06:13 PM Reporting Lab: [address] [address] Performing Lab: [address] [address] WBC 8.53 10*3/uL 4.50-11.00 RBC 4.53 10*6/uL 4.23-5.66 HGB 14.4 g/dL 12.8-17 HCT 41.7 39.2-50.4 MCV 92.1 fL 82-99 MCHC 34.5 g/dL 30.8-35.1 PLT 267 10*3/uL 140-360 RDW-CV 12.6 12.0-16.0 MCH 31.8 pg 26.2-32.6 Nov 15, 2023 11:29 AM [facility] LIPID PANEL, NON FASTING Specimen Type: SERUM No comment entered. Ordering Provider: RISSA MCGRAW Report Released Date/Time: Sep 13, 2023 06:13 PM Reporting Lab: [facility] [address] [address] Performing Lab: [address] [address] CHOLESTEROL 95 mg/dL TRIGLYCERIDE 110 mg/dL 0-150 LDL calculated 39 mg/dL 0-129 CHOL/HDL 2.8 HDL CHOLESTEROL 34 mg/dL L 40-60 Nov 15, 2023 11:29 AM [facility] MICROALBUMIN CREATININE RATIO PANEL Specimen Type: URINE No comment entered. Ordering Provider: RISSA MCGRAW Report Released Date/Time: Sep 13, 2023 06:13 PM Reporting Lab: [facility] [address] [facility] [address] Performing Lab: [address] [address] MICROALBUMIN/C REATININE RATIO 12.2 mg/g 0-29.9 MICROALBUMIN,Q UANTITATIVE 1.1 mg/dL RR UNAVAIL CREATININE URINE 90.07 mg/dL Nov 15, 2023 11:29 AM [facility] BASIC METABOLIC PANEL (non-fasting) Specimen Type: SERUM No comment entered. Ordering Provider: RISSA MCGRAW Report Released Date/Time: Sep 13, 2023 06:13 PM Reporting Lab: [facility] [address] [facility] [address] Performing Lab: [address] [address] UREA NITROGEN 14 mg/dL 7-25 GLUCOSE 208 mg/dL H 65-100 SODIUM 136 mmol/L 135-145 POTASSIUM 4.3 mmol/L 3.5-5.0 CHLORIDE 102 mmol/L 100-110 CO2 24 meq/L 20-30 CREATININE, Serum 0.99 mg/dL 0.50-1.40 eGFR(CKD-EPI 2020) 78 mL/min >60 Nov 15, 2023 11:29 AM [facility] URINALYSIS Specimen Type: URINE Comment: If Glucose = >500 and Ketones are positive, please alert the Physician. Ordering Provider: RISSA MCGRAW Report Released Date/Time: Sep 13, 2023 06:13 PM Reporting Lab: [facility] [address] [facility] [address] Performing Lab: [address] [address] UA COLOR Yellow Yellow UA APPEARANCE Clear [...] and tobacco- related health factors from the [place] facility where the Encounter took place. Current Smoking Status This section includes the most current smoking, or tobacco-related health factor, from the [place] facility where the Encounter took place. Date/Time Current Smoking Status Comment [facility] May 17, 2023 02:16 PM VA-TOBACCO NEVER USED [facility] Tobacco Use History This section includes a history of the smoking, or tobacco-related health factors, that were collected on or before the date of the Encounter. The data comes from the [place] facility where the Encounter took place. Date/Time Smoking Status/Tobac co Use Comment Facility May 09, 2022 10:45 AM VA-TOBACCO NEVER USED [facility] Mar 30, 2021 01:02 PM [facility]ACCO [facility] [place] [facility] Mar 30, 2021 01:02 PM VA-TOBACCO QUIT 5 TO < 15 YRS [facility] Aug 31, 2004 09:56 AM HIST[facility] OF SMOKING [facility] [place] Aug 08, 2004 02:45 PM LIFETIME NON-TOBACCO USER [facility] Encounter Notes: All associated encounter notes This section contains the clinical notes associated to the Encounter. Date/Time Encounter Note(s) Provider Source October 16, 2023 11:29 AM MEDICATION MGT NOT E: LOCAL TITLE: OUTPATIENT MEDICATION REQUEST STANDARD TITLE: MEDICATION MGT NOTE DATE OF NOTE: OCTOBER 16, 2023@11:29 ENTRY DATE: OCTOBER 16, 2023@11:29:31 AUTHOR: RAJ REYNOSO EXP COSIGNER: URGENCY: STATUS: COMPLETED Medication Request Date of Request: October Is this a New Medication? No LANCET,SOFTCLIX [id number] 03/23/2022 03/23/2022 (3) SIG: USE 1 LANCET DIRECTED TWICE DAILY NEEDED TO TEST BLOOD SUGAR please renew and mail /es/ RAJ REYNOSO LPN Licensed Practical Nurse Signed: 10/16/2023 11:34 Receipt Acknowledged By: * AWAITING SIGNATURE * DAVIS GONZALEZ DIN[place]
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
--- OUTSIDE RECORDS SUMMARY | 2024-06-07 09:02 | XMS_ITS | Encounter Summary ---
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 and Mail Copy of Medication Reconciliation List () AMSA Please Print and Mail Copy of Medication Reconciliation List /elle/ LUIS FERNANDO MARTIN JR OPTOMETRY STUDENT Signed: 10/30/2023 16:17 /elle/ ANSHU NOONAN OD [employer] ENGINEER Cosigned: 10/31/2023 07:55 10/31/2023 ADDENDUM STATUS: COMPLETED The optometry mba internship participated in this exam, I saw this in conjunction with the optometry student. The entrance tests and refraction were performed by the student and reviewed by me. I personally met with the patient, confirmed the hisory, complaints and the student's findings, and performed slit lamp and fundus evaluation as indicated. I reviewed and agree with the stated findings, assessment and plan. I have added/edited the documentation to reflect my exam findings and changes to the assessment and plan. Ed re today's findings. [place] repeated back the plan and education. All reminders completed by attending and documented in student note. /elle/ ANSHU NOONAN [employer] ENGINEER Signed: 10/31/2023 07:55 LUIS FERNANDO MARTIN JR [facility]
--- OUTSIDE RECORDS SUMMARY | 2024-06-07 09:02 | XMS_ITS | Encounter Summary ---
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 Name Role Phone RISSA MCGRAW Primary Care [...] GOOD FAMIL Y Jun 11, [phone] [id number] [phone] Venkat VELASQUEZ AVID PATIENT MEDICARE (WNR) MEDICARE (M) PART B Dec 09, 2008 PART B [id number] Venkat VELASQUEZ AVID PATIENT MEDICARE (WNR) MEDICARE (M) PART B Dec 09, 2008 PART B [id number] [phone] Venkat VELASQUEZ AVID PATIENT MEDICARE (WNR) MEDICARE (M) PART B Dec 09, 2008 PART B [id number] [phone] Venkat VELASQUEZ AVID PATIENT MEDICARE (WNR) MEDICARE (M) PART A Jun 11, 2007 PART A [id number] Venkat VELASQUEZ AVID PATIENT MEDICARE (WNR) MEDICARE (M) PART A Jun 11, 2007 PART A [id number] [phone] Venkat VELASQUEZ AVID PATIENT MEDICARE (WNR) MEDICARE (M) PART A Jun 11, 2007 PART A [id number] Venkat VELASQUEZ AVIVenkat PATIENT Selected Encounter This section includes the information on record at [place] for the Encounter. Date/Time Encounter Type Encounter Description Reason Provider Source Dec 04, 2023 10:30 AM MTMS BY PHARM NORA 15 MIN CLINICAL PHARMACY ICD-10-CM E11.9 Type 2 diabetes mellitus without complications CRYSTAL WILKERSON Sharif Encounter Template Text not used by [place] Assessments - Encounter Diagnoses This section includes the primary and secondary diagnoses documented for the Encounter. Date/Time Primary/Secondary Diagnosis Diagnosis Name Provider Source Dec 04, 2023 11:47 AM PRIMARY Type 2 diabetes mellitus without complications CRYSTAL WILKERSON [place] [facility] [place] [facility] Plan of Treatment: Future Appointments (+ 6 months) and Future Tests (+/- 45 days) The Plan of Treatment section includes future care activities for the patient [facility] This section includes [...] - MEDICINE [facility] [place] [facility] Jan 08, 2024 10:30 AM AMBULATORY - MEDICINE [place] [facility] [place] [facility] Jan 11, 2024 08:30 AM AMBULATORY - NONE [facility] [place] [facility] Jan 29, 2024 10:45 AM AMBULATORY - NONE [facility] [place] [facility] Feb 05, 2024 02:30 PM AMBULATORY - MEDICINE [facility] [place] [facility] Feb 05, 2024 03:00 PM AMBULATORY - MEDICINE [facility] [place] [facility] Feb 07, 2024 09:30 AM AMBULATORY - NONE [facility] [place] [facility] Feb 21, 2024 11:00 AM AMBULATORY - MEDICINE [facility] [place] [facility] Feb 25, 2024 09:30 AM AMBULATORY - MEDICINE [facility] [place] [facility] Mar 05, 2024 11:00 AM AMBULATORY - NONE [facility] [place] [facility] Mar 18, 2024 09:00 AM AMBULATORY - MEDICINE [facility] [place] [facility] May 01, 2024 03:00 PM AMBULATORY - MEDICINE [facility] [place] [facility] May 13, 2024 07:30 AM AMBULATORY - NONE [facility] [place] [facility] May 26, 2024 11:30 AM AMBULATORY - [facility]ICINE [facility] Lab Results: +/- 30 days [...] Range Comment Dec 04, 2023 11:30 AM [facility] DIGOXIN Specimen Type: PLASMA No comment entered. Ordering Provider: RISSA MCGRAW Report Released Date/Time: Nov 21, 2023 12:21 PM Reporting Lab: [facility] [address] [facility] [address] Performing Lab: [facility] [address] [address] DIGOXIN 1.19 ng/mL 0.8-2.0 Dec 04, 2023 11:30 AM [facility] PSA Specimen Type: SERUM No comment entered. Ordering Provider: RISSA MCGRAW Report Released Date/Time: Nov 21, 2023 12:21 PM Reporting Lab: [facility]ITALRCR[facility]TRN [facility] [address] [facility] [address] Performing Lab: [facility]ITALRNORTH[facility]ENTERN [facility]ITALUSE[address] [address] PSA 6.09 ng/mL H 0.00-4.00 Nov 15, 2023 11:29 AM [facility]ERN [facility] LIVER FUNCTION Specimen Type: SERUM No comment entered. Ordering Provider: RISSA MCGRAW Report Released Date/Time: Sep 13, 2023 06:13 PM Reporting Lab: [facility] [address] [facility] [address] Performing Lab: [address] [address] PROTEIN,TOTAL 6.5 g/dL 6.0-8.3 ALBUMIN 3.9 g/dL 3.5-5.0 ALKALINE PHOSPHATASE 48 U/L 40-150 AST 19 U/L 5-34 ALT 21 U/L BILIRUBIN, TOTAL 0.6 mg/dL 0.2-1.2 Nov 15, 2023 11:29 AM [facility] HEMOGLOBIN A1C PANEL Specimen Type: BLOOD [...] Sep 13, 2023 06:13 PM Reporting Lab: [address] [address] Performing Lab: [address] [address] HEMOGLOBIN A1C 6.8 H 4.0-5.6 Nov 15, 2023 11:29 AM [facility] TSH Specimen Type: SERUM No comment entered. Ordering Provider: RISSA MCGRAW Report Released Date/Time: Sep 13, 2023 06:13 PM Reporting Lab: [address] [address] Performing Lab: [address] [address] TSH 3.68 u[IU]/mL 0.35-5.00 Nov 15, 2023 11:29 AM [facility] CBC Specimen Type: BLOOD No comment entered. Ordering Provider: RISSA MCGRAW Report Released Date/Time: Sep 13, 2023 06:13 PM Reporting Lab: [facility] [address] [facility] [address] Performing Lab: [facility] [address] [facility] [address] WBC 8.53 10*3/uL 4.50-11.00 RBC 4.53 10*6/uL 4.23-5.66 HGB 14.4 g/dL 12.8-17 HCT 41.7 39.2-50.4 MCV 92.1 fL 82-99 MCHC 34.5 g/dL 30.8-35.1 PLT 267 10*3/uL 140-360 RDW-CV 12.6 12.0-16.0 MCH 31.8 pg 26.2-32.6 Nov 15, 2023 11:29 AM [facility] LIPID PANEL, NON FASTING Specimen Type: SERUM No comment entered. Ordering Provider: RISSA MCGRAW Report Released Date/Time: Sep 13, 2023 06:13 PM Reporting Lab: [facility] [address] [facility] [address] Performing Lab: [facility] [address] [facility] [address] CHOLESTEROL 95 mg/dL TRIGLYCERIDE 110 mg/dL 0-150 LDL calculated 39 mg/dL 0-129 CHOL/HDL 2.8 HDL CHOLESTEROL 34 mg/dL L 40-60 Nov 15, 2023 11:29 AM [facility] MICROALBUMIN CREATININE RATIO PANEL Specimen Type: URINE No comment entered. Ordering Provider: RISSA MCGRAW Report Released Date/Time: Sep 13, 2023 06:13 PM Reporting Lab: [facility] [address] [facility] [address] Performing Lab: [address] [address] MICROALBUMIN/C REATININE RATIO 12.2 mg/g 0-29.9 MICROALBUMIN,Q UANTITATIVE 1.1 mg/dL RR UNAVAIL CREATININE URINE 90.07 mg/dL Nov 15, 2023 11:29 AM [facility] Patient Home MonitoringPEAK BEHAVIORAL HEALTH SERVICESRocketfuel Games [facility] BASIC METABOLIC PANEL (non-fasting) Specimen Type: SERUM No comment entered. Ordering Provider: RISSA MCGRAW Report Released Date/Time: Sep 13, 2023 06:13 PM Reporting Lab: [facility] PulmatrixSTONY BROOK [facility]IVERSITY [facility] [address] [facility] [address] Performing Lab: [address] [address] UREA NITROGEN 14 mg/dL 7-25 GLUCOSE 208 mg/dL H 65-100 SODIUM 136 mmol/L 135-145 POTASSIUM 4.3 mmol/L 3.5-5.0 CHLORIDE 102 mmol/L 100-110 CO2 24 meq/L 20-30 CREATININE, Serum 0.99 mg/dL 0.50-1.40 eGFR(CKD-EPI 2020) 78 mL/min >60 Nov 15, 2023 11:29 AM [facility] URINALYSIS Specimen Type: URINE Comment: If Glucose = >500 and Ketones are positive, please alert the Physician. Ordering Provider: RISSA MCGRAW Report Released Date/Time: Sep 13, 2023 06:13 PM Reporting Lab: [facility] [address] [facility] [address] Performing Lab: [address] [address] UA COLOR Yellow Yellow UA APPEARANCE Clear Clear UA GLUCOSE 300 mg/dL Negative UA KETONES NEGATIVE mg/dL Negative UA BLOOD NEGATIVE mg/dL Negative UA PROTEIN NEGATIVE mg/dL Negative UA NITRITE NEGATIVE mg/dL Negative UA BILIRUBIN NEGATIVE mg/dL Negative UA SPECIFIC GRAVITY 1.017 1.016-1.02 2 UA pH 6.0 5.0-9.0 UA UROBILINOGEN <2.0 mg/dL <2.0 UA LEUKOCYTE NEGATIVE Negative Vital Signs: All taken on the encounter date This section contains inpatient and outpatient Vital Signs collected on the date of the Encounter. Date/Time Temperature Pulse Blood Pressure Respiratory Rate SP02 Pain Height Weight Body Mass Index Source Dec 04, 2023 11:38 AM 138/76 [facility] PulmatrixCAPE [facility] Social History: Smoking Status (Most [...] 17, 2023 02:16 PM VA-TOBACCO NEVER USED [facility] Tobacco Use History This section includes a history of the smoking, or tobacco-related health factors, that were collected on or before the date of the Encounter. The data comes from the [place] facility where the Encounter took place. Date/Time Smoking Status/Tobac co Use Comment Facility May 09, 2022 10:45 AM VA-TOBACCO NEVER USED [facility] Mar 30, 2021 01:02 PM VA-TOBACCO FOR[facility] USER [facility] Mar 30, 2021 01:02 PM VA-TOBACCO QUIT 5 TO < 15 YRS [facility] Aug 31, 2004 09:56 AM HISTORY OF SMOKING QUIT 20 YEARS AGO [facility] Aug 08, 2004 02:45 PM LIFETIME NON-TOBACCO USER [facility] Encounter Notes: All associated encounter notes This section contains the clinical notes associated to the Encounter. Date/Time Encounter Note(s) Provider Source Dec 04, 2023 11:47 AM ADDENDUM: LOCAL TITLE: Addendum STANDARD TITLE: ADDENDUM DATE OF NOTE: DEC 04, 2023@11:47:54 ENTRY DATE: DEC 04, 2023@11:47:55 AUTHOR: CRYSTAL WILKERSON EXP COSIGNER: URGENCY: STATUS: COMPLETED AMSA, please schedule appointment for: - Cwm/No/Pharm/Pact 2 Please schedule for 01/08/24 @ 1030 am Thank you! /daniel WILKERSON PHARMD, BCPS CLINICAL PHARMACIST PRACTITIONER Signed: 12/04/2023 11:48 Receipt Acknowledged By: 12/04/2023 12:00 /daniel SILVA AMSA --- Original Document --- 12/04/23 CONSULT REPORT/PHARMACY: BRIAN VELASQUEZ, 77 yo UNKNOWN BY PATIENT, WHITE MALE, presents for face- to-face INITIAL VISIT for diabetes and hypertension management. DEC 04, 2023 Known Allergies: SHRIMP Subjective: [place] referred to pharmacy clinic by PCP for T2DM and HTN management. Pt states he was diagnosed with T2DM about 25 years ago. States that after all this time, he knows his body and can feel when his blood sugar readings are very low or very high. Typically he SMBG once daily (did not bring meter but blood glucose was 95 mg/dl this AM) but occasionally tests again if he is not feeling well. Pt notes that on average, he has a hypoglycemic episode ~ 1x/week (none in month of November), generally secondary to if he is very active or could be due to a ribbon tier dinner the night before. Pt states that his blood sugar has been in the 40s-50s previously. [place] endorses that he feels that when his blood sugar is >150 mg/dl, it is too high and he has been known to inject additional bolus insulin (has not done this recently). Pt remarks significant impairment in physical activity secondary to sciatica, hiatel, and umbilical hernias. Pt has been working on trying to lose weight and has made changes to his diet; mainly cutting down on potato chips. Target Goals: A1C <7.5%; FB-130 mg/dl Personal goals: - Keep Blood glucose under 120 mg/dl - Keep A1C% at goal Objective: Diabetes Medication Regimen: Current diabetes medications: - Glipizide 20 mg once daily - Metformin 1000 mg twice daily - Insulin aspart 28 units once daily with (supper) - Insulin [...] SI - Denies hx of UTI SMBG: tests once daily; sometimes twice daily if not feeling well SMBG assessment: N/A; did not bring glucometer. HYPOGLYCEMIC Events: 0 in last 2 weeks - Hypoglycemia recognition [...] age, and PMH of neuropathy and CVA. Educated pt on A1c and BG targets, long-term complications of uncontrolled diabetes (i.e. damage to heart, eyes, kidneys, nerves, etc), components of healthy diabetic diet (i.e. consume 3 meals/day, do not skip or delay meals, basics of CHO counting, healthy snack choices, etc). Pharmacologic options discussed in detail. Pt already experiences hypoglycemic events possibly due to concurrent sulfonylurea and prandial insulin therapy. SGLT-2 inhibitor MOA and potential ADRs discussed. Pt would benefit from addition of this medication due to added cardio/renal protection. Pt educated to maintain hydration, hold medication if fasting, maintain proper hygiene, and report UTI symptoms, dizziness or jock itch at once. Will discontinue glipizide and lower insulin aspart with addition of empagliflozin. Discussed GLP-1RA which would help with weight and provide additional insulin lowering effect. Will defer after assessing tolerability of empagliflozin. Pt extensively educated to not take additional insulin (also known as insulin stacking) to adjust for high glucose readings Discussed LSMs. Pt denies nutrition and MOVE consult at this time. Will continue to workout at home. Pt was provided names of both CGMs and will do research at home. Pt unsure if he wants all the data the CGM will provide. Will ask again at f/u. Of note, pt would need a reader for either CGM. CARDIOVASCULAR: For patients 60 years and over with Diabetes, recommend a goal of <140/90, with added benefit of reducing SBP closer to 130. Current BP is 138/76. Discussed transition from losartan to valsartan (dose would be 160 mg). Will defer until after empagliflozn titration. HCTZ dose may need to be adjusted. Pt has automated BP cuff at home but is not using. Will discuss at f/u. ASCVD: Simvastatin 40 mg (Lipid Panel WNL) ASA: on apixaban Microalb: 12.2 mg/g (11/15/23) History of Preventive Care: Most recent visit to direct mail manager: 06/05/23; Moderate diabetic peripheral neuropathy Most recent visit to paint roller cover machine setter/opthalmologist: 10/30/23; Type II Diabetes without evidence of retinopathy or macular edema OU to extent viewed undilated Plan: Medication management: - CONTINUE Metformin 1000 mg twice daily - CONTINUE Insulin glargine-yfgn 56 units daily - DECREASE insulin aspart 23 units prior to supper - DISCONTINUE Glipizide 20 mg once daily - INITIATE empagliflozin 10 mg once daily (provided clinic print out) - Medications reconciled - Otherwise continue current medications Lifestyle modicfications: - Continue to SMBG 1-2x/day - Monitor for s/sx hypoglycemia and contact clinic if BG consistently <70mg/dL - Healthy dietary and lifestyle modifications encouraged - Repeat A1c: 05/2024 MISC: - Order glucose tablets - Repeat labs in 6-8 weeks for empagliflozin - Initiate home monitoring of BP - Revisit GLP-1RA, CGM, and valsartan EDUCATION -A shared decision-making approach was used in the development of this plan, involving the [place], clinician, and any caregivers present. The [place] was provided the opportunity express questions or concerns, and the plan was adjusted as needed to address these concerns. -Reviewed with any new medications, changes to the medication list, education, and plan from today's visit. Patient (and/or caregiver) verbalized understanding of the plan, including possible known risks and benefits, and had no additional questions. RTC: 01/08/24 @1030 Time Spent: 45 minutes PBM PharmD Pharmacotherapy Rem V12: PHARMACIST INTERVENTIONS: HYPERTENSION Medication monitoring, no dosage change required, continue to monitor and assess TYPE 2 DIABETES MELLITUS Medication Intervention(s) Discontinue and/or change to different medication Initiate new medication Medication reconciliation (changes to active VA and non-VA medication lists to reconcile differences) No changes to medication lists made (medication review completed, no discrepancies identified) /elle/ CRYSTAL WILKERSON PHARMD, BCPS CLINICAL PHARMACIST PRACTITIONER Signed: 12/04/2023 11:47 CRYSTAL WILKERSON [facility] [place] [facility] Dec 04, 2023 09:10 AM PHARMACY CONSULT: LOCAL TITLE: CONSULT REPORT/PHARMACY STANDARD TITLE: PHARMACY CONSULT DATE OF NOTE: DEC 04, 2023@09:10 ENTRY DATE: DEC 04, 2023@09:11:10 AUTHOR: CRYSTAL WILKERSON EXP COSIGNER: URGENCY: STATUS: COMPLETED CONSULT REPORT/PHARMACY Has ADDENDA BRIAN VELASQUEZ, 77 yo UNKNOWN BY PATIENT, WHITE MALE, presents for face- to-face INITIAL VISIT for diabetes and hypertension management. DEC 04, 2023 Known Allergies: SHRIMP Subjective: [place] referred to pharmacy clinic by PCP for T2DM and HTN management. Pt states he was diagnosed with T2DM about 25 years ago. States that after all this time, he knows his body and can feel when his blood sugar readings are very low or very high. Typically he SMBG once daily (did not bring meter but blood glucose was 95 mg/dl this AM) but occasionally tests again if he is not feeling well. Pt notes that on average, he has a hypoglycemic episode ~ 1x/week (none in month of November), generally secondary to if he is very active or could be due to a ribbon tier dinner the night before. Pt states that his blood sugar has been in the 40s-50s previously. endorses that he feels that when his blood sugar is >150 mg/dl, it is too high and he has been known to inject additional bolus insulin (has not done this recently). Pt remarks significant impairment in physical activity secondary to sciatica, hiatel, and umbilical hernias. Pt has been working on trying to lose weight and has made changes to his diet; mainly cutting down on potato chips. Target Goals: A1C <7.5%; FB-130 mg/dl Personal goals: - Keep Blood glucose under 120 mg/dl - Keep A1C% at goal Objective: Diabetes Medication Regimen: Current diabetes medications: - Glipizide 20 mg once daily - Metformin 1000 mg twice daily - Insulin aspart 28 units once daily with (supper) - Insulin [...] SI - Denies hx of UTI SMBG: tests once daily; sometimes twice daily if not feeling well SMBG assessment: N/A; did not bring glucometer. HYPOGLYCEMIC Events: 0 in last 2 weeks - Hypoglycemia recognition [...] age, and PMH of neuropathy and CVA. Educated pt on A1c and BG targets, long-term complications of uncontrolled diabetes (i.e. damage to heart, eyes, kidneys, nerves, etc), components of healthy diabetic diet (i.e. consume 3 meals/day, do not skip or delay meals, basics of CHO counting, healthy snack choices, etc). Pharmacologic options discussed in detail. Pt already experiences hypoglycemic events possibly due to concurrent sulfonylurea and prandial insulin therapy. SGLT-2 inhibitor MOA and potential ADRs discussed. Pt would benefit from addition of this medication due to added cardio/renal protection. Pt educated to maintain hydration, hold medication if fasting, maintain proper hygiene, and report UTI symptoms, dizziness or jock itch at once. Will discontinue glipizide and lower insulin aspart with addition of empagliflozin. Discussed GLP-1RA which would help with weight and provide additional insulin lowering effect. Will defer after assessing tolerability of empagliflozin. Pt extensively educated to not take additional insulin (also known as insulin stacking) to adjust for high glucose readings Discussed LSMs. Pt denies nutrition and MOVE consult at this time. Will continue to workout at home. Pt was provided names of both CGMs and will do research at home. Pt unsure if he wants all the data the CGM will provide. Will ask again at f/u. Of note, pt would need a reader for either CGM. CARDIOVASCULAR: For patients 60 years and over with Diabetes, recommend a goal of <140/90, with added benefit of reducing SBP closer to 130. Current BP is 138/76. Discussed transition from losartan to valsartan (dose would be 160 mg). Will defer until after empagliflozn titration. HCTZ dose may need to be adjusted. Pt has automated BP cuff at home but is not using. Will discuss at f/u. ASCVD: Simvastatin 40 mg (Lipid Panel WNL) ASA: on apixaban Microalb: 12.2 mg/g (11/15/23) History of Preventive Care: Most recent visit to direct mail manager: 06/05/23; Moderate diabetic peripheral neuropathy Most recent visit to paint roller cover machine setter/opthalmologist: 10/30/23; Type II Diabetes without evidence of retinopathy or macular edema OU to extent viewed undilated Plan: Medication management: - CONTINUE Metformin 1000 mg twice daily - CONTINUE Insulin glargine-yfgn 56 units daily - DECREASE insulin aspart 23 units prior to supper - DISCONTINUE Glipizide 20 mg once daily - INITIATE empagliflozin 10 mg once daily (provided clinic print out) - Medications reconciled - Otherwise continue current medications Lifestyle modicfications: - Continue to SMBG 1-2x/day - Monitor for s/sx hypoglycemia and contact clinic if BG consistently <70mg/dL - Healthy dietary and lifestyle modifications encouraged - Repeat A1c: 05/2024 MISC: - Order glucose tablets - Repeat labs in 6-8 weeks for empagliflozin - Initiate home monitoring of BP - Revisit GLP-1RA, CGM, and valsartan EDUCATION -A shared decision-making approach was used in the development of this plan, involving the , clinician, and any caregivers present. The [place] was provided the opportunity express questions or concerns, and the plan was adjusted as needed to address these concerns. -Reviewed with any new medications, changes to the medication list, education, and plan from today's visit. Patient (and/or caregiver) verbalized understanding of the plan, including possible known risks and benefits, and had no additional questions. RTC: 01/08/24 @1030 Time Spent: 45 minutes PBM PharmD Pharmacotherapy Rem V12: PHARMACIST INTERVENTIONS: HYPERTENSION Medication monitoring, no dosage change required, continue to monitor and assess TYPE 2 DIABETES MELLITUS Medication Intervention(s) Discontinue and/or change to different medication Initiate new medication Medication reconciliation (changes to active VA and non-VA medication lists to reconcile differences) No changes to medication lists made (medication review completed, no discrepancies identified) /elle/ CRYSTAL WILKERSON PHARMD, YADY CLINICAL PHARMACIST PRACTITIONER Signed: 12/04/2023 11:47 12/04/2023 ADDENDUM STATUS: COMPLETED AMSA, please schedule appointment for: - Cwm/[place]/Pharm/Pact 2 Please schedule for 01/08/24 @ 1030 am Thank you! /daniel WILKERSON PHARMD, YADY CLINICAL PHARMACIST PRACTITIONER Signed: 12/04/2023 11:48 Receipt Acknowledged By: * AWAITING SIGNATURE * KRISTIAN SILVA ADITIYA [facility]
--- OUTSIDE RECORDS SUMMARY | 2024-06-07 09:02 | XMS_ITS | Encounter Summary ---
Author Name [facility] [place] Address [address] [place] [id number] Care Team Providers Care Plaster Die Maker Name Role Phone RISSA MCGRAW Primary Care [...] GOOD FAMIL Y Jun 11, [phone] [id number] Venkat VELASQUEZ AVID PATIENT MEDICARE (WNR) MEDICARE (M) PART B Dec 09, 2008 PART B [id number] 30A Venkat VELASQUEZ AVID PATIENT MEDICARE (WNR) MEDICARE (M) PART B Dec 09, 2008 PART B [id number] Venkat VELASQUEZ AVID PATIENT MEDICARE (WNR) MEDICARE (M) PART B Dec 09, 2008 PART B [id number] 30A Venkat VELASQUEZ AVID PATIENT MEDICARE (WNR) MEDICARE (M) PART A Jun 11, 2007 PART A [id number] 30A Venkat VELASQUEZ AVID PATIENT MEDICARE (WNR) MEDICARE (M) PART A Jun 11, 2007 PART A [id number] Venkat VELASQUEZ AVID PATIENT MEDICARE (WNR) MEDICARE (M) PART A Jun 11, 2007 PART A [id number] 30A Venkat VELASQUEZ AVID PATIENT Selected Encounter This section includes the information on record at [place] for the Encounter. Date/Time Encounter Type Encounter Description Reason Pro vider Source Aug 27, 2023 12:00 AM Outpatient Encounter COMMUNITY CARE CONSULT IHE Encounter Template Text not used by [place] Plan of Treatment: Future Appointments (+ 6 months) and Future Tests (+/- 45 days) The Plan of Treatment section includes future care activities for the patient from all [place] treatmentfacilities. This section includes future appointments and future orders which are active, pending or scheduled. Future Appointments This section includes appointments that were scheduled to occur 6 months from the date of the Encounter, up to a maximum of 20 appointments. The data comes from all [place] treatment facilities. Appointment Date/Time Appointment Type Appointme nt Facility Name Sep 20, 2023 09:00 AM AMBULATORY [facility] MEDICINE [facility] [place] [facility] October 11, 2023 11:00 AM AMBULATORY [facility] MEDICINE [facility] [place] [place] [facility] October 30, 2023 02:30 PM AMBULATORY - MEDICINE [facility] [place] [facility] Nov 20, 2023 03:00 PM AMBULATORY - MEDICINE [facility] [place] [facility] Dec 04, 2023 10:30 AM AMBULATORY - MEDICINE [facility] [place] [facility] Dec 24, 2023 11:15 AM AMBULATORY - MEDICINE [facility] [place] [facility] Jan 08, 2024 10:30 AM AMBULATORY - MEDICINE [facility] [place] [facility] Jan 11, 2024 08:30 AM AMBULATORY - NONE [facility] [place] [facility] Jan 29, 2024 10:45 AM AMBULATORY - NONE [facility] [place] [facility] Feb 05, 2024 02:30 PM AMBULATORY - MEDICINE [facility] [place] [facility] Feb 05, 2024 03:00 PM AMBULATORY - MEDICINE [facility] [place] [facility] Feb 07, 2024 09:30 AM AMBULATORY - NONE [facility] [place] [facility] Feb 21, 2024 11:00 AM [facility] Feb 25, 2024 09:30 AM [facility] Social History: Smoking Status (Most current) and Tobacco Use (All prior to encounter date) This section includes the most current, and the historical, smoking and tobacco- related health factors from the [place] facility where the Encounter took place. Current Smoking Status This section includes the most current smoking, or tobacco-related health factor, from the [place] facility where the Encounter took place. Date/Time Current Smoking Status Comment Facil it May 17, 2023 02:16 PM [facility] Tobacco Use History This section includes a history of the smoking, or tobacco-related health factors, that were collected on or before the date of the Encounter. The data comes from the [place] facility where the Encounter took place. Date/Time Smoking Status/Tobac co Use Comment Facility May 09, 2022 10:45 AM VA-TOBACCO NEVER USED [place] [facility] [place] [facility] Mar 30, 2021 01:02 PM [facility] Mar 30, 2021 01:02 PM VA-TOBACCO QUIT 5 TO < 15 YRS [facility] Aug 31, 2004 09:56 AM HISTORY OF SMOKING QUIT 20 YEARS AGO [facility] Aug 08, 2004 02:45 PM LIFETIME [facility]ACCO [facility] Encounter Notes: All associated encounter notes This section contains the clinical notes associated to the Encounter. Date/Time Encounter Note(s) Provider Source Aug 27, 2023 12:00 AM NONVA CONSULT: LOCAL TITLE: COMMUNITY CARE-CONSULT RESULT NOTE STANDARD TITLE: NONVA CONSULT DATE OF NOTE: AUG 27, 2023 ENTRY DATE: AUG 31, 2023@06:46:55 AUTHOR: SIMONE MOYA COSIGNER: URGENCY: STATUS: COMPLETED VistA Imaging - Scanned Document SCANNED DOCUMENT SIGNATURE NOT REQUIRED Electronically Filed: 08/31/2023 by: MILAGROS MOYA Business Continuity Coordinator MILAGROS MOYA [facility] FRANCO ESCOBAR
--- OUTSIDE RECORDS SUMMARY | 2024-06-07 09:03 | XMS_ITS | Encounter Summary ---
Author Name [facility] [place] Address [address] [place] [address] Care Team Providers Care Printing Bindery Assistant Name Role Phone RISSA MCGRAW Primary [...] GOOD FAMIL Y Jun 11, 2000 105 [id number] [phone] Venkat VELASQUEZ AVID PATIENT MEDICARE (WNR) MEDICARE (M) PART B Dec 09, 2008 PART B [id number] [phone] Venkat VELASQUEZ AVID PATIENT MEDICARE (WNR) MEDICARE (M) PART B Dec 09, 2008 PART B [id number] 30A Venkat VELASQUEZ AVID PATIENT MEDICARE (WNR) MEDICARE (M) PART B Dec 09, 2008 PART B [id number] [phone] Venkat VELASQUEZ AVID PATIENT MEDICARE (WNR) MEDICARE (M) PART A Jun 11, 2007 PART A [id number] Venkat VELASQUEZ AVID PATIENT MEDICARE (WNR) MEDICARE (M) PART A Jun 11, 2007 PART A [id number] 30A Venkat VELASQUEZ PATIENT MEDICARE (WNR) MEDICARE (M) PART A Jun 11, 2007 PART A [id number] [phone] Venkat VELASQUEZ PATIENT Selected Encounter This section includes the information on record at [place] for the Encounter. Date/Time Encounter Type Encounter Description Reason Provider Source Jun 26, 2023 01:00 PM CONFORMITY EVALUATION AUDIOLOGY ICD-10-CM Z46.1 Encounter for fitting and adjustment of hearing aid IRINA VILLANUEVA [facility] Encounter Template Text not used by [place] Assessments - Encounter Diagnoses This section includes the primary and secondary diagnoses documented for the Encounter. Date/Time Primary/Secondary Diagnosis Diagnosis Name Provider Source Jun 26, 2023 01:52 PM PRIMARY Encounter for fitting and adjustment of hearing aid IRINA VILLANUEVA [place] [facility] [place] [facility] Jun 26, 2023 01:52 PM SECONDARY Sensorineural hearing loss, bilateral IRINA VILLANUEVA [place] [facility] [place] [facility] Plan of Treatment: Future Appointments (+ 6 months) and Future Tests (+/- 45 days) The Plan of Treatment section includes future care activities for the patient from all [place] [facility]. This section includes future appointments and future orders which are active, pending or scheduled. Future Appointments This section includes appointments that were scheduled to occur 6 months from the date of the Encounter, up to a maximum of 20 appointments. The data comes from all [place] treatment facilities. Appointment Date/Time Appointment Type Appointme nt Facility Name Jul 27, 2023 11:00 AM AMBULATORY - NONE [facility] [place] [facility] Jul 27, 2023 11:15 AM AMBULATORY - NONE [facility] [facility] Aug 07, 2023 01:00 PM AMBULATORY - MEDICINE [place] [facility] [place] [facility] Aug 23, 2023 11:30 AM AMBULATORY - MEDICINE [facility] [place] [facility] Sep 20, 2023 09:00 AM AMBULATORY - MEDICINE [facility] [place] [facility] October 11, 2023 11:00 AM AMBULATORY - MEDICINE [facility] [place] [facility] October 30, 2023 02:30 PM AMBULATORY - MEDICINE [place] [facility] [place] [facility] Nov 20, 2023 03:00 PM AMBULATORY - MEDICINE [place] [facility] [place] [facility] Dec 04, 2023 10:30 AM AMBULATORY - MEDICINE [place] [facility] [place] [facility] Dec 24, 2023 11:15 AM AMBULATORY - MEDICINE [facility] Social History: Smoking Status (Most current) [...] 17, 2023 02:16 PM [facility]ACCO [facility] Tobacco Use History This section includes a history of the smoking, or tobacco-related health factors, that were collected on or before the date of the Encounter. The data comes from the [place] facility where the Encounter took place. Date/Time Smoking Status/Tobac co Use Comment Facility May 09, 2022 10:45 AM VA-TOBACCO NEVER USED [place] [facility] [place] [facility] Mar 30, 2021 01:02 PM VA-TOBACCO FORMER USER [place] [facility] [place] [facility] Mar 30, 2021 01:02 PM VA-TOBACCO QUIT 5 TO < 15 YRS [place] [facility] [place] [facility] Aug 31, 2004 09:56 AM HISTORY OF SMOKING QUIT 20 YEARS AGO [place] [facility] [place] [facility] Aug 08, 2004 02:45 PM LIFETIME NON-TOBACCO USER [place] [facility] [facility] Encounter Notes: All associated encounter notes This section contains the clinical notes associated to the Encounter. Date/Time Encounter Note(s) Provider Source Jun 26, 2023 10:30 AM AUDIOLOGY E & M NO TE: [facility] TITLE: AUDIOLOGY CLINIC STANDARD TITLE: AUDIOLOGY E & M NOTE DATE OF NOTE: JUN 26, 2023@10:30 ENTRY DATE: JUN 26, 2023@10:30:06 AUTHOR: IRINA VILLANUEVA COSIGNER: URGENCY: STATUS: COMPLETED Dx CODE: Z46.1- Encounter for Fitting/Programming Hearing Aid(s); H90.3- Sensorineural Hearing Loss, Bilateral APPOINTMENT TYPE: Hearing Aid Fitting SUBJECTIVE (S): The patient was seen today for hearing aid fitting and issuance, unaccompanied. He had previously been evaluated and found to exhibit significant hearing loss for which amplification was recommended. He is a previous user of hearing aids, and was fit on 05/29/19 with ANTONIETTA HUYNH BTE 13s. How does the patient best learn? Verbal instruction, demonstration Does the patient have any cultural and evangelical beliefs, emotional barriers, physical or cognitive limitations, and communication barriers which may impact his ability to learn? No Desire and motivation to learn? Good OBJECTIVE (O): Physical fit of hearing aids was good. Patient verified comfort. Verification of an appropriate acoustic response was obtained using Real Ear measurements (speech mapping) and NAL-NL2 targets. The patient reported good subjective benefit as well. Feedback human capital manager was run. Hearing aids were found to be meeting targets adequately and MPO was not exceeding estimated UCL. Settings stored in ALEXANDRA. ASSESSMENT (A): The following devices were issued: Make: OTICON Model: REAL 1 MINIRITE-R Right Serial Number: [id number] Left Serial Number: [id number] Battery size: Rechargeable Warranty ends: 07/11/26 Trial Period ends: 12/09/23 Domes/wax guards: Prowax Cooky Packer size/power: Size 2 85 gain Earmold Information: Canal lock RITE mold Program(s): Automatic Button(s): Short press= Synced VC via rocker switches Long press= Program Extra-long press= Power on/off Fitting Formula: NAL-NL2 Remote Programming: HAs are capable Bluetooth: not interested Counseling was completed throughout todays appointment using a standardized curriculum that includes but is not limited to; realistic expectations with amplification in adverse listening environments, acclimatization to own voice and environmental sounds (following real-ear measurements), the importance of consistent use of amplification, proper insertion/removal, care and maintenance (including wax guards/domes if applicable), signal and alerts of devices, and charging/batteries. The was provided the opportunity to practice in office and reports confidence/understanding in all items reviewed. Time Spent= 20 minutes The patient was informed of and signed/agreed to [place] policy on hearing aid issuance: Yes Users are responsible for the maintenance and security of their devices. Determination of need to replace a hearing aid is made by the [place] team assistant. Hearing aids will not be replaced in cases of neglect, abuse, or excessive loss. Items issued are for personal use only. Prognosis for successful hearing aid use is good. PLAN (P): 1. Follow-up for programming/adjustments as needed. 2. The International Outcome Inventory-Hearing Aids (IOI-CUELLAR) will be mailed to the in four weeks. He was asked to complete and mail back to clinic after completion. Patient Education Education provided on the following topics: Hearing aid use, care, maintenance Education provided to: P Response to Education: [place], PI Shaikh Patient P Family F Significant Other SO Verbalizes Understanding VU Returns Demonstration RD Performs Independently PI Lacks Comprehension LC Refused Education RE Not Applicable NA /elle/ HECTOR NUÑEZ, CCC-A STAFF CARBON FURNACE OPERATOR Signed: 06/26/2023 13:52 IRINA VILLANUEVA [place] [facility]
--- OUTSIDE RECORDS SUMMARY | 2024-06-07 09:03 | XMS_ITS | Encounter Summary ---
Author Name [facility] [place] Address [address] [place] [id number] Care Team Providers Care Employee Health Nurse Name Role Phone RISSA MCGRAW Primary Care [...] GOOD FAMIL Y Jun 11, [phone] [id number] Venkat VELASQUEZ AVID PATIENT MEDICARE (WNR) MEDICARE (M) PART B Dec 09, 2008 PART B [id number] 30A Venkat VELASQUEZ AVID PATIENT MEDICARE (WNR) MEDICARE (M) PART B Dec 09, 2008 PART B [id number] [phone] Venkat VELASQUEZ AVID PATIENT MEDICARE (WNR) MEDICARE (M) PART B Dec 09, 2008 PART B [id number] 30A [phone] Venkat VELASQUEZ AVID PATIENT MEDICARE (WNR) MEDICARE (M) PART A Jun 11, 2007 PART A [id number] 30A [phone] Venkat VELASQUEZ AVID PATIENT MEDICARE (WNR) MEDICARE (M) PART A Jun 11, 2007 PART A [id number] Venkat VELASQUEZ AVID PATIENT MEDICARE (WNR) MEDICARE (M) PART A Jun 11, 2007 PART A [id number] 30A Venkat VELASQUEZ AVID PATIENT Selected Encounter This section includes the information on record at [place] for the Encounter. Date/Time Encounter Type Encounter Description Reason Pro vider Source Jul 26, 2023 08:25 AM Outpatient Encounter DENTAL IHE Encounter Template Text not used by [place] Plan of Treatment: Future Appointments (+ 6 months) and Future Tests (+/- 45 days) The Plan of Treatment section includes future care activities for the patient from all [place] [facility]. This section includes future appointments [...] AMBULATORY - NONE [facility] [place] [facility] Jul 27, 2023 11:15 AM AMBULATORY - NONE [facility] [place] [facility] Aug 07, 2023 01:00 PM AMBULATORY - MEDICINE [place] [facility] [place] [facility] Aug 23, 2023 11:30 AM AMBULATORY - MEDICINE [facility] [place] [facility] Sep 20, 2023 09:00 AM AMBULATORY - MEDICINE [facility] [place] [facility] October 11, 2023 11:00 AM AMBULATORY - MEDICINE [facility] [place] [facility] October 30, 2023 02:30 PM AMBULATORY - MEDICINE [facility] [place] [facility] Nov 20, 2023 03:00 PM AMBULATORY - MEDICINE [facility] [place] [facility] Dec 04, 2023 10:30 AM AMBULATORY - MEDICINE [facility] [place] [facility] Dec 24, 2023 11:15 AM AMBULATORY - MEDICINE [facility] [place] [facility] Jan 08, 2024 10:30 AM AMBULATORY - MEDICINE [place] [facility] [place] [facility] Jan 11, 2024 08:30 AM AMBULATORY - NONE [place] [facility] [place] [facility] Social History: Smoking Status (Most [...] took place. Date/Time Current Smoking Status Comment [facility] May 17, 2023 02:16 PM VA-TOBACCO [facility] US[facility] Tobacco Use History This section includes a history of the smoking, or tobacco-related health factors, that were collected on or before the date of the Encounter. The data comes from the [place] facility where the Encounter took place. Date/Time Smoking Status/Tobac co Use Comment Facility May 09, 2022 10:45 AM VA-TOBACCO NEVER USED [place] [facility] [place] [facility] Mar 30, 2021 01:02 PM VA-TOBACCO FORMER USER [place] [facility] [place] [facility] Mar 30, 2021 01:02 PM VA-TOBACCO QUIT 5 TO < 15 YRS [place] [facility] [place] [facility] Aug 31, 2004 09:56 AM HISTORY OF SMOKING QUIT 20 YEARS AGO [place] [facility] [place] [facility] Aug 08, 2004 02:45 PM LIFETIME NON-TOBACCO USER [facility] [place] [facility] Encounter Notes: All associated encounter notes This section contains the clinical notes associated to the Encounter. Date/Time Encounter Note(s) Provider Source Jul 26, 2023 08:25 AM TELEHEALTH NOTE: LOCAL TITLE: TELEPHONE NOTE/DENTAL STANDARD TITLE: TELEHEALTH NOTE DATE OF NOTE: JUL 26, 2023@08:25 ENTRY DATE: JUL 26, 2023@08:25:59 AUTHOR: ANISH PARSONS EXP COSIGNER: URGENCY: STATUS: COMPLETED Called pt and LM to confirm dental appointment on 07/27/2023 at 11:00 am. /elle/ ANISH PARSONS ADVANCED MONOGRAM OPERATOR Signed: 07/26/2023 08:26 ANISH PARSONS [facility]
--- OUTSIDE RECORDS SUMMARY | 2024-06-07 09:03 | XMS_ITS | Encounter Summary ---
Author Name [facility] [place] Organization [facility] Address [address] [place] [id number] Care Team Providers Care Art Appraiser Name Role Phone RISSA MCGRAW Primary Care [...] GOOD FAMIL Y Jun 11, 2000 105 [id number] [phone] Venkat VELASQUEZ AVID PATIENT MEDICARE (WNR) MEDICARE (M) PART B Dec 09, 2008 PART B [id number] Venkat VELASQUEZ AVID PATIENT MEDICARE (WNR) MEDICARE (M) PART B Dec 09, 2008 PART B [id number] Venkat VELASQUEZ AVID PATIENT MEDICARE (WNR) MEDICARE (M) PART B Dec 09, 2008 PART B [id number] [phone] Venkat VELASQUEZ AVID PATIENT MEDICARE (WNR) MEDICARE (M) PART A Jun 11, 2007 PART A [id number] Venkat VELASQUEZ AVID PATIENT MEDICARE (WNR) MEDICARE (M) PART A Jun 11, 2007 PART A [id number] 30A Venkat VELASQUEZ AVID PATIENT MEDICARE (WNR) MEDICARE (M) PART A Jun 11, 2007 PART A [id number] [phone] Venkat VELASQUEZ AVIVenkat PATIENT Selected Encounter This section includes the information on [place] at [place] for the Encounter. Date/Time Encounter Type Encounter Description Reason Provider Source Jul 27, 2023 11:00 AM CLEAN/INSPECT MAX PART DENT DENTAL ICD-10-CM K03.6 Deposits [accretions] on teeth PARTH,FAROOQ K IHE Encounter Template Text not used by [place] Assessments - Encounter Diagnoses This section includes the primary and secondary diagnoses documented for the Encounter. Date/Time Primary/Secondary Diagnosis Diagnosis Name Provider Source Jul 27, 2023 11:41 AM PRIMARY Deposits [accretions] on teeth PARTH,FAROOQ K [place] [facility] Plan of Treatment: Future Appointments (+ 6 months) and Future Tests (+/- 45 days) The Plan of Treatment section includes future care activities for the patient from all [place] [facility]. This section includes future appointments and future orders which are active, pending or scheduled. Future Appointments This section includes appointments that were scheduled to occur 6 months from the date of the Encounter, up to a maximum of 20 appointments. The data comes from all [place] treatment facilities. Appointment Date/Time Appointment Type Appointme nt Facility Name Aug 07, 2023 01:00 PM AMBULATORY - MEDICINE [place] [facility] Aug 23, 2023 11:30 AM AMBULATORY - MEDICINE [place] [facility] Sep 20, 2023 09:00 AM AMBULATORY - MEDICINE [place] [facility] October 11, 2023 11:00 AM AMBULATORY - MEDICINE [place] [facility] October 30, 2023 02:30 PM AMBULATORY - MEDICINE [place] [facility] Nov 20, 2023 03:00 PM AMBULATORY - MEDICINE [place] [facility] Dec 04, 2023 10:30 AM AMBULATORY - MEDICINE [place] [facility] Dec 24, 2023 11:15 AM AMBULATORY - MEDICINE [facility] Jan 08, 2024 10:30 AM AMBULATORY - MEDICINE [facility] Jan 11, 2024 08:30 AM [facility] Social History: Smoking Status (Most [...] 17, 2023 02:16 PM VA-TOBACCO [facility] Tobacco Use History This section includes a history of the smoking, or tobacco-related health factors, that were collected on or before the date of the Encounter. The data comes from the [place] facility where the Encounter took place. Date/Time Smoking Status/Tobac co Use Comment Facility May 09, 2022 10:45 AM [facility]ACCO [facility] Mar 30, 2021 01:02 PM VA-TOBACCO [facility] Mar 30, 2021 01:02 PM VA-TOBACCO QUIT 5 TO < 15 YRS [facility] Aug 31, 2004 09:56 AM HISTORY OF SMOKING QUIT 20 YEARS AGO [facility] Aug 08, 2004 02:45 PM LIFETIME NON-TOBACCO USER [facility] Encounter Notes: All associated encounter notes This section contains the clinical notes associated to the Encounter. Date/Time Encounter Note(s) Provider Source Jul 27, 2023 11:39 AM DENTISTRY NOTE: LOCAL TITLE: DENTAL NOTE STANDARD TITLE: DENTISTRY NOTE DATE OF NOTE: JUL 27, 2023@11:39 ENTRY DATE: JUL 27, 2023@11:41:52 AUTHOR: FAROOQ ALBA COSIGNER: URGENCY: STATUS: COMPLETED Patient Name: BRIAN VELASQUEZ , : 1945, Age: 77 Visit: S: Jul 27, 2023@11:00 M/NO/DENTAL/RDH1 AM. Primary PCE Diagnosis: K03.6 (Deposits [accretions] on teeth). Dental Category: 15-OPC, Class IV. Treatment Status: Maintenance. Completed Care: (D1110) DENTAL PROPHYLAXIS ADULT. DX: K03.6 Deposits [Accretions] on Teeth (D1206) TOPICAL FLUORIDE VARNISH. DX: K03.6 Deposits [Accretions] on Teeth (D1330) ORAL HYGIENE INSTRUCTION. DX: K03.6 Deposits [Accretions] on Teeth (D9994) CASE MGMT-ORAL HEALTH LIT. DX: K03.6 Deposits [Accretions] on Teeth (D9934) CLEAN/INSPECT MAX PART DENT. DX: K03.6 Deposits [Accretions] on Teeth Periodontal Screening/Recording (PSR): 3-2-3 - - - X-2-3 Oral Health Assessment Findings: Plaque Index: 3 - Heavy Xerostomia: 0 - None Caries Risk: 3 - High Oral Hygiene: 3 - Poor - - [...] IN INSTRUMENT PACK CHECKED AND CONFIRMED CC: Patient said a piece of tooth fell out the other day and is trapping food PREMEDICATION: Not indicated PAST MEDICAL HISTORY: Reviewed, no contraindications for treatment. LAST RADIOGRAPHS: BWX: 04/20/22 PANO: 07/10/17 NEW RADIOGRAPHS: BWX & Pano SOFT TISSUE SCREENING: no abnormalities noted EXAMINATION: by Dr. Saldana (see dr note) ORAL HYGIENE ASSESSMENT: generalized heavy plaque, and food debris generalized light stain PERIODONTAL ASSESSMENT: generalized light calculus generalized inflammation generalized moderate bleeding probing depth no changes generalized recession Partial/Denture: Patient said partial fits well, looks well taken care of REVIEWED ORAL HEALTH REPORT: CARIES RISK: high GUM DISEASE: n/a ORAL CANCER RISK: low DENTAL TREATMENT PROVIDED: PROPHYLAXIS - hand scaling, piezo, algerian, floss TOPICAL FLUORIDE APPLICATION - Varnish PRE-RINSE WITH CREST RINSE ORAL HYGIENE INSTRUCTIONS GIVEN TO PATIENT: Patient brushes once a day with a manual toothbrush. Discussed brushing 2 times a day for 2 minutes each and flossing daily. Discussed angling bristles into gumlines to remove plaque and bacteria. DISPOSITION: 6 MONTHS RECARE NEXT VISIT: pasquale /elle/ FAROOQ ALBA RDH [facility], DENTAL SERVICE Signed: 07/27/2023 11:41 FAROOQ ALBA CNTRL W[facility]
--- OUTSIDE RECORDS SUMMARY | 2024-06-07 09:03 | XMS_ITS | Encounter Summary ---
Author Name [facility] Organization [facility] Address [address] [place] [id number] Care Team Providers Care Foundry Molder Name Role Phone RISSA MCGRAW Primary Care [...] GOOD FAMIL Y Jun 11, 2000 105 [id number] [phone] Venkat VELASQUEZ AVID PATIENT MEDICARE (WNR) MEDICARE (M) PART B Dec 09, 2008 PART B [id number] [id number] Venkat VELASQUEZ AVID PATIENT MEDICARE (WNR) MEDICARE (M) PART B Dec 09, 2008 PART B [id number] Venkat VELASQUEZ AVID PATIENT MEDICARE (WNR) MEDICARE (M) PART B Dec 09, 2008 PART B [id number] 30A Venkat VELASQUEZ AVID PATIENT MEDICARE (WNR) MEDICARE (M) PART A Jun 11, 2007 PART A [id number] [phone] Venkat VELASQUEZ AVID PATIENT MEDICARE (WNR) MEDICARE (M) PART A Jun 11, 2007 PART A [id number] [facility] Venkat VELASQUEZ AVID PATIENT MEDICARE (WNR) MEDICARE (M) PART A Jun 11, 2007 PART A [id number] 30A [id number] Venkat VELASQUEZ AVID PATIENT Selected Encounter This section includes the information on record at [place] for the Encounter. Date/Time Encounter Type Encounter Description Reason Provider Source Jul 27, 2023 11:15 AM DENTAL BITEWING FOUR IMAGES DENTAL ICD-10-CM K08.9 Disorder of teeth and supporting structures, unspecified LAVON SONI [facility] Encounter Template Text not used by [place] Assessments - Encounter Diagnoses This section includes the primary and secondary diagnoses documented for the Encounter. Date/Time Primary/Secondary Diagnosis Diagnosis Name Provider Source Jul 27, 2023 02:31 PM PRIMARY Disorder of teeth and supporting structures, unspecified LAVON SONI [place] [facility] Plan of Treatment: Future Appointments (+ 6 months) and Future Tests (+/- 45 days) The Plan of Treatment section includes future care activities for the patient from all [place] [facility]. This section includes future appointments [...] 07, 2023 01:00 PM AMBULATORY - MEDICINE [place] [facility] Aug 23, 2023 11:30 AM AMBULATORY - MEDICINE [place] [facility] Sep 20, 2023 09:00 AM AMBULATORY - MEDICINE [place] [facility] October 11, 2023 11:00 AM AMBULATORY - MEDICINE [place] [facility] October 30, 2023 02:30 PM AMBULATORY - MEDICINE [place] [facility] Nov 20, 2023 03:00 PM AMBULATORY - MEDICINE [place] [facility] Dec 04, 2023 10:30 AM AMBULATORY - MEDICINE [place] [facility] Dec 24, 2023 11:15 AM [facility] [place] [facility] [place] [facility] Jan 08, 2024 10:30 AM AMBULATORY - MEDICINE [facility] N[facility] TRN [facility] Jan 11, 2024 08:30 AM [facility] Social History: Smoking Status (Most current) [...] place. Date/Time Current Smoking Status Comment Facil [facility] May 17, 2023 02:16 PM VA-TOBACCO [...] 09, 2022 10:45 AM VA-TOBACCO [facility] Mar 30, 2021 01:02 PM VA-TOBACCO FOR[facility] Mar 30, 2021 01:02 PM VA-TOBACCO QUIT 5 TO < 15 YRS [facility] Aug 31, 2004 09:56 AM HISTORY OF SMOKING QUIT 20 YEARS AGO [facility] Aug 08, 2004 02:45 PM LIFETIME NON-TOBACCO USER [facility] Encounter Notes: All associated encounter notes This section contains the clinical notes associated to the Encounter. Date/Time Encounter Note(s) Provider Source Jul 27, 2023 02:30 PM DENTISTRY NOTE: LOCAL TITLE: DENTAL NOTE STANDARD TITLE: DENTISTRY NOTE DATE OF NOTE: JUL 27, 2023@14:30 ENTRY DATE: JUL 27, 2023@14:31:35 AUTHOR: LAVON SNOI COSIGNER: URGENCY: STATUS: COMPLETED DENTAL NOTE Has ADDENDA Patient Name: BRIAN VELASQUEZ , : 1945, Age: 77 Visit: V: Jul 27, 2023@11:15 CWM/NO/DENTAL/DMD3 AM. 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 Treatment Status: Maintenance. Completed Care: (D0150) COMPREHENSVE ORAL EVALUATION. DX: K08.9 Disorder of Teeth and Supporting Structures, unspecified (D0274) DENTAL BITEWING FOUR IMAGES. DX: K08.9 Disorder of Teeth and Supporting [...] treatment plan. Presentation/Chief Complaint: Patient presents for comprehensive oral evaluation My upper front tooth cracked Vital Signs: Vital signs not obtained Past Medical History and Medications: No significant changes since the last dental visit Social History: Patient denies history of alcohol, tobacco, and drug use. Intraoral and Extraoral Screening Exam Findings: 07/27/2023 Head and neck assessment with oral cancer screening is negative: no apparent pathology noted. Radiographic Findings: Radiographic findings consistent with charted entries Alveolar bone loss noted - generalized. Oral Examination: Oral Health Assessment Findings: Create Date: 07/27/2023 - FAROOQ ALBA Plaque Index: 3 - Heavy Xerostomia: 0 - None Caries Risk: 3 - High Oral Hygiene: 3 - Poor Other: Treatmetn as charted. Due to the crack close to the nerve, patient will be referred to endo for #11 evaluation and treatment. #11,12,13 will be recommending crown due to the condition and size of the current filling and recurrent decay. No Significant Tooth Mobility Noted PSR Exam: Create Date: 07/27/2023 - FAROOQ ALBA 3-2-3 - - - X-2-3 Periodontal Assessment: Chronic Slight Generalized Periodontitis TMJ Findings: History: Patient reports no symptoms associated with TMJ. Clinical Findings: Occlusal Findings: Normal Mandibular relationship Assessment/Plan: No contraindications for planned procedure(s). Planned Procedures: Unsequenced (D2331) RESIN TWO SURFACES-ANTERIOR: 9(FD). DX: (). (D2740) CROWN PORCELAIN/CERAMIC SUBS: 11. DX: (). (D2740) CROWN PORCELAIN/CERAMIC SUBS: 12. DX: (). (D2740) CROWN PORCELAIN/CERAMIC SUBS: 13. DX: (). (D3310) END THXPY ANTERIOR TOOTH: 11(r). DX: (). (D5225) MAXILLARY PART DENTURE FLEX: Upper. DX: (). Disposition: Next visit: Crowns prep, filling, t+3m, 210mins Patient to return to dental clinic for continuing care. - - - - - - - - - - - - - - - - - - - - - - - - - - - - - - /daniel SONI DMD Staff Dentist Signed: 07/27/2023 14:31 08/28/2023 ADDENDUM STATUS: COMPLETED Endo provider completed #11 treatment and recommend endo for #9 due to the caivity is within 0.5mm to the pulp. Auhotrized the treatment. /daniel SONI DMD Staff Dentist Signed: 08/28/2023 07:44 LAVON SONI [place] [facility] Jul 27, 2023 02:22 PM DENTISTRY CONSULT: LOCAL TITLE: CONSULT REPORT/DENTAL STANDARD TITLE: DENTISTRY CONSULT DATE OF NOTE: JUL 27, 2023@14:22 ENTRY DATE: JUL 27, 2023@14:22:40 AUTHOR: LAVON SONI EXP COSIGNER: URGENCY: STATUS: COMPLETED Current PC Provider: MEMO MCKINLEY Current PC Team: MEL PACT 4 Current Pat. 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 Date: Jul 27, 2023 DST ID: Orderable Item: DENTAL IMAGING Consult: Consult Request Provisional Diagnosis: Dental Caries, unspecified(ICD-10-CM K02.9) Reason For Request: Orthopan Inter-facility Information This is not an inter-facility consult request. Status: PENDING Last Action: CPRS RELEASED ORDER Facility Activity Date/Time/Zone Responsible Person Entered By CPRS RELEASED ORDER 07/27/23 10:49 FAROOQ ALBA JESSICA K Note: TIME ZONE is local if not indicated No local ROSE results or Medicine results available for this consult ====== END ======= /elle/ LAVON SONI DMD Staff Dentist Signed: 07/27/2023 14:22 LAVON SONI [facility]
--- OUTSIDE RECORDS SUMMARY | 2024-06-07 09:03 | XMS_ITS | Encounter Summary ---
Author Name [facility] [place] [facility] ([place]) Organization [facility] [place] Address [address] [place] [address] Care Team Providers Care Oracle Application Consultant Name Role Phone RISSA MCGRAW Primary Care [...] GOOD FAMIL Y Jun 11, 2000 [id number] Venkat VELASQUEZ AVID PATIENT MEDICARE (WNR) MEDICARE (M) PART B Dec 09, 2008 PART B [id number] 30A Venkat VELASQUEZ AVID PATIENT MEDICARE (WNR) MEDICARE (M) PART B Dec 09, 2008 PART B [id number] Venkat VELASQUEZ AVID PATIENT MEDICARE (WNR) MEDICARE (M) PART B Dec 09, 2008 PART B [id number] 30A Venkat VELASQUEZ AVID PATIENT MEDICARE (WNR) MEDICARE (M) PART A Jun 11, 2007 PART A [id number] Venkat VELASQUEZ AVID PATIENT MEDICARE (WNR) MEDICARE (M) PART A Jun 11, 2007 PART A [id number] 30A Venkat VELASQUEZ AVIVenkat PATIENT MEDICARE (WNR) MEDICARE (M) PART A Jun 11, 2007 PART A [id number] 30A [phone] Venkat VELASQUEZ AVIVenkat PATIENT Selected Encounter This section includes the information on record at [place] for the Encounter. Date/Time Encounter Type Encounter Description Reason Pro vider Source Jun 19, 2023 05:47 PM Outpatient Encounter ADMIN PAT ACTIVTIES (MASNONCT) [...] Date/Time Appointment Type Appointme nt Facility Name Jun 26, 2023 01:00 PM AMBULATORY - REHAB MEDICIN [place] [place] [facility] Jul 27, 2023 11:00 AM AMBULATORY - NONE [place] [facility] Jul 27, 2023 11:15 AM AMBULATORY - NONE [place] [facility] Aug 07, 2023 01:00 PM AMBUL[place]ORY - MEDICINE [place] [facility] Aug 23, 2023 11:30 AM AM[place]ORY - [place]ICINE [place] [facility] Sep 20, 2023 09:00 AM AM[place]ORY - [place]ICINE [place] [facility] October 11, 2023 11:00 AM AM[place]ORY - [place]ICINE [place] [facility] October 30, 2023 02:30 PM AM[place]ORY - [place]ICINE [place] [facility] Nov 20, 2023 03:00 PM AM[place]ORY - [place]ICINE [place] [facility] Dec 04, 2023 10:30 AM AM[place]ORY - [place]ICINE [place] [facility] Social History: Smoking Status (Most [...] Date/Time Current Smoking Status Comment [facility] May 17, 2023 02:16 PM [facility]-TOBACCO [facility] Tobacco Use History This section includes a history of the smoking, or tobacco-related health factors, that were collected on or before the date of the Encounter. The data comes from the [place] facility where the Encounter took place. Date/Time Smoking Status/Tobac co Use Comment Facility May 09, 2022 10:45 AM VA[facility]TOBACCO [facility] Mar 30, 2021 01:02 PM VA-TOBACCO FORMER USER [place] [facility] Mar 30, 2021 01:02 PM VA-TOBACCO QUIT 5 TO < 15 YRS [facility] Aug 31, 2004 09:56 AM HISTORY OF SMOKING QUIT 20 YEARS AGO [facility] Aug 08, 2004 02:45 PM LIFETIME NON-TOBACCO USER [facility] Encounter Notes: All associated encounter notes This section contains the clinical notes associated to the Encounter. Date/Time Encounter Note(s) Provider Source Jun 19, 2023 05:47 PM PHARMACY NOTE: LOCAL TITLE: PHARMACY CUSTOMER CARE MEDICATION RENEWAL STANDARD TITLE: PHARMACY NOTE DATE OF NOTE: JUN 19, 2023@17:47 ENTRY DATE: JUN 19, 2023@17:47:13 AUTHOR: NANDA FLORES EXP COSIGNER: URGENCY: STATUS: COMPLETED Date: Jun Division: [facility] referred by Pharmacy Call Center for medication renewal: Non-controlled/maintenanc e medication Medications requested: [id number] MULTIVITAMIN/MINERALS CAP/TAB Defer to primary care provider To be mailed . Please review and renew if appropriate. *This note was generated by [facility]/[place] Pharmacy Customer Care. If you have any questions or need assistance, do not contact this author. Please refer all questions to your local, on-site pharmacy departments. /elle/ NANDA FLORES CPhT [employer] Specialist, [place]/Pharmacy Customer Care Signed: 06/19/2023 17:47 Receipt Acknowledged By: 06/20/2023 12:56 /elle/ Mariza Lopez M.D. STAFF PHYSICIAN 06/20/2023 13:04 /elle/ ABDON BRUSH RN REGISTERED NURSE NANDA FLORES [place] [facility]
--- OUTSIDE RECORDS SUMMARY | 2024-06-07 09:07 | XMS_ITS | Encounter Summary ---
Author Name [place] Address [address] [place] [address] Care Team Providers Care School Social Worker Name Role Phone RISSA MCGRAW Primary [...] GOOD FAMIL Y Jun 11, 2000 105 [id number] Venkat VELASQUEZ AVID PATIENT MEDICARE (WNR) MEDICARE (M) PART B Dec 09, 2008 PART B [id number] [phone] Venkat VELASQUEZ AVID PATIENT MEDICARE (WNR) MEDICARE (M) PART B Dec 09, 2008 PART B [id number] [phone] Venkat VELASQUEZ AVID PATIENT MEDICARE (WNR) MEDICARE (M) PART B Dec 09, 2008 PART B [id number] 30A Venkat VELASQUEZ AVID PATIENT MEDICARE (WNR) MEDICARE (M) PART A Jun 11, 2007 PART A [id number] [phone] Venkat VELASQUEZ AVID PATIENT MEDICARE (WNR) MEDICARE (M) PART A Jun 11, 2007 PART A [id number] 30A Venkat VELASQUEZ AVID PATIENT MEDICARE (WNR) MEDICARE (M) PART A Jun 11, 2007 PART A [id number] 30A Venkat VELASQUEZ PATIENT Selected Encounter This section includes the information on record at [place] for the Encounter. Date/Time Encounter Type Encounter Description Reason Pro vider Source May 19, 2024 03:46 PM Outpatient Encounter TELEPHONE CASE MANAGEMENT IHE Encounter Template Text not used by [place] Plan of Treatment: Future Appointments (+ 6 months) and Future Tests (+/- 45 days) The Plan of Treatment section includes future care activities for the patient from all [place] [facility]. This section includes future appointments and future orders which are active, pending or scheduled. Future Appointments This section includes appointments that were scheduled to occur 6 months from the date of the Encounter, up to a maximum of 20 appointments. The data comes from all [facility]. Appointment Date/Time Appointment Type Appointme nt Facility Name May 26, 2024 11:30 AM AMBULATORY - MEDICINE [place] [facility] Jun 06, 2024 02:30 PM AMBULATORY - MEDICINE [place] [facility] Jun 17, 2024 02:30 PM AMBULATORY - MEDICINE [place] [facility] Jul 23, 2024 02:30 PM AMBULATORY - MEDICINE [place] [facility] Jul 31, 2024 10:45 AM AMBULATORY - NONE [place] [facility] Aug 07, 2024 09:30 AM AMBULATORY - MEDICINE [place] C [place] [facility] Aug 27, 2024 01:00 PM AMBULATORY - NONE [place] [facility] November 04, 2024 02:00 PM AMBULATORY - MEDICINE [place] [facility] Active, Pending, and Scheduled Orders [...] MICROALBUMIN CREATININE RATIO PANEL URINE (RANDOM) SP [facility] May 26, 2024 12:09 PM Procedure Order ECHO CP CARDIOLOGY ECHO/ NHM Proc Professor Of Surgery's Choice [facility] Lab Results: +/- 30 days of [...] Range Comment May 16, 2024 11:12 AM [facility] HEMOGLOBIN A1C PANEL Specimen Type: BLOOD [...] May 09, 2024 07:52 AM Reporting Lab: [facility] [address] [facility] [address] Performing Lab: [address] [address] HEMOGLOBIN A1C 7.2 H 4.0-5.6 May 16, 2024 11:12 AM [facility] BASIC METABOLIC PANEL (fasting) Specimen Type: SERUM No comment entered. Ordering Provider: RISSA MCGRAW Report Released Date/Time: May 09, 2024 07:52 AM Reporting Lab: [address] [address] Performing Lab: [address] [address] UREA NITROGEN 13 mg/dL 7-25 GLUCOSE 201 [...] took place. Date/Time Current Smoking Status Comment [facility] May 17, 2023 02:16 PM VA-TOBACCO NEVER USED [facility] Tobacco Use History This section includes a history of the smoking, or tobacco-related health factors, that were collected on or before the date of the Encounter. The data comes from the [place] facility where the Encounter took place. Date/Time Smoking Status/Tobac co Use Comment Facility May 09, 2022 10:45 AM [facility]ACCO [facility] Mar 30, 2021 01:02 PM VA-TOBACCO FORMER USER [place] [facility] Mar 30, 2021 01:02 PM VA-TOBACCO QUIT 5 TO < 15 YRS [place] [facility] Aug 31, 2004 09:56 AM HISTORY OF SMOKING QUIT 20 YEARS AGO [facility] Aug 08, 2004 02:45 PM LIFETIME [facility]ACCO [facility] Encounter Notes: All associated encounter notes This section contains the clinical notes associated to the Encounter. Date/Time Encounter Note(s) Provider Source May 19, 2024 03:46 PM TRANSFER SUMMARIZA TION NOTE: LOCAL TITLE: HOURLY SHIFT MANAGER/OCC/HOSPITAL NOTIFICATION NOTE STANDARD TITLE: TRANSFER SUMMARIZATION NOTE DATE OF NOTE: MAY 19, 2024@15:46 ENTRY DATE: MAY 19, 2024@15:46:18 AUTHOR: KLEBER PEREIRA COSIGNER: URGENCY: STATUS: COMPLETED HOURLY SHIFT MANAGER/OCC/HOSPITAL NOTIFICATION NOTE Has ADDENDA Per [facility] CIS, the was brought to the ED for Nausea, vomiting and dizziness. He remains in the ED and is still being worked up there. /daniel ASCENCIO,RN,CCM TRANSFER/TRAVELING COORDINATOR Signed: 05/19/2024 15:47 05/20/2024 ADDENDUM STATUS: COMPLETED call from Fiorella, community case manager at [facility]. Plan for discharge is home with VNA services and he will also need a walker. Fiorella aware that may use his private insurance for both. /daniel ASCENCIO,RN,[facility] TRANSFER/TRAVELING COORDINATOR Signed: 05/20/2024 12:31 KLEBER PEREIRA [facility]
--- OUTSIDE RECORDS SUMMARY | 2024-06-07 09:08 | XMS_ITS | Encounter Summary ---
Author Name [place] Organization [place] Address [address] [place] [address] Care Team Providers Care Rough Carpenter Name Role Phone RISSA MCGRAW Primary Care [...] GOOD FAMIL Y Jun 11, 2000 105 [id number] Venkat VELASQUEZ AVID PATIENT MEDICARE (WNR) MEDICARE (M) PART B Dec 09, 2008 PART B [id number] Venkat VELASQUEZ AVID PATIENT MEDICARE (WNR) MEDICARE (M) PART B Dec 09, 2008 PART B [id number] [phone] Venkat VELASQUEZ AVID PATIENT MEDICARE (WNR) MEDICARE (M) PART B Dec 09, 2008 PART B [id number] 30A Venkat VELASQUEZ AVID PATIENT MEDICARE (WNR) MEDICARE (M) PART A Jun 11, 2007 PART A [id number] Venkat VELASQUEZ AVID PATIENT MEDICARE (WNR) MEDICARE (M) PART A Jun 11, 2007 PART A [id number] 30A Venkat VELASQUEZ AVID PATIENT MEDICARE (WNR) MEDICARE (M) PART A Jun 11, 2007 PART A [id number] 30A Venkat VELASQUEZ AVID PATIENT Selected Encounter This section includes the information on record at [place] for the Encounter. Date/Time Encounter Type Encounter Description Reason Pro vider Source May 20, 2024 01:38 PM Outpatient Encounter PRIMARY CARE/MEDICINE IHE Encounter Template Text not used by [place] Plan of Treatment: Future Appointments (+ 6 months) and Future Tests (+/- 45 days) The Plan of Treatment section includes future care activities for the patient from all [place] [facility]. This section includes future appointments and future orders which are active, pending or scheduled. Future Appointments This section includes appointments that were scheduled to occur 6 months from the date of the Encounter, up to a maximum of 20 appointments. The data comes from all [facility]. Appointment Date/Time Appointment Type Appointme nt Facility Name May 26, 2024 11:30 AM AMBULATORY - MEDICINE [place] [facility] Jun 06, 2024 02:30 PM AMBULATORY - MEDICINE [place] C [place] [facility] Jun 17, 2024 02:30 PM AMBULATORY - MEDICINE [place] C [place] [facility] Jul 23, 2024 02:30 PM AMBULATORY - MEDICINE [place] C [place] [facility] Jul 31, 2024 10:45 AM AMBULATORY - NONE [place] [place] [facility] Aug 07, 2024 09:30 AM AMBULATORY - MEDICINE [place] C [place] [facility] Aug 27, 2024 01:00 PM AMBULATORY - NONE [place] [place] [facility] November 04, 2024 02:00 PM AMBULATORY - MEDICINE [place] C [place] [facility] Active, Pending, and Scheduled Orders [...] MICROALBUMIN CREATININE RATIO PANEL URINE (RANDOM) SP [facility] May 26, 2024 12:09 PM Procedure Order ECHO CP CARDIOLOGY ECHO/ NHM Proc Maintenance Mechanic Millwright's Choice [facility] Lab Results: +/- 30 days of the encounter This section includes the Chemistry and Hematology Lab Results on record with [place] for the patient. Radiology Reports and Pathology Reports are provided separately, in subsequent sections. Lab Results This section contains the Chemistry/Hematology Results that were resulted 30 days before or 30 daysafter the date of the Encounter. Date/Time Source Result Type Result - Unit Interpretation Reference Range Comment May 16, 2024 11:12 AM [facility] HEMOGLOBIN A1C PANEL Specimen Type: BLOOD [...] May 09, 2024 07:52 AM Reporting Lab: [facility] [address] [facility] [address] Performing Lab: [address] [address] HEMOGLOBIN A1C 7.2 H 4.0-5.6 May 16, 2024 11:12 AM [facility] BASIC METABOLIC PANEL (fasting) Specimen Type: SERUM No comment entered. Ordering Provider: RISSA MCGRAW Report Released Date/Time: May 09, 2024 07:52 AM Reporting Lab: [address] [address] Performing Lab: [address] [address] UREA NITROGEN 13 mg/dL 7-25 GLUCOSE 201 [...] and tobacco- related health factors from the [place] facility where the Encounter took place. Current Smoking Status This section includes the most current smoking, or tobacco-related health factor, from the [place] facility where the Encounter took place. Date/Time Current Smoking Status Comment [facility] May 17, 2023 02:16 PM VA-TOBACCO NEVER USED [facility] Tobacco Use History This section includes a history of the smoking, or tobacco-related health factors, that were collected on or before the date of the Encounter. The data comes from the [place] facility where the Encounter took place. Date/Time Smoking Status/Tobac co Use Comment Facility May 09, 2022 10:45 AM [facility]TOBACCO [facility] Mar 30, 2021 01:02 PM VA-TOBACCO [facility] Mar 30, 2021 01:02 PM VA-TOBACCO QUIT 5 TO < 15 YRS [facility] Aug 31, 2004 09:56 AM HISTORY OF SMOKING QUIT 20 YEARS AGO [facility] Aug 08, 2004 02:45 PM LIFETIME NON-TOBACCO USER [facility] Encounter Notes: All associated encounter notes This section contains the clinical notes associated to the Encounter. Date/Time Encounter Note(s) Provider Source May 20, 2024 01:38 PM LETTERS: LOCAL TITLE: PATIENT LETTER (T) STANDARD TITLE: LETTERS DATE OF NOTE: MAY 20, 2024@13:38 ENTRY DATE: MAY 20, 2024@13:39:18 AUTHOR: KRISTIAN SILVA COSIGNER: URGENCY: STATUS: COMPLETED DEPARTMENT OF [facility] Toll Free Number Primary Care Telephone Assistance can be reached at extension [phone] [facility] scheduling can be reached at extension [phone] [facility] scheduling can be reached at ext [phone] BRIAN VELASQUEZ [address], [place], [address] [place]: If you are still interested in rescheduling your'e follow up appointment with and Pharmacy, please give us a call to schedule your appointment at Ext [phone].We have been unable to reach you by the phone number that is currently on our records. If you have any questions, please do not hesitate to contact the Department of [place]'s Affairs call center at Ext [phone]. Just so that you know,if you're feeling sick we have sick call hours at the [facility], and the [facility] [[email or web address]]- Sun thru Sunday 08-1530- first come first serve- walk-in basis. [facility] has sick call hours Sun-Sun- -12, and 3P-4P- first come, first serve, walk-in basis- no appt needed. You can utilize our sick call system once you have seen your Primary Care Physician for the first time. Audiology Phone number- [phone] Ext [phone] Optometry Phone Number- [phone] Ext [phone] Mental Health Clinic- [phone] Ext- [phone] Eligibility/Enrollment- [phone] [phone], or- [phone] [facility] [phone] Ext [phone] [facility] [phone] Thank you for your service to our nation, and we look forward to hearing from you soon. If you have any questions, please do not hesitate to contact the Department of 's Affairs call center at Ext [phone]. We look forward to providing your health care! Please call us so that we can update your record. Sincerely. Kristian Love NO PACT 8 [facility] Out[facility] Clinic [address] [place] [phone] Ext [phone] [facility] Outpatient [address] [address] [place] [address] - Ext [phone] [place] Outpatient [facility] [address] [facility] [place] [address] [place] [address] [place] [address] Sincerely, Your Primary Care Team [facility] Outpatient Clinic [address] [address] [place] [address] [phone] [place] Outpatient [facility] Outpatient Clinic [address] [place] [address] [place] [address] [phone] [facility] [place] [facility] [address] [facility],[address] [place] [address] [place] [address] KRISTIAN SILVA CNTRL [facility] [place] [facility]
--- OUTSIDE RECORDS SUMMARY | 2024-06-07 09:08 | XMS_ITS | Encounter Summary ---
Author Name [place] Address [address] [place] [address] Care Team Providers Care Entry Level Installation Technician Name Role Phone RISSA MCGRAW Primary [...] GOOD FAMIL Y Jun 11, 2000 105 [id number] [phone] Venkat VELASQUEZ AVID PATIENT MEDICARE (WNR) MEDICARE (M) PART B Dec 09, 2008 PART B [id number] 30A Venkat VELASQUEZ AVID PATIENT MEDICARE (WNR) MEDICARE (M) PART B Dec 09, 2008 PART B [id number] [phone] Venkat VELASQUEZ AVID PATIENT MEDICARE (WNR) MEDICARE (M) PART B Dec 09, 2008 PART B [id number] 30A Venkat VELASQUEZ AVID PATIENT MEDICARE (WNR) MEDICARE (M) PART A Jun 11, 2007 PART A [id number] Venkat VELASQUEZ AVID PATIENT MEDICARE (WNR) MEDICARE (M) PART A Jun 11, 2007 PART A [id number] 30A Venkat VELASQUEZ AVID PATIENT MEDICARE (WNR) MEDICARE (M) PART A Jun 11, 2007 PART A [id number] 30A Venkat VELASQUEZ PATIENT Selected Encounter This section includes the information on record at [place] for the Encounter. Date/Time Encounter Type Encounter Description Reason Pro vider Source May 20, 2024 11:35 AM Outpatient Encounter COMMUNITY CARE CONSULT IHE Encounter Template Text not used by [place] Plan of Treatment: Future Appointments (+ 6 months) and Future Tests (+/- 45 days) The Plan of Treatment section includes future care activities for the patient from all [place] [facility]. This section includes future appointments and future orders which are active, pending or scheduled. Future Appointments This section includes appointments that were scheduled to occur 6 months from the date of the Encounter, up to a maximum of 20 appointments. The data comes from all [facility]. Appointment Date/Time Appointment Type Appointme nt Facility Name May 26, 2024 11:30 AM AMBULATORY - MEDICINE [place] C [place] [facility] Jun 06, 2024 02:30 PM AMBULATORY - MEDICINE [place] C [place] [facility] Jun 17, 2024 02:30 PM AMBULATORY - MEDICINE [place] C [place] [facility] Jul 23, 2024 02:30 PM AMBULATORY - MEDICINE [place] C [place] [facility] Jul 31, 2024 10:45 AM AMBULATORY - NONE [place]TRL [place] [facility] Aug 07, 2024 09:30 AM AMBULATORY - MEDICINE [place] C [place]TRL [place] [facility] Aug 27, 2024 01:00 PM AMBULATORY - NONE [place]TRL [place] [facility] November 04, 2024 02:00 PM AMBULATORY - MEDICINE [place] C NTRL [place] [facility] Active, Pending, and Scheduled Orders [...] MICROALBUMIN CREATININE RATIO PANEL URINE (RANDOM) SP [facility] May 26, 2024 12:09 PM Procedure Order ECHO CP CARDIOLOGY ECHO/ NHM Proc Validation Architect's Choice [facility] Lab Results: +/- 30 days of the encounter This section includes the Chemistry and Hematology Lab Results on record with [place] for the patient. Radiology Reports and Pathology Reports are provided separately, in subsequent sections. Lab Results This section contains the Chemistry/Hematology Results that were resulted 30 days before or 30 daysafter the date of the Encounter. Date/Time Source Result Type Result - Unit Interpretation Reference Range Comment May 16, 2024 11:12 AM [facility] HEMOGLOBIN A1C PANEL Specimen Type: BLOOD [...] May 09, 2024 07:52 AM Reporting Lab: [facility] [address] [facility] [address] Performing Lab: [address] [address] HEMOGLOBIN A1C 7.2 H 4.0-5.6 May 16, 2024 11:12 AM [facility] BASIC METABOLIC PANEL (fasting) Specimen Type: SERUM No comment entered. Ordering Provider: RISSA MCGRAW Report Released Date/Time: May 09, 2024 07:52 AM Reporting Lab: [address] [address] Performing Lab: [address] [address] UREA NITROGEN 13 mg/dL 7-25 GLUCOSE 201 [...] and tobacco- related health factors from the [place] facility where the Encounter took place. Current Smoking Status This section includes the most current smoking, or tobacco-related health factor, from the [place] facility where the Encounter took place. Date/Time Current Smoking Status Comment [facility] May 17, 2023 02:16 PM VA-TOBACCO NEVER USED [facility] Tobacco Use History This section includes a history of the smoking, or tobacco-related health factors, that were collected on or before the date of the Encounter. The data comes from the [place] facility where the Encounter took place. Date/Time Smoking Status/Tobac co Use Comment Facility May 09, 2022 10:45 AM VA-TOBACCO [facility]ED [facility] Mar 30, 2021 01:02 PM VA-TOBACCO FORMER USER [place] [facility] Mar 30, 2021 01:02 PM VA-TOBACCO QUIT 5 TO < 15 YRS [place] [facility] Aug 31, 2004 09:56 AM HISTORY OF SMOKING QUIT 20 YEARS AGO [facility] Aug 08, 2004 02:45 PM LIFETIME NON-TOBACCO [facility] Encounter Notes: All associated encounter notes This section contains the clinical notes associated to the Encounter. Date/Time Encounter Note(s) Provider Source May 20, 2024 11:35 AM NONVA NOTE: LOCAL TITLE: COMMUNITY CARE-JAXON SELF PRESENTING CARE COORD PLAN STANDARD TITLE: NONVA NOTE DATE OF NOTE: MAY 20, 2024@11:35 ENTRY DATE: MAY 20, 2024@11:35:13 AUTHOR: RICARDO REBOLLAR COSIGNER: URGENCY: STATUS: COMPLETED COMMUNITY CARE-JAXON SELF PRESENTING CARE COORD PLAN NOTE Has ADDENDA Emergency Notification Intake Date Presenting to the Facility: May Method of Contact: Notified from ECR worklist Notification ID: [id number] [facility] Referral #: [facility] Name: Hospital: [facility] Address: City: [place] State: [place] Zip Code: Phone : Community Facility Point of Contact: Name: Ailyn Phone: Chief complaint: [id number].XXXA R42 I48.91 Primary Diagnosis: Disposition Admitted Route of Admission: ER Date of Admission: May Admitting Diagnosis: [id number].XXXA R42 I48.91 Community Care Provider: Anu Level of Care: /elle/ RICARDO COLEMAN Signed: 05/20/2024 11:38 Receipt Acknowledged By: 05/20/2024 16:00 /es/ RISSA MCGRAW D.O. PHYSICIAN 05/20/2024 11:50 /es/ Tess Kee MSN,RN,[facility] TRANSFER/TRAVELING COORDINATOR 05/20/2024 11:44 /es/ ABDON GUERRERO, MSN, RN, CNL PRIMARY CARE TEAM NURSE for ELEANOR AGUILERA 05/28/2024 ADDENDUM STATUS: COMPLETED dc home with services on 05/21. /es/ LEX OBRIEN MSN,RN,CNL Slip Filler Signed: 05/28/2024 15:50 RICARDO REBOLLAR [place]
--- OUTSIDE RECORDS SUMMARY | 2024-06-07 09:09 | XMS_ITS | Encounter Summary ---
Author Name [facility] Organization [facility] Address [address] [place] [id number] Care Team Providers Care Embalmer Assistant Name Role Phone RISSA MCGRAW Primary [...] GOOD FAMIL Y Jun 11, 2001 [id number] Venkat VELASQUEZ AVID PATIENT MEDICARE (WNR) MEDICARE (M) PART B Dec 09, 2008 PART B [id number] Venkat VELASQUEZ AVID PATIENT MEDICARE (WNR) MEDICARE (M) PART B Dec 09, 2008 PART B [id number] Venkat VELASQUEZ AVID PATIENT MEDICARE (WNR) MEDICARE (M) PART B Dec 09, 2008 PART B [id number] Venkat VELASQUEZ AVID PATIENT MEDICARE (WNR) MEDICARE (M) PART A Jun 11, 2007 PART A [id number] Venkat VELASQUEZ AVID PATIENT MEDICARE (WNR) MEDICARE (M) PART A Jun 11, 2007 PART A [id number] [phone] Venkat VELASQUEZ AVID PATIENT MEDICARE (WNR) MEDICARE (M) PART A Jun 11, 2007 PART A [id number] Venkat VELASQUEZ AVID PATIENT Selected Encounter This section includes the information on record at [place] for the Encounter. Date/Time Encounter Type Encounter Description Reason Pro vider Source May 20, 2024 01:30 PM Outpatient Encounter PRIMARY CARE/MEDICINE IHE Encounter Template Text not used by [place] Plan of Treatment: Future Appointments (+ 6 months) and Future Tests (+/- 45 days) The Plan of Treatment section includes future care activities for the [facility] This section includes future appointments and future orders which are active, pending or scheduled. Future Appointments This section includes appointments that were scheduled to occur 6 months from the date of the Encounter, up to a maximum of 20 appointments. The data comes from all [facility]. Appointment Date/Time Appointment Type Appointme nt Facility Name May 26, 2024 11:30 AM AMBULATORY - MEDICINE [facility] [place] [facility] Jun 06, 2024 02:30 PM AMBULATORY - MEDICINE [facility] [place] [facility] Jun 17, 2024 02:30 PM AMBULATORY - MEDICINE [facility] [place] [facility] Jul 23, 2024 02:30 PM AMBULATORY - MEDICINE [facility] [place] [facility] Jul 31, 2024 10:45 AM AMBULATORY - NONE [facility] [place] [facility] Aug 07, 2024 09:30 AM AMBULATORY - MEDICINE [facility] [place] [facility] Aug 27, 2024 01:00 PM AMBULATORY - NONE [facility] [place] [facility] November 04, 2024 02:00 PM AMBULATORY - MEDICINE [facility] [place] [facility] Active, Pending, and Scheduled Orders [...] MICROALBUMIN CREATININE RATIO PANEL URINE (RANDOM) SP [facility] May 26, 2024 12:09 PM Procedure Order ECHO CP CARDIOLOGY ECHO/ [facility] Proc [place] [facility] Lab Results: +/- 30 days of [...] Range Comment May 16, 2024 11:12 AM [facility] HEMOGLOBIN A1C PANEL Specimen Type: BLOOD Comment: Values obtained from A1C measurements can vary. For atypical A1C assays, a reported value of 7.0 could actually be between 6.72 and 7.28 if measured by a reference method. A reported value of 9.0 could actually be between 8.73 and 9.27. Ref: http://www.ngs p.org/CAPdata. asp Ordering Provider: RISSA MCGARW Report Released Date/Time: May 09, 2024 07:52 AM Reporting Lab: [facility] [address] [facility] [id number] Performing Lab: [address] [address] HEMOGLOBIN A1C 7.2 H 4.0-5.6 May 16, 2024 11:12 AM [facility] BASIC METABOLIC PANEL (fasting) Specimen Type: SERUM No comment entered. Ordering Provider: RISSA MCGRAW Report Released Date/Time: May 09, 2024 07:52 AM Reporting Lab: [address] [address] Performing Lab: [address] [address] UREA NITROGEN 13 mg/dL 7-25 GLUCOSE 201 [...] 2023 02:16 PM VA-TOBACCO NEVER USED [facility] Tobacco Use History This section includes a history of the smoking, or tobacco-related health factors, that were collected on or before the date of the Encounter. The data comes from the [place] facility where the Encounter took place. Date/Time Smoking Status/Tobac co Use Comment Facility May 09, 2022 10:45 AM [facility] Mar 30, 2021 01:02 PM VA-TOBACCO FORMER USER [facility] Mar 30, 2021 01:02 PM VA-TOBACCO QUIT 5 TO < 15 YRS [facility] Aug 31, 2004 09:56 AM HISTORY OF SMOKING QUIT 20 YEARS AGO [facility] Aug 08, 2004 02:45 PM LIFETIME [facility]ACCO [facility] Encounter Notes: All associated encounter notes This section contains the clinical notes associated to the Encounter. Date/Time Encounter Note(s) Provider Source May 26, 2024 11:10 AM ADMINISTRATIVE NOTE: LOCAL TITLE: FAX/MAIL RECEIVED STANDARD TITLE: ADMINISTRATIVE NOTE DATE OF NOTE: MAY 26, 2024@11:10 ENTRY DATE: MAY 26, 2024@11:10:06 AUTHOR: ARIEL GOTTLIEB EXP COSIGNER: URGENCY: STATUS: COMPLETED Document Received On: May Document Type: Emergency Department Note Date of Service: May Facility and or Provider: [facility] Contact Information: PCP of Record: FURCOLO,RISSA Next visit with PCP: 05/26/2024 11:30 CWM/NO/PACT EIGHT 07/23/2024 14:30 CWM/NO/PODIATRY/NAIL 07/31/2024 10:45 [facility] DENTAL RDH 1 AM 08/07/2024 09:30 CWM/NO/PACT EIGHT 11/04/2024 14:00 [facility]/OPTOMETRY/NOONAN/ Primary Care May keep copies of this document for up to 14 days and send the original for scanning. Age: 78 Years Sex: Male : 1945 Chief Complaint/Reason for Consultation Pt BIBA from home for dizziness at rest and n/v starting 4am. Unsteady gait. Hx CVA, afib, DM, etc. FAST 0. Nasal congestion yesterday History of Present Illness Patient is a poor historian. I have called the , but she did not know the details as well. I was able to confirm his medication list from [place] pharmacy. 78-year-old male with past medical history of traumatic brain injury, PTSD, A- fib (on apixaban), T2DM (insulin-dependent), fall and s/p displaced orbital fracture and right frontal lobe contusion in 2019 who presented to ED with dizziness. Patient reported that 2 days ago he was on the stairs and he fell backwards from about 10 steps. He was able to stand up and continue his routine. He did not develop any headache or problems. And yesterday night he and his went to theater and he ate some popcorn which meds include some salt .Early this morning he started having dizzy and spinning sensation when he woke up early. And he had NBNB and decided to come to the hospital. He also reports being unsteady on his feet if he lays down he does not have any significant complaints. Patient denies ear fullness, tinnitus, palpitation, chest pain, abdominal pain, diarrhea, headache. ED course remarkable for BP 159/101, afebrile, on room air saturating 99, heart rate 66 WBC 12.2 Creatinine 0.67, glucose 90, lipase 9, phosphorus 2.4 CT Head-Hyper Acute Stroke no acute intracranial abnormality CT angio head and neck hyperacute shows no large vessel occlusion in the head or neck, scattered atherosclerotic stenosis including moderate narrowing of bilateral intracranial ICAs, mild narrowing of bilateral cervical ICAs, and severe stenosis of the dominant left vertebral artery origin. 3.6 cm right thyroid nodules Patient is a . Denies illicit drug use Review of Systems None except as above Objective Vital Signs Temperature: 98 DegF (05/19/24 17:57:00) Temperature Route: Oral (05/19/24 17:57:00) Pulse Rate: 66 bpm (05/19/24 17:57:00) Respiratory Rate: 19 br/min (05/19/24 17:57:00) Systolic Blood Pressure: 159 mm Hg High (05/19/24 17:57:00) Diastolic Blood Pressure: 101 mm Hg High (05/19/24 17:57:00) Blood pressure sites: Arm, right (05/19/24 17:57:00) Mean Arterial Pressure: 120 mm Hg (05/19/24 17:57:00) Pulse Pressure: 58 mm Hg (05/19/24 17:57:00) Oxygen Saturation: 99 % (05/19/24 17:57:00) Mode of Delivery (Oxygen): Room air (05/19/24 17:57:00) Early Warning Score: 0 (05/19/24 19:13:27) Physical Exam Elderly male, not in acute distress, chronically ill appearance, lethargic, alert and oriented x 4, no nystagmus, no focal neurodeficits, alert and oriented x 4 S1-S2 normal, irregularly irregular rhythm, normal heart rate Bilateral lungs good air entry, no wheezing or crackles Abdomen soft, nontender, no rebound or guarding 1+ lower extremity pitting edema, peripheral pulses palpable Assessment/Plan Diagnoses Atrial fibrillation (I48.91) Chronic post-traumatic stress disorder (PTSD) after combat (F43.12) Depression (F32.A) Dizziness (R42) Fall at home (W19.XXXA) Hyperlipidemia (E78.5) Hypertension (I10) Nausea and vomiting (R11.2) T2DM (type 2 diabetes mellitus) (E11.9) Assessment: 78-year-old male with past medical history of traumatic brain injury, PTSD, A-fib (on apixaban), T2DM (insulin-dependent), fall and s/p displaced orbital fracture and right frontal lobe contusion in 2019 who presented to ED with dizziness. Chronic post-traumatic stress disorder (PTSD) after combat (F43.12) * Associated with Depression (F32.A) * Mood seems stable Continue with sertraline Hypertension (I10): Continue with amlodipine with hold parameters Continue with losartan with hold parameters Hold hydrochlorothiazide Atrial fibrillation (I48.91): EKG shows A-fib, rate controlled Digoxin level added on Continue with Eliquis Continue with metoprolol with hold parameters Continue with digoxin Hyperlipidemia (E78.5): Continue simvastatin 40 mg daily Dizziness (R42) * Associated with Nausea and vomiting (R11.2), Fall at home (W19.XXXA) * Patient presents with nausea vomiting and dizziness. Reports spinning sensation when he moves his head or stands up. Differential includes BPPV, central versus peripheral vertigo. Given persistent symptoms it is concerning for cerebellar stroke. Patient just got nausea and was feeling much better. He reports possible shrapnel in his body since the [place] War and he does not know if he ever got an MRI or not. The CT angio head and neck also showed no large vessel occlusion in the head or neck, scattered atherosclerotic stenosis including moderate narrowing of bilateral intracranial ICAs, mild narrowing of bilateral cervical ICAs, and severe stenosis of the dominant left vertebral artery origin. TTE in 2019 was a technically difficult study due to poor compliance but overall showed normal EF. If patient is persistently symptomatic tomorrow will need repeat TTE. Plan: Neurochecks every 4 hours Neurology consult and appreciate recommendations Carotid duplex ordered Telemetry monitoring A1c and lipid panel added on If patient is still symptomatic tomorrow morning may need full body x-ray to rule out shrapnel and then proceed with an MRI brain to rule out cerebellar stroke Prochlorperazine as needed Continue with apixaban and statin PT eval Added on B12 T2DM (type 2 diabetes mellitus) (E11.9): Patient reports using 40 units glargine at night, 15 units lispro 3 times daily with meals if he is having good meal, current fingerstick 90, he is unable to tolerate oral for now. Hold metformin, Jardiance POC glucose every 6 hours Sliding scale every 6 hours Will start long-acting when he is able to tolerate oral VTE Prophylaxis: Continue with Eliquis ? VTE Prophylaxis Assessment: VTE Prophylaxis Ordered Discharge Planning: Pending clinical course Ongoing Medical Necessity: Dizziness, lightheadedness,? vertigo, CVA Code Status: Full code /elle/ ARIEL GOTTLIEB LPN License Practical Nurse Signed: 05/26/2024 11:20 [facility]B [facility]
--- OUTSIDE RECORDS SUMMARY | 2024-06-07 09:09 | XMS_ITS | Encounter Summary ---
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 Name Role Phone BETSY DIAZ Primary Care [...] GOOD FAMIL Y Jun 11, [phone] [id number] Venkat VELASQUEZ AVID PATIENT MEDICARE (WNR) MEDICARE (M) PART B Dec 09, 2008 PART B [id number] Venkat VELASQUEZ AVID PATIENT MEDICARE (WNR) MEDICARE (M) PART B Dec 09, 2008 PART B [id number] Venkat VELASQUEZ AVID PATIENT MEDICARE (WNR) MEDICARE (M) PART B Dec 09, 2008 PART B [id number] Venkat VELASQUEZ AVID PATIENT MEDICARE (WNR) MEDICARE (M) PART A Jun 11, 2007 PART A [id number] Venkat VELASQUEZ AVID PATIENT MEDICARE (WNR) MEDICARE (M) PART A Jun 11, 2007 PART A [id number] [id number] Venkat VELASQUEZ AVID PATIENT MEDICARE (WNR) MEDICARE (M) PART A Jun 11, 2007 PART A [id number] [phone] Venkat VELASQUEZ AVID PATIENT Selected Encounter This section includes the information on record at [place] for the Encounter. Date/Time Encounter Type Encounter Description Reason Pro vider Source May 26, 2024 11:48 AM Outpatient Encounter PRIMARY CARE/MEDICINE IHE Encounter Template Text not used by ME Plan of Treatment: Future Appointments (+ 6 months) and Future Tests (+/- 45 days) The Plan of Treatment section includes future care activities for the [facility] This section includes future appointments and future orders which are active, pending or scheduled. Future Appointments This section includes appointments that were scheduled to occur 6 months from the date of the Encounter, up to a maximum of 20 appointments. The data comes from all [facility]. Appointment Date/Time Appointment Type Appointme nt Facility Name Jun 06, 2024 02:30 PM AMBULATORY - MEDICINE [facility] [place] [facility] Jun 17, 2024 02:30 PM AMBULATORY - MEDICINE [facility] [place] [facility] Jul 23, 2024 02:30 PM AMBULATORY - MEDICINE [facility] [place] [facility] Jul 31, 2024 10:45 AM AMBULATORY - NONE [facility] [place] [facility] Aug 07, 2024 09:30 AM AMBULATORY - MEDICINE [facility] [place] [facility] Aug 27, 2024 01:00 PM AMBULATORY - NONE [facility] [place] [facility] November 04, 2024 02:00 PM AMBULATORY - MEDICINE [facility] [place] [facility] Active, Pending, and Scheduled Orders This section includes a listing of several types of active, pending, and scheduled orders, including clinic medications orders, diagnostic test orders, procedure orders and consult orders; where the start date of the order is 45 days before the date of the Encounter or 45 days after the date of theEncounter. The data comes from all [facility]. Test Date/Time Test Type Test Details Facility Name May 09, 2024 12:00 AM Laboratory - Chemistry Order MICROALBUMIN CREATININE RATIO PANEL URINE (RANDOM) SP [facility] May 26, 2024 12:09 PM Procedure Order ECHO CP CARDIOLOGY ECHO/ [facility] Proc Plastic Cnc Machine Operator's Choice [facility] Lab Results: +/- 30 days of the [...] Range Comment May 16, 2024 11:12 AM [facility] HEMOGLOBIN A1C PANEL Specimen Type: BLOOD Comment: Values obtained from A1C measurements can vary. For atypical A1C assays, a reported value of 7.0 could actually be between 6.72 and 7.28 if measured by a reference method. A reported value of 9.0 could actually be between 8.73 and 9.27. Ref: http://www.ngs p.org/CAPdata. asp Ordering Provider: BETSY DIAZ Report Released Date/Time: May 09, 2024 07:52 AM Reporting Lab: [address] [id number] Performing Lab: [address] [address] HEMOGLOBIN A1C 7.2 H 4.0-5.6 May 16, 2024 11:12 AM [facility] BASIC METABOLIC PANEL (fasting) Specimen Type: SERUM No comment entered. Ordering Provider: BETSY DIAZ Report Released Date/Time: May 09, 2024 07:52 AM Reporting Lab: [address] [id number] Performing Lab: [address] [address] UREA NITROGEN 13 mg/dL 7-25 GLUCOSE 201 [...] Pain Height Weight Body Mass Index Source May 26, 2024 11:43 AM 97.8 46 115/91 16 98 1 185 30 [facility] Social History: Smoking Status (Most current) [...] took place. Date/Time Current Smoking Status Comment [facility] May 26, 2024 11:30 AM VA-TOBACCO USE FOR [facility]DRA [facility]TES [facility] Tobacco Use History This section includes a history of the smoking, or tobacco-related health factors, that were collected on or before the date of the Encounter. The data comes from the [place] facility where the Encounter took place. Date/Time Smoking Status/Tobac co Use Comment Facility May 26, 2024 11:30 AM VA-TOBACCO [facility] May 17, 2023 02:16 PM VA-TOBACCO NEVER USED [facility] [place] [facility] May 09, 2022 10:45 AM VA-TOBACCO NEVER USED [facility] [place] [facility] Mar 30, 2021 01:02 PM VA-TOBACCO FORMER USER [facility] [place] [facility] Mar 30, 2021 01:02 PM VA-TOBACCO QUIT 5 TO < 15 YRS [facility] [place] [facility] Aug 31, 2004 09:56 AM HISTORY OF SMOKING QUIT 20 YEARS AGO [facility] [place] [facility] Aug 08, 2004 02:45 PM LIFETIME NON-TOBACCO USER [facility] Encounter Notes: All associated encounter notes This section contains the clinical notes associated to the Encounter. Date/Time Encounter Note(s) Provider Source May 26, 2024 11:48 AM ADMINISTRATIVE NOTE: LOCAL TITLE: FAX/MAIL RECEIVED STANDARD TITLE: ADMINISTRATIVE NOTE DATE OF NOTE: MAY 26, 2024@11:48 ENTRY DATE: MAY 26, 2024@11:48:37 AUTHOR: ABDON GUERRERO COSIGNER: URGENCY: STATUS: COMPLETED Document Received On: May Document Type: Hospitalization Date of Service: May Facility and or Provider: [facility] Medical Contact Information: PCP of Record: BETSY DIAZ Next visit with PCP: 07/23/2024 14:30 CWM/NO/PODIATRY/NAIL 07/31/2024 10:45 [facility] DENTAL RDH 1 AM 08/07/2024 09:30 CWM/NO/PACT EIGHT 11/04/2024 14:00 [facility]/OPTOMETRY/NOONAN/ Primary Care May keep copies of this document for up to 14 days and send the original for scanning. Result date:05/21/2024 12:58Show Details Patient: BRIAN VELASQUEZ Age: 78 Years Sex: Male : 1945 Patient Information Discharge Location: [facility] Primary Care Physician: Betsy Diaz DO Admit Date/Time: 05/19/2024 12:39 Discharge Disposition Discharge Disposition: Home with Home Health Discharge Diagnosis Dizziness ([id number]) T2DM (type 2 diabetes mellitus) (E11.9) Dizziness (R42) Nausea and vomiting (R11.2) Hyperlipidemia (E78.5) Atrial fibrillation (I48.91) Hypertension (I10) Depression (F32.A) Chronic post-traumatic stress disorder (PTSD) after combat (F43.12) Fall at home (W19.XXXA) _ Discharge Medications Amlodipine (amLODIPine 10 mg oral tablet) 10 Milligram 1 tablet By Mouth Daily apixaban (Eliquis 5 mg oral tablet) 1 tab(s) 5 Milligram By Mouth 2 times a day Cholecalciferol (Vitamin D3) See Instructions By Mouth Daily 25 Microgram By Mouth Daily Digoxin (digoxin 0.25 mg oral tablet) 250 Microgram 1 tablet By Mouth Daily empagliflozin (Jardiance 25 mg oral tablet) 1 tab(s) 25 Milligram By Mouth Daily in AM Hydrochlorothiazide (hydrochlorothiazide 25 mg oral tablet) 25 Milligram 1 tablet By Mouth Daily Insulin Aspart (insulin aspart 100 units/mL subcutaneous solution) 26 unit(s) Subcutaneous Injection 3 times a day before meals <150: zero insulin, 151-200: 2 units, 201-250: 4 units, 251-300: 6 units, 301-350: 8 units, > 350: 10 units & Call PCP 28 Insulin Glargine (Lantus Inj) 55 unit(s) Subcutaneous Injection Daily at bedtime 40 Losartan (losartan 100 mg oral tablet) 0.7 Milligrams/Kilogram By Mouth Daily Meclizine (meclizine 12.5 mg oral tablet) 25 Milligram By Mouth 3 times a day as needed Other for 30 Days vertigo Metformin (metFORMIN 1000 mg oral tablet) 1 tab(s) 1,000 Milligram By Mouth 2 times a day Metoprolol (metoprolol succinate 100 mg oral capsule, extended release) 1 capsule 100 Milligram By Mouth Daily Miscellaneous Rx (1 walker) See Instructions 1 walkerdiagnosis: Peripheral vertigo, unstrady gait Multivitamin With Minerals (Multi-Day Plus Minerals) 1 tab(s) By Mouth Daily Sertraline (sertraline 100 mg oral tablet) 1 tab(s) 100 Milligram By Mouth Daily Simvastatin (simvastatin 40 mg oral tablet) 40 Milligram 1 tablet By Mouth Daily at bedtime Medications Started meclizine Allergies Allergies (Active and Proposed Allergies Only) Shrimp (Severity: Unknown severity, Onset: Unknown) PCP Follow-Up/Heads-Up F/u for vertigo. Objective Assessment and Plan 78-year-old male with past medical history of traumatic brain injury, PTSD, A- fib (on apixaban), T2DM (insulin-dependent), fall and s/p displaced orbital fracture and right frontal lobe contusion in 2019 who presented to ED with dizziness. Dizziness (R42) * Associated with Nausea and vomiting (R11.2), Fall at home (W19.XXXA) * Patient presents with nausea vomiting and dizziness. Reports spinning sensation when he moves his head or stands up. Differential includes BPPV, central versus peripheral vertigo. The CT angio head and neck also showed no large vessel occlusion in the head or neck, scattered atherosclerotic stenosis including moderate narrowing of bilateral intracranial ICAs, mild narrowing of bilateral cervical ICAs, and severe stenosis of the dominant left vertebral artery origin. Carotid duplex obtained, there is no severe stenosis on either side Seen by neuro, there is a suspicion for peripheral vertigo, will not pursue an MRI given suspicion of her shrapnel, repeat CT head ordered with findings as below: 1. No new acute intracranial hemorrhage or acute infarct. MRI of the brain is a more sensitive examination for the evaluation of acute ischemia/infarction which can be obtained for further evaluation.2. 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 A defect within the right superomedial orbital roof is compatible with previous trauma, and a small cephalocele extends into the defect. 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) * Associated with Depression (F32.A) * Mood seems stable Continue with sertraline Hypertension (I10): Continue with amlodipine with hold parameters Continue with losartan with hold parameters Continue hydrochlorothiazide Atrial fibrillation (I48.91): EKG shows A-fib, rate controlled Continue with Eliquis Continue with metoprolol with hold parameters Continue with digoxin Hyperlipidemia (E78.5): Continue simvastatin 40 mg daily T2DM (type 2 diabetes mellitus) (E11.9): Continue home medications on discharge Vital Signs Temperature: 98.1 DegF (05/21/24 10:00:00) Temperature Route: Oral (05/21/24 10:00:00) Pulse Rate: 71 bpm (05/21/24 10:49:00) Systolic Blood Pressure, Lyin mm Hg (05/21/24 08:27:00) Diastolic Blood Pressure, Lyin mm Hg (05/21/24 08:27:00) Systolic Blood Pressure, Sittin mm Hg (05/21/24 08:27:00) Diastolic Blood Pressure, Sittin mm Hg (05/21/24 08:27:00) Systolic Blood Pressure, Standin mm Hg (05/21/24 08:27:00) Diastolic Blood Pressure, Standin mm Hg (05/21/24 08:27:00) Respiratory Rate: 18 br/min (05/21/24 11:49:00) Systolic Blood Pressure: 150 mm Hg High (05/21/24 10:49:00) Diastolic Blood Pressure: 57 mm Hg (05/21/24 10:49:00) Blood pressure sites: Arm, right (05/21/24 07:00:00) Mean Arterial Pressure: 96 mm Hg (05/21/24 03:15:00) Pulse Pressure: 91 mm Hg (05/21/24 07:00:00) Oxygen Saturation: 98 % (05/21/24 07:00:00) Mode of Delivery (Oxygen): Room air (05/21/24 07:00:00) Early Warning Score: 0 (05/21/24 12:46:35) Mobility & Ambulation Level Mobility & Ambulation Level Ambulatory devices needed: Walker (05/19/24) Therapeutic Activity Therapeutic Activities/Mobility/Balance Comments on treatment indicated: 78-year-old man who presents to the emergency department for dizziness s/p fall on 05/17. WBAT.Rec: Home with services. (05/20/24 08:28:00) Plan of care PT: Gait training, Transfer training, Therapeutic exercise, Functional Activities, Balance training, Neuromuscular education (05/20/24 08:28:00) Problems PT: Impaired strength/ROM, Impaired balance (05/20/24 08:28:00) Treatment Indicated-PT: No (05/20/24 08:28:00) Discharge recommendations: Home with services (05/20/24 08:28:00) Ambulation, PT Plan: Independent (05/20/24 08:28:00) Barriers to goal achievement: None (05/20/24 08:28:00) Equipment PT: Walker (05/20/24 08:28:00) Facilitators to goal achievement: None (05/20/24 08:28:00) Goals Patient/Family: Return home (05/20/24 08:28:00) jail PT goals: At baseline for functional mobility (05/20/24 08:28:00) Plan Discussed w/Pt,Family/Agreed Upon: Yes (05/20/24 08:28:00) Plan discussed with care team PT: RN, education manager (05/20/24 08:28:00) PT Short Term Goals: IDEP c HEP (05/20/24 08:28:00) Rehab potential: Excellent (05/20/24 08:28:00) Physical Exam Constitutional: Alert, in no distress. Mental Status: Oriented to person, place and time. Head: Normocephalic. Eyes: Pupils are equal, round and reactive to light. Extraocular muscles intact. Ear, Nose and Throat: Oropharynx clear, mucous membranes moist. Ears and nose without masses, lesions or deformities. Trachea midline. Neck: Supple, Full range of motion. Respiratory: Clear to auscultation. No wheezing, rales or rhonchi. Cardiovascular: S1 S2 regular. No murmurs, rubs or gallops. Gastrointestinal: Abdomen soft, non-tender, non-distended. Normal bowel sounds. No pulsatile mass. No hepatosplenomegaly. Genitourinary: No costovertebral angle tenderness. Neurologic: Cranial nerves II-XII grossly intact. No focal neurological deficits. Flexor plantar response. Moves all extremities spontaneously. Sensation intact bilaterally. Skin: No rashes or lesions. No petechiae or purpura. Musculoskeletal: No cyanosis or clubbing. No gross deformities. Normal range of motion. Heme/Lymphatics/Immun: Palpation of neck reveals no swelling or tenderness of neck nodes. Palpation of groin reveals no swelling or tenderness of groin nodes. Psychiatric: Normal mood and affect [facility]. Pending Results Add On Lab Order ordered on 05/19/2024 Add On Lab Order ordered on 05/19/2024 Follow-Up Appointments Added Follow Up Time Frame Comments Betsy Diaz DO Within one week Patient Instructions Please make an appointment to follow-up with your primary care physician after discharge. Take meclizine as prescribed for dizziness Continue physical therapy at home Post Discharge Care Discharge * 05/21/24 11:41:00 EST * Order Comment: Discharge Prescriptions * ePrescribed, 05/21/24 11:41:00 EST * Order Comment: Home Health Face to Face *Denotes mandatory burton *I certify that this patient is under my care and that I or an allowed non- physician working with me had a face to face encounter with the patient on this date: 05/21/2024 15:10 *The encounter with the patient was in whole, or in part, for the following medical condition, which is the primary diagnosis(es) for home health care: Dizziness ([id number]) T2DM (type 2 diabetes mellitus) (E11.9) Dizziness (R42) Nausea and vomiting (R11.2) Hyperlipidemia (E78.5) Atrial fibrillation (I48.91) Hypertension (I10) Depression (F32.A) 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 Nursing (select all that apply): [_] None [x] Medication management (reconciliation, teaching) [x] Chronic disease management [_] Wound care and treatment [_] Home safety evaluation [_] Administer SQ/IM/IV medications [_] Cath care [_] Drain care [_] Trach or GT care Other _ Occupation Therapy (select all that apply): [_] None [_] ADL Management [_] Fall prevention training [_] Energy conservation [_] Cognitive training Other _ Physical Therapy (select all that apply): [_] None [x] Functional mobility training [x] Home exercise program to strengthen [x] Increase ROM [x] Falls prevention training [_] Home maintenance program for chronic disease Other _ Speech Therapy (select all that apply): [_] None [_] Swallow evaluation and training [_] Speech and language training [_] Cognitive training to process, organize, and/or recall information Other _ *Homebound due to (select all that apply): [_] Inability to leave home without assistance/supervision [_] Inability to ambulate without assistance [_] Pain [x] Decreased strength and endurance [_] Unsteady gait [_] Severe SOB and fatigue [_] Impaired transfers [_] Inability to negotiate stairs [_] Limited weight bearing [_] Mental status change *Physician Signature: Sheron Barfield MD *By signing this, I certify that I have personally evaluated the patient and agree with the findings and recommendations as documented above. Results Discharge Labs BLOOD COUNT & DIFF WBC 11.2 k/mm3 (High) 05/20/2024 01:14 RBC 4.83 m/mm3 () 05/20/2024 01:14 Hgb 14.8 Gm/dL () 05/20/2024 01:14 Hct 44.9 % () 05/20/2024 01:14 MCV 93.0 femtoliters () 05/20/2024 01:14 MCH 30.6 pg () 05/20/2024 01:14 MCHC 33.0 Gm/dL () 05/20/2024 01:14 Platelet Count 256 k/mm3 () 05/20/2024 01:14 RDW-SD 43.8 femtoliters () 05/20/2024 01:14 MPV 9.9 femtoliters () 05/20/2024 01:14 Nucleated RBC (Automated) 0.0 #/100 WBC'S () 05/20/2024 01:14 Abs. NRBC 0.0 k/mm3 () 05/20/2024 01:14 Abs. Neut 10.9 k/mm3 (High) 05/19/2024 14:57 Abs. Lymph 0.8 k/mm3 () 05/19/2024 14:57 Abs. [place] 0.4 k/mm3 () 05/19/2024 14:57 Abs. Eo 0.0 k/mm3 () 05/19/2024 14:57 Abs. Baso 0.0 k/mm3 () 05/19/2024 14:57 Neut % 89.0 % (High) 05/19/2024 14:57 Lymph % 6.5 % (Low) 05/19/2024 14:57 [place] % 3.3 % (Low) 05/19/2024 14:57 Eos % 0.3 % () 05/19/2024 14:57 Baso % 0.2 % () 05/19/2024 14:57 Imm Gran 0.7 % () 05/19/2024 14:57 Abs. Imm Gran 0.1 k/mm3 () 05/19/2024 14:57 CARDIAC High Sensitivity Troponin (HSTnT) 21 ng/L () 05/20/2024 01:14 CHEM GENERAL Sodium 141 mmol/L () 05/20/2024 01:14 Potassium 4.0 mmol/L () 05/20/2024 01:14 Chloride 104 mmol/L () 05/20/2024 01:14 Bicarbonate Level 22 mmol/L () 05/20/2024 01:14 Anion Gap 15 () 05/20/2024 01:14 Glucose Level 133 mg/dL (High) 05/20/2024 01:14 Glucose, POC 180 mg/dL (High) 05/21/2024 11:04 Hemoglobin A1C (Monitoring) 7.8 % (High) 05/19/2024 14:57 BUN 12 mg/dL () 05/20/2024 01:14 Creatinine-Blood 0.72 mg/dL () 05/20/2024 01:14 Estimated GFR Creatinine 94 ML/MIN/1.73 M2 () 05/20/2024 01:14 Calcium 9.1 mg/dL () 05/20/2024 01:14 Phosphorus 4.0 mg/dL () 05/20/2024 01:14 Magnesium 2.0 mg/dL () 05/20/2024 01:14 Protein, Total 6.3 Gm/dL () 05/20/2024 01:14 Albumin 3.6 Gm/dL () 05/20/2024 01:14 AG Ratio 1.3 () 05/20/2024 01:14 Alkaline Phosphatase 65 units/L () 05/20/2024 01:14 Lipase 9 units/L (Low) 05/19/2024 14:57 AST (SGOT) 20 units/L () 05/20/2024 01:14 ALT (SGPT) 12 units/L () 05/20/2024 01:14 Bilirubin, Total 0.5 mg/dL () 05/20/2024 01:14 Vitamin B12 Level 1297 pg/mL (High) 05/19/2024 14:57 LIPID STUDIES Cholesterol 91 mg/dL () 05/19/2024 14:57 Triglycerides 53 mg/dL () 05/19/2024 14:57 HDL Cholesterol 37 mg/dL (Low) 05/19/2024 14:57 LDL Cholesterol 43 mg/dL () 05/19/2024 14:57 Non HDL Cholesterol 54 mg/dL () 05/19/2024 14:57 TOXICOLOGY/TDM Digoxin Level 1.1 ng/mL () 05/19/2024 14:57 URINE OTHER Est Creatinine Clearance 81.23 mL/min () 05/20/2024 02:17 Blood Glucose Trend Glucose, POC: 180 mg/dL High (05/21/24 11:04:00) Glucose, POC: 128 mg/dL High (05/21/24 05:37:00) Glucose, POC: 160 mg/dL High (05/20/24 21:15:00) Glucose, POC: 146 mg/dL High (05/20/24 15:43:00) Glucose, POC: 207 mg/dL High (05/20/24 12:59:00) /elle/ ABDON GUERRERO, MSN, RN, CNL PRIMARY CARE TEAM NURSE Signed: 05/26/2024 11:50 Receipt Acknowledged By: 05/27/2024 11:28 /elle/ BETSY DIAZ D.O. PHYSICIAN ABDON GUERRERO [facility]
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
--- OUTSIDE RECORDS SUMMARY | 2024-06-07 09:09 | XMS_ITS | Encounter Summary ---
Author Name [facility] [place] Organization [place] Address [address] [place] [address] Care Team Providers Care Suction Roller Name Role Phone RISSA MCGRAW Primary Care [...] GOOD FAMIL Y Jun 11, 2000 105 [id number] [phone] Venkat VELASQUEZ AVID PATIENT MEDICARE (WNR) MEDICARE (M) PART B Dec 09, 2008 PART B [id number] [phone] Venkat VELASQUEZ AVID PATIENT MEDICARE (WNR) MEDICARE (M) PART B Dec 09, 2008 PART B [id number] 30A Venkat VELASQUEZ AVID PATIENT MEDICARE (WNR) MEDICARE (M) PART B Dec 09, 2008 PART B [id number] 30A Venkat VELASQUEZ AVID PATIENT MEDICARE (WNR) MEDICARE (M) PART A Jun 11, 2007 PART A [id number] Venkat VELASQUEZ AVID PATIENT MEDICARE (WNR) MEDICARE (M) PART A Jun 11, 2007 PART A [id number] 30A Venkat VELASQUEZ AVIVenkat PATIENT MEDICARE (WNR) MEDICARE (M) PART A Jun 11, 2007 PART A [id number] 30A Venkat VELASQUEZ AVIVenkat PATIENT Selected Encounter This section includes the information on record at [place] for the Encounter. Date/Time Encounter Type Encounter Description Reason Pro vider Source May 22, 2024 01:26 PM Outpatient Encounter ADMIN PAT ACTIVTIES (MASNONCT) IHE Encounter Template Text not used by [place] Plan of Treatment: Future Appointments (+ 6 [...] 26, 2024 11:30 AM AMBULATORY - MEDICINE [place] [facility] [place] [facility] Jun 06, 2024 02:30 PM AMBULATORY - MEDICINE [place] [facility] [place] [facility] Jun 17, 2024 02:30 PM AMBULATORY - MEDICINE [place] [facility] [place] [facility] Jul 23, 2024 02:30 PM AMBULATORY - MEDICINE [place] [facility] [place] [facility] Jul 31, 2024 10:45 AM AMBULATORY - NONE [place] [facility] [place] [facility] Aug 07, 2024 09:30 AM AMBULATORY - MEDICINE [place] [facility] [place] [facility] Aug 27, 2024 01:00 PM AMBULATORY - NONE [place] [facility] [place] [facility] November 04, 2024 02:00 PM AMBULATORY - MEDICINE [place] [facility] [place] [facility] Active, Pending, and Scheduled Orders This section includes a listing of several types of active, pending, and scheduled orders, including clinic medications orders, diagnostic test orders, procedure orders and consult orders; where the start date of the order is 45 days before the date of the Encounter or 45 days after the date of theEncounter. The data comes from all [place] treatment facilities. Test Date/Time Test Type Test Details Facility Name May 09, 2024 12:00 AM Laboratory - Chemistry Order MICROALBUMIN CREATININE RATIO PANEL URINE (RANDOM) SP [facility] May 26, 2024 12:09 PM Procedure Order ECHO CP CARDIOLOGY ECHO/ [facility] Proc Criminology Teacher's Choice [facility] Lab Results: +/- 30 days of [...] Range Comment May 16, 2024 11:12 AM [facility] HEMOGLOBIN A1C PANEL Specimen Type: BLOOD [...] May 09, 2024 07:52 AM Reporting Lab: [facility] [address] [facility] [address] Performing Lab: [address] [address] HEMOGLOBIN A1C 7.2 H 4.0-5.6 May 16, 2024 11:12 AM [facility] BASIC METABOLIC PANEL (fasting) Specimen Type: SERUM No comment entered. Ordering Provider: RISSA MCGRAW Report Released Date/Time: May 09, 2024 07:52 AM Reporting Lab: [facility] [address] [facility] [address] Performing Lab: [address] [address] UREA NITROGEN 13 mg/dL 7-25 GLUCOSE 201 [...] took place. Date/Time Current Smoking Status Comment [facility] it May 17, 2023 02:16 PM VA-TOBACCO NEVER USED [facility] Tobacco Use History This section includes a history of the smoking, or tobacco-related health factors, that were collected on or before the date of the Encounter. The data comes from the [place] facility where the Encounter took place. Date/Time Smoking Status/Tobac co Use Comment Facility May 09, 2022 10:45 AM [facility] Mar 30, 2021 01:02 PM VA-TOBACCO FORMER USER [place] [facility] [place] [facility] Mar 30, 2021 01:02 PM VA-TOBACCO QUIT 5 TO < 15 YRS [place] [facility] [place] [facility] Aug 31, 2004 09:56 AM HISTORY OF SMOKING QUIT 20 YEARS AGO [facility] [place] [facility] Aug 08, 2004 02:45 PM LIFETIME [facility]CO [facility] Encounter Notes: All associated encounter notes This section contains the clinical notes associated to the Encounter. Date/Time Encounter Note(s) Provider Source May 22, 2024 01:26 PM ADMINISTRATIVE NOTE: LOCAL TITLE: CCC: SCHEDULING ADMINISTRATION STANDARD TITLE: ADMINISTRATIVE NOTE DATE OF NOTE: MAY 22, 2024@13:26:16 ENTRY DATE: MAY 22, 2024@13:26:16 AUTHOR: DEREK MASTERS COSIGNER: URGENCY: STATUS: COMPLETED Patient Demographics Patient Name: BRIAN VELASQUEZ Patient Primary Phone: [phone] Patient Primary [address]: [address] [place] [id number] Patient : 1945 Patient Age: 78 Current Location: [facility] Call Back Number: [phone] Caller/Recipient Relation to Patient: Other If Other Describe Relation to Patient: Nurse Caller Name: Venus Administrative Administrative Note Reason: Home Health / Longterm Administrative Note Comments: Venus (Nurse-Oscarneema) called to report to PCP/PCP's nurse that she is with the for his first visit first and his heart rate is 47 and irregular and he is very dizzy. Venus states that she spoke with a triage nurse earlier and was advised to contact PCP/PCP's nurse directly. Venus is requesting a call back @ [phone] to advise her on any steps PCP/PCP's nurse would like her or the agency to take. Thank you. IMPORTANT: This note was created by [facility] Clinical Contact Center staff. Please do not alert the staff member by adding them as a signer for future communications. Alerts are not monitored by this user. /es/ DEREK COLEMAN Signed: 05/22/2024 13:26 Receipt Acknowledged By: 05/22/2024 15:59 /es/ ARIEL GOTTLIEB MEDICAL EDUCATION COORDINATOR License Practical Nurse 05/22/2024 15:19 /es/ Ailyn Chapman RN, BSN Primary Care Nurse Certified Dental Assistant for DEREK MULLINS [facility]
--- OUTSIDE RECORDS SUMMARY | 2024-06-07 09:09 | XMS_ITS | Encounter Summary ---
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 Name Role Phone RISSA MCGRAW Primary [...] GOOD FAMIL Y Jun 11, 2000 105 [id number] [phone] Venkat VELASQUEZ AVID PATIENT MEDICARE (WNR) MEDICARE (M) PART B Dec 09, 2008 PART B [id number] Venkat VELASQUEZ AVID PATIENT MEDICARE (WNR) MEDICARE (M) PART B Dec 09, 2008 PART B [id number] 30A Venkat VELASQUEZ AVID PATIENT MEDICARE (WNR) MEDICARE (M) PART B Dec 09, 2008 PART B [id number] 30A Venkat VELASQUEZ AVID PATIENT MEDICARE (WNR) MEDICARE (M) PART A Jun 11, 2007 PART A [id number] Venkat VELASQUEZ AVID PATIENT MEDICARE (WNR) MEDICARE (M) PART A Jun 11, 2007 PART A [id number] 30A [id number] Venkat VELASQUEZ AVID PATIENT MEDICARE (WNR) MEDICARE (M) PART A Jun 11, 2007 PART A [id number] 30A Venkat VELASQUEZ AVIVenkat PATIENT Selected Encounter This section includes the information on record at [place] for the Encounter. Date/Time Encounter Type Encounter Description Reason Pro vider Source May 21, 2024 08:23 AM Outpatient Encounter DENTAL IHE Encounter Template Text not used by [place] Plan of Treatment: Future Appointments (+ 6 months) and Future Tests (+/- 45 days) The Plan of Treatment section includes future care activities for the [facility] [place] [facility] This section includes future appointments and future orders which are active, pending or scheduled. Future Appointments This section includes appointments that were scheduled to occur 6 months from the date of the Encounter, up to a maximum of 20 appointments. The data comes from all [facility]. Appointment Date/Time Appointment Type Appointme nt Facility Name May 26, 2024 11:30 AM AMBULATORY [place] MEDICINE [place] [facility] [place] [facility] Jun 06, 2024 02:30 PM AMBULATORY [place] MEDICINE [place] [facility] [facility] Jun 17, 2024 02:30 PM AMBULATORY - MEDICINE [place] [facility] [place] [facility] Jul 23, 2024 02:30 PM AMBULATORY - MEDICINE [place] [facility] [place] [facility] Jul 31, 2024 10:45 AM AMBULATORY - NONE [place] [facility] [place] [facility] Aug 07, 2024 09:30 AM AMBULATORY - MEDICINE [place] [facility] [place] [facility] Aug 27, 2024 01:00 PM AMBULATORY - NONE [place] [facility] [place] [facility] November 04, 2024 02:00 PM AMBULATORY - MEDICINE [place] [facility] [place] [facility] Active, Pending, and Scheduled Orders [...] Order ECHO CP CARDIOLOGY ECHO/ NHM Proc Manager Cardiology's Choice [facility] Lab Results: +/- 30 days of the encounter This section includes the Chemistry and Hematology Lab Results on record with [place] for the patient. Radiology Reports and Pathology [...] May 09, 2024 07:52 AM Reporting Lab: [address] [id number] Performing Lab: [address] [address] HEMOGLOBIN A1C 7.2 H 4.0-5.6 May 16, 2024 11:12 AM [facility] BASIC METABOLIC PANEL (fasting) Specimen Type: SERUM No comment entered. Ordering Provider: RISSA MCGRAW Report Released Date/Time: May 09, 2024 07:52 AM Reporting Lab: [address] [address] Performing Lab: [address] [address] UREA NITROGEN 13 mg/dL 7-25 GLUCOSE 201 [...] and tobacco- related health factors from the [place] facility where the Encounter took place. Current Smoking Status This section includes the most current smoking, or tobacco-related health factor, from the [place] facility where the Encounter took place. Date/Time Current Smoking Status Comment [facility] May 17, 2023 02:16 PM [facility]CO [facility] Tobacco Use History This section includes a history of the smoking, or tobacco-related health factors, that were collected on or before the date of the Encounter. The data comes from the [place] facility where the Encounter took place. Date/Time Smoking Status/Tobac co Use Comment Facility May 09, 2022 10:45 AM VA-TOBACCO NEVER USED [place] [facility] [place] [facility] Mar 30, 2021 01:02 PM VA-TOBACCO FORMER USER [place] [facility] [facility] Mar 30, 2021 01:02 PM VA-TOBACCO QUIT 5 TO < 15 YRS [place] [facility] [place] [facility] Aug 31, 2004 09:56 AM HISTORY OF SMOKING QUIT 20 YEARS AGO [place] [facility] [place] [facility] Aug 08, 2004 02:45 PM LIFETIME NON-TOBACCO [facility] Encounter Notes: All associated encounter notes This section contains the clinical notes associated to the Encounter. Date/Time Encounter Note(s) Provider Source May 21, 2024 08:23 AM DENTISTRY TELEPHON E ENCOUNTER NOTE: LOCAL TITLE: TELEPHONE NOTE/DENTAL STANDARD TITLE: DENTISTRY TELEPHONE ENCOUNTER NOTE DATE OF NOTE: MAY 21, 2024@08:23 ENTRY DATE: MAY 21, 2024@08:24:24 AUTHOR: ANISH PARSONS EXP COSIGNER: URGENCY: STATUS: COMPLETED Spoke with pt's to confirm pt's dental appointment on 05/22/2024 at 11:00 am. patient is in the hospital with no discharge date as of yet. Will call to reschedule at a later date. rtc pid 05/22/2024 has been dispositioned. denture adj /es/ ANISH PASRONS ADVANCED UNDERGROUND REPAIRER Signed: 05/21/2024 08:26 ANISH PARSONS [facility]L [facility]
--- OUTSIDE RECORDS SUMMARY | 2024-06-07 09:09 | XMS_ITS | Encounter Summary ---
Author Name [place] Address [address] [place] [address] Care Team Providers Care Spinner Cap Frame Name Role Phone RISSA MCGRAW Primary Care [...] GOOD FAMIL Y Jun 11, 2000 105 [id number] Venkat VELASQUEZ AVID PATIENT MEDICARE (WNR) MEDICARE (M) PART B Dec 09, 2008 PART B [id number] Venkat VELASQUEZ AVID PATIENT MEDICARE (WNR) MEDICARE (M) PART B Dec 09, 2008 PART B [id number] 30A [phone] Venkat VELASQUEZ AVID PATIENT MEDICARE (WNR) MEDICARE (M) PART B Dec 09, 2008 PART B [id number] [id number] [phone] Venkat VELASQUEZ AVID PATIENT MEDICARE (WNR) MEDICARE (M) PART A Jun 11, 2007 PART A [id number] Venkat VELASQUEZ AVID PATIENT MEDICARE (WNR) MEDICARE (M) PART A Jun 11, 2007 PART A [id number] 30A Venkat VELASQUEZ AVID PATIENT MEDICARE (WNR) MEDICARE (M) PART A Jun 11, 2007 PART A [id number] 30A [phone] Venkat VELASQUEZ AVID PATIENT Selected Encounter This section includes the information on record at [place] for the Encounter. Date/Time Encounter Type Encounter Description Reason Pro vider Source May 22, 2024 03:20 PM Outpatient Encounter PRIMARY CARE/MEDICINE IHE Encounter Template Text not used by [place] Plan of Treatment: Future Appointments (+ 6 months) and Future Tests (+/- 45 days) The Plan of Treatment section includes future care activities for the patient from [facility] [place] [facility]. This section includes future appointments and future orders which are active, pending or scheduled. Future Appointments This section includes appointments that were scheduled to occur 6 months from the date of the Encounter, up to a maximum of 20 appointments. The data comes from all [facility]. Appointment Date/Time Appointment Type Appointme nt Facility Name May 26, 2024 11:30 AM AM[place]ULATORY [place]ICINE [place] [facility] Jun 06, 2024 02:30 PM AMBULATORY - MEDICINE [place] [facility] Jun 17, 2024 02:30 PM AMBULATORY - MEDICINE [place] [facility] Jul 23, 2024 02:30 PM AMBULATORY - MEDICINE [place] [facility] Jul 31, 2024 10:45 AM AMBULATORY - NONE [place] [facility] [facility] Aug 07, 2024 09:30 AM AMBULATORY - MEDICINE [place] [facility] Aug 27, 2024 01:00 PM AMBULATORY - NONE [place] [facility] November 04, 2024 02:00 PM AMBULATORY - MEDICINE [place] [facility] Active, Pending, and Scheduled Orders [...] MICROALBUMIN CREATININE RATIO PANEL URINE (RANDOM) SP [facility] May 26, 2024 12:09 PM Procedure Order ECHO CP CARDIOLOGY ECHO/ NHM Proc Hearing Therapy Teacher's Choice [facility] Lab Results: +/- 30 days of [...] Range Comment May 16, 2024 11:12 AM [facility] HEMOGLOBIN A1C PANEL Specimen Type: BLOOD [...] May 09, 2024 07:52 AM Reporting Lab: [facility] [address] [address] Performing Lab: [address] [address] HEMOGLOBIN A1C 7.2 H 4.0-5.6 May 16, 2024 11:12 AM [facility] BASIC METABOLIC PANEL (fasting) Specimen Type: SERUM No comment entered. Ordering Provider: RISSA MCGRAW Report Released Date/Time: May 09, 2024 07:52 AM Reporting Lab: [address] [address] Performing Lab: [address] [address] UREA NITROGEN 13 mg/dL 7-25 GLUCOSE 201 [...] took place. Date/Time Current Smoking Status Comment [facility] May 17, 2023 02:16 PM VA-TOBACCO NEVER USED [facility] Tobacco Use History This section includes a history of the smoking, or tobacco-related health factors, that were collected on or before the date of the Encounter. The data comes from the [place] facility where the Encounter took place. Date/Time Smoking Status/Tobac co Use Comment Facility May 09, 2022 10:45 AM [facility] Mar 30, 2021 01:02 PM VA-TOBACCO FORMER USER [place] [facility] Mar 30, 2021 01:02 PM VA-TOBACCO QUIT 5 TO < 15 YRS [facility] [place] [facility] Aug 31, 2004 09:56 AM HISTORY OF SMOKING QUIT 20 YEARS AGO [facility] [place] [facility] Aug 08, 2004 02:45 PM LIFETIME NON-TOBACCO [facility]ER [facility] Encounter Notes: All associated encounter notes This section contains the clinical notes associated to the Encounter. Date/Time Encounter Note(s) Provider Source May 22, 2024 03:20 PM PRIMARY CARE TELEP JAISON ENCOUNTER NOTE: LOCAL TITLE: TELEPHONE NOTE/PRIMARY CARE STANDARD TITLE: PRIMARY CARE TELEPHONE ENCOUNTER NOTE DATE OF NOTE: MAY 22, 2024@15:20 ENTRY DATE: MAY 22, 2024@15:20:09 AUTHOR: AILYN CHAPMAN EXP COSIGNER: URGENCY: STATUS: COMPLETED TELEPHONE NOTE/PRIMARY CARE Has ADDENDA returned call to Nancie RICHARD was dicharged from hospital yesterday 05/21 after being admitted for dizziness He is still unsteady on his feet and has multiple skin tears they will be seeing him 1-2 times per week HH RN reports HR 47 BP 140/82 requesting parameters from PCP for HC nurses to update PCP team per our records HR ranges from 43-64 Dr Mcgraw Please advise of acceptable range of HR Kristian please call to schedule hospital follow up Ty /elle/ Ailyn Chapman RN, BSN Primary Care Nurse Push Bench Operator Helper Signed: 05/22/2024 15:25 Receipt Acknowledged By: 05/23/2024 15:19 /elle/ RISSA MCGRAW D.O. PHYSICIAN 05/22/2024 15:44 /elle/ KRISTIAN COLEMAN 05/22/2024 ADDENDUM STATUS: COMPLETED [facility] CALLED ON TELEPHONE AND SCHEDULED AN APPT SET FOR May @ 11:30AM /daniel COLEMAN Signed: 05/22/2024 15:45 05/23/2024 ADDENDUM STATUS: COMPLETED needs hospital follow-up to confirm medications- if any changes made. ideally HR >60 and BP >100/80 he is on a combo pill of HCTZ/losartan and metoprolol which both cause low HR. would HOLD metoprolol for HR <60 /elle/ RISSA MCGRAW D.O. PHYSICIAN Signed: 05/23/2024 15:24 [facility]
--- OUTSIDE RECORDS SUMMARY | 2024-06-07 09:10 | XMS_ITS | Encounter Summary ---
Author Name [place] Organization [place] Address [address] [place] [address] Care Team Providers Care Labor Crew Supervisor Name Role Phone RISSA MCGRAW Primary [...] GOOD FAMIL Y Jun 11, 2000 105 [id number] Venkat VELASQUEZ AVID PATIENT MEDICARE (WNR) MEDICARE (M) PART B Dec 09, 2008 PART B [id number] Venkat VELASQUEZ AVID PATIENT MEDICARE (WNR) MEDICARE (M) PART B Dec 09, 2008 PART B [id number] 30A [phone] Venkat VELASQUEZ AVID PATIENT MEDICARE (WNR) MEDICARE (M) PART B Dec 09, 2008 PART B [id number] 30A [phone] Venkat VELASQUEZ AVID PATIENT MEDICARE (WNR) MEDICARE (M) PART A Jun 11, 2007 PART A [id number] Venkat VELASQUEZ AVID PATIENT MEDICARE (WNR) MEDICARE (M) PART A Jun 11, 2007 PART A [id number] 30A Venkat VELASQUEZ AVIVenkat PATIENT MEDICARE (WNR) MEDICARE (M) PART A Jun 11, 2007 PART A [id number] 30A [phone] Venkat VELASQUEZ PATIENT Selected Encounter This section includes the information on record at [place] for the Encounter. Date/Time Encounter Type Encounter Description Reason Pro vider Source Jun 05, 2024 03:03 PM Outpatient Encounter ADMIN PAT ACTIVTIES (MASNONCT) IHE Encounter Template Text not used by [place] Plan of Treatment: Future Appointments (+ 6 months) and Future Tests (+/- 45 days) The Plan of Treatment section includes future care activities for the patient from all [place] [facility] This section includes future appointments and future orders which are active, pending or scheduled. Future Appointments This section includes appointments that were scheduled to occur 6 months from the date of the Encounter, up to a maximum of 20 appointments. The data comes from all [facility]. Appointment Date/Time Appointment Type Appointme nt Facility Name Jun 06, 2024 02:30 PM AMBULATORY - MEDICINE [place] [facility] Jun 17, 2024 02:30 PM AMBULATORY - MEDICINE [place] [facility] Jul 23, 2024 02:30 PM AMBULATORY - MEDICINE IN [place] [facility] Jul 31, 2024 10:45 AM AMBULATORY - NONE IN [place] [facility] Aug 07, 2024 09:30 AM AMBULATORY - MEDICINE IN C [place] [facility] Aug 27, 2024 01:00 PM AMBULATORY - NONE IN [place] [facility] November 04, 2024 02:00 PM AMBULATORY - MEDICINE [facility] [place] [facility] Active, Pending, and Scheduled Orders This section includes a listing of several types of active, pending, and scheduled orders, including clinic medications orders, diagnostic test orders, procedure orders and consult orders; where the start date of the order is 45 days before the date of the Encounter or 45 days after the date of theEncounter. The data comes from all [facility]. Test Date/Time Test Type Test Details Facility Name May 09, 2024 12:00 AM Laboratory - Chemistry Order MICROALBUMIN CREATININE RATIO PANEL URINE (RANDOM) SP [facility] May 26, 2024 12:09 PM Procedure Order ECHO CP CARDIOLOGY ECHO/ NHM Proc Broadcast Engineer's Choice [facility] Lab Results: +/- 30 days of the [...] Range Comment May 16, 2024 11:12 AM [facility] HEMOGLOBIN A1C PANEL Specimen Type: BLOOD Comment: [...] May 09, 2024 07:52 AM Reporting Lab: [address] [address] Performing Lab: [address] [address] HEMOGLOBIN A1C 7.2 H 4.0-5.6 May 16, 2024 11:12 AM [facility] BASIC METABOLIC PANEL (fasting) Specimen Type: SERUM No comment entered. Ordering Provider: RISSA MCGRAW Report Released Date/Time: May 09, 2024 07:52 AM Reporting Lab: [address] [address] Performing Lab: [address] [address] UREA NITROGEN 13 mg/dL 7-25 GLUCOSE 201 [...] took place. Date/Time Current Smoking Status Comment [facility] May 26, 2024 11:30 AM VA-TOBACCO USE FOR K[facility]AN[facility] Use History This section includes a history of the smoking, or tobacco-related health factors, that were collected on or before the date of the Encounter. The data comes from the [place] facility where the Encounter took place. Date/Time Smoking Status/Tobac co Use Comment Facility May 26, 2024 11:30 AM VA-TOBACCO USE FORMER CIGARETTES IN [place] [facility] May 17, 2023 02:16 PM VA-TOBACCO NEVER USED IN [facility] [place] [facility] May 09, 2022 10:45 AM VA-TOBACCO NEVER USED IN [facility] [place] [facility] Mar 30, 2021 01:02 PM VA-TOBACCO FORMER USER IN [place] [place] [facility] Mar 30, 2021 01:02 PM VA-TOBACCO QUIT 5 TO < 15 YRS IN [facility] [place] [facility] Aug 31, 2004 09:56 AM HISTORY OF SMOKING QUIT 20 YEARS AGO IN [place] [facility] Aug 08, 2004 02:45 PM LIFETIME NON-TOBACCO USER IN [place] [facility] Encounter Notes: All associated encounter notes This section contains the clinical notes associated to the Encounter. Date/Time Encounter Note(s) Provider Source Jun 05, 2024 03:03 PM ADMINISTRATIVE NOT E: LOCAL TITLE: CCC: SCHEDULING ADMINISTRATION STANDARD TITLE: ADMINISTRATIVE NOTE DATE OF NOTE: JUN 05, 2024@15:03:29 ENTRY DATE: JUN 05, 2024@15:03:30 AUTHOR: AARON CARDONA EXP COSIGNER: URGENCY: STATUS: COMPLETED CCC: SCHEDULING ADMINISTRATION Has ADDENDA Patient Demographics Patient Name: BRIAN VELASQUEZ JR Patient Primary Phone: [phone] Patient Primary Address: [address] [place] [address] Patient : 1945 Patient Age: 78 Caller/Recipient Relation to Patient: Other If Other Describe Relation to Patient: roman Caller Name: breanna Administrative Administrative Note Reason: Other Administrative Note Comments: Breanna with Roman has a question regarding diagnosis Breanna can be reached at [phone] IMPORTANT: This note was created by [facility] Clinical Contact Center staff. Please do not alert the staff member by adding them as a signer for future communications. Alerts are not monitored by this user. /elle/ AARON JAFFE 1 [facility] Signed: 06/05/2024 15:03 Receipt Acknowledged By: 06/06/2024 10:43 /elle/ ARIEL GOTTLIEB LPN License Practical Nurse 06/06/2024 12:32 /elle/ Ailyn Chapman RN, BSN Primary Care Nurse Research Interviewer for ABDON Woodward CESAR 06/06/2024 ADDENDUM STATUS: COMPLETED [facility] who stated that hte diagnosis of dizziness cannot be used. The cause of dizziness needs to be clarified. Per the MD's notes, the has afib and is on multiple medications. The heart reate is inthe 40s, and a dose reduction has been implemented. Home VNA will monitor BP/HR trend. The dosage will cont to be adjusted goal HR >60. If bradycardia persists, the will referred to cardiology for pacemaker evaluation. Breanna appreciative of the call and indicated that AFib is an acceptable diagnosis. /elle/ ARIEL GOTTLIEB LPN License Practical Nurse Signed: 06/06/2024 11:16 AARON CARDONA [facility]
--- OUTSIDE RECORDS SUMMARY | 2024-06-07 09:10 | XMS_ITS | Encounter Summary ---
Author Name [facility] [place] [facility] [place] Organization [facility] [place] [facility] [place] Address [address] [place] [id number] Care Team Providers Care Film Sorter Name Role Phone RISSA MCGRAW Primary [...] GOOD FAMIL Y Jun 11, [phone] [id number] [phone] Venkat VELASQUEZ AVID PATIENT MEDICARE (WNR) MEDICARE (M) PART B Dec 09, 2008 PART B [id number] [phone] Venkat VELASQUEZ AVID PATIENT MEDICARE (WNR) MEDICARE (M) PART B Dec 09, 2008 PART B [id number] [phone] Venkat VELASQUEZ AVID PATIENT MEDICARE (WNR) MEDICARE (M) PART B Dec 09, 2008 PART B [id number] 30A Venkat VELASQUEZ AVID PATIENT MEDICARE (WNR) MEDICARE (M) PART A Jun 11, 2007 PART A [id number] Venkat VELASQUEZ AVID PATIENT MEDICARE (WNR) MEDICARE (M) PART A Jun 11, 2007 PART A [id number] 30A Venkat VELASQUEZ AVIVenkat PATIENT MEDICARE (WNR) MEDICARE (M) PART A Jun 11, 2007 PART A [id number] [phone] Venkat VELASQUEZ PATIENT Selected Encounter This section includes the information on record at [place] for the Encounter. Date/Time Encounter Type Encounter Description Reason Pro vider Source May 27, 2024 11:56 AM Outpatient Encounter ADMIN PAT ACTIVTIES (MASNONCT) IHE Encounter Template Text not used by [place] Plan of Treatment: Future Appointments (+ 6 months) and Future Tests (+/- 45 days) The Plan of Treatment section includes future care activities for the patient from all [place] [facility]. This section includes future appointments and future orders which are active, pending or scheduled. Future Appointments This section includes appointments that were scheduled to occur 6 months from the date of the Encounter, up to a maximum of 20 appointments. The [facility] Appointment Date/Time Appointment Type Appointme nt Facility Name Jun 06, 2024 02:30 PM AMBULATORY - MEDICINE [place] [facility] [place] [facility] Jun 17, 2024 02:30 PM AMBULATORY - MEDICINE [place] [facility] [place] [facility] Jul 23, 2024 02:30 PM AMBULATORY - MEDICINE [place] [facility] [place] [facility] Jul 31, 2024 10:45 AM AMBULATORY - NONE [facility] [place] [facility] Aug 07, 2024 09:30 AM AMBULATORY - MEDICINE [facility] [place] [facility] Aug 27, 2024 01:00 PM AMBULATORY - NONE [facility] [place] [facility] November 04, 2024 02:00 PM AMBULATORY - MEDICINE [facility] [place] [facility] Active, Pending, and Scheduled Orders This section includes a listing of several types of active, pending, and scheduled orders, including clinic medications orders, diagnostic test orders, procedure orders and consult orders; where the start date of the order is 45 days before the date of the Encounter or 45 days after the date of theEncounter. The data comes from [facility]. Test Date/Time Test Type Test Details Facility Name May 09, 2024 12:00 AM Laboratory - Chemistry Order MICROALBUMIN CREATININE RATIO PANEL URINE (RANDOM) SP [facility] May 26, 2024 12:09 PM Procedure Order ECHO CP CARDIOLOGY ECHO/ NHM Proc Manager Psychiatry's Choice [facility] Lab Results: +/- 30 days [...] Range Comment May 16, 2024 11:12 AM [facility] HEMOGLOBIN A1C PANEL Specimen Type: BLOOD [...] 09, 2024 07:52 AM Reporting Lab: [address] [address] Performing Lab: [address] [address] HEMOGLOBIN A1C 7.2 H 4.0-5.6 May 16, 2024 11:12 AM [facility] BASIC METABOLIC PANEL (fasting) Specimen Type: SERUM No comment entered. Ordering Provider: RISSA MCGRAW Report Released Date/Time: May 09, 2024 07:52 AM Reporting Lab: [address] [address] Performing Lab: [address] [address] UREA NITROGEN 13 mg/dL 7-25 GLUCOSE 201 [...] took place. Date/Time Current Smoking Status Comment [facility] May 26, 2024 11:30 AM VA-TOBACCO USE FOR KASANDRA CIGARETTES [facility] Tobacco Use History This section includes a history of the smoking, or tobacco-related health factors, that were collected on or before the date of the Encounter. The data comes from the [place] facility where the Encounter took place. Date/Time Smoking Status/Tobac co Use Comment Facility May 26, 2024 11:30 AM VA-TOBACCO USE FORMER CIGARETTES [facility] [place] [facility] May 17, 2023 02:16 PM VA-TOBACCO NEVER USED [facility] [facility] May 09, 2022 10:45 AM VA-TOBACCO NEVER USED [facility] [place] [facility] Mar 30, 2021 01:02 PM VA-TOBACCO FORMER USER [facility] [place] [facility] Mar 30, 2021 01:02 PM VA-TOBACCO QUIT 5 TO < 15 YRS [facility] [place] [facility] Aug 31, 2004 09:56 AM HISTORY OF SMOKING QUIT 20 YEARS AGO [facility] [place] [facility] Aug 08, 2004 02:45 PM LIFETIME NON-TOBACCO USER [facility] [place] [facility] Encounter Notes: All associated encounter notes This section contains the clinical notes associated to the Encounter. Date/Time Encounter Note(s) Provider Source May 28, 2024 03:59 PM ADDENDUM: LOCAL TITLE: Addendum STANDARD TITLE: ADDENDUM DATE OF NOTE: MAY 28, 2024@15:59:35 ENTRY DATE: MAY 28, 2024@15:59:36 AUTHOR: CRYSTAL WILKERSON EXP COSIGNER: URGENCY: STATUS: COMPLETED Called and spoke to CHARIS and Patient seperately. Will make changes as follows: - CONTINUE Metformin 1000 mg twice daily - DECREASE Insulin glargine-yfgn 36 units daily - DECREASE insulin aspart VIA SLIDING SCALE PRIOR TO SUPPER ONLY - CONTINUE empagliflozin 25 mg once daily AMSA, please schedule appointment for: - Cwm/No/Pharm/Pact 2 Please schedule for 06/06/24 @ 1430 Thank you! /es/ CRYSTAL WILKERSON PHARMVenkat, BCPS CLINICAL PHARMACIST PRACTITIONER Signed: 05/28/2024 16:01 Receipt Acknowledged By: 05/29/2024 07:15 /elle/ ARIEL GOTTLIEB LPN License Practical Nurse 05/29/2024 08:36 /es/ KRISTIAN SILVA AMSA --- Original Document --- 05/27/24 CCC: SCHEDULING ADMINISTRATION: Patient Demographics Patient Name: BRIAN VELASQUEZ JR Patient Primary Phone: [phone] Patient Primary [address]: [address] [place] [address] Patient : 1945 Patient Age: 78 Current Location: [facility] Call Back Number: [phone] Caller/Recipient Relation to Patient: Other If Other Describe Relation to Patient: VNA Caller Name: CHARIS Administrative Administrative Note Reason: Home Health / Fdc Administrative Note Comments: CHARIS REQUESTING CALL BACK TO CLARIFY PT'S MEDS, METOPROLOL AND INSULIN, ALSO REPORTS PT'S FASTING BS WAS 60 YESTERDAY. IMPORTANT: This note was created by [facility] staff. Please do not alert the staff member by adding them as a signer for future communications. Alerts are not monitored by this user. /es/ PATRICK JAFFE 1 [facility] AMSA Signed: 05/27/2024 11:56 Receipt Acknowledged By: 05/28/2024 15:12 /elle/ ARIEL GOTTLIEB LPN License Practical Nurse * AWAITING SIGNATURE * ABDON GUERRERO 05/28/2024 ADDENDUM STATUS: COMPLETED spoke with Charis, verified decrease in metoprolol dose. Charis reports 's insulin orders from hospital are for to administer 10 units of aspart insulin with every meal, plus an additional 2 units if blood sugar is over 151 mg/dl, incrasing by 2 units for every 50 mg/dl increase in blood sugar. refuses to admnsiter insulin aspart if his blood sugar is below 130 mg/dl. Charis report fasting am sugar on 05/26 , on 05/27 100. Borger also on long acting insulin of 40 units. Will defer to clinical pharmacist. /elle/ ARIEL GOTTLIEB LPN License Practical Nurse Signed: 05/28/2024 15:24 Receipt Acknowledged By: 05/28/2024 16:03 /elle/ CRYSTAL WILKERSON PHARMD, BCPS CLINICAL PHARMACIST PRACTITIONER CRYSTAL WILKERSON [facility] [place] [facility] May 28, 2024 03:12 PM ADDENDUM: LOCAL TITLE: Addendum STANDARD TITLE: ADDENDUM DATE OF NOTE: MAY 28, 2024@15:12:30 ENTRY DATE: MAY 28, 2024@15:12:31 AUTHOR: ARIEL GOTTLIEB EXP COSIGNER: URGENCY: STATUS: COMPLETED spoke with Charis, verified decrease in metoprolol dose. Charis reports 's insulin orders from hospital are for to administer 10 units of aspart insulin with every meal, plus an additional 2 units if blood sugar is over 151 mg/dl, incrasing by 2 units for every 50 mg/dl increase in blood sugar. refuses to admnsiter insulin aspart if his blood sugar is below 130 mg/dl. Charis report fasting am sugar on 05/26 , on 05/27 100. also on long acting insulin of 40 units. Will defer to clinical pharmacist. /elle/ ARIEL GOTTLIEB LPN License Practical Nurse Signed: 05/28/2024 15:24 Receipt Acknowledged By: 05/28/2024 16:03 /daniel WILKERSON PHARMD, BCPS CLINICAL PHARMACIST PRACTITIONER --- Original Document --- 05/27/24 CCC: SCHEDULING ADMINISTRATION: Patient Demographics Patient Name: BRIAN VELASQUEZ JR Patient Primary Phone: [phone] Patient Primary [address]: [address] [place] [address] Patient : 1945 Patient Age: 78 Current Location: [facility] Call Back Number: [phone] Caller/Recipient Relation to Patient: Other If Other Describe Relation to Patient: VNA Caller Name: CHARIS Administrative Administrative Note Reason: Home Health / Fdc Administrative Note Comments: CHARIS REQUESTING CALL BACK TO CLARIFY PT'S MEDS, METOPROLOL AND INSULIN, ALSO REPORTS PT'S FASTING BS WAS 60 YESTERDAY. IMPORTANT: This note was created by [facility] staff. Please do not alert the staff member by adding them as a signer for future communications. Alerts are not monitored by this user. /es/ PATRICK JAFFE 1 [facility] AMSA Signed: 05/27/2024 11:56 Receipt Acknowledged By: 05/28/2024 15:12 /elle/ ARIEL GOTTLIEB LPN License Practical Nurse * AWAITING SIGNATURE * ABDON GUERRERO 05/28/2024 ADDENDUM STATUS: COMPLETED Called and spoke to CHARIS and Patient seperately. Will make changes as follows: - CONTINUE Metformin 1000 mg twice daily - DECREASE Insulin glargine-yfgn 36 units daily - DECREASE insulin aspart VIA SLIDING SCALE PRIOR TO SUPPER ONLY - CONTINUE empagliflozin 25 mg once daily AMSA, please schedule appointment for: - Cwm/No/Pharm/Pact 2 Please schedule for 06/06/24 @ 1050 Thank you! /elle/ CARIDAD SPEARSD, [facility] CLINICAL PHARMACIST PRACTITIONER Signed: 05/28/2024 16:01 Receipt Acknowledged By: * AWAITING SIGNATURE * ARIEL GOTTLIEB * AWAITING SIGNATURE * KRISTIAN SILVA AGNIESZKA [facility] May 27, 2024 11:56 AM ADMINISTRATIVE NOT E: LOCAL TITLE: CCC: SCHEDULING ADMINISTRATION STANDARD TITLE: ADMINISTRATIVE NOTE DATE OF NOTE: MAY 27, 2024@11:56:20 ENTRY DATE: MAY 27, 2024@11:56:20 AUTHOR: PATRICK [place] COSIGNER: URGENCY: STATUS: COMPLETED CCC: SCHEDULING ADMINISTRATION Has ADDENDA Patient Demographics Patient Name: BRIAN VELASQUEZ JR Patient Primary Phone: [phone] Patient Primary [address]: [address] [place] [address] Patient : 1945 Patient Age: 78 Current Location: [facility] Call Back Number: [phone] Caller/Recipient Relation to Patient: Other If Other Describe Relation to Patient: VNA Caller Name: CHARIS Administrative Administrative Note Reason: Home Health / Fdc Administrative Note Comments: CHARIS REQUESTING CALL BACK TO CLARIFY PT'S MEDS, METOPROLOL AND INSULIN, ALSO REPORTS PT'S FASTING BS WAS 60 YESTERDAY. IMPORTANT: This note was created by [facility] staff. Please do not alert the staff member by adding them as a signer for future communications. Alerts are not monitored by this user. /elle/ PATRICK JAFFE 1 [facility] AMSA Signed: 05/27/2024 11:56 Receipt Acknowledged By: 05/28/2024 15:12 /elle/ ARIEL GOTTLIEB LPN License Practical Nurse 05/29/2024 13:48 /es/ ABDON GUERRERO, MSN, RN, CNL PRIMARY CARE TEAM NURSE 05/28/2024 ADDENDUM STATUS: COMPLETED spoke with Charis, verified decrease in metoprolol dose. Charis reports 's insulin orders from hospital are for to administer 10 units of aspart insulin with every meal, plus an additional 2 units if blood sugar is over 151 mg/dl, incrasing by 2 units for every 50 mg/dl increase in blood sugar. refuses to admnsiter insulin aspart if his blood sugar is below 130 mg/dl. Charis report fasting am sugar on 05/26 of 60 , on 05/27 100. Borger also on long acting insulin of 40 units. Will defer to clinical pharmacist. /elle/ ARIEL GOTTLIEB LPN License Practical Nurse Signed: 05/28/2024 15:24 Receipt Acknowledged By: 05/28/2024 16:03 /elle/ CRYSTAL WILKERSON PHARMD, YADY CLINICAL PHARMACIST PRACTITIONER 05/28/2024 ADDENDUM STATUS: COMPLETED Called and spoke to CHARIS and Patient seperately. Will make changes as follows: - CONTINUE Metformin 1000 mg twice daily - DECREASE Insulin glargine-yfgn 36 units daily - DECREASE insulin aspart VIA SLIDING SCALE PRIOR TO SUPPER ONLY - CONTINUE empagliflozin 25 mg once daily JARED, please schedule appointment for: - Cwm/No/Pharm/Pact 2 Please schedule for 06/06/24 @ 5879 Thank you! /es/ CRYSTAL WILKERSON PHARMD, [facility] CLINICAL PHARMACIST PRACTITIONER Signed: 05/28/2024 16:01 Receipt Acknowledged By: 05/29/2024 07:15 /elle/ ARIEL GOTTLIEB LPN License Practical Nurse 05/29/2024 08:36 /es/ PATRICK MASTERSON [facility]
--- OUTSIDE RECORDS SUMMARY | 2024-06-07 09:10 | XMS_ITS | Encounter Summary ---
Author Name [facility] [place] Organization [facility] [place] [place] Address [address] [place] [address] Care Team Providers Care Audit Intern Name Role Phone RISSA MCGRAW Primary Care [...] GOOD FAMIL Y Jun 11, 2000 105 [id number] [phone] Venkat VELASQUEZ AVID PATIENT MEDICARE (WNR) MEDICARE (M) PART B Dec 09, 2008 PART B [id number] Venkat VELASQUEZ AVID PATIENT MEDICARE (WNR) MEDICARE (M) PART B Dec 09, 2008 PART B [id number] [phone] Venkat VELASQUEZ AVID PATIENT MEDICARE (WNR) MEDICARE (M) PART B Dec 09, 2008 PART B [id number] [id number] Venkat VELASQUEZ AVID PATIENT MEDICARE (WNR) MEDICARE (M) PART A Jun 11, 2007 PART A [id number] Venkat VELASQUEZ AVID PATIENT MEDICARE (WNR) MEDICARE (M) PART A Jun 11, 2007 PART A [id number] 30A Venkat VELASQUEZ AVID PATIENT MEDICARE (WNR) MEDICARE (M) PART A Jun 11, 2007 PART A [id number] [id number] Venkat VELASQUEZ PATIENT Selected Encounter This section includes the information on record at [place] for the Encounter. Date/Time Encounter Type Encounter Description Reason Pro vider Source Jun 06, 2024 02:30 PM Outpatient Encounter CLINICAL PHARMACY IHE Encounter Template Text not used by [place] Plan of Treatment: Future Appointments (+ 6 months) and Future Tests (+/- 45 days) The Plan of Treatment section includes future care activities for the patient [facility] [place] [facility] This section includes future appointments and future orders which are active, pending or scheduled. Future Appointments This section includes appointments that were scheduled to occur 6 months from the date of the Encounter, up to a maximum of 20 appointments. The data comes from all [facility]. Appointment Date/Time Appointment Type Appointme nt Facility Name Jun 17, 2024 02:30 PM AMBULATORY - MEDICINE [facility] [place] [facility] Jul 23, 2024 02:30 PM AMBULATORY - MEDICINE [facility] [place] [facility] Jul 31, 2024 10:45 AM AMBULATORY - NONE [place] [facility] [place] [facility] Aug 07, 2024 09:30 AM AMBULATORY - MEDICINE [place] [facility] [place] [facility] Aug 27, 2024 01:00 PM AMBULATORY - NONE [place] [facility] [place] [facility] November 04, 2024 02:00 PM AMBULATORY - MEDICINE [facility] [place] [facility] Active, Pending, and Scheduled Orders This section includes a listing of several types of active, pending, and scheduled orders, including clinic medications orders, diagnostic test orders, procedure orders and consult orders; where the start date of the order is 45 days before the date of the Encounter or 45 days after the date of theEncounter. The data comes from all [facility]. Test Date/Time Test Type Test Details Facility Name May 09, 2024 12:00 AM Laboratory - Chemistry Order MICROALBUMIN CREATININE RATIO PANEL URINE (RANDOM) SP [place] [facility] [place] [facility] May 26, 2024 12:09 PM Procedure Order ECHO CP CARDIOLOGY ECHO/ NHM Proc Diesel Dinkey Operator's Choice [facility] Lab Results: +/- 30 days of the encounter This section includes the Chemistry and Hematology Lab Results on record with [place] for the patient. Radiology Reports and Pathology Reports are provided separately, in subsequent sections. Lab Results This section contains the Chemistry/Hematology Results that were resulted 30 days before or 30 daysafter the date of the Encounter. Date/Time Source Result Type Result - Unit Interpretation Reference Range Comment May 16, 2024 11:12 AM [facility] HEMOGLOBIN A1C PANEL Specimen Type: BLOOD Comment: Values obtained from A1C measurements can vary. For atypical A1C assays, a reported value of 7.0 could actually be between 6.72 and 7.28 if measured by a reference method. A reported value of 9.0 could actually be between 8.73 and 9.27. Ref: http://www.ngs p.org/CAPdata. asp Ordering Provider: RISAS MCGRAW Report Released Date/Time: May 09, 2024 07:52 AM Reporting Lab: [address] [address] Performing Lab: [address] [address] HEMOGLOBIN A1C 7.2 H 4.0-5.6 May 16, 2024 11:12 AM [facility] BASIC METABOLIC PANEL (fasting) Specimen Type: SERUM No comment entered. Ordering Provider: RISSA MCGRAW Report Released Date/Time: May 09, 2024 07:52 AM Reporting Lab: [facility] [address] [facility] [address] Performing Lab: [address] [address] UREA NITROGEN 13 mg/dL 7-25 GLUCOSE 201 [...] took place. Date/Time Current Smoking Status Comment [facility] May 26, 2024 11:30 AM VA-TOBACCO USE FOR KASANDRA CIGARETTES [place] [facility] [place] [facility] Tobacco Use History This section includes a history of the smoking, or tobacco-related health factors, that were collected on or before the date of the Encounter. The data comes from the [place] facility where the Encounter took place. Date/Time Smoking Status/Tobac co Use Comment Facility May 26, 2024 11:30 AM VA-TOBACCO USE FORMER CIGARETTES [place] [facility] [place] [facility] May 17, 2023 02:16 PM VA-TOBACCO NEVER USED [place] [facility] [place] [facility] May 09, 2022 10:45 AM VA-TOBACCO NEVER USED [facility] [place] [facility] Mar 30, 2021 01:02 PM VA-TOBACCO FORMER USER [place] [facility] [place] [facility] Mar 30, 2021 01:02 PM VA-TOBACCO QUIT 5 TO < 15 YRS [place] [facility] [facility] Aug 31, 2004 09:56 AM HISTORY OF SMOKING QUIT 20 YEARS AGO [place] [facility] [place] [facility] Aug 08, 2004 02:45 PM LIFETIME NON-TOBACCO USER [place] [facility] [place] [facility]
--- OUTSIDE RECORDS SUMMARY | 2024-06-07 09:10 | XMS_ITS | Clinical Summary ---
Author Organization Unknown Care Team Providers Care Payroll Auditor Name Role Phone RISSA MCGRAW DO Unavailable Unavailable ALISON RN, LONA Unavailable Unavailab donnell WHYTE LPN, SAMUEL Unavailable Unavail able ANY PT, ANG Unavailable Unavailable SPAFFORD OT, BARB Unavailable Unavailable VANESA FAVOR MAKER, MALU Unavailable Unavailable CONDINO GRAIN RECEIVER/ARDON, ABHIJEET Unavailable Unav ailable Payers Payer Name Policy Type Policy Number Effective Date Expira tion Date MEDICARE.NGS.PDGM [id number] Problems Condition Name Condition Details Condition Category Status Onset Date Resolution Date Last Treatment Date Treating Clinician Comments ESSENTIAL (PRIMARY) HYPERTENSION Active 2023-06 00:00: 00 UNSPECIFIED ATRIAL FIBRILLATION Active 2023-06 00:00: 00 TYPE 2 DIABETES MELLITUS WITHOUT COMPLICATION S Active 2023-06 00:00: 00 POST-TRAUMAT IC STRESS DISORDER, CHRONIC Active 2023-06 00:00: 00 DEPRESSION, UNSPECIFIED Active 2023-06 00:00: 00 HYPERLIPIDEM IA, UNSPECIFIED Active 2023-06 00:00: 00 Obesity, class 1 Active 2023-06 00:00: 00 ASSISTED (CURRENT) USE OF ANTICOAGULAN TS Active 2023-06 00:00: 00 ASSISTED (CURRENT) USE OF INSULIN Active 2023-06 00:00: 00 ASSISTED (CURRENT) USE OF ORAL HYPOGLYCEMIC DRUGS Active 2023-06 00:00: 00 PRSNL HX OF TIA (TIA), AND CEREB INFRC W/O RESID DEFICITS Active 2023-06 00:00: 00 PERSONAL HISTORY OF NICOTINE DEPENDENCE Active 2023-06 00:00: 00 PERSONAL HISTORY OF TRAUMATIC BRAIN INJURY Active 2023-06 00:00: 00 PERSONAL HISTORY OF (HEALED) TRAUMATIC FRACTURE Active 2023-06-13 00:00: 00 Allergies, Adverse Reactions, Alerts Allergy Name Allergy Type Status Severity Reaction(s) Onset Date Inactive Date Treating Clinician Comments SHRIMP Propensity to adverse reactions Active 2024-05 15:19:0 2 Vital Signs Vital Name Observation Time Observation Value Commen ts Temperature 2024-06-05 10:25:00.000 97.9 [degF] Temperature 2024-06-03 13:04:00.000 97.3 [degF] Temperature 2024-05-30 10:36:00.000 97.3 [degF] Temperature 2024-05-29 13:28:00.000 97.2 [degF] Temperature 2024-05-28 13:34:00.000 97.1 [degF] Temperature 2024-05-27 11:34:00.000 97.5 [degF] Temperature 2024-05-23 12:47:00.000 97.1 [degF] Temperature 2024-05-22 13:09:00.000 97.5 [degF] BMI (%) 2024-05-22 13:09:00.000 29 kg/m2 Height 2024-05-22 13:09:00.000 67 [in_us] Pulse 2024-06-05 10:25:00.000 60 /min Pulse 2024-06-03 13:04:00.000 60 /min Pulse 2024-05-30 10:36:00.000 68 /min Pulse 2024-05-29 13:28:00.000 60 /min Pulse 2024-05-28 13:34:00.000 69 /min Pulse 2024-05-27 11:34:00.000 45 /min Pulse 2024-05-23 12:47:00.000 44 /min Pulse 2024-05-22 13:09:00.000 47 /min O2 Saturation (%) 2024-06-03 13:08:00.000 98 % O2 Saturation (%) 2024-05-30 10:50:00.000 99 % O2 Saturation (%) 2024-05-28 13:34:00.000 98 % O2 Saturation (%) 2024-05-27 11:35:00.000 98 % O2 Saturation (%) 2024-05-22 13:09:00.000 96 % Respirations 2024-06-05 10:25:00.000 18 /min Respirations 2024-06-03 13:04:00.000 18 /min Respirations 2024-05-30 10:36:00.000 18 /min Respirations 2024-05-29 13:28:00.000 18 /min Respirations 2024-05-28 13:34:00.000 18 /min Respirations 2024-05-27 11:34:00.000 18 /min Respirations 2024-05-23 12:47:00.000 18 /min Respirations 2024-05-22 13:09:00.000 18 /min Weight (lbs) 2024-05-22 13:09:00.000 191 [lb_av] Systolic Blood Pressure 2024-06-05 10:25:00.000 140 mm [Hg] Systolic Blood Pressure 2024-06-03 13:04:00.000 124 mm [Hg] Systolic Blood Pressure 2024-05-30 10:36:00.000 130 mm [Hg] Systolic Blood Pressure 2024-05-29 13:28:00.000 130 mm [Hg] Systolic Blood Pressure 2024-05-28 13:34:00.000 120 mm [Hg] Systolic Blood Pressure 2024-05-27 11:34:00.000 132 mm [Hg] Systolic Blood Pressure 2024-05-23 12:47:00.000 132 mm [Hg] Systolic Blood Pressure 2024-05-22 13:09:00.000 142 mm [Hg] Diastolic Blood Pressure 2024-06-05 10:25:00.000 80 mm [Hg] Diastolic Blood Pressure 2024-06-03 13:04:00.000 64 mm [Hg] Diastolic Blood Pressure 2024-05-30 10:36:00.000 74 mm [Hg] Diastolic Blood Pressure 2024-05-29 13:28:00.000 62 mm [Hg] Diastolic Blood Pressure 2024-05-28 13:34:00.000 68 mm [Hg] Diastolic Blood Pressure 2024-05-27 11:34:00.000 54 mm [Hg] Diastolic Blood Pressure 2024-05-23 12:47:00.000 60 mm [Hg] Diastolic Blood Pressure 2024-05-22 13:09:00.000 80 mm [Hg] Plan of Treatment Planned Activity Planned Date Details Comments Future Scheduled Test RN TO OBSE RVE, ASSESS, EVALUATE, AND DEVELOP AN INDIVIDUALIZED PLAN OF CARE. AGENCY MAY ACCEPT ORDERS FROM CONSULTING PHYSICIANS. RN TO OBSERVE AND ASSESS, SIMULATION TECHNICIAN/FACE BOSS TO OBSERVE FOR RISK FOR FALLS AND INSTRUCT IN FALL PREVENTION, HOME SAFETY, MEDICATION MANAGEMENT, INFECTION PREVENTION, AND NUTRITION MANAGEMENT. RN/SIMULATION TECHNICIAN/FACE BOSS NURSE MAY PERFORM O2 SATURATION LEVEL ON ADMISSION AND PRN FOR RN TO ASSESS/SIMULATION TECHNICIAN TO OBSERVE PATIENT, WITH NOTIFICATION TO THE PHYSICIAN IF SATURATION IS 90% IN THE ABSENCE OF MORE SPECIFIC PARAMETERS FROM THE PHYSICIAN. AGENCY MAY PERFORM A RESUMPTION OF CARE VISIT FOLLOWING ANY HOSPITAL ADMISSION. RN/SIMULATION TECHNICIAN/FACE BOSS TO MONITOR CO-MORBID CONDITIONS LISTED ON THE PLAN OF CARE AND ANY NEW CONDITIONS THAT PRESENT THEMSELVES DURING THIS EPISODE TO IDENTIFY CHANGES AND INTERVENE TO MINIMIZE COMPLICATIONS. [code = RN TO OBSERVE, ASSESS, EVALUATE, AND DEVELOP AN INDIVIDUALIZED PLAN OF CARE. AGENCY MAY ACCEPT ORDERS FROM CONSULTING PHYSICIANS. RN TO OBSERVE AND ASSESS, SIMULATION TECHNICIAN/FACE BOSS TO OBSERVE FOR RISK FOR FALLS AND INSTRUCT IN FALL PREVENTION, HOME SAFETY, MEDICATION MANAGEMENT, INFECTION PREVENTION, AND NUTRITION MANAGEMENT. RN/SIMULATION TECHNICIAN/FACE BOSS NURSE MAY PERFORM O2 SATURATION LEVEL ON ADMISSION AND PRN FOR RN TO ASSESS/SIMULATION TECHNICIAN TO OBSERVE PATIENT, WITH NOTIFICATION TO THE PHYSICIAN IF SATURATION IS 90% IN THE ABSENCE OF MORE SPECIFIC PARAMETERS FROM THE PHYSICIAN. AGENCY MAY PERFORM A RESUMPTION OF CARE VISIT FOLLOWING ANY HOSPITAL ADMISSION. RN/SIMULATION TECHNICIAN/FACE BOSS TO MONITOR CO-MORBID CONDITIONS LISTED ON THE PLAN OF CARE AND ANY NEW CONDITIONS THAT PRESENT THEMSELVES DURING THIS EPISODE TO IDENTIFY CHANGES AND INTERVENE TO MINIMIZE COMPLICATIONS.] Future Scheduled Test MEDICATION MANAGEMENT; RN/SIMULATION TECHNICIAN/FACE BOSS TO REVIEW MEDICATIONS FOR INTERACTIONS, EFFECTIVENESS OF DRUG THERAPY, AND SIGNS/SYMPTOMS OF ADVERSE REACTIONS. MAY INSTRUCT AND REINFORCE MEDICATION TEACHING RELATED TO THE USE OF MEDICATIONS, DOSAGE, FREQUENCY, PURPOSE, SIDE EFFECTS, AND TO REPORT COMPLICATIONS. [code = MEDICATION MANAGEMENT; RN/SIMULATION TECHNICIAN/FACE BOSS TO REVIEW MEDICATIONS FOR INTERACTIONS, EFFECTIVENESS OF DRUG THERAPY, AND SIGNS/SYMPTOMS OF ADVERSE REACTIONS. MAY INSTRUCT AND REINFORCE MEDICATION TEACHING RELATED TO THE USE OF MEDICATIONS, DOSAGE, FREQUENCY, PURPOSE, SIDE EFFECTS, AND TO REPORT COMPLICATIONS.] Future Scheduled Test RISK FOR H OSPITALIZATION; RN TO ASSESS/TEACH, FACE BOSS/SIMULATION TECHNICIAN TO OBSERVE/TEACH PATIENT/CAREGIVER ON RISK FOR HOSPITALIZATION/EMERGENCY ROOM VISITS, TEACH SIGNS AND SYMPTOMS THAT PUT PATIENT AT RISK, WHEN TO NOTIFY NURSE/PHYSICIAN OF COMPLICATIONS/DECLINE, AND WHEN TO CALL 911. [code = RISK FOR HOSPITALIZATION; RN TO ASSESS/TEACH, FACE BOSS/SIMULATION TECHNICIAN TO OBSERVE/TEACH PATIENT/CAREGIVER ON RISK FOR HOSPITALIZATION/EMERGENCY ROOM VISITS, TEACH SIGNS AND SYMPTOMS THAT PUT PATIENT AT RISK, WHEN TO NOTIFY NURSE/PHYSICIAN OF COMPLICATIONS/DECLINE, AND WHEN TO CALL 911.] Future Scheduled Test CARDIOVASC ULAR SYSTEM; RN TO ASSESS/TEACH, SIMULATION TECHNICIAN/FACE BOSS TO OBSERVE/TEACH RELATED TO ALTERED CARDIOVASCULAR STATUS TO MINIMIZE COMPLICATIONS AND REDUCE HOSPITALIZATION. [code = CARDIOVASCULAR SYSTEM; RN TO ASSESS/TEACH, SIMULATION TECHNICIAN/FACE BOSS TO OBSERVE/TEACH RELATED TO ALTERED CARDIOVASCULAR STATUS TO MINIMIZE COMPLICATIONS AND REDUCE HOSPITALIZATION.] Future Scheduled Test ARRHYTHMIA MANAGEMENT; RN TO ASSESS AND TEACH, SIMULATION TECHNICIAN/FACE BOSS TO OBSERVE AND TEACH WARNING SIGNS AND SYMPTOMS TO AVOID HOSPITALIZATION. [code = ARRHYTHMIA MANAGEMENT; RN TO ASSESS AND TEACH, SIMULATION TECHNICIAN/FACE BOSS TO OBSERVE AND TEACH WARNING SIGNS AND SYMPTOMS TO AVOID HOSPITALIZATION.] Future Scheduled Test HYPERTENSI ON MANAGEMENT; RN TO ASSESS AND TEACH, SIMULATION TECHNICIAN/FACE BOSS TO OBSERVE AND TEACH WARNING SIGNS AND SYMPTOMS TO AVOID HOSPITALIZATION. [code = HYPERTENSION MANAGEMENT; RN TO ASSESS AND TEACH, SIMULATION TECHNICIAN/FACE BOSS TO OBSERVE AND TEACH WARNING SIGNS AND SYMPTOMS TO AVOID HOSPITALIZATION.] Future Scheduled Test SKIN INTEG RITY RN TO ASSESS AND TEACH, SIMULATION TECHNICIAN/FACE BOSS TO OBSERVE AND TEACH INTEGUMENTARY STATUS TO IDENTIFY CHANGES AND INTERVENE TO MINIMIZE COMPLICATIONS. PROVIDE SKILLED TEACHING OF GENERAL WOUND AND SKIN CARE AND PREVENTION RELATED TO ACTUAL ALTERED SKIN INTEGRITY [code = SKIN INTEGRITY RN TO ASSESS AND TEACH, SIMULATION TECHNICIAN/FACE BOSS TO OBSERVE AND TEACH INTEGUMENTARY STATUS TO IDENTIFY CHANGES AND INTERVENE TO MINIMIZE COMPLICATIONS. PROVIDE SKILLED TEACHING OF GENERAL WOUND AND SKIN CARE AND PREVENTION RELATED TO ACTUAL ALTERED SKIN INTEGRITY ] Future Scheduled Test RN/SIMULATION TECHNICIAN/FACE BOSS TO PERFORM/TEACH PATIENT/CAREGIVER WOUND CARE TO TRAUMA TO RIGHT SECOND TOE: IRRIGATE/CLEANSE WITH NORMAL SALINE APPLY SKIN PREP WAIT 30 SECONDS FOR IT TO DRY APPLY DAILY TO PERFORM WOUNDCARE IN NURSING ABSENCE RN/SIMULATION TECHNICIAN/FACE BOSS TO PERFORM/TEACH PATIENT/CAREGIVER WOUND CARE TO TRAUMA TO LEFT SECOND TOE: IRRIGATE/CLEANSE WITH NORMAL SALINE APPLY XEROFORM COVER WITH DCD CHANGE 3X WEEKLY AND PRN SOILAGE OR DISPLACEMENT TO PERFORM WOUNDCARE IN NURSING ABSENCE RN/SIMULATION TECHNICIAN/FACE BOSS TO PERFORM/TEACH PATIENT/CAREGIVER WOUND CARE TO TRAUMA TO LEFT LATERAL CALF: IRRIGATE/CLEANSE WITH NORMAL SALINE APPLY XEROFORM COVER WITH DCD CHANGE 3X WEEKLY AND PRN SOILAGE OR DISPLACEMENT TO PERFORM WOUNDCARE IN NURSING ABSENCE RN/SIMULATION TECHNICIAN/FACE BOSS TO PERFORM/TEACH PATIENT/CAREGIVER WOUND CARE TO TRAUMA TO RIGHT LATERAL CALF: IRRIGATE/CLEANSE WITH NORMAL SALINE APPLY XEROFORM COVER WITH DCD CHANGE 3X WEEKLY AND PRN SOILAGE OR DISPLACEMENT TO PERFORM WOUNDCARE IN NURSING ABSENCE RN/SIMULATION TECHNICIAN/FACE BOSS TO PERFORM/TEACH PATIENT/CAREGIVER WOUND CARE TO TRAUMA TO LEFT HAND CLUSTER OF 7 WOUNDS: IRRIGATE/CLEANSE WITH NORMAL SALINE APPLY XEROFORM COVER WITH DCD CHANGE 3X WEEKLY AND PRN SOILAGE OR DISPLACEMENT /PATIENT TO PERFORM WOUNDCARE IN NURSING ABSENCE [code = RN/SIMULATION TECHNICIAN/FACE BOSS TO PERFORM/TEACH PATIENT/CAREGIVER WOUND CARE TO TRAUMA TO RIGHT SECOND TOE: IRRIGATE/CLEANSE WITH NORMAL SALINE APPLY SKIN PREP WAIT 30 SECONDS FOR IT TO DRY APPLY DAILY TO PERFORM WOUNDCARE IN NURSING ABSENCE RN/SIMULATION TECHNICIAN/FACE BOSS TO PERFORM/TEACH PATIENT/CAREGIVER WOUND CARE TO TRAUMA TO LEFT SECOND TOE: IRRIGATE/CLEANSE WITH NORMAL SALINE APPLY XEROFORM COVER WITH DCD CHANGE 3X WEEKLY AND PRN SOILAGE OR DISPLACEMENT TO PERFORM WOUNDCARE IN NURSING ABSENCE RN/SIMULATION TECHNICIAN/FACE BOSS TO PERFORM/TEACH PATIENT/CAREGIVER WOUND CARE TO TRAUMA TO LEFT LATERAL CALF: IRRIGATE/CLEANSE WITH NORMAL SALINE APPLY XEROFORM COVER WITH DCD CHANGE 3X WEEKLY AND PRN SOILAGE OR DISPLACEMENT TO PERFORM WOUNDCARE IN NURSING ABSENCE RN/SIMULATION TECHNICIAN/FACE BOSS TO PERFORM/TEACH PATIENT/CAREGIVER WOUND CARE TO TRAUMA TO RIGHT LATERAL CALF: IRRIGATE/CLEANSE WITH NORMAL SALINE APPLY XEROFORM COVER WITH DCD CHANGE 3X WEEKLY AND PRN SOILAGE OR DISPLACEMENT TO PERFORM WOUNDCARE IN NURSING ABSENCE RN/SIMULATION TECHNICIAN/FACE BOSS TO PERFORM/TEACH PATIENT/CAREGIVER WOUND CARE TO TRAUMA TO LEFT HAND CLUSTER OF 7 WOUNDS: IRRIGATE/CLEANSE WITH NORMAL SALINE APPLY XEROFORM COVER WITH DCD CHANGE 3X WEEKLY AND PRN SOILAGE OR DISPLACEMENT /PATIENT TO PERFORM WOUNDCARE IN NURSING ABSENCE] Future Scheduled Test PAIN MANAG EMENT; RN TO ASSESS AND TEACH, FACE BOSS/SIMULATION TECHNICIAN TO OBSERVE AND TEACH AND PROVIDE EDUCATION ON PAIN MANAGEMENT TECHNIQUES. [code = PAIN MANAGEMENT; RN TO ASSESS AND TEACH, FACE BOSS/SIMULATION TECHNICIAN TO OBSERVE AND TEACH AND PROVIDE EDUCATION ON PAIN MANAGEMENT TECHNIQUES.] Future Scheduled Test FALL REDUC TION MANAGEMENT; RN TO ASSESS AND TEACH, SIMULATION TECHNICIAN/FACE BOSS TO OBSERVE AND TEACH ON EDUCATION AND INTERVENTION TO IDENTIFY FALL RISK FACTORS SUCH MEDICATIONS THAT MAY CAUSE DIZZINESS, CHRONIC DISEASES, PSYCHOLOGICAL FACTORS, AND EMPOWER/EDUCATE PATIENT/CAREGIVER TO MINIMIZE FALL RISK. [code = FALL REDUCTION MANAGEMENT; RN TO ASSESS AND TEACH, SIMULATION TECHNICIAN/FACE BOSS TO OBSERVE AND TEACH ON EDUCATION AND INTERVENTION TO IDENTIFY FALL RISK FACTORS SUCH MEDICATIONS THAT MAY CAUSE DIZZINESS, CHRONIC DISEASES, PSYCHOLOGICAL FACTORS, AND EMPOWER/EDUCATE PATIENT/CAREGIVER TO MINIMIZE FALL RISK.] Future Scheduled Test NEUROLOGIC AL SYSTEM MANAGEMENT; RN TO ASSESS AND TEACH, FACE BOSS/SIMULATION TECHNICIAN TO OBSERVE AND TEACH RELATED TO ALTERED NEUROLOGICAL STATUS TO MINIMIZE COMPLICATIONS AND REDUCE HOSPITALIZATION. [code = NEUROLOGICAL SYSTEM MANAGEMENT; RN TO ASSESS AND TEACH, FACE BOSS/SIMULATION TECHNICIAN TO OBSERVE AND TEACH RELATED TO ALTERED NEUROLOGICAL STATUS TO MINIMIZE COMPLICATIONS AND REDUCE HOSPITALIZATION.] Future Scheduled Test DIABETES M ANAGEMENT; RN TO ASSESS AND TEACH, FACE BOSS/SIMULATION TECHNICIAN TO OBSERVE AND TEACH INSTRUCTIONS OF DIABETIC CARE TO INCLUDE: DIET CCHO, HEART HEALTHY SKIN CARE, SIGNS AND SYMPTOMS OF HYPO/HYPERGLYCEMIA, PROPER ADMINISTRATION OF DIABETIC MEDICATION. RN/FACE BOSS/SIMULATION TECHNICIAN TO INSTRUCT ON DIABETIC FOOT CARE AND MONITOR FOR SKIN LESIONS ON LOWER EXTREMITIES. BLOOD GLUCOSE TESTING 3X BEFOREMEALS. RN TO ASSESS AND TEACH, FACE BOSS/SIMULATION TECHNICIAN TO OBSERVE AND TEACH PATIENT/CAREGIVER ABILITY TO PERFORM AND RECORD BLOOD GLUCOSE TESTING ORDERED AND TO REPORT ABNORMAL FINDINGS TO PHYSICIAN. RN/FACE BOSS/SIMULATION TECHNICIAN MAY PERFORM BLOOD GLUCOSE TEST NEEDED. RN/FACE BOSS/SIMULATION TECHNICIAN TO REPORT TO PHYSICIAN BLOOD GLUCOSE READINGS GREATER THAN 400 OR LESS THAN 80. RN/FACE BOSS/SIMULATION TECHNICIAN TO INSTRUCT PATIENT ON IMPORTANCE OF HGBA1C MONITORING, KIDNEY FUNCTION TEST, EYE AND FOOT EXAMS. [code = DIABETES MANAGEMENT; RN TO ASSESS AND TEACH, FACE BOSS/SIMULATION TECHNICIAN TO OBSERVE AND TEACH INSTRUCTIONS OF DIABETIC CARE TO INCLUDE: DIET CCHO, HEART HEALTHY SKIN CARE, SIGNS AND SYMPTOMS OF HYPO/HYPERGLYCEMIA, PROPER ADMINISTRATION OF DIABETIC MEDICATION. RN/FACE BOSS/SIMULATION TECHNICIAN TO INSTRUCT ON DIABETIC FOOT CARE AND MONITOR FOR SKIN LESIONS ON LOWER EXTREMITIES. BLOOD GLUCOSE TESTING 3X BEFOREMEALS. RN TO ASSESS AND TEACH, FACE BOSS/SIMULATION TECHNICIAN TO OBSERVE AND TEACH PATIENT/CAREGIVER ABILITY TO PERFORM AND RECORD BLOOD GLUCOSE TESTING ORDERED AND TO REPORT ABNORMAL FINDINGS TO PHYSICIAN. RN/FACE BOSS/SIMULATION TECHNICIAN MAY PERFORM BLOOD GLUCOSE TEST NEEDED. RN/FACE BOSS/SIMULATION TECHNICIAN TO REPORT TO PHYSICIAN BLOOD GLUCOSE READINGS GREATER THAN 400 OR LESS THAN 80. RN/FACE BOSS/SIMULATION TECHNICIAN TO INSTRUCT PATIENT ON IMPORTANCE OF HGBA1C MONITORING, KIDNEY FUNCTION TEST, EYE AND FOOT EXAMS.] Future Scheduled Test AGENCY MAY PERFORM A RESUMPTION OF CARE VISIT FOLLOWING ANY HOSPITAL ADMISSION. PT TO EVALUATE, OBSERVE / ASSESS, AND MONITOR, FAVOR MAKER TO OBSERVE AND MONITOR, PROVIDE SKILLED THERAPEUTIC INTERVENTION, ACTIVITY, EDUCATION, AND TRAINING TO ADDRESS; PT/FAVOR MAKER TO PROVIDE GAIT TRAINING FOR IMPROVED MOBILITY AND /OR TO NORMALIZE GAIT PATTERN NEUROMUSCULAR RE-EDUCATION / BALANCE / POSTURAL CONTROL (PT) THERAPEUTIC EXERCISES AND ESTABLISHING A HOME EXERCISE PROGRAM (PT/FAVOR MAKER) VESTIBULAR TRAINING ? (PT/FAVOR MAKER) PT/FAVOR MAKER TO PROVIDE STAIR TRAINING PT TO ASSESS / FAVOR MAKER TO MONITOR FOR AND REPORT EARLY SIGNS OF ANTICOAGULANT TOXICITY TO THE PHYSICIAN AND/OR THE RN CLINICAL PROFESSOR OF BUSINESS FOR PHYSICIAN NOTIFICATION AND TO PROVIDE PATIENT/CAREGIVER EDUCATION ON ANTICOAGULANT THERAPY PT / FAVOR MAKER TO MONITOR AND EDUCATE ON OXYGEN SATURATION DURING ADLS/IADLS, NOTIFY PHYSICIAN AND/OR THE RN CLINICAL PROFESSOR OF BUSINESS FOR PHYSICIAN NOTIFICATION AND IF O2 SATS BELOW PHYSICIAN ORDERED PARAMETERS AFTER 10 MIN OF REST PT / FAVOR MAKER TO MONITOR FOR HYPO/HYPERGLYCEMIA AND CONDUCT ROUTINE FOOT INSPECTIONS. RECORD PATIENT REPORTED BLOOD SUGAR LEVELS AND NOTIFY PHYSICIAN AND/OR THE RN CLINICAL PROFESSOR OF BUSINESS FOR PHYSICIAN NOTIFICATION IF BLOOD SUGAR LEVELS ARE OUTSIDE ORDERED PARAMETERS. TEACH PATIENT/CAREGIVER ON DAILY FOOT INSPECTIONS PT/FAVOR MAKER TO IDENTIFY FALL RISK FACTORS; EDUCATE THE PATIENT/CAREGIVER ON WAYS TO REDUCE FALL RISK FACTORS AND ESTABLISH HOME EXERCISE PROGRAM TO MINIMIZE FALL RISK. MAY TEACH THE PATIENT FLOOR RECOVERY WHEN CLINICALLY APPROPRIATE PT / FAVOR MAKER MAY EDUCATE ON PAIN MANAGEMENT CLINICALLY INDICATED, INCLUDING NON-PHARMACOLOGICAL PAIN REDUCTION TECHNIQUES [code = AGENCY MAY PERFORM A RESUMPTION OF CARE VISIT FOLLOWING ANY HOSPITAL ADMISSION. PT TO EVALUATE, OBSERVE / ASSESS, AND MONITOR, FAVOR MAKER TO OBSERVE AND MONITOR, PROVIDE SKILLED THERAPEUTIC INTERVENTION, ACTIVITY, EDUCATION, AND TRAINING TO ADDRESS; PT/FAVOR MAKER TO PROVIDE GAIT TRAINING FOR IMPROVED MOBILITY AND /OR TO NORMALIZE GAIT PATTERN NEUROMUSCULAR RE-EDUCATION / BALANCE / POSTURAL CONTROL (PT) THERAPEUTIC EXERCISES AND ESTABLISHING A HOME EXERCISE PROGRAM (PT/FAVOR MAKER) VESTIBULAR TRAINING ? (PT/FAVOR MAKER) PT/FAVOR MAKER TO PROVIDE STAIR TRAINING PT TO ASSESS / FAVOR MAKER TO MONITOR FOR AND REPORT EARLY SIGNS OF ANTICOAGULANT TOXICITY TO THE PHYSICIAN AND/OR THE RN CLINICAL PROFESSOR OF BUSINESS FOR PHYSICIAN NOTIFICATION AND TO PROVIDE PATIENT/CAREGIVER EDUCATION ON ANTICOAGULANT THERAPY PT / FAVOR MAKER TO MONITOR AND EDUCATE ON OXYGEN SATURATION DURING ADLS/IADLS, NOTIFY PHYSICIAN AND/OR THE RN CLINICAL PROFESSOR OF BUSINESS FOR PHYSICIAN NOTIFICATION AND IF O2 SATS BELOW PHYSICIAN ORDERED PARAMETERS AFTER 10 MIN OF REST PT / FAVOR MAKER TO MONITOR FOR HYPO/HYPERGLYCEMIA AND CONDUCT ROUTINE FOOT INSPECTIONS. RECORD PATIENT REPORTED BLOOD SUGAR LEVELS AND NOTIFY PHYSICIAN AND/OR THE RN CLINICAL PROFESSOR OF BUSINESS FOR PHYSICIAN NOTIFICATION IF BLOOD SUGAR LEVELS ARE OUTSIDE ORDERED PARAMETERS. TEACH PATIENT/CAREGIVER ON DAILY FOOT INSPECTIONS PT/FAVOR MAKER TO IDENTIFY FALL RISK FACTORS; EDUCATE THE PATIENT/CAREGIVER ON WAYS TO REDUCE FALL RISK FACTORS AND ESTABLISH HOME EXERCISE PROGRAM TO MINIMIZE FALL RISK. MAY TEACH THE PATIENT FLOOR RECOVERY WHEN CLINICALLY APPROPRIATE PT / FAVOR MAKER MAY EDUCATE ON PAIN MANAGEMENT CLINICALLY INDICATED, INCLUDING NON-PHARMACOLOGICAL PAIN REDUCTION TECHNIQUES ] Goal Patient Goal - GET BACK TO N ORMAL Goal Provider Goal - A PLAN OF CARE WILL BE ESTABLISHED THAT MEETS THE PATIENTS NEEDS. PATIENT WILL DEMONSTRATE OXYGEN SATURATION WITHIN NORMAL LIMITS OR PATIENTS OPTIMAL LEVEL ESTABLISHED BY THE PHYSICIAN THROUGHOUT CARE. CHANGES TO CO-MORBID CONDITIONS AND ANY NEW CONDITIONS WILL BE IDENTIFIED AND REPORTED TO THE PHYSICIAN. Goal Provider Goal - PATIENT/CAREGIVER TO VERBALIZE, AND CONSISTENTLY DEMONSTRATE EFFECTIVE, SAFE MANAGEMENT OF MEDICATION INCLUDING KNOWLEDGE OF EFFECTIVENESS, POTENTIAL SIDE EFFECTS AND DRUG REACTIONS AND WHEN TO CONTACT THE APPROPRIATE CARE PROVIDER. PATIENT/CAREGIVER WILL BE ABLE TO VERBALIZE UNDERSTANDING OF MEDICATION REGIMEN AND ACCURATELY TAKE MEDICATIONS PRESCRIBED WITHOUT ADVERSE EFFECTS BY EOE Goal Provider Goal - PATIENT/CAREGIVER WILL VERBALIZE UNDERSTANDING OF SIGNS AND SYMPTOMS THAT PUT THE PATIENT AT RISK FOR HOSPITALIZATION /EMERGENCY ROOM VISITS, WHEN TO NOTIFY NURSE/PHYSICIAN OF COMPLICATIONS/DECLINE AND WHEN TO CALL 911. Goal Provider Goal - PATIENT / CAREGIVER WILL VERBALIZE/DEMONSTRATE UNDERSTANDING OF MEASURES TO MANAGE ALTERED CARDIOVASCULAR STATUS BY EOE Goal Provider Goal - PATIENT / CAREGIVER WILL VERBALIZE/DEMONSTRATE AN ABILITY TO ADHERE TO SELF-MANAGEMENT OF HEART ARRHYTHMIA TO MINIMIZE COMPLICATIONS AND AVOID HOSPITALIZATION BY END OF EPISODE. Goal Provider Goal - PATIENT / CAREGIVER WILL VERBALIZE/DEMONSTRATE AN ABILITY TO ADHERE TO SELF-MANAGEMENT OF HTN TO MINIMIZE COMPLICATIONS AND AVOID HOSPITALIZATION BY END OF EPISODE. Goal Provider Goal - CHANGES IN SKIN INTEGRITY STATUS WILL BE IDENTIFIED AND REPORTED TO THE PHYSICIAN FOR PROMPT INTERVENTION. PATIENT / CAREGIVER WILL VERBALIZE/DEMONSTRATE ADEQUATE KNOWLEDGE OF INTEGUMENTARY STATUS AND APPROPRIATE MEASURES TO PROMOTE SKIN INTEGRITY AND PREVENT INJURY BY EOE Goal Provider Goal - PATIENT / CAREGIVER WILL VERBALIZE/DEMONSTRATE ABILITY TO PERFORM WOUND CARE. WOUND STATUS WILL IMPROVE EVIDENCED BY A DECREASE IN SIZE, DRAINAGE, ABSENCE OF INFECTION, AND DECREASED PAIN BY EOE. Goal Provider Goal - PATIENT / CAREGIVER WILL VERBALIZE / DEMONSTRATE UNDERSTANDING OF PAIN CONTROL MEASURES BY EOE Goal Provider Goal - PATIENT/CAREGIVER ABLE TO IDENTIFY FALL RISK FACTORS AND IMPLEMENT STRATEGIES TO MINIMIZE FALL RISK. PATIENT/CAREGIVER WILL VERBALIZE/DEMONSTRATE AN ABILITY TO ADHERE TO FALL REDUCTION SELF-MANAGEMENT AND LIFE-STYLE CHANGES AT DISCHARGE. PERSONAL GOAL(S) STATED BY PATIENT/CAREGIVER WILL BE MET BY EOE. Goal Provider Goal - PATIENT / CAREGIVER WILL VERBALIZE/DEMONSTRATE UNDERSTANDING OF MEASURES TO MANAGE ALTERED NEUROLOGICAL STATUS BY EOE. Goal Provider Goal - PATIENT / CAREGIVER WILL VERBALIZE / DEMONSTRATE AN ABILITY TO ADHERE TO SELF-MANAGEMENT OF DIABETES MANAGEMENT BY EOE. Goal Provider Goal - PT LTG: PATIENT WILL DEMONSTRATE REDUCED GAIT DEVIATIONS TO REDUCE THE RISK FOR FALLING AND MINIMIZE STRAIN ON KNEES/HIPS AND BACK EVIDENCED BY IMPROVED HEEL STRIKE, ADEQUATE STEP LENGTH AND CONSISTENT FOOT CLEARANCE BILATERALLY WITHOUT AD TO WALK INDEPENDENTLY IN ORDER TO ACCESS ALL AREAS OF THE HOME AND TRANSPORTATION WITHIN 9 WEEKS PT LTG: PATIENT WILL DEMONSTRATE REDUCED FALL RISK EVIDENCED BY IMPROVED SELF- SELECTED WALKING SPEED (SSWS CUT SCORE 0.6 TO 0.9 INDICATES MODERATE FALL RISK, 0.6 M/S INDICATES HIGH FALL RISK) FROM 0.7M/SEC TO 1.0M/SEC WITHIN 9 WEEKS PT LTG: PATIENT WILL DEMONSTRATE REDUCED FALL RISK EVIDENCED BY TUG TEST (CUT SCORE >11 SECONDS INDICATES INCREASED FALL RISK) IMPROVING FROM 28 SECONDS TO 15 SECONDS WITHIN 9 WEEKS PT LTG: PATIENT WILL DEMONSTRATE IMPROVED FUNCTIONAL STRENGTH EVIDENCED BY FIVE TIMES SIT TO STAND TEST (CUT SCORE >12 SECONDS INDICATES AN INCREASED FALL RISK) IMPROVING FROM 26 SECONDS TO 15 SECONDS WITHIN 9 WEEKS PT LTG: PATIENT WILL DEMONSTRATE INCREASED STRENGTH OF BILATERAL LES FROM 3+/5 TO 4+/5 WITHIN 9 WEEKS IN ORDER TO IMPROVE SAFETY AND STABILITY WITH GAIT AND STAIRS PT LTG: PATIENT WILL DEMONSTRATE IMPROVED VESTIBULAR FUNCTION EVIDENCED BY IMPROVED MCTSIB FROM NT TO 3/4 WITHIN 9 WEEKS IN ORDER TO ENSURE SAFETY WITH RETURN TO COMMUNITY MOBILITY PT STG: PATIENT WILL DEMONSTRATE IMPROVED VESTIBULAR FUNCTION EVIDENCED BY DECREASED SUBJECTIVE COMPLAINTS OF DIZZINESS DURING TRANSFERS FROM MODERATE TO NONE WITHIN 4 WEEKS PT LTG: PATIENT WILL DEMONSTRATE IMPROVED ABILITY TO SAFELY NEGOTIATE STAIRS FROM NT TO INDEPENDENT WITH RAIL IN ORDER TO SAFELY ENTER AND EXIT HOME WITHIN 9 WEEKS PT LTG: PATIENT WILL NOT EXHIBIT SIGNS AND SYMPTOMS OF ANTICOAGULANT TOXICITY THROUGHOUT EPISODE OF CARE. PT LTG: PATIENT WILL MAINTAIN OXYGEN SATURATION WITHIN PHYSICIAN ORDERED PARAMETERS THROUGHOUT EPISODE OF CARE. PATIENTS BLOOD SUGAR WILL REMAIN WELL CONTROLLED WITH SELF-MANAGEMENT THROUGHOUT EPISODE OF CARE. PT LTG: PATIENT/CAREGIVER WILL DEMONSTRATE ADHERENCE TO FALL REDUCTION SELF-MANAGEMENT AND REDUCING FALL RISK FACTORS TO MINIMIZE FALL RISK BY END OF EPISODE. PT LTG: PATIENT WILL BE INDEPENDENT WITH IMPLEMENTATION OF HEP WITHIN 4 WEEKS PT GOAL: PATIENT WILL DEMONSTRATE UNDERSTANDING OF PAIN MANAGEMENT TECHNIQUES EVIDENCED BY REDUCED PAIN Encounters Start Date/Time End Date/Time Encounter Type Admission Type Attending [facility] Facility Care Department Encounter ID Discharge Date Discharge Status Discharge Condition Discharge Reason Percent Goals Met 2024-05-22 00:00:00 2024-07-20 00:00:00 Outpatient NEW ADMISSION LONA ROSAS [facility] [id number]
--- OUTSIDE RECORDS SUMMARY | 2024-06-07 09:10 | XMS_ITS | Continuity of Care Document ---
Author Organization [facility] ter Address [address] [place] [id number]- Care Team Providers Care Manager Pharmacy Name Role Phone Betsy Diaz DO Primary Care Physician Encounter [facility] [id number] Date(s): 05/19/24 - 05/21/[address] [address]- Discharge Disposition: A-D/C Home Attending Physician: Sheron Barfield MD Admitting Physician: Luis Roque MD Referring Physician: Not on Staff, Referring MD Encounter Type: Disch Obv Allergies, Adverse Reactions, Alerts Substance Criticality Severity Reaction Reaction Severity Status Shrimp Active Medications 1 walker 1 walker, See Instructions, # 1 each, Refills 0, Tot. Refills 0, Maintenance, 1 walker diagnosis: Peripheral vertigo, unstrady gait, 05/20/24 2:41:00 PM EST, Supply Start Date: 05/20/24 Status: Ordered Quantity: 1.0 Unit: each Repeat number: 1 Acetaminophen Tablet 650 mg, Tablet, By Mouth, Every 4 hours, PRN for Pain , Mild, Temperature Greater than 100.5, Routine, 05/19/24 4:56:00 PM EST Start Date: 05/19/24 Stop Date: 05/22/24 Status: Discontinued Repeat number: 1 amLODIPine 10 mg oral tablet 10 mg, 1, tablet, By Mouth, Daily, # 90 tablet, Refills 0, Maintenance, 05/19/24 9:13:00 PM EST, Partial fill upon patient request if the prescription is for a schedule II opioid drug. Start Date: 05/19/24 Status: Ordered Quantity: 90.0 Unit: tablet Repeat number: 1 amLODIPine 10 mg oral tablet 10 mg, Tablet, By Mouth, Hold for: If SBP less than 130, 05/21/24 9:00:00 AM EST Start Date: 05/21/24 Stop Date: 05/21/24 Status: Completed Repeat number: 1 B-12 0 Refills, Maintenance, 03/27/20 4:10:00 PM EDT Start Date: 03/27/20 Status: Ordered Repeat number: 1 digoxin 0.25 mg oral tablet 250 mcg, 1, tablet, By Mouth, Daily, # 30 tablet, Refills 0, Maintenance, 03/27/20 4:09:00 PM EDT Start Date: 03/27/20 Status: Ordered Quantity: 30.0 Unit: tablet Repeat number: 1 Eliquis 5 mg oral tablet 1 tablet = 5 mg, By Mouth, 2 times a day, # 60 tablet, 5 Refills, Maintenance, 05/19/24 9:14:00 PM EST, Tablet, Partial fill upon patient request if the prescription is for a schedule II opioid drug. Start Date: 05/19/24 Status: Ordered Quantity: 60.0 Unit: tablet Repeat number: 1 hydrochlorothiazide 25 mg oral tablet 25 mg, 1, tablet, By Mouth, Daily, Refills 0, Maintenance, 05/19/24 9:23:00 PM EST, Partial fill upon patient request if the prescription is for a schedule II opioid drug. Start Date: 05/19/24 Status: Ordered Repeat number: 1 insulin aspart 100 units/mL subcutaneous solution = 10 units, Subcutaneous Injection, 3 times a day before meals, <150: zero insulin, 151-200: 2 units, 201-250: 4 units, 251-300: 6 units, 301-350: 8 units, > 350: 10 units & Call PCP, # 30 mL, 0 Refills, Maintenance, 03/27/20 4:09:00 PM EDT Start Date: 03/27/20 Status: Ordered Quantity: 30.0 Unit: mL Repeat number: 1 Jardiance 25 mg oral tablet 1 tablet = 25 mg, By Mouth, Daily in AM, # 30 tablet, 0 Refills, Maintenance, 05/19/24 9:22:00 PM EST, Tablet, Partial fill upon patient request if the prescription is for a schedule II opioid drug. Start Date: 05/19/24 Status: Ordered Quantity: 30.0 Unit: tablet Repeat number: 1 Lantus Inj = 40 units, Subcutaneous Injection, Daily at bedtime, 0 Refills, Maintenance, 03/27/20 4:09:00 PM EDT, Injection Start Date: 03/27/20 Status: Ordered Repeat number: 1 losartan 100 mg oral tablet = 0.7 mg/kg, By Mouth, Daily, 0 Refills, Maintenance, 03/27/20 4:06:00 PM EDT, Tablet Start Date: 03/27/20 Status: Ordered Repeat number: 1 losartan 50 mg oral tablet 100 mg, Tablet, By Mouth, Hold for: SBP less than 130, 05/21/24 9:00:00 AM EST Start Date: 05/21/24 Stop Date: 05/21/24 Status: Completed Repeat number: 1 meclizine 12.5 mg oral tablet = 25 mg, By Mouth, 3 times a day, PRN Other, for 30 days, vertigo, # 100 tablet, 0 Refills, Acute 06/20/24 11:40:00 AM EST, 05/21/24 11:40:00 AM EST, Tablet, [facility], Partial fill upon patient request if the prescription is for a schedule II opioid drug., 171, cm, 05/21/24 8:27:00 EST, Height, 88.5, kg, 05/19/24 19:11:00 EST, Dry Weight Start Date: 05/21/24 Stop Date: 06/20/24 Status: Ordered Quantity: 100.0 Unit: tablet Repeat number: 1 metFORMIN 1000 mg oral tablet 1 tablet = 1,000 mg, By Mouth, 2 times a day, # 180 tablet, 0 Refills, Maintenance, 05/19/24 9:22:00PM EST, Tablet, Partial fill upon patient request if the prescription is for a schedule II opioid drug. Start Date: 05/19/24 Status: Ordered Quantity: 180.0 Unit: tablet Repeat number: 1 metoprolol 100 mg oral tablet, extended release 100 mg, XL Tablet, By Mouth, Hold for: SBP less than 130, heart rate less than 70, 05/21/24 9:00:00AM EST Start Date: 05/21/24 Stop Date: 05/21/24 Status: Completed Repeat number: 1 metoprolol succinate 100 mg oral capsule, extended release 1 capsule = 100 mg, By Mouth, Daily, # 30 capsule, 0 Refills, Maintenance, 03/27/20 4:08:00 PM EDT,ER Capsule Start Date: 03/27/20 Status: Ordered Quantity: 30.0 Unit: capsule Repeat number: 1 Multi-Day Plus Minerals 1 tablet, By Mouth, Daily, 0 Refills, Maintenance, 03/27/20 4:10:00 PM EDT Start Date: 03/27/20 Status: Ordered Repeat number: 1 sertraline 100 mg oral tablet 1 tablet = 100 mg, By Mouth, Daily, # 30 tablet, 0 Refills, Maintenance, 03/27/20 4:04:00 PM EDT, Tablet Start Date: 03/27/20 Status: Ordered Quantity: 30.0 Unit: tablet Repeat number: 1 simvastatin 40 mg oral tablet 40 mg, 1, tablet, By Mouth, Daily at bedtime, # 30 tablet, Refills 0, Maintenance, 03/27/20 4:06:00PM EDT Start Date: 03/27/20 Status: Ordered Quantity: 30.0 Unit: tablet Repeat number: 1 Vitamin D3 = 25 mcg, By Mouth, Daily, 0 Refills, Maintenance, 03/27/20 4:11:00 PM EDT Start Date: 03/27/20 Status: Ordered Repeat number: 1 Problem List Condition Confirmation Course Effective Dates Status Health atus Informant Obese class I Confirmed Active Results Radiology Reports * Exam Date Time Procedure Performing Provider Status 05/20/24 6:[address] Head/Brain W/O Contrast Jeanmarie Foster; Auth (Verified) Notes: (CT Head/Brain W/O Contrast) Reason For Exam: stroke rule out;Other: RESULT: CT Head/Brain W/O Contrast CT Head/Brain W/O Contrast Reason: Other:; stroke rule out; Clinical Question(s): Infarction; Order Comment:. TECHNIQUE: Incremental head CT without contrast formatted in 3 planes. Iterative reconstruction techniques are used to optimize dose and image quality. CTDIvol Head: 41.51 mGy, DLP Head: 747 mGy*cm. COMPARISON: 05/19/2024. FINDINGS: BRAIN and EXTRA-AXIAL SPACES: There is no new acute intracranial hemorrhage, mass effect, or new extra-axial fluid collection. Encephalomalacic changes of the anterior-inferior right frontal lobe areagain noted. Subtle patchy regions of diminished density within the supratentorial white matter aresimilar. These are nonspecific, but may represent chronic microangiopathic/small vessel ischemic change. Normal ortega-white matter differentiation is grossly preserved, and there is no CT evidence of a large acute territorial infarct. Mild prominence of the ventricles and subarachnoid spaces. ICA and vertebral artery calcifications are present. CALVARIUM, SKULL BASE AND SOFT TISSUES: There is a 7 mm wide defect within the superomedial right orbital roof (series 601, images 21-17). Encephalomalacic tissue extends into the defect (601, image 17). IMPRESSION: 1. No new acute intracranial hemorrhage or acute infarct. MRI of the brain is a more sensitive examination for the evaluation of acute ischemia/infarction which can be obtained for further evaluation. 2. 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 A defect within the right superomedial orbital roof is compatible with previous trauma, and a small cephalocele extends into the defect. WSN: [id number] Ordering Physician: Imelda Gutierrez Dictated By: Troy Kauffman MD Dictated Date/Time: 05/21/24 10:03 a Reviewed By: Troy Kauffman MD Signed By: Troy Kauffman MD Signed Date/Time: 05/21/24 10:03 am Transcribed By: MAGDA Transcribed Date/Time: 05/21/24 9:46 am * Exam Date Time Procedure Performing Provider Status 05/19/24 3:[address] Head-Hyper Acute Stroke Nimo Anthony; Auth (Verified) Notes: (CT Head-Hyper Acute Stroke) Reason For Exam: Neuro deficit, acute, stroke suspected;Other: RESULT: CT Head-Hyper Acute Stroke CT Head-Hyper Acute Stroke INDICATION: Hx of Present Illness: dizziness; Reason: Other:; Neuro deficit, acute, stroke suspected; Clinical Question(s): Other:; Hematoma Infarction; Order Comment: TECHNIQUE: Noncontrast head CT using axial technique and reconstructed in axial and coronal planes.Iterative reconstruction techniques are used to optimize dose and image quality. COMPARISON: 03/26/2020. FINDINGS: Linoleum Mechanic view findings, lines and tubes: None. BRAIN AND EXTRA-AXIAL SPACES: No parenchymal hemorrhage, midline shift, or mass effect. Ortega-white matter differentiation is wellpreserved. No acute infarct. Ventricles, sulci, and basilar cisterns are normal. No white matter lesions. Chronic encephalomalacia in the inferior right frontal lobe. No subarachnoid hemorrhage. No subdural or epidural collection. CALVARIUM, SKULL BASE, AND SOFT TISSUES: No acute fractures or suspicious bony lesions. The paranasal sinuses and mastoid air cells are clear. Visualized orbits and globes are intact. The extracranial soft tissues are unremarkable. IMPRESSION: No acute intracranial pathology. WSN: [id number] Ordering Physician: Jony Tapia Dictated By: Carmen Francis MD Dictated Date/Time: 05/19/24 3:44 pm Reviewed By: Carmen Francis MD Signed By: Carmen Francis MD Signed Date/Time: 05/19/24 3:44 pm Transcribed By: MAGDA Transcribed Date/Time: 05/19/24 3:33 pm * Exam Date Time Procedure Performing Provider Status 05/19/24 3:[address] Angio Neck Hyperacute Stroke Nimo Anaya; Auth (Verified) Notes: (CT Angio Neck Hyperacute Stroke) Reason For Exam: Aneurysm, neck vessel(s);Other: RESULT: CT Angio Neck Hyperacute Stroke CT Angio Head Hyperacute Stroke, CT Angio Neck Hyperacute Stroke Hx of Present Illness: dizziness; Reason: Other:; Stroke; Clinical Question(s): Other:; Hematoma Aneurysm / Other: TECHNIQUE: CT angiogram of the head and neck was performed after bolus administration of intravenous contrast. 100 mL of Isovue 300 was administered intravenously. Coronal and sagittal MIP reformatted images were obtained. Additional 3-D images were created on a separate workstation under concurrent supervision by the attending radiologist. All stenoses are measured using NASCET criteria. Weight-based protocol using automatic tube modulation was used to optimize exposure parameters. RADIATION DOSE PARAMETERS: CTDIvol Body: 18.50 mGy, DLP Body: 645 mGy*cm. CTDIvol Head: 45.50 mGy, DLP Head: 772 mGy*cm. COMPARISON: Noncontrast CT head performed concurrently. FINDINGS: CTA OF THE NECK: Arch: There is a three vessel aortic arch. There is mild atherosclerotic plaque of the aortic arch,but origins of the supra aortic vessels are patent. Right carotid system: The common carotid and cervical internal carotid arteries are patent. There is calcified atherosclerotic plaque at the carotid bifurcation, resulting in mild ICA stenosis (20%) by NASCET criteria. There is no dissection or aneurysm. Left carotid system: The common carotid and cervical internal carotid arteries are patent. There iscalcified atherosclerotic plaque at the carotid bifurcation, resulting in mild ICA stenosis (20%) by NASCET criteria. There is no dissection or aneurysm. There is a left-dominant vertebral artery system. Right vertebral: No significant stenosis. No evidence of dissection or aneurysm. Left vertebral: There is calcified atherosclerotic plaque at the origin with focal severe stenosis.No other significant stenosis. There is no dissection or aneurysm. Other: Soft tissues and bones: Large right thyroid nodule measuring up to 3.6 cm . No evidence of lymphadenopathy or mass. Visualized lungs are blurred by motion artifact, without significant superimposed airspace opacity. Multilevel degenerative changes of the spine are noted, without acute osseous abnormality. CTA OF THE HEAD: Anterior circulation: Bilateral intracranial ICAs demonstrate atherosclerotic calcification, with moderate narrowing of the clinoid ICAs on each side. Bilateral ANDREY and MCA branches are patent. Thereis no significant stenosis, proximal cutoff, aneurysm, or vascular malformation. Posterior circulation: Atherosclerotic calcification of the left vertebral artery V4 segment is noted, focal severe stenosis proximally. The right vertebral artery is nondominant and terminates as PICA, a normal variant. The basilar artery is patent. Bilateral SCA and SENIOR ESTIMATOR branches are patent, with no high-grade stenosis or proximal cutoff. There is partial supply to the left SENIOR ESTIMATOR with hypoplastic left P1 segment. Veins: Major dural venous sinuses are patent. Other: Soft tissues and bones: No midline shift or effacement of the basal cisterns. No space-occupying hemorrhage. No acute territorial loss of ortega-white matter differentiation. Encephalomalacia is noted in the inferior right frontal lobe. There is adjacent bony defect in the right orbital roof, suggesting chronic sequelae of trauma. Orbits are otherwise unremarkable. No significant opacification in the paranasal sinuses or mastoidair cells. IMPRESSION: 1. No large vessel occlusion in the head or neck. 2. Scattered atherosclerotic stenoses, including moderate narrowing of bilateral intracranial ICAs,mild narrowing of bilateral cervical ICAs, and severe stenosis of the dominant left vertebral artery origin. 3. 3.6 cm right thyroid nodule. Suggest nonemergent follow-up thyroid ultrasound for further characterization. WSN: [id number] Ordering Physician: Jony Tapia Dictated By: Asia Genao MD Dictated Date/Time: 05/19/24 5:21 pm Reviewed By: Asia Genao MD Signed By: Asia Genao MD Signed Date/Time: 05/19/24 5:21 pm Transcribed By: MAGDA Transcribed Date/Time: 05/19/24 3:36 pm * Exam Date Time Procedure Performing Provider Status 05/19/24 3:[address] Angio Head Hyperacute Stroke Laya Catarino leeson; Auth (Verified) Notes: (CT Angio Head Hyperacute Stroke) Reason For Exam: Stroke;Other: RESULT: CT Angio Head Hyperacute Stroke CT Angio Head Hyperacute Stroke, CT Angio Neck Hyperacute Stroke Hx of Present Illness: dizziness; Reason: Other:; Stroke; Clinical Question(s): Other:; Hematoma Aneurysm / Other: TECHNIQUE: CT angiogram of the head and neck was performed after bolus administration of intravenous contrast. 100 mL of Isovue 300 was administered intravenously. Coronal and sagittal MIP reformatted images were obtained. Additional 3-D images were created on a separate workstation under concurrent supervision by the attending radiologist. All stenoses are measured using NASCET criteria. Weight-based protocol using automatic tube modulation was used to optimize exposure parameters. RADIATION DOSE PARAMETERS: CTDIvol Body: 18.50 mGy, DLP Body: 645 mGy*cm. CTDIvol Head: 45.50 mGy, DLP Head: 772 mGy*cm. COMPARISON: Noncontrast CT head performed concurrently. FINDINGS: CTA OF THE NECK: Arch: There is a three vessel aortic arch. There is mild atherosclerotic plaque of the aortic arch,but origins of the supra aortic vessels are patent. Right carotid system: The common carotid and cervical internal carotid arteries are patent. There is calcified atherosclerotic plaque at the carotid bifurcation, resulting in mild ICA stenosis (20%) by NASCET criteria. There is no dissection or aneurysm. Left carotid system: The common carotid and cervical internal carotid arteries are patent. There iscalcified atherosclerotic plaque at the carotid bifurcation, resulting in mild ICA stenosis (20%) by NASCET criteria. There is no dissection or aneurysm. There is a left-dominant vertebral artery system. Right vertebral: No significant stenosis. No evidence of dissection or aneurysm. Left vertebral: There is calcified atherosclerotic plaque at the origin with focal severe stenosis.No other significant stenosis. There is no dissection or aneurysm. Other: Soft tissues and bones: Large right thyroid nodule measuring up to 3.6 cm . No evidence of lymphadenopathy or mass. Visualized lungs are blurred by motion artifact, without significant superimposed airspace opacity. Multilevel degenerative changes of the spine are noted, without acute osseous abnormality. CTA OF THE HEAD: Anterior circulation: Bilateral intracranial ICAs demonstrate atherosclerotic calcification, with moderate narrowing of the clinoid ICAs on each side. Bilateral ANDREY and MCA branches are patent. Thereis no significant stenosis, proximal cutoff, aneurysm, or vascular malformation. Posterior circulation: Atherosclerotic calcification of the left vertebral artery V4 segment is noted, focal severe stenosis proximally. The right vertebral artery is nondominant and terminates as PICA, a normal variant. The basilar artery is patent. Bilateral SCA and SENIOR ESTIMATOR branches are patent, with no high-grade stenosis or proximal cutoff. There is partial supply to the left SENIOR ESTIMATOR with hypoplastic left P1 segment. Veins: Major dural venous sinuses are patent. Other: Soft tissues and bones: No midline shift or effacement of the basal cisterns. No space-occupying hemorrhage. No acute territorial loss of ortega-white matter differentiation. Encephalomalacia is noted in the inferior right frontal lobe. There is adjacent bony defect in the right orbital roof, suggesting chronic sequelae of trauma. Orbits are otherwise unremarkable. No significant opacification in the paranasal sinuses or mastoidair cells. IMPRESSION: 1. No large vessel occlusion in the head or neck. 2. Scattered atherosclerotic stenoses, including moderate narrowing of bilateral intracranial ICAs,mild narrowing of bilateral cervical ICAs, and severe stenosis of the dominant left vertebral artery origin. 3. 3.6 cm right thyroid nodule. Suggest nonemergent follow-up thyroid ultrasound for further characterization. WSN: [id number] Ordering Physician: Jony Tapia Dictated By: Asia Genao MD Dictated Date/Time: 05/19/24 5:21 pm Reviewed By: Asia Genao MD Signed By: Asia Genao MD Signed Date/Time: 05/19/24 5:21 pm Transcribed By: MAGDA Transcribed Date/Time: 05/19/24 3:36 pm Vital Signs Most recent to oldest [Reference Range]: 1 2 3 Height 171 cm (05/21/24 8:27 AM) 171 cm (05/21/24 3:15 AM) 171 cm (05/20/24 11:34 PM) Weight 86.9 kg (05/19/24 7:17 PM) 88.5 kg (05/19/24 5:55 PM) 88.5 kg (05/19/24 1:26 PM) Oxygen Saturation [94-100 %] 98 % (05/21/24 7:00 AM) 96 % (05/21/24 3:15 AM) 96 % (05/20/24 11:34 PM) Pulse Rate [55-90 bpm] 71 bpm (05/21/24 10:49 AM) 56 bpm (05/21/24 7:00 AM) 54 bpm *L* (05/21/24 3:15 AM) Body Mass Index [18.5-24.99 kg/m2] 30.27 kg/m2 *>HHI* (05/19/24 5:55 PM) Blood Pressure [90-138/55-84 mm Hg] 150/57mm Hg *H* (05/21/24 10:49 AM) 150/57mm Hg *H* (05/21/24 9:43 AM) 150/57mm Hg *H* (05/21/24 9:43 AM) Respiratory Rate [16-30 br/min] 18 br/min (05/21/24 11:49 AM) 16 br/min (05/21/24 10:03 AM) 20 br/min (05/21/24 7:00 AM) Temperature [96.8-100.4 DegF] 98.1 DegF (05/21/24 10:00 AM) 97.2 DegF (05/21/24 7:00 AM) 97.8 DegF (05/21/24 3:15 AM) Mode of Delivery (Oxygen) Room air (05/21/24 7:00 AM) Room air (05/21/24 3:15 AM) Room air (05/20/24 11:34 PM) Blood pressure sites Arm, right (05/21/24 7:00 AM) Arm, right (05/21/24 3:15 AM) Arm, right (05/20/24 11:34 PM) Temperature Route Oral (05/21/24 10:00 AM) Oral (05/21/24 7:00 AM) Oral (05/21/24 3:15 AM) Dry Weight 88.5 kg (05/19/24 5:55 PM) 88.5 kg (05/19/24 1:26 PM) Weight Obtained Via Patient/family state d (05/19/24 1:26 PM) Admission evaluation note * Sima CONSTANTINO, Brigette Clinton: PERFORM Event Display: Admission Note Authored Date: [id number] Patient: ??BRIAN HOLMAN ? Age:??78 Years?Sex:??Male?:??1945?? Chief Complaint/Reason for Consultation Pt BIBA from home for dizziness at rest and n/v starting 4am. Unsteady gait. Hx CVA, afib, DM, etc.FAST 0. Nasal congestion yesterday History of Present Illness Patient is a poor historian.?? I have called??the??,??but she did not know the details as well.?[facility] 78-year-old male with past medical history of traumatic brain injury, PTSD, A- fib (on apixaban), T2DM (insulin-dependent), fall and s/p displaced orbital fracture and right frontal lobe contusion in 2019 who presented to ED with dizziness. ?? Patient reported that 2 days ago he was on the stairs and he fell backwards from about 10 steps.?? He was able to stand up and continue his routine.?? He did not develop any headache or problems.?And yesterday night??he and his ??went to??theater??and he ate??some??popcorn??which meds??include some??salt??.Early this morning he started having dizzy and spinning sensation when he woke up ear ly.?? And he had NBNB and decided to come to the hospital.?? He also reports being unsteady on his feet if he lays down he does not have any significant complaints.?? Patient denies ear fullness, tinnitus, palpitation, chest pain, abdominal pain, diarrhea, headache. ?? ED course remarkable for BP 159/101, afebrile, on room air saturating 99, heart rate 66 WBC 12.2 Creatinine 0.67, glucose 90, lipase 9, phosphorus 2.4 CT Head-Hyper Acute Stroke no acute intracranial abnormality CT angio head and??neck hyperacute shows no large vessel occlusion in the head or neck, scattered atherosclerotic stenosis including moderate narrowing of bilateral intracranial ICAs, mild narrowing of bilateral cervical ICAs, and severe s tenosis of the dominant left vertebral artery origin.?? 3.6 cm right thyroid nodules Patient is a .?? Denies illicit drug use Review of Systems None except as above Objective Vital Signs?? Temperature: 98 DegF (05/19/24 17:57:00) Temperature Route: Oral (05/19/24 17:57:00) Pulse Rate: 66 bpm (05/19/24 17:57:00) Respiratory Rate: 19 br/min (05/19/24 17:57:00) Systolic Blood Pressure:??159 mm Hg??High (05/19/24 17:57:00) Diastolic Blood Pressure:??101 mm Hg??High (05/19/24 17:57:00) Blood pressure sites: Arm, right (05/19/24 17:57:00) Mean Arterial Pressure: 120 mm Hg (05/19/24 17:57:00) Pulse Pressure: 58 mm Hg (05/19/24 17:57:00) Oxygen Saturation: 99 % (05/19/24 17:57:00) Mode of Delivery (Oxygen): Room air (05/19/24 17:57:00) Early Warning Score: 0 (05/19/24 19:13:27) ? Physical Exam Elderly male, not in acute distress, chronically??ill appearance, lethargic, alert and oriented x 4,??no nystagmus, no focal neurodeficits,??alert and oriented x 4 S1-S2 normal, irregularly irregular rhythm, normal heart rate Bilateral lungs good air entry, no wheezing or crackles Abdomen soft, nontender, no rebound or guarding 1+ lower extremity pitting edema,??peripheral pulses palpable Assessment/Plan Diagnoses Atrial fibrillation ??(I48.91) Chronic post-traumatic stress disorder (PTSD) after combat ??(F43.12) Depression ??(F32.A) Dizziness ??(R42) Fall at home ??(W19.XXXA) Hyperlipidemia ??(E78.5) Hypertension ??(I10) Nausea and vomiting ??(R11.2) T2DM (type 2 diabetes mellitus) ??(E11.9) ?? Assessment:??78-year-old male with past medical history of traumatic brain injury, PTSD, A-fib (on apixaban), T2DM (insulin-dependent), fall and s/p displaced orbital fracture and right frontal lobe contusion in 2019 who presented to ED with dizziness. ?? 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 Mood seems stable Continue with sertraline ?? Hypertension (I10):??Continue with amlodipine with hold parameters Continue with losartan with hold??parameters Hold hydrochlorothiazide? Atrial fibrillation (I48.91):??EKG shows A-fib, rate??controlled Digoxin level added on Continue with Eliquis Continue with metoprolol with hold parameters Continue with digoxin ?? Hyperlipidemia (E78.5):??Continue simvastatin 40 mg daily ?? Dizziness (R42) ?Associated with??Nausea and vomiting (R11.2),??Fall at home (W19.XXXA) ? Patient presents with??nausea vomiting and dizziness.?Reports spinning sensation??whenhe moves his head??or stands up.?Differential includes BPPV,??central??versus peripheral vertigo.?Given persistent symptoms??it is concerning for??cerebellar stroke.?Patient just got nausea a nd was feeling much better.?He reports??possible shrapnel??in his body??since the [place] War??and he does not know if he ever got an MRI??or not.? The CT angio head and neck also showed??no large vessel occlusion in the head or neck, scattered atherosclerotic stenosis including moderate narrowing of bilateral intracranial ICAs, mild narrowing of bilateral cervical ICAs, and severe stenosis of the dominant left vertebral artery origin.? TTE in 2020 was a technically difficult study due to poor compliance but overall showed normal EF.??If patient is persistently symptomatic tomorrow will need repeat TTE.? Plan: Neurochecks every 4 hours Neurology consult??and appreciate recommendations Carotid duplex ordered Telemetry monitoring A1c and lipid panel added on If patient is still symptomatic tomorrow morning??may need full??body x-ray??to rule out shrapnel??and then proceed with an MRI brain??to rule out cerebellar stroke Prochlorperazine as needed Continue with apixaban and statin PT eval Added on B12 ?? T2DM (type 2 diabetes mellitus) (E11.9):??Patient reports using??40 units glargine at night, 15 units lispro 3 times daily with meals if he is having good meal,??current fingerstick 90,??he is unableto tolerate oral for now.?? Hold metformin,??Jardiance ?? POC glucose every 6 hours Sliding scale every 6 hours Will start long-acting when he is able to tolerate oral ?? VTE Prophylaxis:??Continue with Eliquis ?VTE Prophylaxis Assessment:??VTE Prophylaxis Ordered ?? Discharge Planning:??Pending clinical course ?? Ongoing Medical Necessity:??Dizziness, lightheadedness,? vertigo,??CVA ?? Code Status:??Full code ?? Pt is seen on 05/19 ?? I spent a total of??80 minutes in patient care that includes??reviewing the chart and medical records, speaking with the patient, examining the patient, interpreting labs/imaging/ekg, formulating anddiscussing the treatment plan, counseling the patient, placing orders, communicating with??consultants and nurses??and documenting the encounter. ?? Please note that I have used Click [employer] system to??transcribe??this note and it may contain unintentional errors. Please feel free to contact me for any clarification. ? Estimated Discharge Date ? Histories Allergies Allergies ?(Active and Proposed Allergies Only) Shrimp? (Severity: Unknown severity, Onset: Unknown) ? Past Medical History/Problem List Active Problems(1) Obese class I ? Past Surgical History No surgery history documented. ? Social History No social history documented. ? Family History No Family History documented. ? Medications Home Medications Amlodipine (amLODIPine 10 mg oral tablet)?10?Milligram?1?tablet?By Mouth?Daily apixaban (Eliquis 5 mg oral tablet)?1?tab(s)?5?Milligram?By Mouth?2 times a day Cholecalciferol (Vitamin D3)?See Instructions?By Mouth Daily?25?Microgram?By Mouth?Daily Digoxin (digoxin 0.25 mg oral tablet)?250?Microgram?1?tablet?By Mouth?Daily empagliflozin (Jardiance 25 mg oral tablet)?1?tab(s)?25?Milligram?By Mouth?Daily in AM Hydrochlorothiazide (hydrochlorothiazide 25 mg oral tablet)?25?Milligram?1?tablet?ByMouth?Daily Insulin Aspart (insulin aspart 100 units/mL subcutaneous solution)?26?unit(s)?SubcutaneousInjection?3 times a day before meals?<150: zero insulin, ??151-200: 2 units, 201-250: 4 units, 251-300: 6 units, 301-350: 8 units, > 350: 10 units & Call PCP?28 Insulin Glargine (Lantus Inj)?55?unit(s)?Subcutaneous Injection?Daily at bedtime?40 Losartan (losartan 100 mg oral tablet)?0.7?Milligrams/Kilogram?By Mouth?Daily Metformin (metFORMIN 1000 mg oral tablet)?1?tab(s)?1,000?Milligram?By Mouth?2 times a day Metoprolol (metoprolol succinate 100 mg oral capsule, extended release)?1?capsule?100?Milligram?By Mouth?Daily Multivitamin With Minerals (Multi-Day Plus Minerals)?1?tab(s)?By Mouth?Daily Sertraline (sertraline 100 mg oral tablet)?1?tab(s)?100?Milligram?By Mouth?Daily Simvastatin (simvastatin 40 mg oral tablet)?40?Milligram?1?tablet?By Mouth?Daily at bedtime ? Inpatient Medications Medications (19) Active SCHEDULED: (12) Amlodipine 10 mg Tablet (amLODIPine 10 mg oral tablet) ??10 mg, By Mouth, Daily Apixaban 5 mg Tablet (Eliquis) ??5 mg, By Mouth, 2 times a day Digoxin 0.25 mg Tablet (digoxin 0.25 mg oral tablet) ??250 mcg, By Mouth, Daily Insulin Lispro 100 units/mL Inj (Insulin LISPRO Sliding Scale) ??2-10 units, Subcutaneous Injection, Every 6 hours Losartan 50 mg Tablet (losartan 50 mg oral tablet) ??100 mg, By Mouth, Daily Metoprolol 100 mg XL Tablet (metoprolol 100 mg oral tablet, extended release) ??100 mg, By Mouth, Daily Multivitamin Therapeutic / Minerals Tablet (Multivit Therapeutic/Minerals Tablet) ??1 tablet, By Mouth, Daily NaCl 0.9% Flush 3ml (NaCL 0.9% Flush) ??3 mL, IV Push, Every 8 hours Phospha-Neutral 250mg Tablet ??2 tablet, By Mouth, Every 4 hours Sertraline 50 mg Tablet (sertraline 50 mg oral tablet) ??100 mg, By Mouth, Daily Simvastatin 20 mg Tablet (simvastatin 20 mg oral tablet) ??40 mg, By Mouth, Daily at bedtime Vitamin D 1000 IU Tablet (Vitamin D3 1000 intl units oral tablet) ??25 mcg, By Mouth, Daily CONTINUOUS: (0) PRN: (7) Acetaminophen 325 mg Tablet (Acetaminophen Tablet) ??650 mg, By Mouth, Every 4 hours Docusate Sodium 100 mg Capsule (Docusate Sodium Capsule) ??100 mg 1 capsule, By Mouth, 2 times a day Melatonin 3 mg Tablet (Melatonin Tablet) ??3 mg, By Mouth, Daily at bedtime NaCl 0.9% Flush 3ml (NaCL 0.9% Flush) ??3 mL, IV Push, Every 8 hours Ondansetron 2mg/mL Inj (2mL Vial) (Zofran Inj) ??4 mg, IV Push, Every 6 hours Polyethylene Glycol 17 Gm Powder (MiraLax Powder) ??17 Gm 1 pack/packet, By Mouth, Daily Senna Tablet ??8.6 mg 1 tablet, By Mouth, 2 times a day ? Results Recent Labs BLOOD COUNT & DIFF WBC 12.2 k/mm3 (High)?? 05/19/2024 14:57 RBC 4.94 m/mm3 ()?? 05/19/2024 14:57 Hgb 15.4 Gm/dL ()?? 05/19/2024 14:57 Hct 46.0 % ()?? 05/19/2024 14:57 MCV 93.1 femtoliters ()?? 05/19/2024 14:57 MCH 31.2 pg ()?? 05/19/2024 14:57 MCHC 33.5 Gm/dL ()?? 05/19/2024 14:57 Platelet Count 239 k/mm3 ()?? 05/19/2024 14:57 RDW-SD 43.8 femtoliters ()?? 05/19/2024 14:57 MPV 10.2 femtoliters ()?? 05/19/2024 14:57 Nucleated RBC (Automated) 0.0 #/100 WBC'S ()?? 05/19/2024 14:57 Abs. NRBC 0.0 k/mm3 ()?? 05/19/2024 14:57 Abs. Neut 10.9 k/mm3 (High)?? 05/19/2024 14:57 Abs. Lymph 0.8 k/mm3 ()?? 05/19/2024 14:57 Abs. [place] 0.4 k/mm3 ()?? 05/19/2024 14:57 Abs. Eo 0.0 k/mm3 ()?? 05/19/2024 14:57 Abs. Baso 0.0 k/mm3 ()?? 05/19/2024 14:57 Neut % 89.0 % (High)?? 05/19/2024 14:57 Lymph % 6.5 % (Low)?? 05/19/2024 14:57 [place] % 3.3 % (Low)?? 05/19/2024 14:57 Eos % 0.3 % ()?? 05/19/2024 14:57 Baso % 0.2 % ()?? 05/19/2024 14:57 Imm Gran 0.7 % ()?? 05/19/2024 14:57 Abs. Imm Gran 0.1 k/mm3 ()?? 05/19/2024 14:57 ?? CHEM GENERAL Sodium 140 mmol/L ()?? 05/19/2024 14:57 Potassium 3.9 mmol/L ()?? 05/19/2024 14:57 Chloride 104 mmol/L ()?? 05/19/2024 14:57 Bicarbonate Level 24 mmol/L ()?? 05/19/2024 14:57 Anion Gap 12 ()?? 05/19/2024 14:57 Glucose Level 139 mg/dL (High)?? 05/19/2024 14:57 Glucose, POC 90 mg/dL ()?? 05/19/2024 19:10 BUN 12 mg/dL ()?? 05/19/2024 14:57 Creatinine-Blood 0.67 mg/dL (Low)?? 05/19/2024 14:57 Estimated GFR Creatinine 96 ML/MIN/1.73 M2 ()?? 05/19/2024 14:57 Phosphorus 2.4 mg/dL (Low)?? 05/19/2024 14:57 Magnesium 2.0 mg/dL ()?? 05/19/2024 14:57 Alkaline Phosphatase 70 units/L ()?? 05/19/2024 14:57 Lipase 9 units/L (Low)?? 05/19/2024 14:57 ALT (SGPT) 15 units/L ()?? 05/19/2024 14:57 Bilirubin, Total 0.5 mg/dL ()?? 05/19/2024 14:57 ?? LIPID STUDIES Cholesterol 91 mg/dL ()?? 05/19/2024 14:57 Triglycerides 53 mg/dL ()?? 05/19/2024 14:57 HDL Cholesterol 37 mg/dL (Low)?? 05/19/2024 14:57 LDL Cholesterol 43 mg/dL ()?? 05/19/2024 14:57 Non HDL Cholesterol 54 mg/dL ()?? 05/19/2024 14:57 ?? URINE OTHER Est Creatinine Clearance 87.29 mL/min ()?? 05/19/2024 15:56 ? Abnormal Labs ?? BLOOD COUNT & DIFF Abs. Imm Gran?0.1 k/mm3 ()?05/19/2024 14:57 Abs. NRBC?0.0 k/mm3 ()?05/19/2024 14:57 Abs. Neut?10.9 k/mm3 (High)?05/19/2024 14:57 Imm Gran?0.7 % ()?05/19/2024 14:57 Lymph %?6.5 % (Low)?05/19/2024 14:57 [place] %?3.3 % (Low)?05/19/2024 14:57 Neut %?89.0 % (High)?05/19/2024 14:57 Nucleated RBC (Automated)?0.0 #/100 WBC'S ()?05/19/2024 14:57 RDW-SD?43.8 femtoliters ()?05/19/2024 14:57 WBC?12.2 k/mm3 (High)?05/19/2024 14:57 ?? CHEM GENERAL Creatinine-Blood?0.67 mg/dL (Low)?05/19/2024 14:57 Estimated GFR Creatinine?96 ML/MIN/1.73 M2 ()?05/19/2024 14:57 Glucose Level?139 mg/dL (High)?05/19/2024 14:57 Lipase?9 units/L (Low)?05/19/2024 14:57 Phosphorus?2.4 mg/dL (Low)?05/19/2024 14:57 ?? LIPID STUDIES Cholesterol?91 mg/dL ()?05/19/2024 14:57 HDL Cholesterol?37 mg/dL (Low)?05/19/2024 14:57 Non HDL Cholesterol?54 mg/dL ()?05/19/2024 14:57 Triglycerides?53 mg/dL ()?05/19/2024 14:57 ?? Note: Critical results are displayed in red. ? Urinalysis Est Creatinine Clearance: 87.29 mL/min (15:56) ?? Blood Gases?? No qualifying data available. ? EKG study * Event Display: ECG 12-Lead Authored Date: Please click on pdf link to open report * Event Display: ECG 12-Lead Authored Date: Ventricular Rate: 59 BPM QRS Duration: 98 ms Q-T Interval: 350 ms QTC Calculation(Bazett): 346 ms R [place]: 30 degrees T [place]: -58 degrees Atrial fibrillation with slow ventricular response Nonspecific ST and T wave abnormality Abnormal ECG No previous ECGs available Confirmed by ANAT GIRALDO MD ([id number]) on 05/19/2024 3:43:43 PM Ruby: ANAT GIRALDO MD US.doppler Carotid arteries - bilateral * Event Display: VL Carotid Duplex Scan Bilat Authored Date: [id number] Demographics Procedure Information Patient name: EVA TORRES Procedure date: 05/20/2024 8:52 AM Corporate Proc. sub type: Cerebral: Carotid, Carotid Duplex Scan Bilateral. Gender: Male Accession No: [id number] Date of : 1945 Account No: [id number] Age: 78 year(s) Patient status: Routine Admit Status: Observation Procedure Staff Probe: L 2-9 Ordering physician: Sima Clinton MD Technical quality: Adequate visualization Referring Physician: UNASSIGNED UNASSIGNED Facility: [facility] Attending Physician: Sima Clinton MD Study location: [facility] [facility] Admitting Physician: Luis Roque MD Motion Pictures Cartoonist: Marta Oneal Procedure consent obtained: No Interpreting physician: Elda Mendes Indications CVA. Carotid Procedure Findings Right Left Location PSV (cm/s) EDV (cm/s) Plaque Characteristics PSV (cm/s) EDV (cm/s) Plaque Characteristics Prox CCA 93.7 11.4 Heterogeneous 192.2 11.9 Heterogeneous Dist CCA 128.3 17.2 Heterogeneous 145.3 12 Bulb 105 9.2 Heterogeneous 101.5 8.4 Heterogeneous Prox ICA 99.7 10.2 Heterogeneous 97.8 12 Heterogeneous Mid ICA 66.2 8.3 81.4 13.9 Dist ICA 96.7 11.6 70 13.8 Prox ECA 193 0 125.2 0 Vertebral 43 4 46.4 8.3 Prox Subclavian 112.2 0 158.1 0 Right ICA/CCA ratio: 0.78 Right verterbral flow: Antegrade Left ICA/CCA ratio: 0.67 Left verterbralflow: Antegr Carotid Plaque Details Left ICA/CCA ratio: 0.67 Left verterbral flow: Antegrade Right ICA/CCA ratio: 0.78 Right verterbral flow: Antegrade Study Comments REFERENCE Normal: Internal Carotid Artery (ICA) velocity is less than 180 cm/second with no visible plaque. ICA velocity less than 180 cm/second with some visible plaque indicates 1-49% stenosis. ICA velocity between 180-230 cm/second with visible plaque indicates 50-69% stenosis. ICA velocity greater than 230 cm/second with visible plaque indicates 70-99% stenosis. Total Occlusion is indicated by no detectable flow. Physician Conclusions Summary: Right Side: 1-49% stenosis in the Internal Carotid Artery. Antegrade flow in the Vertebral Artery. Multiphasic flow is seen in the Subclavian Artery. Left Side: Mildly elevated velocities in the Common Carotid Artery. 1-49% stenosis in the Internal Carotid Artery. Antegrade flow in the Vertebral Artery. Multiphasic flow is seen in the Subclavian Artery. Comparison is made to the previous CT study dated 05/19/24. * Event Display: VL Carotid Duplex Scan Bilat Authored Date: [id number] Cardiology * Event Display: Cardiac Rhythm Strips Authored Date: Hospital Progress note * Kendra Canas NP: PERFORM Event Display: Progress Note Hospital Authored Date: Patient: ??BRIAN HOLMAN ? Age:??78 Years?Sex:??Male?:??1945?? Chief Complaint/Reason for Consult Pt LEODANA from home for dizziness at rest and n/v starting 4am. Unsteady gait. Hx CVA, afib, DM, etc.FAST 0. Nasal congestion yesterday History of Present Illness Interval hx. He says he feels much better this am. He reports that he is getting around well with walker. He says he only has brief lightheadedness when he first gets up. ?? Head CT;did not show any acute changes Review of Systems no diplopia no dizziness no focal weakness/numbness. gait is steady Physical Exam Vitals & Measurements T:??97.2?F?? HR:??71??(Peripheral)?? RR:??16?? BP:??150/57?? SpO2:??98%?? HT:??171??cm?? WT:??86.9??kg?? BMI:??30.27? GENERAL APPERANCE:??in NAD. HEENT:??nc/at NECK: supple LUNGS: ??Normal I:E NEURO:?? awake and alert oriented??to his name, age, place, mo, yr names well follows commands Cranial Nerves:?? Pupils: perrl, left beating nystagmus Visual:??vff Extra ocular movements: Intact Facial sensation:??intact b/l, no fd Hearing: intact bilaterally to finger rub Speech: clear, fluent, appropriate Tongue: Protrudes Midline Gag: soft palate raises equally Shoulder shru/5 Neck musculature: 5/5 Motor Exam: Strength:??5/5 in the b/l UEs and b/l LEs. Sensory: sensation to light touch intact and equal bilaterally to face, bilateral upper extremities, and bilateral lower extremities Coordination: FTN intact, b/l??Magdalena symmetric, no ataxia. Stance and Gait:??not tested. ? (05/20/2024 18:[address] Head/Brain W/O Contrast) IMPRESSION: ?? 1. No new acute intracranial hemorrhage or acute infarct. MRI of the brain is a more sensitive examination for the evaluation of acute ischemia/infarction which can be obtained for further evaluation. 2. 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 A defect within the right superomedial orbital roof is compatible with previous trauma, and a small cephalocele extends into the defect. ? WSN: [id number] [1] ? (05/19/2024 15:[address] Angio Neck Hyperacute Stroke) ?? IMPRESSION: ? 1. ??No large vessel occlusion in the head or neck. 2. ??Scattered atherosclerotic stenoses, including moderate narrowing of bilateral intracranial ICAs, mild narrowing of bilateral cervical ICAs, and severe stenosis of the dominant left vertebral artery origin. 3. ??3.6 cm right thyroid nodule. Suggest nonemergent follow-up thyroid ultrasound for further characterization. ?? [2] ? Carotid US 05/20/2024 Study Comments REFERENCE Normal: Internal Carotid Artery (ICA) velocity is less than 180 cm/second with no visible plaque. ICA velocity less than 180 cm/second with some visible plaque indicates 1-49% stenosis. ICA velocity between 180-230 cm/second with visible plaque indicates 50-69% stenosis. ICA velocity greater than 230 cm/second with visible plaque indicates 70-99% stenosis. Total Occlusion is indicated by no detectable flow. Physician Conclusions Summary: Right Side: 1-49% stenosis in the Internal Carotid Artery. Antegrade flow in the Vertebral Artery. Multiphasic flow is seen in the Subclavian Artery. ?? Left Side: Mildly elevated velocities in the Common Carotid Artery. 1-49% stenosis in the Internal Carotid Artery. Antegrade flow in the Vertebral Artery. Multiphasic flow is seen in the Subclavian Artery. ?? Comparison is made to the previous CT study dated 05/19/24. ? VL Carotid Duplex Bilat Scan This document has an image ?? Assessment/Plan Discharge Planning:? cc; dizziness ?? 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 ?? Pt had developed vertigo??associated with nausea and vomiting, otherwise no focal neurological symptoms. This occurred after he had a fall on Sunday, but sx developed when he awoke/out of??bed early am??Sunday, 2-4am. ?? Patient??feels improved, more steady on his feet, less dizzy. ?? head CT non-acute cta of head and neck; no lvo, noted scattered athero, b/l ICA narrowing and L. vert stenosis LDL; 43 A1C: 7.[address] this am; no acute stroke noted CUDS; 1-49% b/l, Antegrade flow in the Vertebral Artery. ? dx Vertigo; suspect peripheral, has h/o of same, no focal neuro deficits,?? repeat Head CT; no noted stroke. ?? Plan -normotension -ok to c/w Eliquis -c/w statin -he is now improved, may need vestibular rehab if re-occurs ?? sudhakar Gann Neurology signing off ?? Saúl messaged via TC. Please call for any questions. Problem List/Past Medical History Ongoing Obese class I Procedure/Surgical History No qualifying data available. Home Medications Amlodipine: 10 mg = 1 tablet, By Mouth, Daily apixaban: 5 mg = 1 tablet, By Mouth, 2 times a day Cholecalciferol: 25 mcg, By Mouth, Daily Cyanocobalamin Digoxin: 250 mcg = 1 tablet, By Mouth, Daily empagliflozin: 25 mg = 1 tablet, By Mouth, Daily in AM Hydrochlorothiazide: 25 mg = 1 tablet, By Mouth, Daily Insulin Aspart: 28 units, Subcutaneous Injection, 3 times a day before meals, <150: zero insulin, ??151-200: 2 units, 201-250: 4 units, 251-300: 6 units, 301- 350: 8 units, > 350: 10 units &Call PCP Insulin Glargine: 40 units, Subcutaneous Injection, Daily at bedtime Losartan: 0.7 mg/kg, By Mouth, Daily Metformin: 1,000 mg = 1 tablet, By Mouth, 2 times a day Metoprolol: 100 mg = 1 capsule, By Mouth, Daily Miscellaneous Rx (1 walker): See Instructions, 1 walkerdiagnosis: Peripheral vertigo, unstrady gait Multivitamin With Minerals: 1 tablet, By Mouth, Daily Sertraline: 100 mg = 1 tablet, By Mouth, Daily Simvastatin: 40 mg = 1 tablet, By Mouth, Daily at bedtime Allergies Shrimp Family History No family history recorded. [1]??CT Head/Brain W/O Contrast; Troy Kauffman MD 05/20/2024 18:06 EST [2]??CT Angio Neck Hyperacute Stroke; Asia Genao MD 05/19/2024 15:18 EST * Matti Gann MD: PERFORM Event Display: Progress Note Hospital Authored Date: Attending Attestation:??I have discussed the case and its management with the advanced practitionerand agree with the findings and plan as documented in the advanced practitioner???s note. ?? Matti Gann M.D Attending-Vascular Neurology Department of Neurosciences Compensation Manager of [id number] ? Please note - The above note was created using [employer] software and dictation errors may have occurred; I apologize for any mistakes in the hammer repairer. ??Thank you for your patience as we continue to work on perfecting the dictation process. ??Please feel free to contact us for any clarification purposes. * Matt CONSTANTINO, Imelda Wells: PERFORM Event Display: Progress Note Hospital Authored Date: [id number] Patient: ??BRIAN HOLMAN ? Age:??78 Years?Sex:??Male?:??1945?? Subjective Patient seen and examined this morning, he is hemodynamically stable, seen by neuro, suspicion for peripheral vertigo, ordered meclizine, repeat CAT scan ordered Labs reviewed, stable, A1c is 7.8, lipids are well-controlled ?? Carotid duplex obtained this morning, : Right Side: 1-49% stenosis in the Internal Carotid Artery. Antegrade flow in the Vertebral Artery. Multiphasic flow is seen in the Subclavian Artery. ?? Left Side: Mildly elevated velocities in the Common Carotid Artery. 1-49% stenosis in the Internal Carotid Artery. Antegrade flow in the Vertebral Artery. Multiphasic flow is seen in the Subclavian Artery. Review of Systems Continuing to complain of?gait unsteadiness when he changes position Objective Vital Signs?? Temperature: 98.2 DegF (05/20/24 14:59:00) Temperature Route: Oral (05/20/24 14:59:00) Pulse Rate:??51 bpm??Low (05/20/24 14:59:00) Respiratory Rate: 18 br/min (05/20/24 14:59:00) Systolic Blood Pressure:??141 mm Hg??High (05/20/24 14:59:00) Diastolic Blood Pressure: 55 mm Hg (05/20/24 14:59:00) Blood pressure sites: Arm, right (05/20/24 14:59:00) Mean Arterial Pressure: 84 mm Hg (05/20/24 14:59:00) Pulse Pressure: 86 mm Hg (05/20/24 14:59:00) Oxygen Saturation: 97 % (05/20/24 14:59:00) Mode of Delivery (Oxygen): Room air (05/20/24 14:59:00) Early Warning Score: 0 (05/20/24 14:59:34) ? Ventilator Settings?? No qualifying data available. ?? Intake/Output? No Data Available ? Physical Exam Elderly male, not in acute distress, chronically??ill appearance, no focal neurodeficits,??alert and oriented x 4 S1-S2 normal, irregularly irregular rhythm, normal heart rate Bilateral lungs good air entry, no wheezing or crackles Abdomen soft, nontender, no rebound or guarding 1+ lower extremity pitting edema,??peripheral pulses palpable _ Inpatient Medications Medications (19) Active SCHEDULED: (11) Amlodipine 10 mg Tablet (amLODIPine 10 mg oral tablet) ??10 mg, By Mouth, Daily Apixaban 5 mg Tablet (Eliquis) ??5 mg, By Mouth, 2 times a day Digoxin 0.25 mg Tablet (digoxin 0.25 mg oral tablet) ??250 mcg, By Mouth, Daily Insulin Lispro 100 units/mL Inj (Insulin LISPRO Sliding Scale) ??2-10 units, Subcutaneous Injection, Every 6 hours Losartan 50 mg Tablet (losartan 50 mg oral tablet) ??100 mg, By Mouth, Daily Metoprolol 100 mg XL Tablet (metoprolol 100 mg oral tablet, extended release) ??100 mg, By Mouth, Daily Multivitamin Therapeutic / Minerals Tablet (Multivit Therapeutic/Minerals Tablet) ??1 tablet, By Mouth, Daily NaCl 0.9% Flush 3ml (NaCL 0.9% Flush) ??3 mL, IV Push, Every 8 hours Sertraline 50 mg Tablet (sertraline 50 mg oral tablet) ??100 mg, By Mouth, Daily Simvastatin 20 mg Tablet (simvastatin 20 mg oral tablet) ??40 mg, By Mouth, Daily at bedtime Vitamin D 1000 IU Tablet (Vitamin D3 1000 intl units oral tablet) ??25 mcg, By Mouth, Daily CONTINUOUS: (0) PRN: (8) Acetaminophen 325 mg Tablet (Acetaminophen Tablet) ??650 mg, By Mouth, Every 4 hours Docusate Sodium 100 mg Capsule (Docusate Sodium Capsule) ??100 mg 1 capsule, By Mouth, 2 times a day Meclizine 12.5 mg Tablet (meclizine 12.5 mg oral tablet) ??25 mg, By Mouth, 3 times a day Melatonin 3 mg Tablet (Melatonin Tablet) ??3 mg, By Mouth, Daily at bedtime NaCl 0.9% Flush 3ml (NaCL 0.9% Flush) ??3 mL, IV Push, Every 8 hours Polyethylene Glycol 17 Gm Powder (MiraLax Powder) ??17 Gm 1 pack/packet, By Mouth, Daily PROCHLORperazine 5mg/ml Inj (PROCHLORperazine Inj) ??5 mg 1 mL, IV Push, Once Senna Tablet ??8.6 mg 1 tablet, By Mouth, 2 times a day ? Results Recent Labs BLOOD COUNT & DIFF WBC 11.2 k/mm3 (High)?? 05/20/2024 01:14 RBC 4.83 m/mm3 ()?? 05/20/2024 01:14 Hgb 14.8 Gm/dL ()?? 05/20/2024 01:14 Hct 44.9 % ()?? 05/20/2024 01:14 MCV 93.0 femtoliters ()?? 05/20/2024 01:14 MCH 30.6 pg ()?? 05/20/2024 01:14 MCHC 33.0 Gm/dL ()?? 05/20/2024 01:14 Platelet Count 256 k/mm3 ()?? 05/20/2024 01:14 RDW-SD 43.8 femtoliters ()?? 05/20/2024 01:14 MPV 9.9 femtoliters ()?? 05/20/2024 01:14 Nucleated RBC (Automated) 0.0 #/100 WBC'S ()?? 05/20/2024 01:14 Abs. NRBC 0.0 k/mm3 ()?? 05/20/2024 01:14 Abs. Neut 10.9 k/mm3 (High)?? 05/19/2024 14:57 Abs. Lymph 0.8 k/mm3 ()?? 05/19/2024 14:57 Abs. [place] 0.4 k/mm3 ()?? 05/19/2024 14:57 Abs. Eo 0.0 k/mm3 ()?? 05/19/2024 14:57 Abs. Baso 0.0 k/mm3 ()?? 05/19/2024 14:57 Neut % 89.0 % (High)?? 05/19/2024 14:57 Lymph % 6.5 % (Low)?? 05/19/2024 14:57 [place] % 3.3 % (Low)?? 05/19/2024 14:57 Eos % 0.3 % ()?? 05/19/2024 14:57 Baso % 0.2 % ()?? 05/19/2024 14:57 Imm Gran 0.7 % ()?? 05/19/2024 14:57 Abs. Imm Gran 0.1 k/mm3 ()?? 05/19/2024 14:57 ?? CARDIAC High Sensitivity Troponin (HSTnT) 21 ng/L ()?? 05/20/2024 01:14 ?? CHEM GENERAL Sodium 141 mmol/L ()?? 05/20/2024 01:14 Potassium 4.0 mmol/L ()?? 05/20/2024 01:14 Chloride 104 mmol/L ()?? 05/20/2024 01:14 Bicarbonate Level 22 mmol/L ()?? 05/20/2024 01:14 Anion Gap 15 ()?? 05/20/2024 01:14 Glucose Level 133 mg/dL (High)?? 05/20/2024 01:14 Glucose, POC 207 mg/dL (High)?? 05/20/2024 12:59 Hemoglobin A1C (Monitoring) 7.8 % (High)?? 05/19/2024 14:57 BUN 12 mg/dL ()?? 05/20/2024 01:14 Creatinine-Blood 0.72 mg/dL ()?? 05/20/2024 01:14 Estimated GFR Creatinine 94 ML/MIN/1.73 M2 ()?? 05/20/2024 01:14 Calcium 9.1 mg/dL ()?? 05/20/2024 01:14 Phosphorus 4.0 mg/dL ()?? 05/20/2024 01:14 Magnesium 2.0 mg/dL ()?? 05/20/2024 01:14 Protein, Total 6.3 Gm/dL ()?? 05/20/2024 01:14 Albumin 3.6 Gm/dL ()?? 05/20/2024 01:14 AG Ratio 1.3 ()?? 05/20/2024 01:14 Alkaline Phosphatase 65 units/L ()?? 05/20/2024 01:14 Lipase 9 units/L (Low)?? 05/19/2024 14:57 AST (SGOT) 20 units/L ()?? 05/20/2024 01:14 ALT (SGPT) 12 units/L ()?? 05/20/2024 01:14 Bilirubin, Total 0.5 mg/dL ()?? 05/20/2024 01:14 Vitamin B12 Level 1297 pg/mL (High)?? 05/19/2024 14:57 ?? LIPID STUDIES Cholesterol 91 mg/dL ()?? 05/19/2024 14:57 Triglycerides 53 mg/dL ()?? 05/19/2024 14:57 HDL Cholesterol 37 mg/dL (Low)?? 05/19/2024 14:57 LDL Cholesterol 43 mg/dL ()?? 05/19/2024 14:57 Non HDL Cholesterol 54 mg/dL ()?? 05/19/2024 14:57 ?? TOXICOLOGY/TDM Digoxin Level 1.1 ng/mL ()?? 05/19/2024 14:57 ?? URINE OTHER Est Creatinine Clearance 81.23 mL/min ()?? 05/20/2024 02:17 ? Urinalysis Est Creatinine Clearance: 81.23 mL/min (02:17) Est Creatinine Clearance: 87.29 mL/min (15:56) ? Cardiology Labs High Sensitivity Troponin (HSTnT): 21 ng/L (05/20/24 01:14:00) Lipids: Cholesterol: 91 mg/dL (05/19/24 14:57:00) Triglycerides: 53 mg/dL (05/19/24 14:57:00) HDL Cholesterol:??37 mg/dL??Low (05/19/24 14:57:00) LDL Cholesterol: 43 mg/dL (05/19/24 14:57:00) Non HDL Cholesterol: 54 mg/dL (05/19/24 14:57:00) ?? Uric/LDH?? No qualifying data available. ? Assessment/Plan Atrial fibrillation ??(I48.91) Chronic post-traumatic stress disorder (PTSD) after combat ??(F43.12) Depression ??(F32.A) Dizziness ??(R42) Fall at home ??(W19.XXXA) Hyperlipidemia ??(E78.5) Hypertension ??(I10) Nausea and vomiting ??(R11.2) T2DM (type 2 diabetes mellitus) ??(E11.9) ?? Assessment:??78-year-old male with past medical history of traumatic brain injury, PTSD, A-fib (on apixaban), T2DM (insulin-dependent), fall and s/p displaced orbital fracture and right frontal lobe contusion in 2019 who presented to ED with dizziness. ?? Dizziness (R42) ?Associated with??Nausea and vomiting (R11.2),??Fall at home (W19.XXXA) ? Patient presents with??nausea vomiting and dizziness.?Reports spinning sensation??whenhe moves his head??or stands up.?Differential includes BPPV,??central??versus peripheral vertigo. The CT angio head and neck also showed??no large vessel occlusion in the head or neck, scattered atherosclerotic stenosis including moderate narrowing of bilateral intracranial ICAs, mild narrowing of bilateral cervical ICAs, and severe stenosis of the dominant left vertebral artery origin.?? Carotid duplex obtained, there is no severe stenosis on either side ?? Seen by neuro, there is a suspicion for peripheral vertigo, will not pursue an MRI given suspicion of her shrapnel, repeat CT head ordered Seen by PT???recommending home PT and walker,??prescription for walker has been provided to the egg caser Ordered as needed meclizine Patient states that he still feels??unsteady on his feet,??could be discharged tomorrow morning if symptomatically improved ?? 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 Mood seems stable Continue with sertraline ?? Hypertension (I10):??Continue with amlodipine with hold parameters Continue with losartan with hold??parameters Hold hydrochlorothiazide? Atrial fibrillation (I48.91):??EKG shows A-fib, rate??controlled Continue with Eliquis Continue with metoprolol with hold parameters Continue with digoxin ?? Hyperlipidemia (E78.5):??Continue simvastatin 40 mg daily ?? T2DM (type 2 diabetes mellitus) (E11.9):??Patient reports using??40 units glargine at night, 15 units lispro 3 times daily with meals if he is having good meal,?? His blood sugar was 108 this morning, he does take long-acting insulin at home, for now I will keephim on sliding scale only, POC ACHS Hold metformin,??Jardiance ? VTE Prophylaxis:??Continue with Eliquis ?VTE Prophylaxis Assessment:??VTE Prophylaxis Ordered ?? Discharge Planning:??anticipate a.m. discharge,??once symptomatically improved, pending repeat CT head ?? Ongoing Medical Necessity:??Pending clinical course, symptomatic improvement and repeat CT head ?? Code Status:??Full code ? * Kenrick Kamara RN: PERFORM, SIGN, VERIFY Event Display: Progress Note Hospital Authored Date: Patient: BRIAN HOLMAN Age: 78 years Sex: Male : 1945 Associated Diagnoses: None Author: Kenrick Kamara RN Findings Evaluation Pt arrived to D3222 from ED via stretcher around 1750. Pt A+Ox4, sleepy. See biophys for full assessment. Neuro status intact. Afib per tele. Questions answered. MD up to assess pt. Consult note * Kendra Canas NP: PERFORM, MODIFY, MODIFY Event Display: Consultation Note Authored Date: Patient: ??BRIAN HOLMAN ? Age:??78 Years?Sex:??Male?:??1945?? Chief Complaint/Reason for Consult Pt BIBA from home for dizziness at rest and n/v starting 4am. Unsteady gait. Hx CVA, afib, DM, etc.FAST 0. Nasal congestion yesterday History of Present Illness Mr. Holman, ??78 y/o male with history of TBI, Vertigo, reports h/o of CVA, ex- smoker, Afib on Eliquis, and DMII, he is being seen by neurology for dizziness. ?? Patient reports that this past w/e on Sunday while he was coming down the stairs after getting isChristmas decorations out, carrying a heavy load, his left came came out from under him and he fellbackwards, skidding down the stairs. He does not think he hit his head. He had no LOC. He on Sunday, felt sore, but was able to go to baptism. On early am Sunday, sometime between 2-4 in the am, he on trying to get out of bed, felt very vertiginous, had associated n/v and was unsteady. This continued throughout the day and he eventually decided to come in for an evaluation. He now feels better. Says had vertigo in the past but not to thisseverity. He denied having dysarthria, dysphagia or any focal weakness/numbness. He has chronic tinnitus and says he had similar symptoms about 1-2 weeks ago. ?? Patient reports compliance with his Eliquis. A head CT did nto show any acute changes A CTA of the head and neck did show L. vert narrowing and b/l ICA narrowing. Review of Systems still some dizziness but feels improved gait no longer wobbly. Physical Exam Vitals & Measurements T:??98.0?F?? HR:??59??(Peripheral)?? RR:??19?? BP:??151/72?? SpO2:??97%?? HT:??171??cm?? WT:??86.9??kg?? BMI:??30.27? GENERAL APPERANCE: ??stated age HEENT:??nc. at NECK: supple, LUNGS: ??Normal I:E SKIN: no obvious rashes NEURO:?? awake and alert oriented to his name, age, place, mo, off on the yr says 2003 able to name able to follow commands Cranial Nerves:?? Pupils: perrl, noted nystagmus on left gaze Visual:??vff Extra ocular movements: Intact Facial sensation:??flattening of L. NLF. Hearing: intact bilaterally to finger rub Speech: clear, fluent, appropriate Tongue: Protrudes Midline Gag: soft palate raises equally Shoulder shru/5 Neck musculature: 5/5 Motor Exam: Strength:??5/5 throughout Sensory: sensation to light touch intact and equal bilaterally to face, bilateral upper extremities, and bilateral lower extremities DTRs; b/l down going Coordination: FTN intact, Magdalena symmetric, HNS smooth b/l, NO pronator drift Stance and Gait:??steady, Romberg neg, Fukuda; turns to the right ?? (05/19/2024 15:[address] Head-Hyper Acute Stroke) IMPRESSION: ?? No acute intracranial pathology. ?? WSN: [id number] [1] ? (05/19/2024 15:[address] Angio Neck Hyperacute Stroke) ?? IMPRESSION: ? 1. ??No large vessel occlusion in the head or neck. 2. ??Scattered atherosclerotic stenoses, including moderate narrowing of bilateral intracranial ICAs, mild narrowing of bilateral cervical ICAs, and severe stenosis of the dominant left vertebral artery origin. 3. ??3.6 cm right thyroid nodule. Suggest nonemergent follow-up thyroid ultrasound for further characterization [2] Assessment/Plan cc; dizziness ?? 78 y/o male with history of TBI, Vertigo, reports h/o of CVA, ex-smoker, AFib on Eliquis, and DMII, he is being seen by neurology for dizziness. ?? Pt had developed vertigo??associated with nausea and vomiting, otherwise no focal neurological symptoms. This occurred after he had a fall on Sunday, but sx developed when he awoke/out of??bed early am??Sunday, 2-4am. He feels improved now. Patient??feels improved, more steady on his feet, less dizzy. ?? head CT non-acute cta of head and neck; no lvo, noted scattered athero, b/l ICA narrowing and L. vert stenosis LDL; 43 A1C: 7.8 ? dx Vertigo; suspect peripheral, has h/o of same, no focal neuro deficits, r/o post circ stroke ?? Plan -normotension -ok to c/w Eliquis -c/w statin -suggest to obtain brain MRI if able, if not able to complete brain MRI, Ok to obtain a repeat HeadCT -PT -DVT prophylaxis ?? dw Dr. Marya abebe. ?? Will follow Thank you for the consult. Please call for any questions. Problem List/Past Medical History Ongoing Obese class I Procedure/Surgical History No qualifying data available. Home Medications Amlodipine: 10 mg = 1 tablet, By Mouth, Daily apixaban: 5 mg = 1 tablet, By Mouth, 2 times a day Cholecalciferol: 25 mcg, By Mouth, Daily Cyanocobalamin Digoxin: 250 mcg = 1 tablet, By Mouth, Daily empagliflozin: 25 mg = 1 tablet, By Mouth, Daily in AM Hydrochlorothiazide: 25 mg = 1 tablet, By Mouth, Daily Insulin Aspart: 28 units, Subcutaneous Injection, 3 times a day before meals, <150: zero insulin, ??151-200: 2 units, 201-250: 4 units, 251-300: 6 units, 301- 350: 8 units, > 350: 10 units &Call PCP Insulin Glargine: 40 units, Subcutaneous Injection, Daily at bedtime Losartan: 0.7 mg/kg, By Mouth, Daily Metformin: 1,000 mg = 1 tablet, By Mouth, 2 times a day Metoprolol: 100 mg = 1 capsule, By Mouth, Daily Multivitamin With Minerals: 1 tablet, By Mouth, Daily Sertraline: 100 mg = 1 tablet, By Mouth, Daily Simvastatin: 40 mg = 1 tablet, By Mouth, Daily at bedtime Allergies Shrimp Family History No family history recorded. [1]??CT Head-Hyper Acute Stroke; Carmen Francis MD 05/19/2024 15:18 EST [2]??CT Angio Neck Hyperacute Stroke; Asia Genao MD 05/19/2024 15:18 EST * Olamide Vega MD, Rosaura: PERFORM Event Display: Consultation Note Authored Date: Attending Attestation:??I have discussed the case and its management with the advanced practitionerand agree with the findings and plan as documented in the advanced practitioner???s note. ?? Rosaura Vega M.D Attending-Vascular Neurology Department of Neurosciences Note * Madeline Chinchilla RN: PERFORM Event Display: Discharge/Transfer Note Hospital Authored Date: [id number] Nursing Discharge Note Entered On: 05/21/2024 14:04 EST Performed On: 05/21/2024 14:02 EST by Madeline Chinchilla RN Nursing Discharge Note 2 Discharge Time : 05/21/2024 13:51 EST Discharge Level of Care at Discharge : Homehealth/VNA Discharge VNA/Hospice/Home Care(v001) : [facility] Patient Left Unit Via : Wheelchair Patient Accompanied Off Unit with : Significant other, Responsible adult DC Instructions Provided & Signed by Pt : Yes Patient Understands D/C Instructions : Yes Patient Instructions Discharge Signed : Yes Did Pt have Specialty Bed or Wound Vac : No Madeline Chinchilla RN - 05/21/2024 14:02 EST * Lico CONSTANTINO, Sheron: PERFORM, MODIFY Event Display: Discharge/Transfer Note Hospital Authored Date: Patient: ??BRIAN HOLMAN ? Age:??78 Years?Sex:??Male?:??1945?? Patient Information Discharge Location: B Primary Care Physician: Betsy Diaz DO Admit Date/Time: 05/19/2024 12:39 Discharge Disposition Discharge Disposition: Home with Home Health Discharge Diagnosis Dizziness ([id number]) T2DM (type 2 diabetes mellitus) (E11.9) Dizziness (R42) Nausea and vomiting (R11.2) Hyperlipidemia (E78.5) Atrial fibrillation (I48.91) Hypertension (I10) Depression (F32.A) Chronic post-traumatic stress disorder (PTSD) after combat (F43.12) Fall at home (W19.XXXA) _ Discharge Medications Amlodipine (amLODIPine 10 mg oral tablet)?10?Milligram?1?tablet?By Mouth?Daily apixaban (Eliquis 5 mg oral tablet)?1?tab(s)?5?Milligram?By Mouth?2 times a day Cholecalciferol (Vitamin D3)?See Instructions?By Mouth Daily?25?Microgram?By Mouth?Daily Digoxin (digoxin 0.25 mg oral tablet)?250?Microgram?1?tablet?By Mouth?Daily empagliflozin (Jardiance 25 mg oral tablet)?1?tab(s)?25?Milligram?By Mouth?Daily in AM Hydrochlorothiazide (hydrochlorothiazide 25 mg oral tablet)?25?Milligram?1?tablet?ByMouth?Daily Insulin Aspart (insulin aspart 100 units/mL subcutaneous solution)?26?unit(s)?SubcutaneousInjection?3 times a day before meals?<150: zero insulin, ??151-200: 2 units, 201-250: 4 units, 251-300: 6 units, 301-350: 8 units, > 350: 10 units & Call PCP?28 Insulin Glargine (Lantus Inj)?55?unit(s)?Subcutaneous Injection?Daily at bedtime?40 Losartan (losartan 100 mg oral tablet)?0.7?Milligrams/Kilogram?By Mouth?Daily Meclizine (meclizine 12.5 mg oral tablet)?25?Milligram?By Mouth?3 times a day?as needed?Other?for 30?Days?vertigo Metformin (metFORMIN 1000 mg oral tablet)?1?tab(s)?1,000?Milligram?By Mouth?2 times a day Metoprolol (metoprolol succinate 100 mg oral capsule, extended release)?1?capsule?100?Milligram?By Mouth?Daily Miscellaneous Rx (1 walker)?See Instructions?1 walkerdiagnosis: Peripheral vertigo, unstrady gait Multivitamin With Minerals (Multi-Day Plus Minerals)?1?tab(s)?By Mouth?Daily Sertraline (sertraline 100 mg oral tablet)?1?tab(s)?100?Milligram?By Mouth?Daily Simvastatin (simvastatin 40 mg oral tablet)?40?Milligram?1?tablet?By Mouth?Daily at bedtime ? Medications Started meclizine Allergies Allergies ?(Active and Proposed Allergies Only) Shrimp? (Severity: Unknown severity, Onset: Unknown) ? PCP Follow-Up/Heads-Up F/u for vertigo. Objective Assessment and Plan 78-year-old male with past medical history of traumatic brain injury, PTSD, A- fib (on apixaban), T2DM (insulin-dependent), fall and s/p displaced orbital fracture and right frontal lobe contusion in 2019 who presented to ED with dizziness. ?? Dizziness (R42) ?Associated with??Nausea and vomiting (R11.2),??Fall at home (W19.XXXA) ? Patient presents with??nausea vomiting and dizziness.?Reports spinning sensation??whenhe moves his head??or stands up.?Differential includes BPPV,??central??versus peripheral vertigo. The CT angio head and neck also showed??no large vessel occlusion in the head or neck, scattered atherosclerotic stenosis including moderate narrowing of bilateral intracranial ICAs, mild narrowing of bilateral cervical ICAs, and severe stenosis of the dominant left vertebral artery origin.?? Carotid duplex obtained, there is no severe stenosis on either side ?? Seen by neuro, there is a suspicion [...] compatible with previous trauma, and a small cephal ocele extends into the defect. ?? Symptomatically improved, ambulating independently Seen by PT???recommending home PT and walker,??prescription for walker has been provided to the egg caser Ordered as needed meclizine on discharge ?? 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 Mood seems stable Continue with sertraline ?? Hypertension (I10):??Continue with amlodipine with hold parameters Continue with losartan with hold??parameters Continue??hydrochlorothiazide? Atrial fibrillation (I48.91):??EKG shows A-fib, rate??controlled Continue with Eliquis Continue with metoprolol with hold parameters Continue with digoxin ?? Hyperlipidemia (E78.5):??Continue simvastatin 40 mg daily ?? T2DM (type 2 diabetes mellitus) (E11.9):??Continue home medications on discharge ? Vital Signs?? Temperature: 98.1 DegF (05/21/24 10:00:00) Temperature Route: [...] Rate: 18 br/min (05/21/24 11:49:00) Systolic Blood Pressure:??150 mm Hg??High (05/21/24 10:49:00) Diastolic Blood Pressure: 57 mm Hg (05/21/24 10:49:00) Blood pressure sites: Arm, right (05/21/24 07:00:00) Mean Arterial Pressure: 96 mm Hg (05/21/24 03:15:00) Pulse Pressure: 91 mm Hg (05/21/24 07:00:00) Oxygen Saturation: 98 % (05/21/24 07:00:00) Mode of Delivery (Oxygen): Room air (05/21/24 07:00:00) Early Warning Score: 0 (05/21/24 12:46:35) ? Mobility & Ambulation Level Mobility & Ambulation Level Ambulatory devices needed: Walker (05/19/24) ?? Therapeutic Activity Therapeutic Activities/Mobility/Balance Comments on treatment [...] recommendations: Home with services (05/20/24 08:28:00) Ambulation, ??PT Plan: Independent (05/20/24 08:28:00) Barriers to goal achievement: None (05/20/24 08::00) Equipment PT: Walker (05/20/24::) Facilitators to goal achievement: None (05/20/24::) Goals Patient/Family: Return home (05/20/24 08::) skilled nursing PT goals: At baseline for functional mobility (05/20/24 08:28:) Plan Discussed w/Pt,Family/Agreed Upon: Yes (05/20/24::) Plan discussed with care team PT: RN, broiler manager (05/20/24 08::) PT Short Term Goals: IDEP c HEP (05/20/24::) Rehab potential: Excellent (05/20/24::) ?? . Physical Exam Constitutional: Alert, in no distress. [...] No rashes or lesions. No petechiae or purpura.?? Musculoskeletal: No cyanosis or clubbing. No gross deformities. Normal range of motion. Heme/Lymphatics/Immun: Palpation of neck reveals no swelling or tenderness of neck nodes. Palpationof groin reveals no swelling or tenderness of groin nodes. Psychiatric: Normal mood and affect [facility]. Pending Results Add On Lab Order ordered on 05/19/2024 Add On Lab Order ordered on 05/19/2024 Follow-Up Appointments Added Follow Up ?Time Frame ?Comments Evaaram DO, Betsy?Within one week Patient Instructions Please make an appointment to follow-up with your primary care physician after discharge. Take meclizine as prescribed for dizziness Continue physical therapy at??home Post Discharge Care Discharge ?05/21/24 11:41:00 EST ?Order Comment:?? Discharge Prescriptions ?ePrescribed, 05/21/24 11:41:00 EST ?Order Comment:?? Home Health Face to Face *Denotes mandatory burton ?? *I certify that this patient is under my care and that I or an allowed non- physician working with me had a face to face encounter with the patient on this date:??05/21/2024 15:10 ?? *The encounter with the patient was in whole, or in part, for the following medical condition, which is the primary diagnosis(es) for home health care:??Dizziness ([id number]) T2DM (type 2 diabetes mellitus) (E11.9) Dizziness (R42) Nausea and vomiting (R11.2) Hyperlipidemia (E78.5) Atrial fibrillation (I48.91) Hypertension (I10) Depression (F32.A) Chronic post-traumatic stress disorder (PTSD) after combat (F43.12) Fall at home (W19.XXXA) ?? *Select the indications for the discipline/s that are being arranged for this patient. Nursing (select all that apply): [_] None [x] Medication management (reconciliation, teaching)?? [x] Chronic disease management?? [_] Wound care and treatment?? [_] Home safety evaluation [_] Administer SQ/IM/IV medications?? [_] Cath care?? [_] Drain care?? [_] Trach or GT care?? Other _ Occupation Therapy (select all that apply): [_] None [_] ADL Management [_] Fall prevention training [_] Energy conservation [_] Cognitive training Other _ Physical Therapy (select all that apply): [_] None [x] Functional mobility training [x] Home exercise program to strengthen [x] Increase ROM?? [x] Falls prevention training [_] Home maintenance program for chronic disease Other _ Speech Therapy (select all that apply): [_] None [_] Swallow evaluation and training [_] Speech and language training [_] Cognitive training to process, organize, and/or recall information Other _ ? *Homebound due to (select all that apply): [_] Inability to leave home without assistance/supervision [_] Inability to ambulate without assistance [_] Pain [x] Decreased strength and endurance [_] Unsteady gait [_] Severe SOB and fatigue [_] Impaired transfers [_] Inability to negotiate stairs [_] Limited weight bearing [_] Mental status change? *Physician Signature:??Sheron Barfield MD ?? *By signing this, I certify that I have personally evaluated the patient and agree with the findings and recommendations as documented above. ? Results Discharge Labs BLOOD COUNT & DIFF WBC 11.2 k/mm3 (High)?? 05/20/2024 01:14 RBC 4.83 m/mm3 ()?? 05/20/2024 01:14 Hgb 14.8 Gm/dL ()?? 05/20/2024 01:14 Hct 44.9 % ()?? 05/20/2024 01:14 MCV 93.0 femtoliters ()?? 05/20/2024 01:14 MCH 30.6 pg ()?? 05/20/2024 01:14 MCHC 33.0 Gm/dL ()?? 05/20/2024 01:14 Platelet Count 256 k/mm3 ()?? 05/20/2024 01:14 RDW-SD 43.8 femtoliters ()?? 05/20/2024 01:14 MPV 9.9 femtoliters ()?? 05/20/2024 01:14 Nucleated RBC (Automated) 0.0 #/100 WBC'S ()?? 05/20/2024 01:14 Abs. NRBC 0.0 k/mm3 ()?? 05/20/2024 01:14 Abs. Neut 10.9 k/mm3 (High)?? 05/19/2024 14:57 Abs. Lymph 0.8 k/mm3 ()?? 05/19/2024 14:57 Abs. [place] 0.4 k/mm3 ()?? 05/19/2024 14:57 Abs. Eo 0.0 k/mm3 ()?? 05/19/2024 14:57 Abs. Baso 0.0 k/mm3 ()?? 05/19/2024 14:57 Neut % 89.0 % (High)?? 05/19/2024 14:57 Lymph % 6.5 % (Low)?? 05/19/2024 14:57 [place] % 3.3 % (Low)?? 05/19/2024 14:57 Eos % 0.3 % ()?? 05/19/2024 14:57 Baso % 0.2 % ()?? 05/19/2024 14:57 Imm Gran 0.7 % ()?? 05/19/2024 14:57 Abs. Imm Gran 0.1 k/mm3 ()?? 05/19/2024 14:57 ?? CARDIAC High Sensitivity Troponin (HSTnT) 21 ng/L ()?? 05/20/2024 01:14 ? CHEM GENERAL Sodium 141 mmol/L ()?? 05/20/2024 01:14 Potassium 4.0 mmol/L ()?? 05/20/2024 01:14 Chloride 104 mmol/L ()?? 05/20/2024 01:14 Bicarbonate Level 22 mmol/L ()?? 05/20/2024 01:14 Anion Gap 15 ()?? 05/20/2024 01:14 Glucose Level 133 mg/dL (High)?? 05/20/2024 01:14 Glucose, POC 180 mg/dL (High)?? 05/21/2024 11:04 Hemoglobin A1C (Monitoring) 7.8 % (High)?? 05/19/2024 14:57 BUN 12 mg/dL ()?? 05/20/2024 01:14 Creatinine-Blood 0.72 mg/dL ()?? 05/20/2024 01:14 Estimated GFR Creatinine 94 ML/MIN/1.73 M2 ()?? 05/20/2024 01:14 Calcium 9.1 mg/dL ()?? 05/20/2024 01:14 Phosphorus 4.0 mg/dL ()?? 05/20/2024 01:14 Magnesium 2.0 mg/dL ()?? 05/20/2024 01:14 Protein, Total 6.3 Gm/dL ()?? 05/20/2024 01:14 Albumin 3.6 Gm/dL ()?? 05/20/2024 01:14 AG Ratio 1.3 ()?? 05/20/2024 01:14 Alkaline Phosphatase 65 units/L ()?? 05/20/2024 01:14 Lipase 9 units/L (Low)?? 05/19/2024 14:57 AST (SGOT) 20 units/L ()?? 05/20/2024 01:14 ALT (SGPT) 12 units/L ()?? 05/20/2024 01:14 Bilirubin, Total 0.5 mg/dL ()?? 05/20/2024 01:14 Vitamin B12 Level 1297 pg/mL (High)?? 05/19/2024 14:57 ? LIPID STUDIES Cholesterol 91 mg/dL ()?? 05/19/2024 14:57 Triglycerides 53 mg/dL ()?? 05/19/2024 14:57 HDL Cholesterol 37 mg/dL (Low)?? 05/19/2024 14:57 LDL Cholesterol 43 mg/dL ()?? 05/19/2024 14:57 Non HDL Cholesterol 54 mg/dL ()?? 05/19/2024 14:57 ? TOXICOLOGY/TDM Digoxin Level 1.1 ng/mL ()?? 05/19/2024 14:57 ? URINE OTHER Est Creatinine Clearance 81.23 mL/min ()?? 05/20/2024 02:17 ? Blood Glucose Trend Glucose, POC:??180 mg/dL??High (05/21/24 11:04:00) Glucose, POC:??128 mg/dL??High (05/21/24 05:37:00) Glucose, POC:??160 mg/dL??High (05/20/24 21:15:00) Glucose, POC:??146 mg/dL??High (05/20/24 15:43:00) Glucose, POC:??207 mg/dL??High (05/20/24 12:59:00) ? 40??minutes spent on discharge * Serenity Salcedo RN: PERFORM Event Display: Patient Education/Instruction Authored Date: [id number] Inpatient Adult Discharge Instructions. [address] [address] Name: BRIAN HOLMAN : 1945?? Visit: 05/19/2024 12:39?? Current Date: 05/21/2024 11:44 ?? Account: [id number]?? Inpatient Adult Discharge Instructions We would like to thank you for allowing us to assist you with your healthcare needs. The following includes patient education materials and information regarding your injury/illness. Our entire staffstrives to provide an excellent experience for our patients and their families. PLEASE ENSURE YOU FOLLOW-UP PER THE INSTRUCTIONS BELOW! ?? YOUR OPINION IS IMPORTANT TO US! Please complete the survey you may receive by mail or email. Your feedback will be used to make improvements to the healthcare experiences of our patients and their families. Surveys are administered by [employer] ?? If further treatment with your primary care physician or another doctor is recommended, it is important for you to keep the appointment. Call your primary care physician or return to the Emergency Department immediately if your condition worsens, fails to improve, or new symptoms develop. If you need to find a doctor, you can call [facility] [facility] for a referral at [phone] or toll free at [phone]) or log in to [email or web address].. ?? [facility], in keeping with [facility] guidance, no longer requires face masks for staff, patientsor visitors in most situations. Similiar to time spent indoors at other locations, there is the chance that you were exposed to repiratory viruses during your time with us (such as flu or COVID-19). If you develop symptoms concerning for a viral respiratory infection, please seek testing (and treatment if indicated) from your medical provider or home test kit. ?? You can view and manage your care through the patient portal or by using a health care phuc of your choosing. [employer] is a website that allows you to securely view your medical information including your hospital discharge summary, office visit summaries, medications and follow-up visits. You can also request appointments, renew medications, and request access to your medical information using a health care phuc of your choosing, or just ask a question. You can enroll at [email or web address] or register during your next office visit. You have been discharged from [facility], Patient Care Unit: D3B??. If you have any questions regarding these instructions, including results of studies pending, afteryou leave, please call us and we will be happy to assist you 01/01. [facility] Your Care Team Attending Physician Sheron Barfield MD?? Consulting Providers Sheron Barfield MD?? Discharging Providers Sheron aBrfield MD Reason for Your Visit Pt BIBA from home for dizziness at rest and n/v starting 4am. Unsteady gait. Hx CVA, afib, DM, etc.FAST 0. Nasal congestion yesterday?? Your Diagnosis Atrial fibrillation Chronic post-traumatic stress disorder (PTSD) after combat Depression Dizziness Dizziness Fall at home Hyperlipidemia Hypertension Nausea and vomiting T2DM (type 2 diabetes mellitus) Tests Performed Below is a partial list of the tests performed during your hospitalization. You may have had other tests and procedures not included in this list. Please discuss all test results with your provider. Alk Phos ALT BUN CBC CBC w/ Differential Comprehensive Metabolic Panel Creatinine DIGOXIN Electrolytes Glucose Level GLUCOSE POC HEMOGLOBIN A1C High??Sensitivity??Troponin T Lipase LIPID PANEL Magnesium Level Mg Level Phosphorus Level Total Bilirubin VITAMIN B12 CT Angio Head Hyperacute Stroke CT Angio Neck Hyperacute Stroke CT Head-Hyper Acute Stroke CT Head/Brain W/O Contrast ALT?? Add On Lab Order?? Alk Phos?? BUN?? Bilirubin Total (Total Bilirubin)?? CBC?? CBC w/ Differential?? CT Angio Head Hyperacute Stroke?? CT Angio Neck Hyperacute Stroke?? CT Head-Hyper Acute Stroke?? CT Head/Brain W/O Contrast?? Comprehensive Metabolic Panel?? Creatinine?? Digoxin Level (DIGOXIN)?? Electrolytes?? Glucose Level?? Glucose POC?? Hemoglobin A1C (Monitoring) (HEMOGLOBIN A1C)?? High??Sensitivity??Troponin T?? Lipase?? Lipid Panel?? Magnesium Level (Mg Level)?? Phosphorus Level?? Vitamin B12 Level (VITAMIN B12)?? Primary Care Provider Betsy Diaz DO? Advance Directive Health Care Proxy on File No Discharge Vitals Temperature: 98.1 DegF Height: 171 cm Pulse Rate: 71 bpm Weight: 86.9 kg Respiratory Rate: 16 br/min Body Mass Index:??30.27 kg/m2??Critical Systolic Blood Pressure:??150 mm Hg??High Body surface area: 2.05 Diastolic Blood Pressure: 57 mm Hg ?? Oxygen Saturation: 98 % ?? Studies Pending All studies ordered during this hospital stay have been completed unless listed below. Please discuss all pending results with your provider listed above in these instructions. ?? Add On Lab Order?? What to do next Instructions From Your Doctor Please make an appointment to follow-up with your primary care physician after discharge. Take meclizine as prescribed for dizziness Continue physical therapy at??home ?? Orders? 05/21/24 11:41:00 EST?? Prescriptions??, ??05/21/24 11:41:00 EST?? You Need to Schedule the Following Appointments Follow Up with??Betsy Diaz DO When:??Within Within one week Where: [address] [place] [address]- Discharge Medications EVABRIAN :1945 Visit Date:05/19/2024 Medications: Please continue your medications until treatment is completed or stopped by your provider. Medications not listed below should be discontinued. Discuss any questions related to medications with your provider. What How Much When Instructions Next Dose New Meclizine (meclizine 12.5 mg oral tablet) 25 Milligram Oral 3 times a day as needed for Other Duration: 30 Days vertigo ?? Pickup at [facility] 3 Dose not given today 05/21/2024 New Miscellaneous Rx (1 walker) See instructions 1 walker diagnosis: Peripheral vertigo, unstrady gait ?? Printed Prescription Changed Amlodipine (amLODIPine 10 mg oral tablet) 1 tab(s) Oral Daily Tomorrow 05/22/22 Changed Metformin (metFORMIN 1000 mg oral tablet) 1 tab(s) Oral Twice a day Tonight with meal 05/21/2024 Unchanged apixaban (Eliquis 5 mg oral tablet) 1 tab(s) Oral Twice a day Tonight 05/21/2024 Unchanged Cholecalciferol (Vitamin D3) 25 Microgram Oral Daily Tomorrow 05/22/2024 Unchanged Cyanocobalamin (B-12) Tomorrow 05/22/2024 Unchanged Digoxin (digoxin 0.25 mg oral tablet) 1 tab(s) Oral Daily Tonight 6pm 05/21/2024 Unchanged empagliflozin (Jardiance 25 mg oral tablet) 1 tab(s) Oral Daily in the morning Tomorrow 05/22/2024 Unchanged Hydrochlorothiazide (hydrochlorothiazide 25 mg oral tablet) 1 tab(s) Oral Daily Tomorrow 05/22/2024 Unchanged Insulin Aspart (insulin aspart 100 units/ mL subcutaneous solution) 10 unit(s) Subcutaneous Injection 3 times a day before meals <150: zero insulin, ??151-200: 2 units, 201-250: 4 units, 251-300: 6 units, 301- 350: 8 units, > 350: 10 units & Call PCP ?? Per sliding scale Unchanged Insulin Glargine (Lantus Inj) 40 unit(s) Subcutaneous Injection Daily at Bedtime Tonight 05/21/2024 Unchanged Losartan (losartan 100 mg oral tablet) 0.7 Milligrams/Kilogram Oral Daily Tomorrow 05/22/2024 Unchanged Metoprolol (metoprolol succinate 100 mg oral capsule, extended release) 1 capsule Oral Daily Tomorrow 05/22/2024 Unchanged Multivitamin With Minerals (Multi-Day Plus Minerals) 1 tab(s) Oral Daily Tomorrow 05/22/2024 Unchanged Sertraline (sertraline 100 mg oral tablet) 1 tab(s) Oral Daily Tomorrow 05/22/2024 Unchanged Simvastatin (simvastatin 40 mg oral tablet) 1 tab(s) Oral Daily at Bedtime Tonight 05/21/2024 Pharmacy Information [facility]: [address], [place] [id number] [phone] ?? What How Much When Comments Stop Taking Cetirizine 10 Milligram Stop Taking GlipiZIDE 20 Milligram Oral Daily Prescription Given During Visit Meclizine (meclizine 12.5 mg oral tablet) - 25 mg, By Mouth, 3 times a day, # 100 tablet, 0 Refills, vertigo, [facility], [address] [place] [phone]?? Miscellaneous Rx (1 walker) - , # 1 each, 0 Refills, 1 walkerdiagnosis: Peripheral vertigo, unstrady gait?? Laboratory Results Below is a partial list of the most recent Laboratory test results done prior to this discharge. You may have had other tests and procedures not included in this list. Please discuss all test resultswith your provider. Est Creatinine Clearance - 81.23 mL/min (05/20/2024) Alk Phos (05/19/2024) ???Alkaline Phosphatase - 70 units/L ALT (05/19/2024) ???ALT (SGPT) - 15 units/L BUN (05/19/2024) ???BUN - 12 mg/dL CBC (05/20/2024) ???WBC - 11.2 k/mm3???RBC - 4.83 m/mm3???Hgb - 14.8 Gm/dL???Hct - 44.9 %???MCV - 93.0 femtoliters???MCH - 30.6 pg???MCHC - 33.0 Gm/dL???Platelet Count - 256 k/mm3???RDW-SD - 43.8 femtoliters???MPV - 9.9 femtoliters???Nucleated RBC (Automated) - 0.0 #/100 WBC'S???Abs. NRBC - 0.0 k/mm3 CBC w/ Differential (05/19/2024) ???WBC - 12.2 k/mm3???RBC - 4.94 m/mm3???Hgb - 15.4 Gm/dL???Hct - 46.0 %???MCV - 93.1 femtoliters???MCH - 31.2 pg???MCHC - 33.5 Gm/dL???Platelet Count - 239 k/mm3???RDW-SD - 43.8 femtoliters???MPV - 10.2 femtoliters???Nucleated RBC (Automated) - 0.0 #/100 WBC'S???Abs. NRBC - 0.0 k/mm3???Abs. Neut -10.9 k/mm3???Abs. Lymph - 0.8 k/mm3???Abs. [place] - 0.4 k/mm3???Abs. Eo - 0.0 k/mm3???Abs. Baso - 0.0k/mm3???Neut % - 89.0 %???Lymph % - 6.5 %???[place] % - 3.3 %???Eos % - 0.3 %???Baso % - 0.2 %???Imm Gran - 0.7 %???Abs. Imm Gran - 0.1 k/mm3 Comprehensive Metabolic Panel (05/20/2024) ???Sodium - 141 mmol/L???Potassium - 4.0 mmol/L???Chloride - 104 mmol/L???Bicarbonate Level - 22 mmol/L???Anion Gap - 15???Glucose Level - 133 mg/dL???BUN - 12 mg/dL???Creatinine-Blood - 0.72 mg/dL???Estimated GFR Creatinine - 94 ML/MIN/1.73 M2???Calcium - 9.1 mg/dL???Protein, Total - 6.3 Gm/dL???Albumin - 3.6 Gm/dL???AG Ratio - 1.3???Alkaline Phosphatase - 65 units/L???AST (SGOT) - 20 units/L???ALT (SGPT) - 12 units/L???Bilirubin, Total - 0.5 mg/dL Creatinine (05/19/2024) ???Creatinine-Blood - 0.67 mg/dL???Estimated GFR Creatinine - 96 ML/MIN/1.73 M2 DIGOXIN (05/19/2024) ???Digoxin Level - 1.1 ng/mL Electrolytes (05/19/2024) ???Sodium - 140 mmol/L???Potassium - 3.9 mmol/L???Chloride - 104 mmol/L???Bicarbonate Level - 24 mmol/L???Anion Gap - 12 Glucose Level (05/19/2024) ???Glucose Level - 139 mg/dL GLUCOSE POC (05/21/2024) ???Glucose, POC - 180 mg/dL HEMOGLOBIN A1C (05/19/2024) ???Hemoglobin A1C (Monitoring) - 7.8 % High??Sensitivity??Troponin T (05/20/2024) ???High Sensitivity Troponin (HSTnT) - 21 ng/L Lipase (05/19/2024) ???Lipase - 9 units/L LIPID PANEL (05/19/2024) ???Cholesterol - 91 mg/dL???Triglycerides - 53 mg/dL???HDL Cholesterol - 37 mg/dL???LDL Cholesterol- 43 mg/dL???Non HDL Cholesterol - 54 mg/dL Magnesium Level (05/19/2024) ???Magnesium - 2.0 mg/dL Mg Level (05/20/2024) ???Magnesium - 2.0 mg/dL Phosphorus Level (05/20/2024) ???Phosphorus - 4.0 mg/dL Total Bilirubin (05/19/2024) ???Bilirubin, Total - 0.5 mg/dL VITAMIN B12 (05/19/2024) ???Vitamin B12 Level - 1297 pg/mL You will be contacted within 72 hours with your results. Allergies (NKA means No Known Allergies) Shrimp Problems Active Problems??(1) Obese class I?? Education Materials Below is the list of Educational Leaflet Providered with your Discharge Instructions. Valuables and Belongings I fully understand and agree that [facility] accepts no responsibility for all my personal property including clothing, toilet articles, radios, jewelry, dentures, hearing aids, rings, money, or any other property that is in my possession or is brought to me after admission. I understand certain valuables may be placed in a hospital safe for a short period of time. I understand that the hospital is not liable for loss or damage due to accident, fire, or other natural occurrence while said property is in the safe. I accept full responsibility for any personal property that I keep with me, and will not hold the hospital responsible in case of loss or disappearance. I acknowledge that i have been encouraged to send valuables and belongings home. ?? Review of Valuable and Belonging List: With patient Date for Pt to Sign Valuables/Belongings: 05/19/24 20:07:00 ?? Other Discharge Information ? Case Management Discharge Plan?? Discharge Plan?? Discharge Agency Information?? Discharge Level of Care at Discharge: Homehealth/VNA Name of Agency #1: [facility] Discharge VNA/Hospice/Home Care: [facility] Service Categories #1: Physical Therapy, Assisted ?? Service Comments #1: [facility] to coordinate time for homecare nurse and physical therapy visits. ?? Pulmonary Rehab Status?? Pulmonary Rehab Discharge Status?? Respiratory Rate: 16 br/min ? Common Emergency Awareness Tips IS IT A STROKE? Act FAST and Check for these signs: FACE Does the face look uneven? ARM Does one arm drift down? SPEECH Does their speech sound strange? TIME Call at any sign of stroke ?? Heart Attack Signs Chest discomfort: Most heart attacks involve discomfort in the center of the chest and lasts more than a few minutes, or goes away and comes back. It can feel like uncomfortable pressure, squeezing, fullness or pain. Discomfort in upper body: Symptoms can include pain or discomfort in one or both arms, back, neck, jaw or stomach. Shortness of breath: With or without discomfort. Other signs: Breaking out in a cold sweat, nausea, or lightheaded. Remember, MINUTES DO MATTER. If you experience any of these heart attack warning signs, call to get immediate medical attention! ?? Smoking can increase your chances of developing chronic health problems and can cause harmful effects to other family members in your house. If you smoke, you are strongly encouraged to quit. Please call [employer] [facility] at [phone] or [phone] ([phone]) or log in to [email or web address] for referrals to smoking cessation programs. ?? 149 Suicide & Crisis Lifeline is available 01/01 if you or someone you know needs to find a reason to keep living. By calling 770 you'll be connected to a skilled, trained counselor at a crisis center in your area. INPATIENT DISCHARGE INSTRUCTIONS SIGNATURE PAGE BRIAN HOLMAN Location:[facility] Registration Date and Time:05/19/2024 12:39 EST Primary Care Physician: Betsy Diaz DO, Attending Physician: Sheron Barfield MD, I BRIAN HOLMAN, have received the above patient education materials/instructions and have verbalized understanding. If ambulance or transport services are being used I further acknowledge being given a choice of service. ?? If you need to contact me, please call me at this number: . Patient/Loom Inspector Name: Patient/Loom Inspector Signature: Relationship to Patient: Witness Name/Signature: Date: * Fiorella Mathews: PERFORM, SIGN, VERIFY Event Display: Case Management Discharge Plan Authored Date: [id number] Patient: BRIAN HOLMAN Age: 78 years Sex: Male : 1945 Associated Diagnoses: None Author: Fiorella Mathews Discharge Plan Case Management Discharge Plan : Case Management Discharge Plan Data 05/20/2024 13:21 EST Discharge Level of Care at Discharge Homehealth/VNA Discharge VNA/Hospice/Home Care [facility] [place] Name of Agency #1 [facility] Service Categories #1 Physical Therapy, Assisted Service Comments #1 [facility] will call you to coordinate time for homecare nurse and physical therapy visits. Patient Care team information Care Team Personnel Name: Yogi Landrum RN Position: [facility] RN Member Role: Primary Care Nurse Name: Betsy Diaz DO Position: [facility] Outreach Member Role: PCP Address: [address] [place] [address] Primary [place], [place] [address] Telecom: Name: Nimo Becerra RN Position: S RN Member Role: Primary Care Nurse Name: Ana Genao RN Position: S RN Member Role: Primary Care Nurse Name: Serenity Salcedo RN Position: S RN Member Role: Primary Care Nurse Care Team Related Persons Name: KHADRA HOLMAN Insurance Providers Guarantor name: ALICIA Health Plan Information #: 1 Payer: [facility] Member Number: [id number] Policy Number: NA Group Number: [id number] Health Plan Information #: 2 Payer: [facility] Member Number: [id number] Policy Number: NA Group Number: [id number]
--- OUTSIDE RECORDS SUMMARY | 2024-06-07 09:10 | XMS_ITS | Encounter Summary ---
Author Name [facility] Organization [facility] Address [address] [place] [id number] Care Team Providers Care Actuarial Technician Name Role Phone RISSA MCGRAW Primary [...] [facility] FAM[facility] Y Jun 11, 2001 105 [id number] [phone] Venkat VELASQUEZ AVID PATIENT MEDICARE (WNR) MEDICARE (M) PART B Dec 09, 2008 PART B [id number] Venkat VELASQUEZ AVID PATIENT MEDICARE (WNR) MEDICARE (M) PART B Dec 09, 2008 PART B [id number] Venkat VELASQUEZ AVID PATIENT MEDICARE (WNR) MEDICARE (M) PART B Dec 09, 2008 PART B [id number] [phone] Venkat VELASQUEZ AVID PATIENT MEDICARE (WNR) MEDICARE (M) PART A Jun 11, 2007 PART A [id number] Venkat VELASQUEZ AVID PATIENT MEDICARE (WNR) MEDICARE (M) PART A Jun 11, 2007 PART A [id number] Venkat VELASQUEZ AVID PATIENT MEDICARE (WNR) MEDICARE (M) PART A Jun 11, 2007 PART A [id number] Venkat VELASQUEZ AVID PATIENT Selected Encounter This section includes the information on record at [place] for the Encounter. Date/Time Encounter Type Encounter Description Reason Pro vider Source Jun 06, 2024 02:42 PM Outpatient Encounter PRIMARY CARE/MEDICINE IHE Encounter Template Text not used by [place] Plan of Treatment: Future Appointments (+ 6 months) and Future Tests (+/- 45 days) The Plan of Treatment section includes future care activities for the patient from all [facility] This section includes future appointments and future orders which are active, pending or scheduled. Future Appointments This section includes appointments that were scheduled to occur 6 months from the date of the Encounter, up to a maximum of 20 appointments. The data comes from all [facility]. Appointment Date/Time Appointment Type Appointme nt Facility Name Jun 17, 2024 02:30 PM AMBULATORY - MEDICINE [facility] [place] [facility] Jul 23, 2024 02:30 PM AMBULATORY - MEDICINE [facility] [place] [facility] Jul 31, 2024 10:45 AM AMBULATORY - NONE [facility] [place] [facility] Aug 07, 2024 09:30 AM AMBULATORY - MEDICINE [facility] [place] [facility] Aug 27, 2024 01:00 PM AMBULATORY - NONE [facility] [place] [facility] November 04, 2024 02:00 PM AMBULATORY - MEDICINE [facility] [place] [facility] Active, Pending, and Scheduled Orders This section includes a listing of several types of active, pending, and scheduled orders, including clinic medications orders, diagnostic test orders, procedure orders and consult orders; where the start date of the order is 45 days before the date of the Encounter or 45 days after the date of theEncounter. The data comes from all [facility]. Test Date/Time Test Type Test Details Facility Name May 09, 2024 12:00 AM Laboratory - Chemistry Order MICROALBUMIN CREATININE RATIO PANEL URINE (RANDOM) SP [facility] [place] [facility] May 26, 2024 12:09 PM Procedure Order ECHO CP CARDIOLOGY ECHO/ NHM Proc Golf [facility] Lab Results: +/- 30 days of the encounter This section includes the Chemistry and Hematology Lab Results on record with [place] for the patient. Radiology Reports and Pathology Reports are provided separately, in subsequent sections. Lab Results This section contains the Chemistry/Hematology Results that were resulted 30 days before or 30 daysafter the date of the Encounter. Date/Time Source Result Type Result - Unit Interpretation Reference Range Comment May 16, 2024 11:12 AM [facility] HEMOGLOBIN A1C PANEL Specimen Type: [...] May 09, 2024 07:52 AM Reporting Lab: [address] [id number] Performing Lab: [address] [id number] HEMOGLOBIN A1C 7.2 H 4.0-5.6 May 16, 2024 11:12 AM [facility] BASIC METABOLIC PANEL (fasting) Specimen Type: SERUM No comment entered. Ordering Provider: RISSA MCGRAW Report Released Date/Time: May 09, 2024 07:52 AM Reporting Lab: [facility] [address] [facility] [id number] Performing Lab: [address] [id number] UREA NITROGEN 13 mg/dL 7-25 GLUCOSE 201 [...] and tobacco- related health factors from the NE facility where the Encounter took place. Current Smoking Status This section includes the most current smoking, or tobacco-related health factor, from the NE facility where the Encounter took place. Date/Time Current Smoking Status Comment Facil it May 26, 2024 11:30 AM VA-TOBACCO USE FOR [facility] Tobacco Use History This section includes a history of the smoking, or tobacco-related health factors, that were collected on or before the date of the Encounter. The data comes from the NE facility where the Encounter took place. Date/Time Smoking Status/Tobac co Use Comment Facility May 26, 2024 11:30 AM VA-TOBACCO USE FORMER CIGARETTES [facility] [place] [facility] May 17, 2023 02:16 PM VA-TOBACCO NEVER USED [facility] [place] [facility] May 09, 2022 10:45 AM VA-TOBACCO NEVER USED [facility] [place] [facility] Mar 30, 2021 01:02 PM VA-TOBACCO FORMER USER [facility] [place] [facility] Mar 30, 2021 01:02 PM VA-TOBACCO QUIT 5 TO < 15 YRS [facility] [place] [facility] Aug 31, 2004 09:56 AM HISTORY OF SMOKING QUIT 20 YEARS AGO [facility] [place] [facility] Aug 08, 2004 02:45 PM LIFETIME NON-TOBACCO USER [facility] [place] [facility] Encounter Notes: All associated encounter notes This section contains the clinical notes associated to the Encounter. Date/Time Encounter Note(s) Provider Source Jun 06, 2024 02:42 PM ADMINISTRATIVE NOTE: LOCAL TITLE: ADMINISTRATIVE NOTE STANDARD TITLE: ADMINISTRATIVE NOTE DATE OF NOTE: JUN 06, 2024@14:42 ENTRY DATE: JUN 06, 2024@14:42:18 AUTHOR: KRISTIAN SILVA COSIGNER: URGENCY: STATUS: COMPLETED [facility] CALLED ON THE TELEPHONE TO INFORM OF UPCOMING APPT AND NO LABWORK IS NEEDED,HOWEVER THE CALL WAS NOT ANSWERED AND A MESSAGE WAS LEFT ON [employer]elivIL DESCRIBING UPCOMING APPOINTMENT DETAILS. /elle/ KRISTIAN COLEMAN Signed: 06/06/2024 14:42 [facility]
--- OUTSIDE RECORDS SUMMARY | 2024-06-07 09:55 | XMS_ITS | Clinical Summary ---
Author Organization Unknown Care Team Providers Care Autobody Technician Name Role Phone RISSA MCGRAW DO Unavailable Unavailable ALISON RN, LONA Unavailable Unavailab donnell WHYTE LPN, SAMUEL Unavailable Unavail able ANY PT, ANG Unavailable Unavailable SPAFFORD OT, BARB Unavailable Unavailable VANESA CERTIFIED INDOOR ENVIRONMENTALIST, MALU Unavailable Unavailable CONDINO FLIGHT OPERATIONS MANAGER/ARDON, ABHIJEET Unavailable Unav ailable Payers Payer Name Policy Type Policy Number Effective Date Expira tion Date MEDICARE.[id number] Problems Condition Name Condition Details Condition Category [...] Obesity, class 1 Active 2023-06 00:00: 00 [facility] (CURRENT) USE OF ANTICOAGULAN TS Active 2023-06 00:00: 00 [facility] (CURRENT) USE OF INSULIN Active 2023-06 00:00: 00 [facility] (CURRENT) USE OF ORAL HYPOGLYCEMIC DRUGS Active [...] CONSULTING PHYSICIANS. RN TO OBSERVE AND ASSESS, ASSISTANT DIRECTOR OF RESIDENCE LIFE/GOVERNMENT EMPLOYEE TO OBSERVE FOR RISK FOR FALLS AND INSTRUCT IN FALL PREVENTION, HOME SAFETY, MEDICATION MANAGEMENT, INFECTION PREVENTION, AND NUTRITION MANAGEMENT. RN/ASSISTANT DIRECTOR OF RESIDENCE LIFE/GOVERNMENT EMPLOYEE NURSE MAY PERFORM O2 SATURATION LEVEL ON ADMISSION AND PRN FOR RN TO ASSESS/ASSISTANT DIRECTOR OF RESIDENCE LIFE TO OBSERVE PATIENT, WITH NOTIFICATION TO THE PHYSICIAN IF SATURATION IS 90% IN THE ABSENCE OF MORE SPECIFIC PARAMETERS FROM THE PHYSICIAN. AGENCY MAY PERFORM A RESUMPTION OF CARE VISIT FOLLOWING ANY HOSPITAL ADMISSION. RN/ASSISTANT DIRECTOR OF RESIDENCE LIFE/GOVERNMENT EMPLOYEE TO MONITOR CO-MORBID CONDITIONS LISTED ON THE PLAN OF CARE AND ANY NEW CONDITIONS THAT PRESENT THEMSELVES DURING THIS EPISODE TO IDENTIFY CHANGES AND INTERVENE TO MINIMIZE COMPLICATIONS. [code = RN TO OBSERVE, ASSESS, EVALUATE, AND DEVELOP AN INDIVIDUALIZED PLAN OF CARE. AGENCY MAY ACCEPT ORDERS FROM CONSULTING PHYSICIANS. RN TO OBSERVE AND ASSESS, ASSISTANT DIRECTOR OF RESIDENCE LIFE/GOVERNMENT EMPLOYEE TO OBSERVE FOR RISK FOR FALLS AND INSTRUCT IN FALL PREVENTION, HOME SAFETY, MEDICATION MANAGEMENT, INFECTION PREVENTION, AND NUTRITION MANAGEMENT. RN/ASSISTANT DIRECTOR OF RESIDENCE LIFE/GOVERNMENT EMPLOYEE NURSE MAY PERFORM O2 SATURATION LEVEL ON ADMISSION AND PRN FOR RN TO ASSESS/ASSISTANT DIRECTOR OF RESIDENCE LIFE TO OBSERVE PATIENT, WITH NOTIFICATION TO THE PHYSICIAN IF SATURATION IS 90% IN THE ABSENCE OF MORE SPECIFIC PARAMETERS FROM THE PHYSICIAN. AGENCY MAY PERFORM A RESUMPTION OF CARE VISIT FOLLOWING ANY HOSPITAL ADMISSION. RN/ASSISTANT DIRECTOR OF RESIDENCE LIFE/GOVERNMENT EMPLOYEE TO MONITOR CO-MORBID CONDITIONS LISTED ON THE PLAN OF CARE AND ANY NEW CONDITIONS THAT PRESENT THEMSELVES DURING THIS EPISODE TO IDENTIFY CHANGES AND INTERVENE TO MINIMIZE COMPLICATIONS.] Future Scheduled Test MEDICATION MANAGEMENT; RN/ASSISTANT DIRECTOR OF RESIDENCE LIFE/GOVERNMENT EMPLOYEE TO REVIEW MEDICATIONS FOR INTERACTIONS, EFFECTIVENESS OF DRUG THERAPY, AND SIGNS/SYMPTOMS OF ADVERSE REACTIONS. MAY INSTRUCT AND REINFORCE MEDICATION TEACHING RELATED TO THE USE OF MEDICATIONS, DOSAGE, FREQUENCY, PURPOSE, SIDE EFFECTS, AND TO REPORT COMPLICATIONS. [code = MEDICATION MANAGEMENT; RN/ASSISTANT DIRECTOR OF RESIDENCE LIFE/GOVERNMENT EMPLOYEE TO REVIEW MEDICATIONS FOR INTERACTIONS, EFFECTIVENESS OF DRUG THERAPY, AND SIGNS/SYMPTOMS OF ADVERSE REACTIONS. MAY INSTRUCT AND REINFORCE MEDICATION TEACHING RELATED TO THE USE OF MEDICATIONS, DOSAGE, FREQUENCY, PURPOSE, SIDE EFFECTS, AND TO REPORT COMPLICATIONS.] Future Scheduled Test RISK FOR H OSPITALIZATION; RN TO ASSESS/TEACH, GOVERNMENT EMPLOYEE/ASSISTANT DIRECTOR OF RESIDENCE LIFE TO OBSERVE/TEACH PATIENT/CAREGIVER ON RISK FOR HOSPITALIZATION/EMERGENCY ROOM VISITS, TEACH SIGNS AND SYMPTOMS THAT PUT PATIENT AT RISK, WHEN TO NOTIFY NURSE/PHYSICIAN OF COMPLICATIONS/DECLINE, AND WHEN TO CALL 911. [code = RISK FOR HOSPITALIZATION; RN TO ASSESS/TEACH, GOVERNMENT EMPLOYEE/ASSISTANT DIRECTOR OF RESIDENCE LIFE TO OBSERVE/TEACH PATIENT/CAREGIVER ON RISK FOR HOSPITALIZATION/EMERGENCY ROOM VISITS, TEACH SIGNS AND SYMPTOMS THAT PUT PATIENT AT RISK, WHEN TO NOTIFY NURSE/PHYSICIAN OF COMPLICATIONS/DECLINE, AND WHEN TO CALL 911.] Future Scheduled Test CARDIOVASC ULAR SYSTEM; RN TO ASSESS/TEACH, ASSISTANT DIRECTOR OF RESIDENCE LIFE/GOVERNMENT EMPLOYEE TO OBSERVE/TEACH RELATED TO ALTERED CARDIOVASCULAR STATUS TO MINIMIZE COMPLICATIONS AND REDUCE HOSPITALIZATION. [code = CARDIOVASCULAR SYSTEM; RN TO ASSESS/TEACH, ASSISTANT DIRECTOR OF RESIDENCE LIFE/GOVERNMENT EMPLOYEE TO OBSERVE/TEACH RELATED TO ALTERED CARDIOVASCULAR STATUS TO MINIMIZE COMPLICATIONS AND REDUCE HOSPITALIZATION.] Future Scheduled Test ARRHYTHMIA MANAGEMENT; RN TO ASSESS AND TEACH, ASSISTANT DIRECTOR OF RESIDENCE LIFE/GOVERNMENT EMPLOYEE TO OBSERVE AND TEACH WARNING SIGNS AND SYMPTOMS TO AVOID HOSPITALIZATION. [code = ARRHYTHMIA MANAGEMENT; RN TO ASSESS AND TEACH, ASSISTANT DIRECTOR OF RESIDENCE LIFE/GOVERNMENT EMPLOYEE TO OBSERVE AND TEACH WARNING SIGNS AND SYMPTOMS TO AVOID HOSPITALIZATION.] Future Scheduled Test HYPERTENSI ON MANAGEMENT; RN TO ASSESS AND TEACH, ASSISTANT DIRECTOR OF RESIDENCE LIFE/GOVERNMENT EMPLOYEE TO OBSERVE AND TEACH WARNING SIGNS AND SYMPTOMS TO AVOID HOSPITALIZATION. [code = HYPERTENSION MANAGEMENT; RN TO ASSESS AND TEACH, ASSISTANT DIRECTOR OF RESIDENCE LIFE/GOVERNMENT EMPLOYEE TO OBSERVE AND TEACH WARNING SIGNS AND SYMPTOMS TO AVOID HOSPITALIZATION.] Future Scheduled Test SKIN INTEG RITY RN TO ASSESS AND TEACH, ASSISTANT DIRECTOR OF RESIDENCE LIFE/GOVERNMENT EMPLOYEE TO OBSERVE AND TEACH INTEGUMENTARY STATUS TO IDENTIFY CHANGES AND INTERVENE TO MINIMIZE COMPLICATIONS. PROVIDE SKILLED TEACHING OF GENERAL WOUND AND SKIN CARE AND PREVENTION RELATED TO ACTUAL ALTERED SKIN INTEGRITY [code = SKIN INTEGRITY RN TO ASSESS AND TEACH, ASSISTANT DIRECTOR OF RESIDENCE LIFE/GOVERNMENT EMPLOYEE TO OBSERVE AND TEACH INTEGUMENTARY STATUS TO IDENTIFY CHANGES AND INTERVENE TO MINIMIZE COMPLICATIONS. PROVIDE SKILLED TEACHING OF GENERAL WOUND AND SKIN CARE AND PREVENTION RELATED TO ACTUAL ALTERED SKIN INTEGRITY ] Future Scheduled Test RN/ASSISTANT DIRECTOR OF RESIDENCE LIFE/GOVERNMENT EMPLOYEE TO PERFORM/TEACH PATIENT/CAREGIVER WOUND CARE TO TRAUMA TO RIGHT SECOND TOE: IRRIGATE/CLEANSE WITH NORMAL SALINE APPLY SKIN PREP WAIT 30 SECONDS FOR IT TO DRY APPLY DAILY TO PERFORM WOUNDCARE IN NURSING ABSENCE RN/ASSISTANT DIRECTOR OF RESIDENCE LIFE/GOVERNMENT EMPLOYEE TO PERFORM/TEACH PATIENT/CAREGIVER WOUND CARE TO TRAUMA TO LEFT SECOND TOE: IRRIGATE/CLEANSE WITH NORMAL SALINE APPLY XEROFORM COVER WITH DCD CHANGE 3X WEEKLY AND PRN SOILAGE OR DISPLACEMENT TO PERFORM WOUNDCARE IN NURSING ABSENCE RN/ASSISTANT DIRECTOR OF RESIDENCE LIFE/GOVERNMENT EMPLOYEE TO PERFORM/TEACH PATIENT/CAREGIVER WOUND CARE TO TRAUMA TO LEFT LATERAL CALF: IRRIGATE/CLEANSE WITH NORMAL SALINE APPLY XEROFORM COVER WITH DCD CHANGE 3X WEEKLY AND PRN SOILAGE OR DISPLACEMENT TO PERFORM WOUNDCARE IN NURSING ABSENCE RN/ASSISTANT DIRECTOR OF RESIDENCE LIFE/GOVERNMENT EMPLOYEE TO PERFORM/TEACH PATIENT/CAREGIVER WOUND CARE TO TRAUMA TO RIGHT LATERAL CALF: IRRIGATE/CLEANSE WITH NORMAL SALINE APPLY XEROFORM COVER WITH DCD CHANGE 3X WEEKLY AND PRN SOILAGE OR DISPLACEMENT TO PERFORM WOUNDCARE IN NURSING ABSENCE RN/ASSISTANT DIRECTOR OF RESIDENCE LIFE/GOVERNMENT EMPLOYEE TO PERFORM/TEACH PATIENT/CAREGIVER WOUND CARE TO TRAUMA TO LEFT HAND CLUSTER OF 7 WOUNDS: IRRIGATE/CLEANSE WITH NORMAL SALINE APPLY XEROFORM COVER WITH DCD CHANGE 3X WEEKLY AND PRN SOILAGE OR DISPLACEMENT /PATIENT TO PERFORM WOUNDCARE IN NURSING ABSENCE [code = RN/ASSISTANT DIRECTOR OF RESIDENCE LIFE/GOVERNMENT EMPLOYEE TO PERFORM/TEACH PATIENT/CAREGIVER WOUND CARE TO TRAUMA TO RIGHT SECOND TOE: IRRIGATE/CLEANSE WITH NORMAL SALINE APPLY SKIN PREP WAIT 30 SECONDS FOR IT TO DRY APPLY DAILY TO PERFORM WOUNDCARE IN NURSING ABSENCE RN/ASSISTANT DIRECTOR OF RESIDENCE LIFE/GOVERNMENT EMPLOYEE TO PERFORM/TEACH PATIENT/CAREGIVER WOUND CARE TO TRAUMA TO LEFT SECOND TOE: IRRIGATE/CLEANSE WITH NORMAL SALINE APPLY XEROFORM COVER WITH DCD CHANGE 3X WEEKLY AND PRN SOILAGE OR DISPLACEMENT TO PERFORM WOUNDCARE IN NURSING ABSENCE RN/ASSISTANT DIRECTOR OF RESIDENCE LIFE/GOVERNMENT EMPLOYEE TO PERFORM/TEACH PATIENT/CAREGIVER WOUND CARE TO TRAUMA TO LEFT LATERAL CALF: IRRIGATE/CLEANSE WITH NORMAL SALINE APPLY XEROFORM COVER WITH DCD CHANGE 3X WEEKLY AND PRN SOILAGE OR DISPLACEMENT TO PERFORM WOUNDCARE IN NURSING ABSENCE RN/ASSISTANT DIRECTOR OF RESIDENCE LIFE/GOVERNMENT EMPLOYEE TO PERFORM/TEACH PATIENT/CAREGIVER WOUND CARE TO TRAUMA TO RIGHT LATERAL CALF: IRRIGATE/CLEANSE WITH NORMAL SALINE APPLY XEROFORM COVER WITH DCD CHANGE 3X WEEKLY AND PRN SOILAGE OR DISPLACEMENT TO PERFORM WOUNDCARE IN NURSING ABSENCE RN/ASSISTANT DIRECTOR OF RESIDENCE LIFE/GOVERNMENT EMPLOYEE TO PERFORM/TEACH PATIENT/CAREGIVER WOUND CARE TO TRAUMA TO LEFT HAND CLUSTER OF 7 WOUNDS: IRRIGATE/CLEANSE WITH NORMAL SALINE APPLY XEROFORM COVER WITH DCD CHANGE 3X WEEKLY AND PRN SOILAGE OR DISPLACEMENT /PATIENT TO PERFORM WOUNDCARE IN NURSING ABSENCE] Future Scheduled Test PAIN MANAG EMENT; RN TO ASSESS AND TEACH, GOVERNMENT EMPLOYEE/ASSISTANT DIRECTOR OF RESIDENCE LIFE TO OBSERVE AND TEACH AND PROVIDE EDUCATION ON PAIN MANAGEMENT TECHNIQUES. [code = PAIN MANAGEMENT; RN TO ASSESS AND TEACH, GOVERNMENT EMPLOYEE/ASSISTANT DIRECTOR OF RESIDENCE LIFE TO OBSERVE AND TEACH AND PROVIDE EDUCATION ON PAIN MANAGEMENT TECHNIQUES.] Future Scheduled Test FALL REDUC TION MANAGEMENT; RN TO ASSESS AND TEACH, ASSISTANT DIRECTOR OF RESIDENCE LIFE/GOVERNMENT EMPLOYEE TO OBSERVE AND TEACH ON EDUCATION AND INTERVENTION TO IDENTIFY FALL RISK FACTORS SUCH MEDICATIONS THAT MAY CAUSE DIZZINESS, CHRONIC DISEASES, PSYCHOLOGICAL FACTORS, AND EMPOWER/EDUCATE PATIENT/CAREGIVER TO MINIMIZE FALL RISK. [code = FALL REDUCTION MANAGEMENT; RN TO ASSESS AND TEACH, ASSISTANT DIRECTOR OF RESIDENCE LIFE/GOVERNMENT EMPLOYEE TO OBSERVE AND TEACH ON EDUCATION AND INTERVENTION TO IDENTIFY FALL RISK FACTORS SUCH MEDICATIONS THAT MAY CAUSE DIZZINESS, CHRONIC DISEASES, PSYCHOLOGICAL FACTORS, AND EMPOWER/EDUCATE PATIENT/CAREGIVER TO MINIMIZE FALL RISK.] Future Scheduled Test NEUROLOGIC AL SYSTEM MANAGEMENT; RN TO ASSESS AND TEACH, GOVERNMENT EMPLOYEE/ASSISTANT DIRECTOR OF RESIDENCE LIFE TO OBSERVE AND TEACH RELATED TO ALTERED NEUROLOGICAL STATUS TO MINIMIZE COMPLICATIONS AND REDUCE HOSPITALIZATION. [code = NEUROLOGICAL SYSTEM MANAGEMENT; RN TO ASSESS AND TEACH, GOVERNMENT EMPLOYEE/ASSISTANT DIRECTOR OF RESIDENCE LIFE TO OBSERVE AND TEACH RELATED TO ALTERED NEUROLOGICAL STATUS TO MINIMIZE COMPLICATIONS AND REDUCE HOSPITALIZATION.] Future Scheduled Test DIABETES M ANAGEMENT; RN TO ASSESS AND TEACH, GOVERNMENT EMPLOYEE/ASSISTANT DIRECTOR OF RESIDENCE LIFE TO OBSERVE AND TEACH INSTRUCTIONS OF DIABETIC CARE TO INCLUDE: DIET CCHO, HEART HEALTHY SKIN CARE, SIGNS AND SYMPTOMS OF HYPO/HYPERGLYCEMIA, PROPER ADMINISTRATION OF DIABETIC MEDICATION. RN/GOVERNMENT EMPLOYEE/ASSISTANT DIRECTOR OF RESIDENCE LIFE TO INSTRUCT ON DIABETIC FOOT CARE AND MONITOR FOR SKIN LESIONS ON LOWER EXTREMITIES. BLOOD GLUCOSE TESTING 3X BEFOREMEALS. RN TO ASSESS AND TEACH, GOVERNMENT EMPLOYEE/ASSISTANT DIRECTOR OF RESIDENCE LIFE TO OBSERVE AND TEACH PATIENT/CAREGIVER ABILITY TO PERFORM AND RECORD BLOOD GLUCOSE TESTING ORDERED AND TO REPORT ABNORMAL FINDINGS TO PHYSICIAN. RN/GOVERNMENT EMPLOYEE/ASSISTANT DIRECTOR OF RESIDENCE LIFE MAY PERFORM BLOOD GLUCOSE TEST NEEDED. RN/GOVERNMENT EMPLOYEE/ASSISTANT DIRECTOR OF RESIDENCE LIFE TO REPORT TO PHYSICIAN BLOOD GLUCOSE READINGS GREATER THAN 400 OR LESS THAN 80. RN/GOVERNMENT EMPLOYEE/ASSISTANT DIRECTOR OF RESIDENCE LIFE TO INSTRUCT PATIENT ON IMPORTANCE OF HGBA1C MONITORING, KIDNEY FUNCTION TEST, EYE AND FOOT EXAMS. [code = DIABETES MANAGEMENT; RN TO ASSESS AND TEACH, GOVERNMENT EMPLOYEE/ASSISTANT DIRECTOR OF RESIDENCE LIFE TO OBSERVE AND TEACH INSTRUCTIONS OF DIABETIC CARE TO INCLUDE: DIET CCHO, HEART HEALTHY SKIN CARE, SIGNS AND SYMPTOMS OF HYPO/HYPERGLYCEMIA, PROPER ADMINISTRATION OF DIABETIC MEDICATION. RN/GOVERNMENT EMPLOYEE/ASSISTANT DIRECTOR OF RESIDENCE LIFE TO INSTRUCT ON DIABETIC FOOT CARE AND MONITOR FOR SKIN LESIONS ON LOWER EXTREMITIES. BLOOD GLUCOSE TESTING 3X BEFOREMEALS. RN TO ASSESS AND TEACH, GOVERNMENT EMPLOYEE/ASSISTANT DIRECTOR OF RESIDENCE LIFE TO OBSERVE AND TEACH PATIENT/CAREGIVER ABILITY TO PERFORM AND RECORD BLOOD GLUCOSE TESTING ORDERED AND TO REPORT ABNORMAL FINDINGS TO PHYSICIAN. RN/GOVERNMENT EMPLOYEE/ASSISTANT DIRECTOR OF RESIDENCE LIFE MAY PERFORM BLOOD GLUCOSE TEST NEEDED. RN/GOVERNMENT EMPLOYEE/ASSISTANT DIRECTOR OF RESIDENCE LIFE TO REPORT TO PHYSICIAN BLOOD GLUCOSE READINGS GREATER THAN 400 OR LESS THAN 80. RN/GOVERNMENT EMPLOYEE/ASSISTANT DIRECTOR OF RESIDENCE LIFE TO INSTRUCT PATIENT ON IMPORTANCE OF HGBA1C MONITORING, KIDNEY FUNCTION TEST, EYE AND FOOT EXAMS.] Future Scheduled Test AGENCY MAY PERFORM A RESUMPTION OF CARE VISIT FOLLOWING ANY HOSPITAL ADMISSION. PT TO EVALUATE, OBSERVE / ASSESS, AND MONITOR, CERTIFIED INDOOR ENVIRONMENTALIST TO OBSERVE AND MONITOR, PROVIDE SKILLED THERAPEUTIC INTERVENTION, ACTIVITY, EDUCATION, AND TRAINING TO ADDRESS; PT/CERTIFIED INDOOR ENVIRONMENTALIST TO PROVIDE GAIT TRAINING FOR IMPROVED MOBILITY AND /OR TO NORMALIZE GAIT PATTERN NEUROMUSCULAR RE-EDUCATION / BALANCE / POSTURAL CONTROL (PT) THERAPEUTIC EXERCISES AND ESTABLISHING A HOME EXERCISE PROGRAM (PT/CERTIFIED INDOOR ENVIRONMENTALIST) VESTIBULAR TRAINING ? (PT/CERTIFIED INDOOR ENVIRONMENTALIST) PT/CERTIFIED INDOOR ENVIRONMENTALIST TO PROVIDE STAIR TRAINING PT TO ASSESS / CERTIFIED INDOOR ENVIRONMENTALIST TO MONITOR FOR AND REPORT EARLY SIGNS OF ANTICOAGULANT TOXICITY TO THE PHYSICIAN AND/OR THE RN CLINICAL COMMISSIONING ENGINEER FOR PHYSICIAN NOTIFICATION AND TO PROVIDE PATIENT/CAREGIVER EDUCATION ON ANTICOAGULANT THERAPY PT / CERTIFIED INDOOR ENVIRONMENTALIST TO MONITOR AND EDUCATE ON OXYGEN SATURATION DURING ADLS/IADLS, NOTIFY PHYSICIAN AND/OR THE RN CLINICAL COMMISSIONING ENGINEER FOR PHYSICIAN NOTIFICATION AND IF O2 SATS BELOW PHYSICIAN ORDERED PARAMETERS AFTER 10 MIN OF REST PT / CERTIFIED INDOOR ENVIRONMENTALIST TO MONITOR FOR HYPO/HYPERGLYCEMIA AND CONDUCT ROUTINE FOOT INSPECTIONS. RECORD PATIENT REPORTED BLOOD SUGAR LEVELS AND NOTIFY PHYSICIAN AND/OR THE RN CLINICAL COMMISSIONING ENGINEER FOR PHYSICIAN NOTIFICATION IF BLOOD SUGAR LEVELS ARE OUTSIDE ORDERED PARAMETERS. TEACH PATIENT/CAREGIVER ON DAILY FOOT INSPECTIONS PT/CERTIFIED INDOOR ENVIRONMENTALIST TO IDENTIFY FALL RISK FACTORS; EDUCATE THE PATIENT/CAREGIVER ON WAYS TO REDUCE FALL RISK FACTORS AND ESTABLISH HOME EXERCISE PROGRAM TO MINIMIZE FALL RISK. MAY TEACH THE PATIENT FLOOR RECOVERY WHEN CLINICALLY APPROPRIATE PT / CERTIFIED INDOOR ENVIRONMENTALIST MAY EDUCATE ON PAIN MANAGEMENT CLINICALLY INDICATED, INCLUDING NON-PHARMACOLOGICAL PAIN REDUCTION TECHNIQUES [code = AGENCY MAY PERFORM A RESUMPTION OF CARE VISIT FOLLOWING ANY HOSPITAL ADMISSION. PT TO EVALUATE, OBSERVE / ASSESS, AND MONITOR, CERTIFIED INDOOR ENVIRONMENTALIST TO OBSERVE AND MONITOR, PROVIDE SKILLED THERAPEUTIC INTERVENTION, ACTIVITY, EDUCATION, AND TRAINING TO ADDRESS; PT/CERTIFIED INDOOR ENVIRONMENTALIST TO PROVIDE GAIT TRAINING FOR IMPROVED MOBILITY AND /OR TO NORMALIZE GAIT PATTERN NEUROMUSCULAR RE-EDUCATION / BALANCE / POSTURAL CONTROL (PT) THERAPEUTIC EXERCISES AND ESTABLISHING A HOME EXERCISE PROGRAM (PT/CERTIFIED INDOOR ENVIRONMENTALIST) VESTIBULAR TRAINING ? (PT/CERTIFIED INDOOR ENVIRONMENTALIST) PT/CERTIFIED INDOOR ENVIRONMENTALIST TO PROVIDE STAIR TRAINING PT TO ASSESS / CERTIFIED INDOOR ENVIRONMENTALIST TO MONITOR FOR AND REPORT EARLY SIGNS OF ANTICOAGULANT TOXICITY TO THE PHYSICIAN AND/OR THE RN CLINICAL COMMISSIONING ENGINEER FOR PHYSICIAN NOTIFICATION AND TO PROVIDE PATIENT/CAREGIVER EDUCATION ON ANTICOAGULANT THERAPY PT / CERTIFIED INDOOR ENVIRONMENTALIST TO MONITOR AND EDUCATE ON OXYGEN SATURATION DURING ADLS/IADLS, NOTIFY PHYSICIAN AND/OR THE RN CLINICAL COMMISSIONING ENGINEER FOR PHYSICIAN NOTIFICATION AND IF O2 SATS BELOW PHYSICIAN ORDERED PARAMETERS AFTER 10 MIN OF REST PT / CERTIFIED INDOOR ENVIRONMENTALIST TO MONITOR FOR HYPO/HYPERGLYCEMIA AND CONDUCT ROUTINE FOOT INSPECTIONS. RECORD PATIENT REPORTED BLOOD SUGAR LEVELS AND NOTIFY PHYSICIAN AND/OR THE RN CLINICAL COMMISSIONING ENGINEER FOR PHYSICIAN NOTIFICATION IF BLOOD SUGAR LEVELS ARE OUTSIDE ORDERED PARAMETERS. TEACH PATIENT/CAREGIVER ON DAILY FOOT INSPECTIONS PT/CERTIFIED INDOOR ENVIRONMENTALIST TO IDENTIFY FALL RISK FACTORS; EDUCATE THE PATIENT/CAREGIVER ON WAYS TO REDUCE FALL RISK FACTORS AND ESTABLISH HOME EXERCISE PROGRAM TO MINIMIZE FALL RISK. MAY TEACH THE PATIENT FLOOR RECOVERY WHEN CLINICALLY APPROPRIATE PT / CERTIFIED INDOOR ENVIRONMENTALIST MAY EDUCATE ON PAIN MANAGEMENT CLINICALLY INDICATED, [...] End Date/Time Encounter Type Admission Type Attending [facility] Facility Care Department Encounter ID Discharge Date Discharge Status Discharge Condition Discharge Reason Percent Goals Met 2024-05-22 00:00:00 2024-07-20 00:00:00 Outpatient NEW ADMISSION LONA ROSAS [facility] [id number] 20.69
--- OUTSIDE RECORDS SUMMARY | 2024-06-07 09:55 | XMS_ITS | Clinical Summary ---
Author Organization Unknown Care Team Providers Care Pilot Can Router Name Role Phone RISSA MCGRAW DO Unavailable Unavailable ALISON RN, LONA Unavailable Unavailab donnell WHYTE LPN, SAMUEL Unavailable Unavail able ANY PT, ANG Unavailable Unavailable SPAFFORD OT, BARB Unavailable Unavailable VANESA WEB MARKETING SPECIALIST, MALU Unavailable Unavailable CONDINO ENGINE MANAGER/ARDON, ABHIJEET Unavailable Unav ailable Payers Payer Name Policy Type Policy Number Effective Date Expira tion Date MEDICARE.[id number].[id number] Problems Condition Name Condition Details Condition Category [...] Obesity, class 1 Active 2023-06 00:00: 00 CARE HOME (CURRENT) USE OF ANTICOAGULAN TS Active 2023-06 00:00: 00 CARE HOME (CURRENT) USE OF INSULIN Active 2023-06 00:00: 00 CARE HOME (CURRENT) USE OF ORAL HYPOGLYCEMIC DRUGS Active [...] CONSULTING PHYSICIANS. RN TO OBSERVE AND ASSESS, ORACLE APPLICATION CONSULTANT/JOINERY PATTERNMAKER TO OBSERVE FOR RISK FOR FALLS AND INSTRUCT IN FALL PREVENTION, HOME SAFETY, MEDICATION MANAGEMENT, INFECTION PREVENTION, AND NUTRITION MANAGEMENT. RN/ORACLE APPLICATION CONSULTANT/JOINERY PATTERNMAKER NURSE MAY PERFORM O2 SATURATION LEVEL ON ADMISSION AND PRN FOR RN TO ASSESS/ORACLE APPLICATION CONSULTANT TO OBSERVE PATIENT, WITH NOTIFICATION TO THE PHYSICIAN IF SATURATION IS 90% IN THE ABSENCE OF MORE SPECIFIC PARAMETERS FROM THE PHYSICIAN. AGENCY MAY PERFORM A RESUMPTION OF CARE VISIT FOLLOWING ANY HOSPITAL ADMISSION. RN/ORACLE APPLICATION CONSULTANT/JOINERY PATTERNMAKER TO MONITOR CO-MORBID CONDITIONS LISTED ON THE PLAN OF CARE AND ANY NEW CONDITIONS THAT PRESENT THEMSELVES DURING THIS EPISODE TO IDENTIFY CHANGES AND INTERVENE TO MINIMIZE COMPLICATIONS. [code = RN TO OBSERVE, ASSESS, EVALUATE, AND DEVELOP AN INDIVIDUALIZED PLAN OF CARE. AGENCY MAY ACCEPT ORDERS FROM CONSULTING PHYSICIANS. RN TO OBSERVE AND ASSESS, ORACLE APPLICATION CONSULTANT/JOINERY PATTERNMAKER TO OBSERVE FOR RISK FOR FALLS AND INSTRUCT IN FALL PREVENTION, HOME SAFETY, MEDICATION MANAGEMENT, INFECTION PREVENTION, AND NUTRITION MANAGEMENT. RN/ORACLE APPLICATION CONSULTANT/JOINERY PATTERNMAKER NURSE MAY PERFORM O2 SATURATION LEVEL ON ADMISSION AND PRN FOR RN TO ASSESS/ORACLE APPLICATION CONSULTANT TO OBSERVE PATIENT, WITH NOTIFICATION TO THE PHYSICIAN IF SATURATION IS 90% IN THE ABSENCE OF MORE SPECIFIC PARAMETERS FROM THE PHYSICIAN. AGENCY MAY PERFORM A RESUMPTION OF CARE VISIT FOLLOWING ANY HOSPITAL ADMISSION. RN/ORACLE APPLICATION CONSULTANT/JOINERY PATTERNMAKER TO MONITOR CO-MORBID CONDITIONS LISTED ON THE PLAN OF CARE AND ANY NEW CONDITIONS THAT PRESENT THEMSELVES DURING THIS EPISODE TO IDENTIFY CHANGES AND INTERVENE TO MINIMIZE COMPLICATIONS.] Future Scheduled Test MEDICATION MANAGEMENT; RN/ORACLE APPLICATION CONSULTANT/JOINERY PATTERNMAKER TO REVIEW MEDICATIONS FOR INTERACTIONS, EFFECTIVENESS OF DRUG THERAPY, AND SIGNS/SYMPTOMS OF ADVERSE REACTIONS. MAY INSTRUCT AND REINFORCE MEDICATION TEACHING RELATED TO THE USE OF MEDICATIONS, DOSAGE, FREQUENCY, PURPOSE, SIDE EFFECTS, AND TO REPORT COMPLICATIONS. [code = MEDICATION MANAGEMENT; RN/ORACLE APPLICATION CONSULTANT/JOINERY PATTERNMAKER TO REVIEW MEDICATIONS FOR INTERACTIONS, EFFECTIVENESS OF DRUG THERAPY, AND SIGNS/SYMPTOMS OF ADVERSE REACTIONS. MAY INSTRUCT AND REINFORCE MEDICATION TEACHING RELATED TO THE USE OF MEDICATIONS, DOSAGE, FREQUENCY, PURPOSE, SIDE EFFECTS, AND TO REPORT COMPLICATIONS.] Future Scheduled Test RISK FOR H OSPITALIZATION; RN TO ASSESS/TEACH, JOINERY PATTERNMAKER/ORACLE APPLICATION CONSULTANT TO OBSERVE/TEACH PATIENT/CAREGIVER ON RISK FOR HOSPITALIZATION/EMERGENCY ROOM VISITS, TEACH SIGNS AND SYMPTOMS THAT PUT PATIENT AT RISK, WHEN TO NOTIFY NURSE/PHYSICIAN OF COMPLICATIONS/DECLINE, AND WHEN TO CALL 911. [code = RISK FOR HOSPITALIZATION; RN TO ASSESS/TEACH, JOINERY PATTERNMAKER/ORACLE APPLICATION CONSULTANT TO OBSERVE/TEACH PATIENT/CAREGIVER ON RISK FOR HOSPITALIZATION/EMERGENCY ROOM VISITS, TEACH SIGNS AND SYMPTOMS THAT PUT PATIENT AT RISK, WHEN TO NOTIFY NURSE/PHYSICIAN OF COMPLICATIONS/DECLINE, AND WHEN TO CALL 911.] Future Scheduled Test CARDIOVASC ULAR SYSTEM; RN TO ASSESS/TEACH, ORACLE APPLICATION CONSULTANT/JOINERY PATTERNMAKER TO OBSERVE/TEACH RELATED TO ALTERED CARDIOVASCULAR STATUS TO MINIMIZE COMPLICATIONS AND REDUCE HOSPITALIZATION. [code = CARDIOVASCULAR SYSTEM; RN TO ASSESS/TEACH, ORACLE APPLICATION CONSULTANT/JOINERY PATTERNMAKER TO OBSERVE/TEACH RELATED TO ALTERED CARDIOVASCULAR STATUS TO MINIMIZE COMPLICATIONS AND REDUCE HOSPITALIZATION.] Future Scheduled Test ARRHYTHMIA MANAGEMENT; RN TO ASSESS AND TEACH, ORACLE APPLICATION CONSULTANT/JOINERY PATTERNMAKER TO OBSERVE AND TEACH WARNING SIGNS AND SYMPTOMS TO AVOID HOSPITALIZATION. [code = ARRHYTHMIA MANAGEMENT; RN TO ASSESS AND TEACH, ORACLE APPLICATION CONSULTANT/JOINERY PATTERNMAKER TO OBSERVE AND TEACH WARNING SIGNS AND SYMPTOMS TO AVOID HOSPITALIZATION.] Future Scheduled Test HYPERTENSI ON MANAGEMENT; RN TO ASSESS AND TEACH, ORACLE APPLICATION CONSULTANT/JOINERY PATTERNMAKER TO OBSERVE AND TEACH WARNING SIGNS AND SYMPTOMS TO AVOID HOSPITALIZATION. [code = HYPERTENSION MANAGEMENT; RN TO ASSESS AND TEACH, ORACLE APPLICATION CONSULTANT/JOINERY PATTERNMAKER TO OBSERVE AND TEACH WARNING SIGNS AND SYMPTOMS TO AVOID HOSPITALIZATION.] Future Scheduled Test SKIN INTEG RITY RN TO ASSESS AND TEACH, ORACLE APPLICATION CONSULTANT/JOINERY PATTERNMAKER TO OBSERVE AND TEACH INTEGUMENTARY STATUS TO IDENTIFY CHANGES AND INTERVENE TO MINIMIZE COMPLICATIONS. PROVIDE SKILLED TEACHING OF GENERAL WOUND AND SKIN CARE AND PREVENTION RELATED TO ACTUAL ALTERED SKIN INTEGRITY [code = SKIN INTEGRITY RN TO ASSESS AND TEACH, ORACLE APPLICATION CONSULTANT/JOINERY PATTERNMAKER TO OBSERVE AND TEACH INTEGUMENTARY STATUS TO IDENTIFY CHANGES AND INTERVENE TO MINIMIZE COMPLICATIONS. PROVIDE SKILLED TEACHING OF GENERAL WOUND AND SKIN CARE AND PREVENTION RELATED TO ACTUAL ALTERED SKIN INTEGRITY ] Future Scheduled Test RN/ORACLE APPLICATION CONSULTANT/JOINERY PATTERNMAKER TO PERFORM/TEACH PATIENT/CAREGIVER WOUND CARE TO TRAUMA TO RIGHT SECOND TOE: IRRIGATE/CLEANSE WITH NORMAL SALINE APPLY SKIN PREP WAIT 30 SECONDS FOR IT TO DRY APPLY DAILY TO PERFORM WOUNDCARE IN NURSING ABSENCE RN/ORACLE APPLICATION CONSULTANT/JOINERY PATTERNMAKER TO PERFORM/TEACH PATIENT/CAREGIVER WOUND CARE TO TRAUMA TO LEFT SECOND TOE: IRRIGATE/CLEANSE WITH NORMAL SALINE APPLY XEROFORM COVER WITH DCD CHANGE 3X WEEKLY AND PRN SOILAGE OR DISPLACEMENT TO PERFORM WOUNDCARE IN NURSING ABSENCE RN/ORACLE APPLICATION CONSULTANT/JOINERY PATTERNMAKER TO PERFORM/TEACH PATIENT/CAREGIVER WOUND CARE TO TRAUMA TO LEFT LATERAL CALF: IRRIGATE/CLEANSE WITH NORMAL SALINE APPLY XEROFORM COVER WITH DCD CHANGE 3X WEEKLY AND PRN SOILAGE OR DISPLACEMENT TO PERFORM WOUNDCARE IN NURSING ABSENCE RN/ORACLE APPLICATION CONSULTANT/JOINERY PATTERNMAKER TO PERFORM/TEACH PATIENT/CAREGIVER WOUND CARE TO TRAUMA TO RIGHT LATERAL CALF: IRRIGATE/CLEANSE WITH NORMAL SALINE APPLY XEROFORM COVER WITH DCD CHANGE 3X WEEKLY AND PRN SOILAGE OR DISPLACEMENT TO PERFORM WOUNDCARE IN NURSING ABSENCE RN/ORACLE APPLICATION CONSULTANT/JOINERY PATTERNMAKER TO PERFORM/TEACH PATIENT/CAREGIVER WOUND CARE TO TRAUMA TO LEFT HAND CLUSTER OF 7 WOUNDS: IRRIGATE/CLEANSE WITH NORMAL SALINE APPLY XEROFORM COVER WITH DCD CHANGE 3X WEEKLY AND PRN SOILAGE OR DISPLACEMENT /PATIENT TO PERFORM WOUNDCARE IN NURSING ABSENCE [code = RN/ORACLE APPLICATION CONSULTANT/JOINERY PATTERNMAKER TO PERFORM/TEACH PATIENT/CAREGIVER WOUND CARE TO TRAUMA TO RIGHT SECOND TOE: IRRIGATE/CLEANSE WITH NORMAL SALINE APPLY SKIN PREP WAIT 30 SECONDS FOR IT TO DRY APPLY DAILY TO PERFORM WOUNDCARE IN NURSING ABSENCE RN/ORACLE APPLICATION CONSULTANT/JOINERY PATTERNMAKER TO PERFORM/TEACH PATIENT/CAREGIVER WOUND CARE TO TRAUMA TO LEFT SECOND TOE: IRRIGATE/CLEANSE WITH NORMAL SALINE APPLY XEROFORM COVER WITH DCD CHANGE 3X WEEKLY AND PRN SOILAGE OR DISPLACEMENT TO PERFORM WOUNDCARE IN NURSING ABSENCE RN/ORACLE APPLICATION CONSULTANT/JOINERY PATTERNMAKER TO PERFORM/TEACH PATIENT/CAREGIVER WOUND CARE TO TRAUMA TO LEFT LATERAL CALF: IRRIGATE/CLEANSE WITH NORMAL SALINE APPLY XEROFORM COVER WITH DCD CHANGE 3X WEEKLY AND PRN SOILAGE OR DISPLACEMENT TO PERFORM WOUNDCARE IN NURSING ABSENCE RN/ORACLE APPLICATION CONSULTANT/JOINERY PATTERNMAKER TO PERFORM/TEACH PATIENT/CAREGIVER WOUND CARE TO TRAUMA TO RIGHT LATERAL CALF: IRRIGATE/CLEANSE WITH NORMAL SALINE APPLY XEROFORM COVER WITH DCD CHANGE 3X WEEKLY AND PRN SOILAGE OR DISPLACEMENT TO PERFORM WOUNDCARE IN NURSING ABSENCE RN/ORACLE APPLICATION CONSULTANT/JOINERY PATTERNMAKER TO PERFORM/TEACH PATIENT/CAREGIVER WOUND CARE TO TRAUMA TO LEFT HAND CLUSTER OF 7 WOUNDS: IRRIGATE/CLEANSE WITH NORMAL SALINE APPLY XEROFORM COVER WITH DCD CHANGE 3X WEEKLY AND PRN SOILAGE OR DISPLACEMENT /PATIENT TO PERFORM WOUNDCARE IN NURSING ABSENCE] Future Scheduled Test PAIN MANAG EMENT; RN TO ASSESS AND TEACH, JOINERY PATTERNMAKER/ORACLE APPLICATION CONSULTANT TO OBSERVE AND TEACH AND PROVIDE EDUCATION ON PAIN MANAGEMENT TECHNIQUES. [code = PAIN MANAGEMENT; RN TO ASSESS AND TEACH, JOINERY PATTERNMAKER/ORACLE APPLICATION CONSULTANT TO OBSERVE AND TEACH AND PROVIDE EDUCATION ON PAIN MANAGEMENT TECHNIQUES.] Future Scheduled Test FALL REDUC TION MANAGEMENT; RN TO ASSESS AND TEACH, ORACLE APPLICATION CONSULTANT/JOINERY PATTERNMAKER TO OBSERVE AND TEACH ON EDUCATION AND INTERVENTION TO IDENTIFY FALL RISK FACTORS SUCH MEDICATIONS THAT MAY CAUSE DIZZINESS, CHRONIC DISEASES, PSYCHOLOGICAL FACTORS, AND EMPOWER/EDUCATE PATIENT/CAREGIVER TO MINIMIZE FALL RISK. [code = FALL REDUCTION MANAGEMENT; RN TO ASSESS AND TEACH, ORACLE APPLICATION CONSULTANT/JOINERY PATTERNMAKER TO OBSERVE AND TEACH ON EDUCATION AND INTERVENTION TO IDENTIFY FALL RISK FACTORS SUCH MEDICATIONS THAT MAY CAUSE DIZZINESS, CHRONIC DISEASES, PSYCHOLOGICAL FACTORS, AND EMPOWER/EDUCATE PATIENT/CAREGIVER TO MINIMIZE FALL RISK.] Future Scheduled Test NEUROLOGIC AL SYSTEM MANAGEMENT; RN TO ASSESS AND TEACH, JOINERY PATTERNMAKER/ORACLE APPLICATION CONSULTANT TO OBSERVE AND TEACH RELATED TO ALTERED NEUROLOGICAL STATUS TO MINIMIZE COMPLICATIONS AND REDUCE HOSPITALIZATION. [code = NEUROLOGICAL SYSTEM MANAGEMENT; RN TO ASSESS AND TEACH, JOINERY PATTERNMAKER/ORACLE APPLICATION CONSULTANT TO OBSERVE AND TEACH RELATED TO ALTERED NEUROLOGICAL STATUS TO MINIMIZE COMPLICATIONS AND REDUCE HOSPITALIZATION.] Future Scheduled Test DIABETES M ANAGEMENT; RN TO ASSESS AND TEACH, JOINERY PATTERNMAKER/ORACLE APPLICATION CONSULTANT TO OBSERVE AND TEACH INSTRUCTIONS OF DIABETIC CARE TO INCLUDE: DIET CCHO, HEART HEALTHY SKIN CARE, SIGNS AND SYMPTOMS OF HYPO/HYPERGLYCEMIA, PROPER ADMINISTRATION OF DIABETIC MEDICATION. RN/JOINERY PATTERNMAKER/ORACLE APPLICATION CONSULTANT TO INSTRUCT ON DIABETIC FOOT CARE AND MONITOR FOR SKIN LESIONS ON LOWER EXTREMITIES. BLOOD GLUCOSE TESTING 3X BEFOREMEALS. RN TO ASSESS AND TEACH, JOINERY PATTERNMAKER/ORACLE APPLICATION CONSULTANT TO OBSERVE AND TEACH PATIENT/CAREGIVER ABILITY TO PERFORM AND RECORD BLOOD GLUCOSE TESTING ORDERED AND TO REPORT ABNORMAL FINDINGS TO PHYSICIAN. RN/JOINERY PATTERNMAKER/ORACLE APPLICATION CONSULTANT MAY PERFORM BLOOD GLUCOSE TEST NEEDED. RN/JOINERY PATTERNMAKER/ORACLE APPLICATION CONSULTANT TO REPORT TO PHYSICIAN BLOOD GLUCOSE READINGS GREATER THAN 400 OR LESS THAN 80. RN/JOINERY PATTERNMAKER/ORACLE APPLICATION CONSULTANT TO INSTRUCT PATIENT ON IMPORTANCE OF HGBA1C MONITORING, KIDNEY FUNCTION TEST, EYE AND FOOT EXAMS. [code = DIABETES MANAGEMENT; RN TO ASSESS AND TEACH, JOINERY PATTERNMAKER/ORACLE APPLICATION CONSULTANT TO OBSERVE AND TEACH INSTRUCTIONS OF DIABETIC CARE TO INCLUDE: DIET CCHO, HEART HEALTHY SKIN CARE, SIGNS AND SYMPTOMS OF HYPO/HYPERGLYCEMIA, PROPER ADMINISTRATION OF DIABETIC MEDICATION. RN/JOINERY PATTERNMAKER/ORACLE APPLICATION CONSULTANT TO INSTRUCT ON DIABETIC FOOT CARE AND MONITOR FOR SKIN LESIONS ON LOWER EXTREMITIES. BLOOD GLUCOSE TESTING 3X BEFOREMEALS. RN TO ASSESS AND TEACH, JOINERY PATTERNMAKER/ORACLE APPLICATION CONSULTANT TO OBSERVE AND TEACH PATIENT/CAREGIVER ABILITY TO PERFORM AND RECORD BLOOD GLUCOSE TESTING ORDERED AND TO REPORT ABNORMAL FINDINGS TO PHYSICIAN. RN/JOINERY PATTERNMAKER/ORACLE APPLICATION CONSULTANT MAY PERFORM BLOOD GLUCOSE TEST NEEDED. RN/JOINERY PATTERNMAKER/ORACLE APPLICATION CONSULTANT TO REPORT TO PHYSICIAN BLOOD GLUCOSE READINGS GREATER THAN 400 OR LESS THAN 80. RN/JOINERY PATTERNMAKER/ORACLE APPLICATION CONSULTANT TO INSTRUCT PATIENT ON IMPORTANCE OF HGBA1C MONITORING, KIDNEY FUNCTION TEST, EYE AND FOOT EXAMS.] Future Scheduled Test AGENCY MAY PERFORM A RESUMPTION OF CARE VISIT FOLLOWING ANY HOSPITAL ADMISSION. PT TO EVALUATE, OBSERVE / ASSESS, AND MONITOR, WEB MARKETING SPECIALIST TO OBSERVE AND MONITOR, PROVIDE SKILLED THERAPEUTIC INTERVENTION, ACTIVITY, EDUCATION, AND TRAINING TO ADDRESS; PT/WEB MARKETING SPECIALIST TO PROVIDE GAIT TRAINING FOR IMPROVED MOBILITY AND /OR TO NORMALIZE GAIT PATTERN NEUROMUSCULAR RE-EDUCATION / BALANCE / POSTURAL CONTROL (PT) THERAPEUTIC EXERCISES AND ESTABLISHING A HOME EXERCISE PROGRAM (PT/WEB MARKETING SPECIALIST) VESTIBULAR TRAINING ? (PT/WEB MARKETING SPECIALIST) PT/WEB MARKETING SPECIALIST TO PROVIDE STAIR TRAINING PT TO ASSESS / WEB MARKETING SPECIALIST TO MONITOR FOR AND REPORT EARLY SIGNS OF ANTICOAGULANT TOXICITY TO THE PHYSICIAN AND/OR THE RN CLINICAL SENIOR SVP FOR PHYSICIAN NOTIFICATION AND TO PROVIDE PATIENT/CAREGIVER EDUCATION ON ANTICOAGULANT THERAPY PT / WEB MARKETING SPECIALIST TO MONITOR AND EDUCATE ON OXYGEN SATURATION DURING ADLS/IADLS, NOTIFY PHYSICIAN AND/OR THE RN CLINICAL SENIOR SVP FOR PHYSICIAN NOTIFICATION AND IF O2 SATS BELOW PHYSICIAN ORDERED PARAMETERS AFTER 10 MIN OF REST PT / WEB MARKETING SPECIALIST TO MONITOR FOR HYPO/HYPERGLYCEMIA AND CONDUCT ROUTINE FOOT INSPECTIONS. RECORD PATIENT REPORTED BLOOD SUGAR LEVELS AND NOTIFY PHYSICIAN AND/OR THE RN CLINICAL SENIOR SVP FOR PHYSICIAN NOTIFICATION IF BLOOD SUGAR LEVELS ARE OUTSIDE ORDERED PARAMETERS. TEACH PATIENT/CAREGIVER ON DAILY FOOT INSPECTIONS PT/WEB MARKETING SPECIALIST TO IDENTIFY FALL RISK FACTORS; EDUCATE THE PATIENT/CAREGIVER ON WAYS TO REDUCE FALL RISK FACTORS AND ESTABLISH HOME EXERCISE PROGRAM TO MINIMIZE FALL RISK. MAY TEACH THE PATIENT FLOOR RECOVERY WHEN CLINICALLY APPROPRIATE PT / WEB MARKETING SPECIALIST MAY EDUCATE ON PAIN MANAGEMENT CLINICALLY INDICATED, INCLUDING NON-PHARMACOLOGICAL PAIN REDUCTION TECHNIQUES [code = AGENCY MAY PERFORM A RESUMPTION OF CARE VISIT FOLLOWING ANY HOSPITAL ADMISSION. PT TO EVALUATE, OBSERVE / ASSESS, AND MONITOR, WEB MARKETING SPECIALIST TO OBSERVE AND MONITOR, PROVIDE SKILLED THERAPEUTIC INTERVENTION, ACTIVITY, EDUCATION, AND TRAINING TO ADDRESS; PT/WEB MARKETING SPECIALIST TO PROVIDE GAIT TRAINING FOR IMPROVED MOBILITY AND /OR TO NORMALIZE GAIT PATTERN NEUROMUSCULAR RE-EDUCATION / BALANCE / POSTURAL CONTROL (PT) THERAPEUTIC EXERCISES AND ESTABLISHING A HOME EXERCISE PROGRAM (PT/WEB MARKETING SPECIALIST) VESTIBULAR TRAINING ? (PT/WEB MARKETING SPECIALIST) PT/WEB MARKETING SPECIALIST TO PROVIDE STAIR TRAINING PT TO ASSESS / WEB MARKETING SPECIALIST TO MONITOR FOR AND REPORT EARLY SIGNS OF ANTICOAGULANT TOXICITY TO THE PHYSICIAN AND/OR THE RN CLINICAL SENIOR SVP FOR PHYSICIAN NOTIFICATION AND TO PROVIDE PATIENT/CAREGIVER EDUCATION ON ANTICOAGULANT THERAPY PT / WEB MARKETING SPECIALIST TO MONITOR AND EDUCATE ON OXYGEN SATURATION DURING ADLS/IADLS, NOTIFY PHYSICIAN AND/OR THE RN CLINICAL SENIOR SVP FOR PHYSICIAN NOTIFICATION AND IF O2 SATS BELOW PHYSICIAN ORDERED PARAMETERS AFTER 10 MIN OF REST PT / WEB MARKETING SPECIALIST TO MONITOR FOR HYPO/HYPERGLYCEMIA AND CONDUCT ROUTINE FOOT INSPECTIONS. RECORD PATIENT REPORTED BLOOD SUGAR LEVELS AND NOTIFY PHYSICIAN AND/OR THE RN CLINICAL SENIOR SVP FOR PHYSICIAN NOTIFICATION IF BLOOD SUGAR LEVELS ARE OUTSIDE ORDERED PARAMETERS. TEACH PATIENT/CAREGIVER ON DAILY FOOT INSPECTIONS PT/WEB MARKETING SPECIALIST TO IDENTIFY FALL RISK FACTORS; EDUCATE THE PATIENT/CAREGIVER ON WAYS TO REDUCE FALL RISK FACTORS AND ESTABLISH HOME EXERCISE PROGRAM TO MINIMIZE FALL RISK. MAY TEACH THE PATIENT FLOOR RECOVERY WHEN CLINICALLY APPROPRIATE PT / WEB MARKETING SPECIALIST MAY EDUCATE ON PAIN MANAGEMENT CLINICALLY INDICATED, [...] Encounter Type Admission Type Attending [facility] Facility Care Department Encounter ID Discharge Date Discharge Status Discharge Condition Discharge Reason Percent Goals Met 2024-05-22 00:00:00 2024-07-20 00:00:00 Outpatient NEW ADMISSION LONA ROSAS [facility] [id number] 20.69
--- NOTE | 2024-06-07 10:12 | ED_ITS ---
HPI - General Adult General Chief complaint: Extremity Injury, Lower Stated complaint: fall 2 weeks ago, knee pain Time Seen by Provider: 06/07/24 09:43 Source: patient Mode of arrival: ambulatory Limitations: no limitations History of Present Illness ED Provider: Michela Rodgers PA-C HPI narrative: Patient is a 78 year old assigned male at with a history of DM presenting to the emergency department today with left knee pain. Patient states that 2 weeks ago he fell going down his stairs and hyperextended his left knee. Patient states that he has had pain whenever he puts pressure on it ever since but he is able to ambulate. Patient denies any head strike with the incident, loss of consciousness with the incident, dizziness, lightheadedness, abdominal pain, nausea, vomiting, fever, chills, blurry vision, double vision, loss of vision, chest pain, difficulty breathing, shortness of breath, back pain, night sweats, pain with urination, increased urinary frequency, increased urinary urgency, blood in his urine or stool, syncope or a near syncopal episode, bowel incontinence, bladder incontinence, or any other complaints at this time. Onset (ago): week(s) (2) Location: left and lower extremity Relieving factors: none Exacerbating factors: other (standing / walking) Associated symptoms: denies other symptoms Treatments prior to arrival: none Related Data Allergies Allergy/AdvReac Type Severity Reaction Status Date / Time SHRIMP Allergy Nausea and Uncoded 06/07/24 09:04 Vomiting Review of Systems Constitutional: Constitutional: Reports no additional constitutional complaints, Denies chills, Denies fever(s) and Denies night sweats Eyes: Eyes: Reports no additional eye complaints, Denies blurry vision, Denies change in vision, Denies diplopia, Denies eye discharge, Denies loss of vision and Denies eye pain ENT: Denies dizziness Cardiovascular: Cardiovascular: Reports no additional cardiovascular complaints, Denies chest pain, Denies lightheadedness, Denies Loss of Consciousness and Denies dyspnea Respiratory: Respiratory: Reports no additional respiratory complaints and Denies dyspnea Gastrointestinal: Gastrointestinal: Reports no additional gastrointestinal complaints, Denies abdominal pain, Denies melena, Denies hematochezia, Denies change in bowel habits and Denies change in stool character Genitourinary: Genitourinary: Reports no additional male genitourinary complaints, Denies hematuria, Denies oliguria, Denies difficulty urinating, Denies dysuria, Denies urinary frequency, Denies urinary hesitancy, Denies urinary incontinence and Denies urinary urgency Musculoskeletal: Musculoskeletal: Reports no additional musculoskeletal complaints, Denies numbness and Denies tingling Comments: left knee pain Neurologic: Denies dizziness, Denies loss of vision, Denies numbness and Denies tingling Psychiatric: Psychiatric: Reports no additional psychiatric complaints Endocrine: Endocrine: Reports no additional endocrine complaints Hematologic/Lymphatic: Hematologic/Lymphatic: Reports no additional hematologic/lymphatic complaints Allergic/Immunologic: Allergic/Immunologic: Reports no additional allergic/immunologic complaints PMFSH Past Medical History Attestation statement: The following information was validated with the patient. Source: old records reviewed and nursing notes reviewed Medical History PTSD (post-traumatic stress disorder) TBI (traumatic brain injury) Afib Diabetes Surgical History Hx of vasectomy Social History Social History Advance Directives: No Advance Directives Information Provided: Yes Do you have a plan to hurt others: No Plan Physical Exam ED Vital Signs: Vital Signs - 24 hr 06/07/24 08:58 06/07/24 11:06 Temperature 98.0 F 98 F Pulse Rate 59 59 Respiratory Rate 20 18 Blood Pressure 125/55 L 125/55 L Pulse Oximetry 94 98 Oxygen Delivery Method Room Air Room Air BMI result Body Mass Index 29.5 Const General: cooperative, no acute distress, alert and awake Nutritional Appearance: well nourished Orientation/consciousness: patient oriented x3 Limitations: no limitations [facility] Head: Yes normal to inspection and Yes atraumatic Ears: hearing grossly normal bilaterally and external ears normal General nose exam: Normal external nose present, no nasal discharge noted and no epistaxis Face and sinus: Yes normal facial exam, No abrasion and No laceration Mouth: Normal oral and palatal mucosa present, no drooling and no muffled voice Eyes General: appearance normal, both eyes and all related structures Periorbital: periorbital findings normal Eyelids: Yes eyelids normal Conjunctivae: conjunctivae normal Pupils: Equal, round and reactive pupils present EOM: EOMs intact bilaterally Neck Neck: Yes normal visual inspection, Yes full ROM and Yes no lymphadenopathy Chest Chest palpation & inspection: normal inspection of the chest Resp Effort & Inspection: normal respiratory effort and able to speak in complete sentences GI Inspection: Yes normal to inspection Neuro General: patient oriented x3 and moves all extremities Cranial nerves: Yes Equal, round and reactive pupils present Cognition (Neuro): normal cognition Extrem General: Yes normal to inspection, Yes full ROM and Yes capillary refill normal Psych Appearance: grossly normal Mental Status: mental status grossly normal Affect: normal affect Attitude: cooperative Thought process: Normal thought process present Thought content: Normal thought content present Insight: Good insight present (Psych) Medical Decision Making Medical Decision Making MDM Narrative: Patient is a 78 year old assigned male at with a history of DM presenting to the emergency department today with left knee pain. Patient's physical exam was unremarkable. Patient's left knee x-ray showed no acute process. I explained my physical exam findings as well as all test results to the patient. I answered all questions asked by the patient. I stressed the importance of the patient taking his medication as directed (either prescribed or as the over the counter packaging recommends). I stressed the importance of the patient following up with his primary care provider and an orthopedic provider. I stressed the importance of the patient returning to the emergency department immediately if his symptoms were to worsen or if he were to develop any dizziness, shortness of breath, difficulty breathing, chest pain, blurry vision, loss of vision, nausea, vomiting, abdominal pain, fever, chills, back pain, or any other complaints. Patient verbalized agreement and understanding with this treatment plan and discharge. Differential Diagnosis Differential Diagnoses: The differential diagnosis associated with the presentation includes Left knee pain Left knee strain Left knee sprain Left knee fracture Left patella fracture Admission/Observation Consideration of admission/observation: Escalation of care including admissi on/observation considered Patient would have been admitted to the hospital had his work up had any findings where hospital admission was appropriate and his clinical presentation warranted hospital admission. Independent Interpretation I performed an independent interpretation of an: Plain X-Ray Interpretation: My interpretation is in agreement with the radiologist's impression of this imaging study. CLINICAL HISTORY: pain fall 4 views left knee Comparison: None Findings: No fractures, subluxations or dislocations. Mild joint space narrowing medial and lateral knee compartment. No osteochondral lesions or loose bodies. Normal patellar alignment. No suprapatellar joint effusion.No prepatellar soft tissue swelling. Mild calcified atherosclerotic disease. No unusual radiopaque foreign body. Impression: 1. No acute fractures or malalignment This document has been electronically signed by: Inderjit Cutler MD on 06/07/2024 10:51:51 Dictated By: Inderjit Cutler MD Signed By: Electronically signed by Inderjit Cutler MD 06/07/24 1052 Radiology Impression Discussion of test interpretation with radiology: I have reviewed the radiologist's reading. Tests considered The following testing was considered but not selected: I considered obtaining a CT of the head and the c-spine given the patient's age, medical history, and mechanism of injury. The patient declined this testing. Chronic Conditions Patient?s care impacted by: Diabetes Discharge Plan Discharge Clinical Impression: Acute knee pain Patient Disposition: Home, Self-Care Instructions: Knee Pain (ED) Additional Instructions: Thank you for your service to our country. Follow up with your primary care provider and an orthopedic provider. Return to the emergency department immediately if your symptoms worsen or if you develop any dizziness, shortness of breath, difficulty breathing, chest pain, blurry vision, loss of vision, nausea, vomiting, abdominal pain, fever, chills, back pain, or any other complaints. Referrals: [facility] [Provider Group] (Call to establish and follow up with a primary care provider. If you already have a primary care provider, please follow up with them (it wasn't listed in our system).) [facility] [Provider Group] (Call to establish and follow up with a primary care provider. If you already have a primary care provider, please follow up with them (it wasn't listed in our system).) [facility] [Provider Group] (Call to establish and follow up with a primary care provider. If you already have a primary care provider, please follow up with them (it wasn't listed in our system).) [facility] [Provider Group] (Call to establish and follow up with an orthopedic (bone, muscle, ligament, tendon specialist).) Interventions: ED Discharge Assessment Last Done: 06/07/24 11:06 Discharge Date/Time: 06/07/24 11:07 Print Language: Italian
[2024-06-07 11:06] VITALS: BP 125/55; PULSE 59; RESP 18; TEMP 36.6; O2SAT 98
== END 2024-06-07 11:07 | disposition home or self-care (01) ==
PROVIDERS: Emergency Provider Emergency Medicine
DX: G89.11 Acute pain due to trauma (principal); M25.562 Pain in left knee; E11.9 Type 2 diabetes mellitus without complications; I48.91 Unspecified atrial fibrillation; Z87.820 Personal history of traumatic brain injury
CPT/HCPCS: 73564; 99282; 99283

== ENCOUNTER → 2024-06-07 09:06 | Outpatient (BNV) | payer MEDICARE, SELFPAY | PROVIDERS: Emergency Provider Emergency Medicine; Visit Provider Radiology Diagnostic Radiology | DX: M25.562 Pain in left knee (principal) | CPT/HCPCS: 73564 ==